=== PATIENT | male | born 1945 | race Asian ===

== ENCOUNTER 2016-05-26 11:49 | Inpatient (IN) | payer OTHER, MEDICARE ==
[2016-05-26] MEDS ORDERED: LETS SOLN TOPICAL 1 EA SYR TP ONE (12:28)
--- NOTE | 2016-05-26 13:09 | EDPHY ---
H & P Time Seen by Provider: 05/26/16 12:58 HPI/ROS: CHIEF COMPLAINT: left lower posterior headache, weakness HISTORY OF PRESENT ILLNESS: Patient is a 70-year-old male with a history of non -small cell lung cancer, currently undergoing chemotherapy, previous C diff colitis, who presents to the emergency department with multiple complaints. Patient states he has had left posterior lower headache for the past 2 weeks. It has been fairly constant but waxes and wanes. It has been worse today. He states when he has episodes of severe headache he also develops right arm weakness and is unable to raise it over his head. Underwent acupuncture for this symptom but is not improved. He had a fever last night to 100.0. His fever defervesced this morning. He has had nausea with no vomiting. 1 episode of diarrhea. This is not bloody or black. He describes generalized weakness over the past few days. He is unable to eat food because he has no appetite. REVIEW OF SYSTEMS: My complete review of systems is negative except as mentioned in the HPI. Past Medical/Surgical History: Includes non-small cell lung cancer, C diff colitis, coronary artery disease, hypertension Past surgical history: Includes left upper lobe resection, cholecystitis back to me secondary to a necrotic gallbladder, cardiac stent placement Family history: Noncontributory new Social history: The patient is and lives with his . He does not smoke or use alcohol. Smoking Status: Former smoker Physical Exam: Vitals noted. 37.1, 142/90, 122, 16, 92% on room air GENERAL: No acute distress, alert. HEENT: Eyes normal to inspection, normal pharynx, no signs of dehydration. NECK: No thyromegaly, no lymphadenopathy, supple. RESPIRATORY: decreased breath sounds left upper lobe. Right chest clear. CVS: Regular rate and rhythm, no rubs, murmurs, or gallops. ABDOMEN: Soft, nontender, nondistended, no organomegaly. BACK: Normal to inspection, no CVA tenderness. SKIN: Normal color, no rash, warm, dry. No pallor. EXTREMITIES: No pedal edema, no calf tenderness, no Homans sign or cords, no joint swelling. NEURO/PSYCH: Higher functions: Alert and Oriented x3. Normal speech and cognition. Normal mood and affect. Cranial nerves: Normal as tested. Cerebellar: Normal as tested. Good finger to nose, good [id number] Peripheral exam: Normal motor exam. Normal sensation. Constitutional: Initial Vital Signs Temperature (C) 37.1 C 05/26/16 12:00 Heart Rate 122 H 05/26/16 12:00 Respiratory Rate 16 05/26/16 12:00 Blood Pressure 142/90 H 05/26/16 12:00 O2 Sat (%) 92 05/26/16 12:00 O2 Delivery Mode Room Air O2 (L/minute) 2 Allergies/Adverse Reactions: allopurinol Allergy (Verified 03/07/16 22:51) amlodipine Allergy (Verified 03/07/16 22:51) atorvastatin calcium [From Lipitor] Allergy (Verified 03/07/16 22:51) Other-Enter Comments ezetimibe [From Zetia] Allergy (Verified 03/07/16 22:51) lisinopril Allergy (Verified 03/07/16 22:51) Other-Enter Comments losartan potassium [From Cozaar] Allergy (Verified 03/07/16 22:51) GOUT morphine Allergy (Verified 03/07/16 22:51) pitavastatin calcium [From Livalo] Allergy (Verified 03/07/16 22:51) pravastatin Allergy (Verified 03/07/16 22:51) rosuvastatin calcium [From Crestor] Allergy (Verified 03/07/16 22:51) spironolactone Allergy (Verified 03/07/16 22:51) Home Medications: Medication Instructions Recorded Ondansetron [Ondansetron Odt] 4 - 8 mg PO DAILY PRN 03/19/15 Metoprolol Succinate Xr [Toprol Xl 75 mg PO DAILY PRN 12/22/15 25 mg (*)] Gluc Oxid/l-Peroxid/Muramidase 5 - 10 ml MM DAILY PRN 01/30/16 [Biotene Mouthwash (*)] Aspirin [Aspirin 81mg (*)] 81 mg PO HS 03/08/16 Calcium Carbonate/Vitamin D3 1 each PO DAILY 03/08/16 [Calcium 600-Vit D3 400 Tablet] Chemotherapy Iv 1 ea IV Q14D 03/08/16 Magnesium Oxide 250 mg PO DAILY 03/08/16 predniSONE 10 mg PO BID 03/08/16 Methocarbamol [Robaxin 750 mg (*)] 750 mg PO Q6-8PRN PRN #60 tab 03/11/16 LORazepam [Ativan (*)] 1 mg PO TID PRN 04/05/16 Metronidazole 500 mg PO TID #42 tablet 04/07/16 Medical Decision Making - Diagnostics EKG Interpretation: Sinus tachycardia at 109. Normal axis. Normal intervals. Patient has significant transition at V2 with prominent R-wave. Flipped T-wave in V5. I compared this with the previous EKG from 02/20/2016. The R wave changes were present. ED Course/Re-evaluation: In the emergency department I took history from the patient and his . I discussed the plan and answered all their questions. IV was placed. Patient was given normal saline 1 L for hydration. Laboratory studies, EKG, head and neck CTs and chest x-ray were ordered. Patient's white count is elevated 13,000. Previous white count was 5000. He is mildly anemic. Patient's chemistry panel is unremarkable. His lactate is 1.5. I discussed the result with the patient. Chest x-ray: Please refer the dictated report. I discussed imaging studies with Dr. Hardwick from Radiology. The patient has a new right middle lobe lung pneumonia. There is old effusion present. I discussed the results and plan with patient. Levaquin 750 mg IV was written. I paged the hospitalist service for admission. Differential Diagnosis: My differential includes but is not limited to lung cancer, hemothorax, pneumothorax, empyema, pneumonia, bronchitis, subarachnoid hemorrhage, subdural hematoma, epidural hematoma, dissection, aneurysm, intracranial mass, electrolyte abnormality, sugar abnormality, ACS, acute AL Critical Care Time: Patient required 35 minutes of critical care time. This was exclusive of any unbundled procedure. This was due to the patient's altered vital signs, numerous complaints, extensive past medical history, need for consultation with Internal Medicine and oncology. I spent considerable time at the patient's bedside discussing the plan with the patient and his . - Data Points Laboratory Results: Laboratory Results 05/26/16 13:10 05/26/16 13:10 05/26/16 13:10 WBC 13.28 H 10^3/uL (3.80-9.50) RBC 4.09 L 10^6/uL (4.40-6.38) Hgb 13.6 L g/dL (13.7-17.5) Hct 39.8 L % (40.0-51.0) MCV 97.3 fL (81.5-99.8) MCH 33.3 pg (27.9-34.1) MCHC 34.2 g/dL (32.4-36.7) RDW 14.0 % (11.5-15.2) Plt Count 216 10^3/uL (150-400) MPV 9.0 fL (8.7-11.7) Neut % (Auto) 88.0 H % (39.3-74.2) Lymph % (Auto) 4.7 L % (15.0-45.0) [place] % (Auto) 6.5 % (4.5-13.0) Eos % (Auto) 0.0 L % (0.6-7.6) Baso % (Auto) 0.4 % (0.3-1.7) Nucleat RBC Rel Count 0.0 % (0.0-0.2) Absolute Neuts (auto) 11.70 H 10^3/uL (1.70-6.50) Absolute Lymphs (auto) 0.62 L 10^3/uL (1.00-3.00) Absolute Monos (auto) 0.86 H 10^3/uL (0.30-0.80) Absolute Eos (auto) 0.00 L 10^3/uL (0.03-0.40) Absolute Basos (auto) 0.05 10^3/uL (0.02-0.10) Absolute Nucleated RBC 0.00 10^3/uL (0-0.01) Immature Gran % 0.4 % (0.0-1.1) Immature Gran # 0.05 10^3/uL (0.00-0.10) PT 13.2 SEC (12.0-15.0) INR 1.01 (0.83-1.16) APTT 36.2 SEC (23.0-38.0) VBG Lactic Acid 1.5 mmol/L (0.7-2.1) Sodium 138 mEq/L (134-144) Potassium 4.1 mEq/L (3.5-5.2) Chloride 102 mEq/L (97-110) Carbon Dioxide 22 mEq/l (22-31) Anion Gap 14 mEq/L (8-16) BUN 15 mg/dL (7-23) Creatinine 0.9 mg/dL (0.7-1.3) Estimated GFR > 60 Glucose 138 H mg/dL (70-100) Calcium 8.9 mg/dL (8.5-10.4) Total Bilirubin 1.2 mg/dL (0.1-1.4) Medications Given: Discontinued Medications Sodium Chloride (Ns) 1,000 mls @ 0 mls/hr IV ONCE ONE PRN Reason: Wide Open Stop: 05/26/16 13:24 Last Admin: 05/26/16 13:27 Dose: 1,000 mls Tetracaine/Epinephrine/Lidocaine (Lets Soln Topical) 1 ea TP EDNOW ONE Stop: 05/26/16 12:29 Last Admin: 05/26/16 12:30 Dose: 1 ea Departure - Departure Disposition: [facility] Inpatient Acute Clinical Impression: Weakness, Neck pain, Pneumonia Condition: Good Referrals: Julián Mijares MD [Primary Care Provider] - As per Instructions
[2016-05-26 13:21] LABS: % IMMATURE GRANULYOCYTES 0.4 % (0.0-1.1); ABSOLUTE IMMATURE GRANULOCYTES 0.05 10^3/uL (0.00-0.10); ADD DIFF? NO; ADD MORPH? NO; ADD SCAN? NO; ATYPICAL LYMPHOCYTE FLAG 0 (0-99); FRAGMENT RBC FLAG 0 (0-99); HEMATOCRIT 39.8 % (40.0-51.0); HEMOGLOBIN 13.6 g/dL (13.7-17.5); LEFT SHIFT FLG 0 (0-99); LIPEMIA HEMOLYSIS FLAG 90 (0-99); MEAN CELL HEMOGLOBIN 33.3 pg (27.9-34.1); MEAN CELL HEMOGLOBIN CONCENTR. 34.2 g/dL (32.4-36.7); MEAN CELL VOLUME 97.3 fL (81.5-99.8); PLATELET CLUMPS FLAG 0 (0-99); PLATELET COUNT 216 10^3/uL (150-400); RED BLOOD CELL COUNT 4.09 10^6/uL (4.40-6.38)
[2016-05-26] MEDS ORDERED: NS 1,000 ML IV ONE (13:23)
[2016-05-26 13:30] LABS: INR 1.01 (0.83-1.16); PROTIME(PATIENT) 13.2 SEC (12.0-15.0)
[2016-05-26 13:31] LABS: APTT 36.2 SEC (23.0-38.0)
--- NOTE | 2016-05-26 13:37 | CPEKG ---
Heart Rate: 109 RR Interval: 550 P-R Interval: 184 QRSD Interval: 92 QT Interval: 324 QTC Interval: 437 P Drummond: 39 QRS Drummond: 25 T Wave Drummond: 181 EKG Severity - ABNORMAL ECG - EKG Impression: SINUS TACHYCARDIA EKG Impression: PROBABLE POSTERIOR INFARCT EKG Impression: NONSPECIFIC T ABNORMALITIES, LATERAL LEADS Electronically Signed By: Lea Ramirez 26-May-2016 21:53:05
[2016-05-26 13:42] LABS: ANION GAP 14 mEq/L (8-16); BILIRUBIN,TOTAL 1.2 mg/dL (0.1-1.4); CALCIUM 8.9 mg/dL (8.5-10.4); CARBON DIOXIDE 22 mEq/l (22-31); CHLORIDE 102 mEq/L (97-110); CREATININE 0.9 mg/dL (0.7-1.3); GLOMERULAR FILTRATION RATE > 60; GLUCOSE 138 mg/dL (70-100); POTASSIUM 4.1 mEq/L (3.5-5.2); SODIUM 138 mEq/L (134-144)
[2016-05-26] MEDS ORDERED: IOPAMIDOL (ISOVUE 370) 100 ML BTL IV ONE (13:45)
--- NOTE | 2016-05-26 13:53 | DX ---
PA and Lateral Chest - May 26, 2016 Clinical Indications: Suspected infection, meets sepsis criteria. Findings: There is an early infiltrate in the right mid lung laterally. Port catheter tip terminates over the right atrium. Left effusion is unchanged. The heart and pulmonary vessels are normal. There are no pleural effusions and no pneumothorax. The bones are unremarkable for this age. Impression: Early infiltrate right midlung. Critical results relayed by Dr. Nas Ramirez, on May 26, 2016, at 1350 hours.
--- NOTE | 2016-05-26 15:10 | PDGENHP ---
History and Physical History and Physical: CC: Fever, Cough, Headache HISTORY: This is a 70-year-old male with history of non-small cell lung cancer status post left upper lobe resection currently undergoing chemotherapy presented to the emergency department today with fevers that started yesterday. This fever was accompanied with a dry nonproductive cough. He denies any shortness of breath. Denies any nausea vomiting or diarrhea. His appetite has been very poor. He developed a left-sided sharp pounding headache and neck pain over the past few days as well. Denies any trauma. He denies any nuchal rigidity. Denies any focal numbness or weakness but reports feeling weak all over. Patient recently had a [facility] for which she has not review the results. PAST MEDICAL/Surgical HISTORY: -Non-small cell lung cancer stage IIIA status post left upper lobe resection currently receiving chemotherapy -Necrotic gallbladder with acute cholecystitis and cholecystectomy earlier this year -Coronary artery disease with a stent -Hypertension -1 episode of C difficile colitis which was more than a year ago - Hospitalization in March of 2016 for acute gastroenteritis and C diff enteritis - history of Morganella morganii bacteremia MEDICATIONS: These have been reconciled by the pharmacy team and I have reviewed the list and have ordered the appropriate medicines at this time Allergies: Were reviewed refer to [employer] for details SOCIAL HISTORY: and lives with his who is here with him at the bedside and very supportive. 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 FAMILY MEDICAL HISTORY: I reviewed family history and there are no illnesses pertinent to his current situation Review Of Systems: Comprehensive 10 point review systems was done and is negative except for as mentioned in the HPI and below cardiovascular: Patient reports some chest pain associated with coughing PHYSICAL EXAMINATION: 05/26/16 12:00 Heart Rate 122 H Respiratory 16 Rate O2 Sat (%) 92 Temperature (C) 37.1 C Blood Pressure 142/90 H Examination: General: alert, oriented, good mentation, relaxed Skin: warm, dry, good color, no rash HEENT: he has some facial swelling due to his steroids diffusely, tympanic membranes are intact without signs of infection Neck: no mass or jvd ; there is no meningismus neck is supple Lungs: decreased breath sounds left lung field there is no wheezes rales or rhonchi ; no dullness to percussion; no increased respiratory effort Heart: tachycardic S1-S2 no JVD no lower extremity edema Abdomen: soft, nondistended, nontender, +BS, no mass Upper Extremities: normal Lower Extremities: no edema, warm integument: No Bleeding or bruising Neurologic: normal speech/language, normal sign painter, no focal weakness Diagnostics: Laboratory Tests 05/26/16 13:10 WBC 13.28 H Hgb 13.6 L Hct 39.8 L Plt Count 216 PT 13.2 INR 1.01 APTT 36.2 VBG Lactic Acid 1.5 Sodium 138 Potassium 4.1 Chloride 102 Carbon Dioxide 22 Anion Gap 14 BUN 15 Creatinine 0.9 Estimated GFR > 60 Glucose 138 H Calcium 8.9 Visualized and personally interpreted the chest x-ray which shows: Impression: Early infiltrate right midlung CT angio of the head and neck as well CT of the head are currently pending Assessment/Plan: This is a 70-year-old male with history of lung cancer presenting with: # sepsis without signs of severe sepsis or septic shock due to below # suspect community-acquired pneumonia with early infiltrate seen on chest x- ray versus influenza # headache and neck pain which I suspect is due to his acute illness. He does not appear to have meningitis by exam. # history coronary artery disease # history of hypertension Plan: - test for influenza by PCR - continue levofloxacin as ordered in the emergency department and follow up blood cultures - follow-up pending head CT and CT angio of the neck - will review PET-[facility] done [facility] with the radiologist's - continue home blood pressure medications as tolerated Disposition: Patient will be admitted the hospital under inpatient status . Low-molecular weight heparin will be ordered for DVT prophylaxis
[2016-05-26] MEDS ORDERED: PROMETHAZINE HCL 25 MG/ML VIAL IVP PRN (15:20)
[2016-05-26] MEDS ORDERED: ONDANSETRON 4 MG/2 ML VIAL IVP PRN (15:20)
[2016-05-26] MEDS ORDERED: ACETAMINOPHEN 325 MG TAB PO PRN (15:20)
[2016-05-26] MEDS ORDERED: BIOTENE DRY MOUTH MOUTHWASH 237 ML BTL MM PRN (15:21)
--- NOTE | 2016-05-26 15:28 | CT ---
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 Technique: Axial CT images were acquired from the foramen magnum through the skull vertex, without i ntravenous contrast. Soft tissue, subdural, and bone windows were reviewed on the computer workstati on. Images were reformatted at 5.00 and 1.50 mm increments, and are reformatted in sagittal and prakash nal planes. DFOV is 25.0 cm. Dose reduction techniques were utilized. Comparison Studies: The patient also had CTA of the head and neck (which followed this exam), and thi s is also correlated with unenhanced and enhanced CT imaging of the head dated January 29, 2016. Findings: There are no new mass lesions identified, and there is no evidence of an acute or subacute intracranial hemorrhage, or an acute infarct. There is mild prominence of the ventricles and the basi lar cisterns with cortical sulcal widening, consistent with mild age-related cervical atrophy. There is some periventricular diminished attenuation, consistent with chronic microvascular ischemic gliosi s. Bilateral dense basal ganglia calcifications are stable from before. The bone windows reveal no s ign of a fracture, and there is no lytic or blastic lesion. There is some mural atherosclerotic calci fication of the vertebral arteries, and of the cavernous carotid arteries. There is some minimal agricultural specialist chan mucosal thickening of the maxillary sinuses, mild thickening of the ethmoid sinuses, and the fron lor and sphenoid sinuses are relatively patent, as are the mastoids. The craniocervical junction, pin eal gland, and the orbits are unremarkable. There is a partially empty sella turcica. If there is con tinuing clinical concern regarding the patient's symptoms, perhaps MR imaging could be considered, if otherwise not contraindicated. Impression: No acute intracranial abnormality identified on this unenhanced CT scan, or substantial c hange from the previous study of January 29, 2016. Results were discussed with Dr. Lea Ramirez. A test result has been communicated to a licensed care provider and documented in [employer], 3:26:48 PM , 05/26/2016, [employer] Message ID [id number].
--- NOTE | 2016-05-26 15:36 | CT ---
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 Technique: A timing bolus was used. The patient received 90 mL of IV Isovue-370 without complication, and a multidetector helical CT scan was obtained from the level of the aortic arch cephalad to the s kull vertex during peak systemic arterial phase, with images reformatted at 0.75-mm increments, and r eviewed at a variety of window and level settings. Multiplanar reconstructions were reviewed on the w orkstation as well. The DFOV is 23.5 cm. Dose reduction protocol was used. Comparison Studies: Unenhanced CT imaging of the brain performed today, and contrast-enhanced CT imag ing of the brain dated January 29, 2016. Findings: CT ANGIOGRAPHY OF THE NECK: There is extensive atherosclerotic calcification associated with the aor tic arch and the origins of the great vessels, which have a normal anatomic arrangement off of the ao rtic arch. There is some mural thickening associated with the aortic arch. There is dense atheroscler otic calcification associated with the origin of the right and the left vertebral arteries, with high -grade ostial stenoses; however, the vertebral arteries beyond the level of each ostium are patent, a nd the left vertebral artery is the more dominant of the 2 vessels. There is extensive calcific ather osclerotic plaque involving the carotid bulbs and bifurcations. There is a 68% mean diameter stenosis of the proximal right internal carotid artery and a 54% mean diameter adenosis of the left internal carotid artery. CT source images reveal some centrilobular emphysema in the lung apices. The visualized prevertebral soft tissues are unremarkable. There is no cervical lymphadenopathy. There is multilevel degenerative disease throughout the cervical spine, with disk space narrowing at C3-C4, C4-C5, C5-C6, and C6-C7, and accompanying uncovertebral osteophytosis and facet hypertrophy, resulting in significant neural f oraminal stenoses at each of these levels. If there further additional clinical concern, MR imaging c ould be considered. Impression: 1. Extensive calcific atherosclerotic disease with high-grade ostial stenoses of the right and left v ertebral arteries; however, the vessels are patent beyond this level, and the left vertebral artery i s the more dominant of the 2 vessels. 2. There is an estimated 68% mean diameter stenosis of the proximal right internal carotid artery, an d a 54% mean diameter stenosis of the proximal left internal carotid artery. 3. Multilevel advanced degenerative disease, most pronounced from C3-C4 through C6-C7, with accompany ing neural foraminal stenoses, which could be further evaluated with MR imaging, if clinically direct ed. CT ANGIOGRAPHY OF THE BRAIN: The distal cervical portions of the vertebral arteries are patent; vasquez cali, at the skull base, there is a high-grade stenosis of the left vertebral artery (on series 5, ry ge 400). The vessel is patent beyond this level. The inferior and superior cerebellar arteries are pa tent. The basilar tip and the posterior cerebral arteries are patent. There is some circulatory variant inflow from patent posterior communicating arteries off the supraclinoid ICAs, which provide inflow to the posterior cerebral arteries. The distal cervical and the petrous portions of the carot id arteries are patent. There is extensive atherosclerotic calcification associated with the cavernou s portions, and also of the proximal supraclinoid portions. The A1 and A2 segments, the anterior comm unicating artery, and the M1, M2, and M3 trifurcation vessels are patent. There is no unusual parench ymal or leptomeningeal enhancement. The dural venous sinuses appear patent. Impression: 1. The cavernous and proximal supraclinoid segment portions of the internal carotid arteries are nota ble for atherosclerotic calcifications without significant stenosis. 2. There is a high-grade stenosis of the left vertebral artery at the skull base, although the basila r artery is patent. 3. There is no unusual parenchymal or leptomeningeal enhancement to suggest supra- or infratentorial metastatic disease. Results were discussed with Dr. Lea Ramirez. A test result has been communicated to a licensed care provider and documented in [employer], 3:23:24 PM , 05/26/2016, [employer] Message ID [id number]. Measurement of carotid stenosis is based on velocity parameters that correlate the residual internal carotid diameter with [place] Symptomatic Carotid Endarterectomy Trial (NASCET) based stenosis levels.
[2016-05-26] MEDS: METHOCARBAMOL 750 MG TAB PO PRN (18:23)
[2016-05-27] MEDS: ASPIRIN 81 MG CHEWABLE TAB PO SCH ×2 (00:01→20:28)
[2016-05-27 05:42] LABS: % IMMATURE GRANULYOCYTES 0.3 % (0.0-1.1); ABSOLUTE IMMATURE GRANULOCYTES 0.03 10^3/uL (0.00-0.10); ADD DIFF? NO; ADD MORPH? NO; ADD SCAN? NO; ATYPICAL LYMPHOCYTE FLAG 0 (0-99); FRAGMENT RBC FLAG 0 (0-99); HEMATOCRIT 37.5 % (40.0-51.0); HEMOGLOBIN 12.8 g/dL (13.7-17.5); LEFT SHIFT FLG 0 (0-99); LIPEMIA HEMOLYSIS FLAG 90 (0-99); MEAN CELL HEMOGLOBIN 33.9 pg (27.9-34.1); MEAN CELL HEMOGLOBIN CONCENTR. 34.1 g/dL (32.4-36.7); MEAN CELL VOLUME 99.2 fL (81.5-99.8); MEAN PLATELET VOLUME 9.3 fL (8.7-11.7); PLATELET CLUMPS FLAG 0 (0-99); PLATELET COUNT 196 10^3/uL (150-400); RED BLOOD CELL COUNT 3.78 10^6/uL (4.40-6.38)
[2016-05-27 05:59] LABS: ANION GAP 12 mEq/L (8-16); CALCIUM 8.7 mg/dL (8.5-10.4); CARBON DIOXIDE 25 mEq/l (22-31); CHLORIDE 104 mEq/L (97-110); GLOMERULAR FILTRATION RATE > 60; GLUCOSE 104 mg/dL (70-100); POTASSIUM 4.1 mEq/L (3.5-5.2); SODIUM 141 mEq/L (134-144)
[2016-05-27] MEDS: METOPROLOL SUCCINATE XR 25 MG TAB PO SCH (09:09)
[2016-05-27] MEDS: ENOXAPARIN 40 MG/0.4 ML SYR SC SCH (09:19)
[2016-05-27] MEDS: predniSONE 5 MG TAB PO SCH (09:21)
[2016-05-27] MEDS ORDERED: IBUPROFEN 600 MG TAB PO PRN (10:16)
--- NOTE | 2016-05-27 10:16 | HOSPPROG ---
Hospitalist Progress Note Assessment/Plan: This is a 70-year-old male with history of lung cancer presenting with: # sepsis without signs of severe sepsis or septic shock due to below (resolved) # suspect community-acquired pneumonia with early infiltrate seen on chest x- ray (flu negative) # headache and neck pain which I suspect is due to his acute illness. (improved ) # history coronary artery disease (stable) #h/o lung ca -I reviewed PET CT done lasts week at [facility] with radiology which did not reveal any active malignancy # history of hypertension #h/o Cdiff Plan: - continue levofloxacin - continue home blood pressure medications as tolerated -start po vanco for prophylaxis while on levaquin Disposition: Patient will be admitted the hospital under inpatient status . Low-molecular weight heparin will be ordered for DVT prophylaxis Subjective: no fever. reports some right sided chest pain. tolerating diet. no diarrhea Objective: Vital Signs Temp Pulse Resp BP Pulse Ox 36.6 C 96 18 154/76 H 91 L 05/27/16 09:03 05/27/16 09:03 05/27/16 09:03 05/27/16 09:03 05/27/16 09:03 Laboratory Results 05/27/16 05:30 05/27/16 05:30 05/26/16 05/27/16 05/28/16 05:59 05:59 05:59 Intake Total 2049 Output Total 550 Balance 1500 PT 13.2 SEC (12.0-15.0) 05/26/16 13:10 INR 1.01 (0.83-1.16) 05/26/16 13:10 - Physical Exam Constitutional: no apparent distress, appears nourished, not in pain Ears, Nose, Mouth, Throat: moist mucous membranes, hearing normal, ears appear normal, no oral mucosal ulcers Cardiovascular: regular rate and rhythym, no murmur, rub, or gallop Respiratory: no respiratory distress, no rales or rhonchi, clear to auscultation , reduced air movement (left lower lobe) Gastrointestinal: normoactive bowel sounds, soft, non-tender abdomen, no palpable masses Skin: no rashes or abrasions, no fluctuance, no induration ICD10 Worksheet Patient Problems: Problems Problem Status Diagnosed RUQ abdominal pain Acute Dysphagia, oropharyngeal Acute On total parenteral nutrition (TPN) Acute C. difficile diarrhea Acute 04/05/16 Dehydration Acute Diarrhea Acute Hypocalcemia Acute Hypokalemia Acute Hypomagnesemia Acute Nausea & vomiting Acute Neck pain Acute Pneumonia Acute Weakness Acute Fever Acute Gout Acute Lung cancer Acute Non-small cell cancer of left lung Chronic 08/31/14 CAD (coronary artery disease) Chronic Dyslipidemia Chronic
[2016-05-27] MEDS: VANCOMYCIN 125 MG/2.5 ML UDL PO SCH ×2 (12:10→20:10)
[2016-05-27] MEDS: BENZONATATE 100 MG CAP PO PRN ×2 (16:12→22:40)
[2016-05-27] MEDS: guaiFENesin 600 MG TAB.ER PO SCH ×2 (16:15→20:09)
[2016-05-27] MEDS: CEPACOL LOZENGE PO PRN ×2 (20:45→22:40)
[2016-05-28] MEDS: METHOCARBAMOL 750 MG TAB PO PRN (01:46)
[2016-05-28] MEDS: BENZONATATE 100 MG CAP PO PRN ×3 (01:46→21:38)
[2016-05-28] MEDS ORDERED: guaiFENesin 200 MG/10 ML UDCUP PO PRN (04:12)
[2016-05-28 05:13] LABS: % IMMATURE GRANULYOCYTES 0.4 % (0.0-1.1); ABSOLUTE IMMATURE GRANULOCYTES 0.03 10^3/uL (0.00-0.10); ADD DIFF? NO; ADD MORPH? NO; ADD SCAN? NO; ATYPICAL LYMPHOCYTE FLAG 20 (0-99); FRAGMENT RBC FLAG 0 (0-99); HEMATOCRIT 38.7 % (40.0-51.0); HEMOGLOBIN 12.6 g/dL (13.7-17.5); LEFT SHIFT FLG 0 (0-99); LIPEMIA HEMOLYSIS FLAG 80 (0-99); MEAN CELL HEMOGLOBIN 33.1 pg (27.9-34.1); MEAN CELL HEMOGLOBIN CONCENTR. 32.6 g/dL (32.4-36.7); MEAN CELL VOLUME 101.6 fL (81.5-99.8); MEAN PLATELET VOLUME 9.4 fL (8.7-11.7); PLATELET CLUMPS FLAG 0 (0-99); PLATELET COUNT 218 10^3/uL (150-400); RED BLOOD CELL COUNT 3.81 10^6/uL (4.40-6.38); RED CELL DISTRIBUTION WIDTH 13.9 % (11.5-15.2)
[2016-05-28 05:24] LABS: ANION GAP 11 mEq/L (8-16); CARBON DIOXIDE 24 mEq/l (22-31); CHLORIDE 102 mEq/L (97-110); CREATININE 1.1 mg/dL (0.7-1.3); GLOMERULAR FILTRATION RATE > 60; GLUCOSE 95 mg/dL (70-100); POTASSIUM 4.2 mEq/L (3.5-5.2); SODIUM 137 mEq/L (134-144)
[2016-05-28] MEDS: ENOXAPARIN 40 MG/0.4 ML SYR SC SCH (09:20)
[2016-05-28] MEDS: METOPROLOL SUCCINATE XR 25 MG TAB PO SCH (09:20)
[2016-05-28] MEDS: guaiFENesin 600 MG TAB.ER PO SCH ×2 (09:21→20:15)
[2016-05-28] MEDS: VANCOMYCIN 125 MG/2.5 ML UDL PO SCH ×4 (09:21→20:15)
[2016-05-28] MEDS: predniSONE 5 MG TAB PO SCH (09:21)
--- NOTE | 2016-05-28 10:16 | HOSPPROG ---
Hospitalist Progress Note Assessment/Plan: This is a 70-year-old male with history of lung cancer presenting with: # sepsis without signs of severe sepsis or septic shock due to below (resolved) # suspect community-acquired pneumonia with early infiltrate seen on chest x- ray (flu negative) - Continue levofloxacin day 3 - trial Robitussin with codeine to be used at night for cough # headache and neck pain which I suspect is due to his acute illness. (improved ) # history coronary artery disease (stable) #h/o lung ca -I reviewed PET CT done lasts week at [facility] with radiology which did not reveal any active malignancy # history of hypertension - continue home blood pressure medications #h/o Cdiff now having diarrhea since starting levofloxacin - patient was started on prophylactic dosing of vancomycin on 05/27/2016. 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 hill from associated Neu[facility] who is recommending medical management at this time. He is currently On aspirin therapy and is recommended to be on statin therapy however the patient is intolerant of statin medications. Patient should have further follow-up of his carotid disease with his primary care provider or with Dr. Terrell. He should follow-up of his carotid artery stenosis with Dr. Preston as well. Disposition: continue inpatient care given patient's persistent cough and malaise. Low-molecular weight heparin will be ordered for DVT prophylaxis Subjective: Patient feels awful day. He reports severe cough which is keeping him from sleeping. His voice is gone course. He reports a pleuritic chest pain with coughing. He is using some cough drops which have helped. Tessalon Perles are not helping. He tells me that he has taken medicine codeine worked. He started having diarrhea this morning Objective: Vital Signs Temp Pulse Resp BP Pulse Ox 36.6 C 84 20 121/80 H 95 05/28/16 08:30 05/28/16 09:20 05/28/16 08:30 05/28/16 09:20 05/28/16 08:30 Laboratory Results 05/28/16 04:50 05/28/16 04:50 05/27/16 05/28/16 05/29/16 05:59 05:59 05:59 Intake Total 0 370 Output Total 550 100 Balance 1500 270 PT 13.2 SEC (12.0-15.0) 05/26/16 13:10 INR 1.01 (0.83-1.16) 05/26/16 13:10 - Physical Exam Constitutional: no apparent distress, appears nourished, not in pain Ears, Nose, Mouth, Throat: moist mucous membranes, hearing normal, ears appear normal, no oral mucosal ulcers Cardiovascular: regular rate and rhythym, no murmur, rub, or gallop Respiratory: no respiratory distress, no rales or rhonchi, clear to auscultation , rhonchi Gastrointestinal: normoactive bowel sounds, soft, non-tender abdomen, no palpable masses, No guarding, No rebound Genitourinary: no bladder fullness, no bladder tenderness, no renal bruits Neurologic: AAOx3, sensation intact bilaterally Psychiatric: interacting appropriately, not anxious, not encephalopathic, thought process linear ICD10 Worksheet Patient Problems: Problems Problem Status Diagnosed RUQ abdominal pain Acute Dysphagia, oropharyngeal Acute On total parenteral nutrition (TPN) Acute C. difficile diarrhea Acute 04/05/16 Dehydration Acute Diarrhea Acute Hypocalcemia Acute Hypokalemia Acute Hypomagnesemia Acute Nausea & vomiting Acute Neck pain Acute Pneumonia Acute Weakness Acute Fever Acute Gout Acute Lung cancer Acute Non-small cell cancer of left lung Chronic 08/31/14 CAD (coronary artery disease) Chronic Dyslipidemia Chronic
[2016-05-28] MEDS ORDERED: POTASSIUM Cl (KCl) 20 MEQ in 1/2 NS 1,000 ML IV SCH (13:30)
--- NOTE | 2016-05-28 15:47 | GCON ---
[f rep st] CONSULTATION DATE OF CONSULTATION: 05/28/2016 REASON FOR CONSULTATION: Metastatic lung cancer. PRIMARY ONCOLOGIST: Eran Piedra MD HISTORY OF PRESENT ILLNESS: The patient is a 70-year-old gentleman who was initially diagnosed as st age IIIA in July 2014. He underwent surgical resection and then adjuvant chemotherapy. He then dev eloped recurrence and more recently has been on nivolumab. His primary issue related to nivolumab wa s pneumonitis, for which he was treated with steroids. When he had the steroids tapered down, he was restarted on nivolumab, but at a lower dose. Other treatments included CyberKnife. His last dose w as on May 15, and he had a recent PET scan and was scheduled to come in tomorrow for a next do se. He was admitted to the hospital with cough and shortness of breath and associated fever. Chest x-ray showed a possible localized infiltrate, so he was started on antibiotics. He also had an associated left-sided headache and neck pain with some left-sided localized weakness in his upper extremity. I believe that has resolved. ALLERGIES: He has multiple allergies, including allopurinol, amlodipine, atorvastatin, Zetia, lisino pril, losartan, morphine, pitavastatin, pravastatin, rosuvastatin, and spironolactone. HOME MEDICATIONS: 1. Prednisone 5 mg daily. 2. Metoprolol 50 mg daily. 3. Robaxin as needed. 4. Biotin mouthwash. 5. Aspirin. PAST MEDICAL HISTORY: Non-small cell lung cancer as described above, coronary artery disease, status post stenting, hypertension, history of Clostridium difficile, history of drug-induced pneumonitis. PAST SURGICAL HISTORY: Cholecystectomy, left upper lobectomy, stent placement in coronary arteries. SOCIAL HISTORY: Previous heavy smoker, quit in 2012. Previous alcohol consumption in the past. He is . He is originally of [place] descent, but lived most of his life in [place]. FAMILY HISTORY: Sister of lung cancer. REVIEW OF SYSTEMS: A 10-point review of systems was performed. Pertinent positives in HPI, otherwis e negative. PHYSICAL EXAMINATION: VITAL SIGNS: Temperature 36.6, pulse 84, blood pressure 121/80. There was no fever when he was in the ER, but his heart rate was 122 at the time. GENERAL APPEARANCE: He is a w ell-appearing [place] man in no distress, although he does have an occasional dry cough. HEENT: Unre markable. LUNGS: Decreased bilaterally without rhonchi. CARDIAC: Regular. ABDOMEN: Soft. EXTRE MITIES: Nontender. NEUROLOGIC: Grossly intact. LABORATORY DATA: White count was elevated on arrival, now normal; hemoglobin 12.6; platelet count no rmal. Chemistries are unremarkable. Serology negative for flu. CTA of his neck showed extensive ca lcified atherosclerotic disease with high-grade ostial stenosis of the right and left vertebral arter ies and also narrowing of his carotid arteries and degenerative disk disease. Chest x-ray showed a r ight mid lung infiltrate. Cultures are negative so far. Recent PET scan showed no evidence of metas tatic or active cancer. IMPRESSION: 1. Acute pulmonary illness, probably infectious, as he has improved rapidly with antibiotics. 2. History of pneumonitis on low-dose steroids. 3. Metastatic non-small cell lung cancer on nivolumab. 4. Narrowed vertebral arteries with possible neurological complaints. He is being seen by Vascular Surgery. RECOMMENDATIONS: At this point, the cancer is under good control and I agree with treating him for a n infection. If he were to need vascular surgery, there would be no absolute contraindication from a n oncological standpoint. He is due to chemotherapy tomorrow, but I have recommended that he just de lay that until next week. I discussed the findings of his PET scan with the patient and his , an d we will be available for questions or concerns during his hospitalization. /[id number]/MODL
[2016-05-28] MEDS: guaiFENesin/CODEINE PHOS 10 ML UDCUP PO PRN ×2 (16:13→21:38)
[2016-05-28] MEDS: CEPACOL LOZENGE PO PRN ×2 (16:17→21:38)
[2016-05-28] MEDS: ASPIRIN 81 MG CHEWABLE TAB PO SCH (20:06)
[2016-05-29] MEDS: CEPACOL LOZENGE PO PRN ×2 (03:33→09:31)
[2016-05-29] MEDS: guaiFENesin/CODEINE PHOS 10 ML UDCUP PO PRN ×2 (03:33→09:30)
[2016-05-29] MEDS: BENZONATATE 100 MG CAP PO PRN ×2 (03:33→09:31)
[2016-05-29] MEDS: VANCOMYCIN 125 MG/2.5 ML UDL PO SCH ×4 (05:40→20:34)
[2016-05-29] MEDS: METOPROLOL SUCCINATE XR 25 MG TAB PO SCH (09:07)
[2016-05-29] MEDS: predniSONE 5 MG TAB PO SCH (09:07)
[2016-05-29] MEDS: guaiFENesin 600 MG TAB.ER PO SCH ×2 (09:07→20:34)
[2016-05-29] MEDS: ENOXAPARIN 40 MG/0.4 ML SYR SC SCH (09:07)
--- NOTE | 2016-05-29 13:40 | HOSPPROG ---
Hospitalist Progress Note Assessment/Plan: 70 yo M with hx of lung cancer presenting with CAP and sepsis # sepsis: 2/2 pna and improved, HD stable, abx as next # CAP: CXR personally reviewed showing right mid lung infiltrate, patient clinically improving slowly--still with significant cough but minimal production. Continue levofloxacin for now. Flu negative. # h/o pneumonitis: continued on low dose steroids, may be contributing to cough # carotid artery stenosis: with 70% stenosis of R ICA that will need surgical intervention when medically stable. Preston aware. Has high grade stenosis of vertebral artery on left as well. # metastatic NSCLD: currently on nivolomab, PET scan showing good response, appreciate onc evaluation # ARELLANO/neck pain: improved, imaging with arterial stenosis as above but no other acute findings to explain those sxs. Likely related to acute illness. # dispo: IP status, will need another 24-48 hours stay for eval/mgmt of above Patient new to my care. Old records reviewed and summarized as above. Care plan reviewed with patient and his at length. Subjective: no significant overnight events, patient notes that yesterday he felt awful, today feels a bit better but still coughing a lot and fatigued Objective: Vital Signs Temp Pulse Resp BP Pulse Ox 36.6 C 84 15 111/76 93 05/29/16 07:29 05/29/16 09:07 05/29/16 07:29 05/29/16 09:07 05/29/16 07:29 Laboratory Results 05/28/16 04:50 05/28/16 04:50 05/28/16 05/29/16 05/30/16 05:59 05:59 05:59 Intake Total 370 1782 Output Total 100 Balance 270 1782 PT 13.2 SEC (12.0-15.0) 05/26/16 13:10 INR 1.01 (0.83-1.16) 05/26/16 13:10 awake alert nad anicteric op clear rrr no mrg cta b dec at bases soft nt nd no cce warm dry well perfused oriented appropriate - Time Spent With Patient Time Spent with Patient: greater than 35 minutes Time Spent with Patient: Greater than 35 minutes spent on this patients care, greater than 50% of time spent counseling, educating, and coordinating care regarding the above mentioned plan. ICD10 Worksheet Patient Problems: Problems Problem Status Diagnosed RUQ abdominal pain Acute Dysphagia, oropharyngeal Acute On total parenteral nutrition (TPN) Acute C. difficile diarrhea Acute 04/05/16 Dehydration Acute Diarrhea Acute Hypocalcemia Acute Hypokalemia Acute Hypomagnesemia Acute Nausea & vomiting Acute Neck pain Acute Pneumonia Acute Weakness Acute Fever Acute Gout Acute Lung cancer Acute Non-small cell cancer of left lung Chronic 08/31/14 CAD (coronary artery disease) Chronic Dyslipidemia Chronic
[2016-05-29] MEDS ORDERED: BISACODYL 10 MG SUPP PR PRN (13:44)
[2016-05-29] MEDS ORDERED: POLYETHYLENE GLYCOL 3350 17 GM PKT PO PRN (13:44)
[2016-05-29] MEDS ORDERED: LACTULOSE 20 GM/30 ML UDCUP PO PRN (13:44)
[2016-05-29] MEDS ORDERED: MAGNESIUM HYDROXIDE 30 ML UDCUP PO PRN (13:44)
[2016-05-29] MEDS: ALBUTEROL 3 ML DEYVIAL IH PRN ×2 (16:14→20:53)
[2016-05-29] MEDS: ACETYLCYSTEINE 10% 30 ML VIAL IH SCH ×2 (16:15→20:53)
--- NOTE | 2016-05-29 16:28 | SOAPPROG ---
SOJARON Progress Note Assessment/Plan: Assessment: SEEN YESTERDAY AND TODAY PT HAS VAGUE NEURO SX TRANSIENTLY CTA SHOWS 70% RT CAROTID STENOSIS AND BILAT VERTEBRAL OSTIAL STENOSES PRESENTLY WITH IMPROVING RML PNEUMONIA PET - FOR RESIDUAL LUNG CA LITTLE TO DO FOR VERTEBRAL STENOSES BUT CAROTID SHOULD BE FIXED ELECTIVELY RISKS AND OPTIONS FULLY DISCUSSED Plan: RT CEA WHEN MEDICALLY CLEARED 05/29/16 16:24 Objective: Vital Signs Temp Pulse Resp BP Pulse Ox 36.6 C 84 15 111/76 93 05/29/16 07:29 05/29/16 09:07 05/29/16 07:29 05/29/16 09:07 05/29/16 07:29 Laboratory Results 05/28/16 04:50 05/28/16 04:50 05/28/16 05/29/16 05/30/16 05:59 05:59 05:59 Intake Total 370 1782 Output Total 100 Balance 270 1782 PT 13.2 SEC (12.0-15.0) 05/26/16 13:10 INR 1.01 (0.83-1.16) 05/26/16 13:10 ICD10 Worksheet Patient Problems: Problems Problem Status Diagnosed RUQ abdominal pain Acute Dysphagia, oropharyngeal Acute On total parenteral nutrition (TPN) Acute C. difficile diarrhea Acute 04/05/16 Dehydration Acute Diarrhea Acute Hypocalcemia Acute Hypokalemia Acute Hypomagnesemia Acute Nausea & vomiting Acute Neck pain Acute Pneumonia Acute Weakness Acute Fever Acute Gout Acute Lung cancer Acute Non-small cell cancer of left lung Chronic 08/31/14 CAD (coronary artery disease) Chronic Dyslipidemia Chronic
[2016-05-29] MEDS: SENNOSIDES/DOCUSATE SODIUM TAB PO SCH (20:34)
[2016-05-29] MEDS: ASPIRIN 81 MG CHEWABLE TAB PO SCH (20:34)
[2016-05-30] MEDS: VANCOMYCIN 125 MG/2.5 ML UDL PO SCH (05:35)
[2016-05-30] MEDS: ALBUTEROL 3 ML DEYVIAL IH PRN ×2 (06:08→10:40)
[2016-05-30] MEDS: ACETYLCYSTEINE 10% 30 ML VIAL IH SCH ×2 (06:08→10:40)
[2016-05-30 07:27] VITALS: BP 103/61; TEMP 97.8
[2016-05-30] MEDS: guaiFENesin 600 MG TAB.ER PO SCH (08:46)
[2016-05-30] MEDS: SENNOSIDES/DOCUSATE SODIUM TAB PO SCH (08:46)
[2016-05-30] MEDS: METOPROLOL SUCCINATE XR 25 MG TAB PO SCH (08:46)
[2016-05-30] MEDS: predniSONE 5 MG TAB PO SCH (08:46)
[2016-05-30] MEDS: ENOXAPARIN 40 MG/0.4 ML SYR SC SCH (08:48)
--- NOTE | 2016-05-30 10:19 | PDDCSUM ---
Discharge Summary Discharge Summary: Dates of service 05/26-05/30/16 Hospital course by problem: # sepsis: 2/2 pna and improved, HD stable, abx as next # CAP: with right mid lung infiltrate, clinically improved, will dc on levofloxacin # hx of c diff: on suppressive oral vanco while on abx, not having diarrhea # h/o pneumonitis: continued on low dose steroids, may be contributing to cough # carotid artery stenosis: with 70% stenosis of R ICA that will need surgical intervention when medically stable. Preston aware. Has high grade stenosis of vertebral artery on left as well that is not amenable to intervention. # metastatic NSCLD: currently on nivolomab, PET scan showing good response, appreciate onc evaluation # ARELLANO/neck pain: improved, imaging with arterial stenosis as above but no other acute findings to explain those sxs. Likely related to acute illness. # dispo: dc home today > 35 minutes spent in care of this patient, more than half in face to face counseling and follow up care plan with patient and his
[2016-05-30 10:44] VITALS: PULSE 81; RESP 18; O2SAT 92
== END 2016-05-30 11:30 | disposition home or self-care (01) | DRG 871 ==
LOC: F1N 15:32
PROVIDERS: ADMIT Family Medicine; ATTEND Internal Medicine
DX: A41.9 Sepsis, unspecified organism (principal); J18.9 Pneumonia, unspecified organism; I65.21 Occlusion and stenosis of right carotid artery; C34.90 Malignant neoplasm of unspecified part of unspecified bronchus or lung; I10 Essential (primary) hypertension; I25.10 Atherosclerotic heart disease of native coronary artery without angina pectoris; Z95.5 Presence of coronary angioplasty implant and graft
CPT/HCPCS: 96365; 97161-GP; G8978-GP-CI; G8979-GP-CI; G8980-GP-CI; J1650; J1956; Q9967

== ENCOUNTER 2016-06-17 08:34 | Inpatient (IN) | payer OTHER, MEDICARE ==
--- NOTE | 2016-06-10 13:48 | GHP ---
[f rep st] HISTORY AND PHYSICAL DATE OF ADMISSION: 06/17/2016 History and physical for upcoming date of surgery 06/17/2016. HISTORY OF PRESENT ILLNESS: The patient is a 71-year-old male who was recently hospitalized with com munity-acquired pneumonia. During the workup for the pneumonia, which included symptom of headache, the patient underwent a CTA of the neck and head, which demonstrated right worse than left internal c arotid stenosis. As an aside, it also demonstrated high-grade stenosis of the left vertebral artery. The patient is recovering from his pneumonia and comes to our office to follow up on the stenosis. The patient has an extensive medical history, which includes lung cancer, as well as coronary artery disease with stent placement. He is well known to our office. He has had previous surgery through our office, including cholecystectomy, thoracotomy, and left upper lobe lobectomy. He reports today he is feeling better. No shortness of breath. He is not needing any oxygen therapy. He denies feve rs. He reports that overall he is improved from his pneumonia. PAST MEDICAL HISTORY: Lung cancer (recent PET-CT scan does not reveal any active malignancy), sotelo ry artery disease, hypertension, history of Clostridium difficile infection greater than 1 year ago, history of severe esophagitis, history of gout. PAST SURGICAL HISTORY: Cholecystectomy, left upper lobe lobectomy. MEDICATIONS: Toprol, Senokot, Zofran, hydrocortisone cream. ALLERGIES: Please see list, which includes statin medications, allopurinol, Norvasc, lisinopril. 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 REVIEW OF SYSTEMS: He has a negative 10-point review of systems. PHYSICAL EXAM: GENERAL: The patient is a pleasant male in no apparent distress. HEAD AND NECK: No rmocephalic, atraumatic. No bruits. CHEST: CTA bilaterally. HEART: Regular rhythm and rate. ABD OMEN: Soft, nontender. EXTREMITIES: No lower extremity edema. RADIOLOGY: Please see HPI regarding recent CT angiogram of the neck. IMPRESSION: A 71-year-old male with history of coronary artery disease, now with right worse than le ft internal carotid stenosis. RECOMMENDATION: Right carotid endarterectomy was discussed with the patient in detail. The patient elects to proceed with scheduling surgery for 06/17/2016. Risks reviewed include, stroke, hematoma r equiring more surgery, seroma, permanent numbness of the face and neck, infection. The risks were r eviewed today. /[id number]/MODL
[2016-06-17 09:24] LABS: % IMMATURE GRANULYOCYTES 0.5 % (0.0-1.1); ABSOLUTE IMMATURE GRANULOCYTES 0.02 10^3/uL (0.00-0.10); ADD DIFF? NO; ADD MORPH? NO; ADD SCAN? NO; ATYPICAL LYMPHOCYTE FLAG 0 (0-99); FRAGMENT RBC FLAG 0 (0-99); HEMATOCRIT 37.9 % (40.0-51.0); HEMOGLOBIN 12.8 g/dL (13.7-17.5); LEFT SHIFT FLG 0 (0-99); LIPEMIA HEMOLYSIS FLAG 90 (0-99); MEAN CELL HEMOGLOBIN 33.9 pg (27.9-34.1); MEAN CELL HEMOGLOBIN CONCENTR. 33.8 g/dL (32.4-36.7); MEAN CELL VOLUME 100.3 fL (81.5-99.8); PLATELET CLUMPS FLAG 0 (0-99); PLATELET COUNT 202 10^3/uL (150-400); RED BLOOD CELL COUNT 3.78 10^6/uL (4.40-6.38); RED CELL DISTRIBUTION WIDTH 13.9 % (11.5-15.2)
[2016-06-17] MEDS ORDERED: LR 1,000 ML IV ONE (09:24)
[2016-06-17] MEDS ORDERED: CEFAZOLIN 2 GM/DEXTROSE/100 ML BAG IV ONE (09:30)
[2016-06-17 09:35] LABS: INR 0.93 (0.83-1.16); PROTIME(PATIENT) 12.4 SEC (12.0-15.0)
[2016-06-17] MEDS ORDERED: SKIN ADHESIVE (DERMABOND) 1 EACH TP ONE (09:52)
[2016-06-17] MEDS ORDERED: THROMBIN (RECOMBINANT) 5,000 UNIT VIAL TP ONE (09:52)
[2016-06-17] MEDS ORDERED: BUPIVACAINE 0.5% 30 ML SDV ONE (09:53)
[2016-06-17] MEDS ORDERED: PROTAMINE SULFATE 50 MG/5 ML VIAL IVP ONE ×2 (09:53→12:36)
[2016-06-17] MEDS ORDERED: THROMBIN (RECOMBINANT) 20,000 UNIT SPRAY TP ONE (09:54)
[2016-06-17 10:02] LABS: ANION GAP 9 mEq/L (8-16); CALCIUM 8.7 mg/dL (8.5-10.4); CARBON DIOXIDE 25 mEq/l (22-31); CHLORIDE 110 mEq/L (97-110); CREATININE 0.9 mg/dL (0.7-1.3); GLOMERULAR FILTRATION RATE > 60; GLUCOSE 95 mg/dL (70-100); SODIUM 144 mEq/L (134-144)
[2016-06-17] MEDS ORDERED: fentaNYL 100 MCG/2 ML INJ ONE ×2 (10:28→13:58)
[2016-06-17] MEDS ORDERED: PROPOFOL 200 MG/20 ML VIAL ONE ×2 (10:28)
[2016-06-17] MEDS ORDERED: PROPOFOL/EMULSION 500 MG/50 ML BOTTLE IV ONE ×2 (10:30→12:44)
[2016-06-17] MEDS ORDERED: ONDANSETRON 4 MG/2 ML VIAL ONE (10:35)
[2016-06-17] MEDS ORDERED: DEXAMETHASONE 4 MG/ML VIAL ONE (10:35)
[2016-06-17] MEDS ORDERED: LIDOCAINE 2% 100 MG/5 ML SYR IVP ONE (10:35)
[2016-06-17] MEDS ORDERED: ROCURONIUM 50 MG/5 ML VIAL ONE (10:35)
[2016-06-17] MEDS ORDERED: ONDANSETRON 4 MG/2 ML VIAL IVP PRN (10:38)
[2016-06-17] MEDS ORDERED: HYDROmorphONE/DILAUDID 1 MG/ML SYR IVP PRN (10:38)
[2016-06-17] MEDS ORDERED: ENALAPRILAT DIHYDRATE 1.25 MG/ML VIAL IVP PRN (10:41)
[2016-06-17] MEDS ORDERED: ACETAMINOPHEN 325 MG TAB PO PRN ×2 (10:42→15:38)
[2016-06-17] MEDS ORDERED: D5W 1/2 NS 1,000 ML IV SCH (10:45)
[2016-06-17] MEDS ORDERED: PHENYLEPHRINE 10 MG/ML SDV ONE (11:31)
[2016-06-17] MEDS ORDERED: ROCURONIUM 100 MG/10 ML VIAL ONE (11:42)
[2016-06-17] MEDS ORDERED: SUGAMMADEX SODIUM 200 MG/2 ML VIAL IVP ONE (12:45)
--- NOTE | 2016-06-17 15:37 | POSTOPPROG ---
Post Op Note Date of Operation: 06/17/16 Surgeon: Medardo Preston Sewer Pipe Layer: BIANCA Anesthesiologist: MARKELL Anesthesia: GET(General Endotracheal) Pre-op Diagnosis: TIA/ CRITICAL RT CAROTID STENOSIS Post-op Diagnosis: SAME Indication: TIA Procedure: RT CAROTID ENDARTERECTOMY WITH EEG/ CERVICAL NODE BX Findings: CACIFIED TIGHT PLAQUE INVOLVING OVER 3CM/ NO EEG CHANGES/ 2CM BENIGN APPEA Inf/Abcess present in the surg proc area at time of surgery?: No Depth: Organ Space EBL: 50-100 Complications: 0 Specimen(s): PLAQUE AND CERVICAL NODE
[2016-06-17] MEDS: ASPIRIN 81 MG CHEWABLE TAB PO SCH (16:37)
[2016-06-17] MEDS: OXYCODONE/APAP 5/325 TAB PO PRN ×2 (20:53→22:31)
--- NOTE | 2016-06-18 01:52 | GCON ---
[f rep st] CONSULTATION CRITICAL CARE CONSULTATION DATE OF CONSULTATION: 06/17/2016 HISTORY OF PRESENT ILLNESS: The patient is a 71-year-old male who has a history of metastatic lung c ancer who developed pneumonia recently and his workup revealed a 70% right carotid stenosis. He unde rwent carotid endarterectomy today. As far as I can tell, the surgery was uneventful. There were no complications. He was transferred to the ICU in good condition. In terms of symptoms, he denies any visual changes. His neck pain is minimal. His blood pressure garcia s been a little on the high side, but he feels quite well. No shortness of breath. No cough. When he came in, he was not on any oxygen at that time. REVIEW OF SYSTEMS: Otherwise negative. PAST MEDICAL HISTORY: Includes: 1. The carotid stenosis as described above. 2. Stage IIIA lung cancer diagnosed in July 2014. He was treated with lobectomy and adjuvant chemo therapy. Recent PET scan was without evidence of disease. He also developed a chemotherapy-induced pneumonitis which was treated with steroids in the past. 3. Pneumonia which was diagnosed 05/28/2016. He was treated with Levaquin and then recovered from t hat quite well. 4. Coronary artery disease, status post stents. 5. Hypertension. 6. Remote C difficile colitis. 7. Gout. 8. Esophagitis. PAST SURGICAL HISTORY: Includes the lobectomy, cholecystectomy, and cardiac stents as described yasminv aubree. SOCIAL HISTORY: He is a former smoker, quit in 2012. He has a history of what sounds to be heavy al coholism but none recently. No recreational drugs. He is of [place] descent. FAMILY HISTORY: Includes lung cancer. OUTPATIENT MEDICATIONS: Include Toprol, Senokot and Zofran. CURRENT MEDICATIONS: Include Tylenol, aspirin, Ancef, D5 half-NS, Toprol-XL with Vasotec IV p.r.n., Lovenox daily, Dilaudid p.r.n., Percocet p.r.n., prednisone 5 mg daily. PHYSICAL EXAMINATION: VITAL SIGNS: He was afebrile. Oxygen saturation was 100% on 2 L. Respiratio ns 15. Heart rate 64. Blood pressure was 146/66. GENERAL: He was awake and alert, in no apparent distress, and able to speak in full sentences withou t using accessory muscles for breathing. HEENT: Pupils equally round and reactive to light. Nonicteric. Noninjected. Mucous membranes were moist without erythema or exudate. NECK: Supple. Dressing was clean and dry. There was no hematoma. LUNGS: Breath sounds were clear to auscultation bilaterally without wheeze, rubs or rales. HEART: Regular rate and rhythm without murmurs, rubs, or gallops. ABDOMEN: Soft, nontender, nondistended, without hepatosplenomegaly. EXTREMITIES: No clubbing, cyanosis, or edema. NEUROLOGICAL: Nonfocal, including cranial nerves, deep tendon reflexes. SKIN: Warm and dry without evidence of rash. OBJECTIVE DATA: Included a white count of 4.2, hematocrit 37.9, platelets at 202. INR was 0.93. Ba sic metabolic panel was normal. His last chest x-ray was on May 26, showing minimal right mid l anshul infiltrate. He has not had a repeat x-ray since that time. ASSESSMENT AND PLAN: 1. Carotid artery disease, status post carotid endarterectomy. Appears to be doing quite well from this perspective. His heart rate is a little on the slow side at the moment, just probably related t o his beta norberto activity. His blood pressure has already p.r.n. medications in place, including h ydralazine which I would certainly use at this time. 2. Hypertension. This is as above. 3. Hypoxemia. I doubt this is related to his pneumothorax. It is probably atelectasis. He is only on 2 L. Should his oxygen requirement get any worse, I would repeat another chest x-ray. I do not feel that antibiotics are required at this time. 4. Lung cancer. This is clinically stable at this point. His chemotherapy has been held due to his recent pneumonia, and I will defer to Oncology as to when to resume that. /[id number]/MODL
[2016-06-18 05:16] LABS: HEMOGLOBIN 11.4 g/dL (13.7-17.5)
[2016-06-18 05:28] LABS: ANION GAP 10 mEq/L (8-16); CALCIUM 8.2 mg/dL (8.5-10.4); CARBON DIOXIDE 25 mEq/l (22-31); CHLORIDE 105 mEq/L (97-110); CREATININE 0.8 mg/dL (0.7-1.3); GLOMERULAR FILTRATION RATE > 60; GLUCOSE 149 mg/dL (70-100); POTASSIUM 4.7 mEq/L (3.5-5.2); SODIUM 140 mEq/L (134-144)
--- NOTE | 2016-06-18 08:10 | SOAPPROG ---
SOAP Progress Note Assessment/Plan: Assessment: WOUND OK/ NEURO INTACT/ AFEBRILE/ STABLE Plan: TRANS TO MED-SURG 06/18/16 08:10 Objective: Vital Signs Temp Pulse Resp BP Pulse Ox 36.5 C 70 10 L 107/55 L 97 06/18/16 00:00 06/18/16 06:00 06/18/16 06:00 06/18/16 06:00 06/18/16 06:00 Laboratory Results 06/18/16 04:55 06/18/16 04:55 06/17/16 06/18/16 06/19/16 05:59 05:59 05:59 Intake Total 2321 Output Total 200 Balance 2121 PT 12.4 SEC (12.0-15.0) 06/17/16 09:15 INR 0.93 (0.83-1.16) 06/17/16 09:15 ICD10 Worksheet Patient Problems: Problems Problem Status Diagnosed RUQ abdominal pain Acute Dysphagia, oropharyngeal Acute On total parenteral nutrition (TPN) Acute C. difficile diarrhea Acute 04/05/16 Dehydration Acute Diarrhea Acute Hypocalcemia Acute Hypokalemia Acute Hypomagnesemia Acute Nausea & vomiting Acute Fever Acute Gout Acute Lung cancer Acute Neck pain Acute Pneumonia Acute Weakness Acute Non-small cell cancer of left lung Chronic 08/31/14 CAD (coronary artery disease) Chronic Dyslipidemia Chronic
[2016-06-18] MEDS: OXYCODONE/APAP 5/325 TAB PO PRN ×2 (09:49→20:12)
[2016-06-18] MEDS: METOPROLOL SUCCINATE XR 50 MG TAB PO SCH (09:50)
[2016-06-18] MEDS: predniSONE 5 MG TAB PO SCH (09:52)
[2016-06-18] MEDS: ASPIRIN 81 MG CHEWABLE TAB PO SCH (09:52)
--- NOTE | 2016-06-18 13:11 | SOAPPROG ---
SOAP Progress Note Assessment/Plan: Assessment/Plan: 71 Y M c multiple comorbidities, s/p R CEA, POD#1. Doing well. Wound ok. BP stable. Pain controlled. Transfer to med surg. Possible d/c to home in am. 06/18/16 12:56 Subjective: Minimal pain. Has walked. Eating fine. No new weakness or confusion. Objective: Vital Signs Temp Pulse Resp BP Pulse Ox 36.6 C 68 12 103/53 L 98 06/18/16 08:00 06/18/16 10:00 06/18/16 10:00 06/18/16 10:00 06/18/16 10:00 Laboratory Results 06/18/16 04:55 06/18/16 04:55 06/17/16 06/18/16 06/19/16 05:59 05:59 05:59 Intake Total 2321 Output Total 200 100 Balance 2121 -100 PT 12.4 SEC (12.0-15.0) 06/17/16 09:15 INR 0.93 (0.83-1.16) 06/17/16 09:15 alert, nad inc cdi no bruits no wob ctab anteriorly rrr abd soft ext 5/5 loss prevention associate strength neuro grossly intact, even smile, tongue midline ICD10 Worksheet Patient Problems: Problems Problem Status Diagnosed RUQ abdominal pain Acute Dysphagia, oropharyngeal Acute On total parenteral nutrition (TPN) Acute C. difficile diarrhea Acute 04/05/16 Dehydration Acute Diarrhea Acute Hypocalcemia Acute Hypokalemia Acute Hypomagnesemia Acute Nausea & vomiting Acute Fever Acute Gout Acute Lung cancer Acute Neck pain Acute Pneumonia Acute Weakness Acute Non-small cell cancer of left lung Chronic 08/31/14 CAD (coronary artery disease) Chronic Dyslipidemia Chronic
[2016-06-18] MEDS ORDERED: PNEUMOC 13-VAL CONJ-DIP CRM/PF 0.5 ML SYR IM ONE (13:19)
[2016-06-18] MEDS ORDERED: PNEUMOCOCCAL 0.5ML VACCINE VIAL ONE (14:01)
[2016-06-18] MEDS ORDERED: CALCIUM CARBONATE 500 MG CHEWABLE TAB PO PRN (16:30)
[2016-06-19 07:25] VITALS: BP 108/56; PULSE 85; RESP 16; TEMP 97.7; O2SAT 90
[2016-06-19] MEDS: OXYCODONE/APAP 5/325 TAB PO PRN (07:54)
[2016-06-19] MEDS: METOPROLOL SUCCINATE XR 50 MG TAB PO SCH (07:54)
[2016-06-19] MEDS: ASPIRIN 81 MG CHEWABLE TAB PO SCH (07:54)
[2016-06-19] MEDS: predniSONE 5 MG TAB PO SCH (07:54)
--- NOTE | 2016-06-19 08:51 | SOAPPROG ---
SOAP Progress Note Assessment/Plan: Assessment/Plan: 71 Y M c multiple comorbidities, s/p R CEA, POD#2. Neuro intact. Wound clean with moderate swelling. BP stable. D/c to home today. 06/19/16 08:49 Subjective: Very eager to go home. Denies weakness. Objective: Vital Signs Temp Pulse Resp BP Pulse Ox 36.5 C 85 16 108/56 L 90 L 06/19/16 07:24 06/19/16 07:54 06/19/16 07:24 06/19/16 07:54 06/19/16 07:24 Laboratory Results 06/18/16 04:55 06/18/16 04:55 06/18/16 06/19/16 06/20/16 05:59 05:59 05:59 Intake Total 2321 1600 Output Total 200 100 Balance 2121 1500 PT 12.4 SEC (12.0-15.0) 06/17/16 09:15 INR 0.93 (0.83-1.16) 06/17/16 09:15 alert, nad inc cdi, moderate swelling, min ecchymosis, no erythema no wob rrr abd soft neuro grossly intact ICD10 Worksheet Patient Problems: Problems Problem Status Diagnosed RUQ abdominal pain Acute Dysphagia, oropharyngeal Acute On total parenteral nutrition (TPN) Acute C. difficile diarrhea Acute 04/05/16 Dehydration Acute Diarrhea Acute Hypocalcemia Acute Hypokalemia Acute Hypomagnesemia Acute Nausea & vomiting Acute Fever Acute Gout Acute Lung cancer Acute Neck pain Acute Pneumonia Acute Weakness Acute Non-small cell cancer of left lung Chronic 08/31/14 CAD (coronary artery disease) Chronic Dyslipidemia Chronic
[2016-06-19] MEDS ORDERED: ENOXAPARIN 40 MG/0.4 ML SYR SC SCH (09:00)
--- NOTE | 2016-06-19 11:51 | GDS ---
[f rep st] DISCHARGE SUMMARY DISCHARGE DIAGNOSIS: Right critical carotid stenosis. OTHER DIAGNOSES: Include history of lung cancer, coronary artery disease, hypertension, Clostridium difficile infection greater than 1 year ago, esophagitis and gout. PROCEDURES: Right carotid endarterectomy with EEG monitoring. INTRAOPERATIVE FINDINGS: Patient is found to have a calcified type plaque involving over 3 cm. He h ad no EEG changes during the procedure. Closure was done with a patch. HOSPITAL COURSE: The patient is a 71-year-old male, well-known to myself and Dr. Preston from [facility] of his lung cancer, who was found to have right critical carotid stenosis. He underwent a right ca rotid endarterectomy. The procedure was uncomplicated and he tolerated it well. The patient's postoperative course was relatively uneventful. He was monitored in the ICU the [facility] after surgery. He was then transferred to medical-surgical status. His pain was controlled, his diet was advanced, and his neuro exam remained intact. DISCHARGE INSTRUCTIONS: Patient was discharged to home in stable condition. He was not to lift, pus h or pull anything greater than 15 pounds. He had Percocet at home to be used as needed for pain con trol. He was to follow up in our office within a week or sooner if he had any problems or concerns. /[id number]/MODL
--- NOTE | 2016-07-01 14:52 | GOP ---
[f rep st] OPERATIVE REPORT DATE OF OPERATION: 06/17/2016 SURGEON: Medardo Preston MD VAN DRIVER: Dr. Silva ANESTHESIOLOGIST: Dr. Loomis PREOPERATIVE DIAGNOSIS: Critical right carotid stenosis, history of transient ischemic attack. POSTOPERATIVE DIAGNOSIS: Critical right carotid stenosis, history of transient ischemic attack. PROCEDURE PERFORMED: Right carotid endarterectomy and deep cervical lymph node biopsy. FINDINGS: Patient was found to have a calcified tight plaque extending over 3 cm and approximately 7 5% stenosis. There were no EEG changes. He had a 2 cm enlarged lymph node in the area, which appear ed to be benign, path pending. DESCRIPTION OF PROCEDURE: Patient taken to the operating room, where he received a satisfactory gene ral endotracheal anesthesia by Dr. Loomis. He was placed in supine position, and prepped and draped i n the usual sterile fashion. He was systemically heparinized prior to induction of general anesthesi a. Incision was made along the anterior border of the sternocleidomastoid muscle, and dissection extende d down through the platysma, subcutaneous tissue, and through the cervical fascia. Hemostasis was as sured. The neck dissection extended down to the carotid artery. The common carotid artery was disse cted free and controlled with vessel loop. The common facial vein was dissected free and multiply li gated and divided to provide exposure to the internal and external carotid arteries. The dissection extended quite cephalad on the internal carotid artery because extension of plaque for approximately 3 cm. The digastric tendon was divided to help with superior exposure, and both the internal and ext ernal carotids were encircled with vessel loops, as was the inferior thyroid artery. After adequate exposure was achieved, the patient was given additional heparin. After adequate circu lation time, the vessels were occluded. An arteriotomy was made in the common carotid artery and ext ended up through the tight plaque into the internal carotid artery, in which the plaque extended post eriorly up quite a ways. Good backflow was present. There were no EEG changes. A shunt was not emp loyed. Endarterectomy was then done, removing this calcified plaque from the origin and proximal portion of the internal carotid artery. This was easily removed. All debris and material was flushed out and r emoved. Vessels were backflushed. Arteriotomy was then closed with a Dacron patch using a running 5-0 Prolene Hemashield suture. All v essels were flushed prior to completion of the suture line. The flow was then first established thro ugh the external carotid system and then back up the internal carotid system. He tolerated the procedure well. There were no EEG changes or problems. The suture line was hemosta tic. Hemostasis was certainly achieved. Again, the 2 cm cervical node had been dissected free as we ll and was sent to Pathology. Heparin was reversed with protamine and the wound was sprayed with some topical thrombin. After good hemostasis was obtained, the wound was closed using 3-0 Vicryl for the cervical fascia, 3-0 Vicryl f or the platysma and subcutaneous tissue, and a 4-0 Monocryl subcuticular stitch for the skin. The slade perficial layers were infiltrated with 0.5% Marcaine. He tolerated the procedure quite well. Blood loss was less than 50 cc. There were no complications. He was taken to recovery room in good condition. /[id number]/MODL
== END 2016-06-19 08:45 | disposition home or self-care (01) | DRG 38 ==
LOC: F2N 08:34 → F3E 08:34 → F2N 14:50
PROVIDERS: ADMIT Surgery; ATTEND Surgery
PROC: 07B10ZX Excision of Right Neck Lymphatic, Open Approach, Diagnostic (ICD-10-PCS; principal; 2016-06-17 10:15)
PROC: 03CK0ZZ Extirpation of Matter from Right Internal Carotid Artery, Open Approach (ICD-10-PCS; principal; 2016-06-17 10:15)
PROC: 03CH0ZZ Extirpation of Matter from Right Common Carotid Artery, Open Approach (ICD-10-PCS; principal; 2016-06-17 10:15)
DX: I65.21 Occlusion and stenosis of right carotid artery (principal); C34.90 Malignant neoplasm of unspecified part of unspecified bronchus or lung; I65.02 Occlusion and stenosis of left vertebral artery; I10 Essential (primary) hypertension; I25.10 Atherosclerotic heart disease of native coronary artery without angina pectoris; E78.5 Hyperlipidemia, unspecified; M10.9 Gout, unspecified; G47.33 Obstructive sleep apnea (adult) (pediatric); Z95.5 Presence of coronary angioplasty implant and graft; Z23 Encounter for immunization
CPT/HCPCS: C1768; G0009; J0690; J1100; J1170; J1644; J1650; J2001; J2370; J2405; J2704; J2720; J3010

== ENCOUNTER → 2016-07-02 | Outpatient (CLI) | payer OTHER, MEDICARE ==
[~2016-07-02] MED LIST: GADOBUTROL 10 ML VIAL IVP ONE
--- NOTE | 2016-07-02 10:16 | MR ---
MRI of the Cervical Spine, Without and With IV Contrast Indication: Right deltoid weakness. History of lung cancer. Technique: Sagittal T2, T1, STIR, and postcontrast T1 with fat suppression. Stacked axial T2 and T1 w ithout and with contrast sequences were obtained from the foramen magnum through the thoracic inlet. 6.5 mL of Gadavist was uneventfully intravenously administered. Comparison: MRI of the cervical spine dated 03/22/2014. Findings: No lymphadenopathy or neck mass. The bone marrow signal is normal. No bone marrow replacing lesion or evidence of metastatic bone disease. Mild diskogenic Modic changes at the C3-C4, C5-C6 and C6-C7 levels are unchanged. 2 mm of retrolisthesis of C3 on C4 is unchanged. 3 mm anterolisthesis of C7 on T1 has minimally increased (previously 1 mm). The posterior fossa and cervicooccipital junction are normal. The spinal cord is normal caliber and s ignal. No abnormal enhancement of the cord or the leptomeninges. Paraspinal soft tissues are normal. C1-C2: Widely patent canal. C2-C3: Minimal disk desiccation unchanged. The central canal and neural foramina are widely patent. C3-C4: Moderate central canal narrowing and moderate severe bilateral neural foraminal stenosis, wors e left than right, due to broad-based osteophyte disk complex, grade 1 spondylolisthesis, and facet h ypertrophy are unchanged. C4-C5: Worsening moderate severe central canal narrowing due to increasing osteophyte disk complex, w orse off to the right. The central canal now measures 6 to 7 mm AP (previously 7 to 8 mm). The osteop hyte disk complex and thickened ligamentum flavum abut yet did not deform the spinal cord. No signifi cant cerebrospinal fluid is present along the ventral or dorsal aspect of the cord at this level. Sev ere right and moderate severe left neural foraminal narrowing are worse. C5-C6: Mfdy-at-lpesbynm central canal narrowing due to a diffuse broad-based osteophyte disk complex and facet hypertrophy has not significantly changed since 2013. Severe right and moderate left neural foraminal narrowing are minimally worse. C6-C7: The diffuse broad-based disk bulge resulting in [id number] central canal narrowing is un changed. Severe bilateral neural foraminal stenosis is unchanged to slightly worse right than left. C7-T1: Mild central canal narrowing due to grade 1 anterolisthesis of C7 on T1 and diffuse broad-base d disk bulge is unchanged. Mild bilateral neural foraminal narrowing is unchanged. Impression: 1. No evidence of metastatic disease to the cervical spine. 2. Multilevel degenerative disk and facet arthropathy extending from C3-C4 to C7-T1 is minimally wors e since 2013. 3. Worsening moderate severe central canal narrowing at C4-C5 due to a diffuse broad-based osteophyte disk complex. 4. Severe right and moderate severe left neural foraminal narrowing at C4-C5, severe right and modera te left neural foraminal stenosis at C5-C6, and severe bilateral neural foraminal stenosis at C6-C7 i s minimally worse since 2013.
== END ==
LOC: FIMAGING 06:44
PROVIDERS: ATTEND Internal Medicine Hematology & Oncology
DX: M50.81 Other cervical disc disorders, high cervical region (principal); M50.83 Other cervical disc disorders, cervicothoracic region; M48.02 Spinal stenosis, cervical region; Z85.118 Personal history of other malignant neoplasm of bronchus and lung
CPT/HCPCS: 72156; A9585

== ENCOUNTER 2016-08-22 18:18 | Emergency (ER) | payer OTHER, MEDICARE ==
[2016-08-22 18:25] VITALS: RESP 18
--- NOTE | 2016-08-22 18:26 | EDPHY ---
H & P Time Seen by Provider: 08/22/16 18:20 HPI/ROS: CHIEF COMPLAINT: Fever HISTORY OF PRESENT ILLNESS: This patient is a 71 year old male with history of non-small cell lung cancer who presents to the Emergency Department with acute fever beginning today post-chemotherapy treatment. He also describes " difficulty walking straight" this afternoon, which he attributes to dizziness with associated headache. He complains of diffuse body aches. Denies vomiting, diarrhea, or abdominal complaints. No cough or sore throat. His contacted Dr. Piedra, the patient's oncologist, regarding his symptoms and was prescribed Levaquin which he has refused to take. He was last admitted to the hospital for six days on 05/26/2016 for fever and sepsis. He did receive a flu shot earlier this year. REVIEW OF SYSTEMS: Constitutional: +fever, +diffuse body aches, no chills Eyes: No visual changes ENT: No sore throat Respiratory: No cough, no shortness of breath Cardiac: No chest pain Gastrointestinal: No nausea, no vomiting, no abdominal pain Genitourinary: No hematuria, no dysuria Musculoskeletal: No leg pain or swelling Skin: No rash Neurological: +dizziness, +headache, no numbness, no weakness Psychiatric: No depression Past Medical/Surgical History: Prior medical records reviewed by myself, including visit to the ED and subsequent admission on 05/26/2016. 1. Non-small cell lung carcinoma status post-left upper lobe resection in 2013 2. Coronary artery disease with stenting 3. C difficile colitis 4. Cholecystitis and cholecystectomy 5. Bacteremia associated with port site Social History: ; at bedside. Former smoker. Originally from [facility]. Smoking Status: Former smoker Physical Exam: General Appearance: Alert, non-toxic appearing, no distress Eyes: Pupils equal and round, no conjunctival pallor or injection ENT, Mouth: Mucous membranes moist Neck: Normal inspection Chest: Port site to right anterior chest is non tender without surrounding erythema Respiratory: Lungs are clear to auscultation Cardiovascular: Regular rate and rhythm Gastrointestinal: Abdomen is soft and non- tender Neurological: A&O, nonfocal, normal gait Skin: Warm and dry, no rash Extremities: Nontender, no pedal edema Psychiatric: Mood and affect normal Constitutional: Initial Vital Signs Temperature (C) 37 C 08/22/16 18:21 Heart Rate 104 H 03/30/17 18:21 Respiratory Rate 18 08/22/16 18:21 Blood Pressure 162/96 H 08/22/16 18:21 O2 Sat (%) 90 L 08/22/16 18:21 O2 Delivery Mode Room Air Allergies/Adverse Reactions: allopurinol Allergy (Verified 03/07/16 22:51) amlodipine Allergy (Verified 03/07/16 22:51) atorvastatin calcium [From Lipitor] Allergy (Verified 03/07/16 22:51) Other-Enter Comments ezetimibe [From Zetia] Allergy (Verified 03/07/16 22:51) lisinopril Allergy (Verified 03/07/16 22:51) Other-Enter Comments lorazepam Allergy (Verified 08/23/16 05:29) Other-Enter Comments losartan potassium [From Cozaar] Allergy (Verified 03/07/16 22:51) GOUT morphine Allergy (Verified 03/07/16 22:51) pitavastatin calcium [From Livalo] Allergy (Verified 03/07/16 22:51) pravastatin Allergy (Verified 03/07/16 22:51) rosuvastatin calcium [From Crestor] Allergy (Verified 03/07/16 22:51) spironolactone Allergy (Verified 03/07/16 22:51) Home Medications: Medication Instructions Recorded Acetaminophen [Tylenol 325mg (*)] 325 mg PO DAILY PRN 06/05/16 Aspirin [Aspirin 81mg (*)] 81 mg PO DAILY 06/05/16 Metoprolol Succinate Xr [Toprol Xl 50 mg PO DAILY 06/05/16 50 mg (*)] predniSONE 2.5 mg PO DAILY 06/05/16 Medical Decision Making - Diagnostics Imaging: Chest x-ray reviewed by me reveals no acute disease. ED Course/Re-evaluation: This is a non-toxic appearing 71 year old male undergoing chemotherapy who presents with an acute low-grade fever beginning post-chemo treatment today. He reports dizziness, headache, and diffuse body aches suggestive of infectious etiology. He is afebrile at 37C and tachycardic at 104 at triage. His exam is benign. Will proceed with fever work-up including chest x-ray, UA, and labs including lactate and blood cultures. 650mg PO Tylenol and 1L IV NS administered. Labs obtained: Lactate within normal limits at 1.2. WBC at 8.0; he is not neutropenic. Chemistries are unremarkable. Chest x-ray and urinalysis are normal. 2000: I discussed lab and imaging results with the patient and his . His exam remains benign and he remains afebrile here in the ED. He will be discharged home with instructions to begin Levaquin as prescribed by Dr. Piedra and follow-up with Dr. Piedra in his office tomorrow. I recommended use of Tylenol as needed for fever which he expresses agreement to. He understands return precautions and will be discharged home in good condition. Differential Diagnosis: Differential diagnosis includes pyelonephritis, cholecystitis, influenza, cellulitis, pneumonia, abscess, meningitis. - Data Points Laboratory Results: Laboratory Results 08/22/16 19:00 08/22/16 19:00 Microbiology Results: MICROBIOLOGY 08/22/16 19:00 Blood Blood Culture - Preliminary 08/22/16 19:00 Blood Blood Panel (PCR) - Final No Organism Detected 08/22/16 19:25 Blood Blood Culture - Preliminary Medications Given: Discontinued Medications Acetaminophen (Tylenol) 650 mg PO EDNOW ONE Stop: 08/22/16 18:43 Last Admin: 08/22/16 19:08 Dose: 650 mg Heparin Sodium (Porcine) (Heparin Lock Flush) 500 unit IVP EDNOW ONE Stop: 08/22/16 20:27 Last Admin: 08/22/16 20:27 Dose: 500 unit Sodium Chloride (Ns) 1,000 mls @ 0 mls/hr IV ONCE ONE PRN Reason: Wide Open Stop: 08/22/16 18:42 Last Admin: 08/22/16 19:08 Dose: 1,000 mls Departure - Departure Disposition: Home, Routine, Self-Care Clinical Impression: Non-small cell cancer of left lung Fever Qualifiers: Fever type: unspecified Qualified Code(s): R50.9 - Fever, unspecified Condition: Good Instructions: Fever in Adults (ED) Additional Instructions: 1. Start Levaquin as prescribed by your oncologist. 2. Take 800mg Tylenol every 4-6 hours as needed for fever 3. Drink plenty of fluids. 4. Follow-up with Dr. Piedra in his office tomorrow. 5. Return to the Emergency Department for fever not controlled with Tylenol, feeling as though you may faint, chills, worsening body aches, or other serious concerns. Referrals: Eran Piedra MD [Medical Doctor] - As per Instructions Report Scribed for: Maritza Diamond Report Scribed by: Aida Laws Date of Report: 08/22/16 Time of Report: 18:24 Physician Review and Approval Statement: 08/22/16 18:24 Portions of this note were transcribed by a medical doctor. I personally performed a history, physical exam, medical decision making, and confirmed accuracy of information the transcribed note.
[2016-08-22] MEDS ORDERED: NS 1,000 ML IV ONE (18:41)
[2016-08-22] MEDS ORDERED: LIDOCAINE/PRILOCAINE 1 EACH CRTUBE TP ONE (18:42)
[2016-08-22] MEDS ORDERED: ACETAMINOPHEN 325 MG TAB PO ONE (18:42)
[2016-08-22 19:26] LABS: % IMMATURE GRANULYOCYTES 0.4 % (0.0-1.1); ABSOLUTE IMMATURE GRANULOCYTES 0.03 10^3/uL (0.00-0.10); ADD DIFF? NO; ADD MORPH? NO; ADD SCAN? NO; ATYPICAL LYMPHOCYTE FLAG 10 (0-99); FRAGMENT RBC FLAG 0 (0-99); HEMATOCRIT 40.7 % (40.0-51.0); HEMOGLOBIN 14.1 g/dL (13.7-17.5); LEFT SHIFT FLG 0 (0-99); LIPEMIA HEMOLYSIS FLAG 90 (0-99); MEAN CELL HEMOGLOBIN 33.8 pg (27.9-34.1); MEAN CELL HEMOGLOBIN CONCENTR. 34.6 g/dL (32.4-36.7); MEAN CELL VOLUME 97.6 fL (81.5-99.8); MEAN PLATELET VOLUME 9.4 fL (8.7-11.7); PLATELET CLUMPS FLAG 0 (0-99); PLATELET COUNT 213 10^3/uL (150-400); RED BLOOD CELL COUNT 4.17 10^6/uL (4.40-6.38); RED CELL DISTRIBUTION WIDTH 14.9 % (11.5-15.2)
[2016-08-22 19:29] LABS: ANION GAP 11 mEq/L (8-16); CALCIUM 9.5 mg/dL (8.5-10.4); CARBON DIOXIDE 22 mEq/l (22-31); CHLORIDE 102 mEq/L (97-110); CREATININE 0.9 mg/dL (0.7-1.3); GLOMERULAR FILTRATION RATE > 60; GLUCOSE 113 mg/dL (70-100); SODIUM 135 mEq/L (134-144)
[2016-08-22 20:19] LABS: COLOR YELLOW; LEUKOCYTE ESTERASE,URINE NEGATIVE (NEGATIVE); NITRITE,URINE NEGATIVE (NEGATIVE)
[2016-08-22 20:32] VITALS: BP 118/72; PULSE 90; TEMP 99.1; O2SAT 92
== END 2016-08-22 20:31 | disposition home or self-care (01) ==
DX: C34.92 Malignant neoplasm of unspecified part of left bronchus or lung (principal); I25.10 Atherosclerotic heart disease of native coronary artery without angina pectoris; Z87.891 Personal history of nicotine dependence; Z79.82 Long term (current) use of aspirin
CPT/HCPCS: 96374

== ENCOUNTER 2016-08-23 05:19 | Inpatient (IN) | payer OTHER, MEDICARE ==
--- NOTE | 2016-08-23 05:21 | EDPHY ---
H & P HPI/ROS: HPI CHIEF COMPLAINT: Fever HISTORY OF PRESENT ILLNESS: This is a 71-year-old male significant past medical history for non-small cell lung cancer, undergoing chemotherapy, was seen here in the emergency room earlier yesterday for fever after chemotherapy. At that time he had blood work blood cultures and a lactic acid everything was reassuring did not have a fever here in the emergency room. Irvona well enough to go home. He presents back to the emergency room this morning with complaints of ongoing fever T-max at home of 100.9. Chills generalized weakness. Patient tells me that after leaving the emergency room he went home went to sleep he did have chills and rigors while at home. He slept most of the night 6-7 hours ongoing chills he did have a T-max at home of 100.9. His also reports fever to 100.6. She did give him Tylenol for this and Tylenol was given prior to arrival he has no fever upon arrival to the emergency room. Does endorse a dry cough nonproductive he denies abdominal pain, headache, neck pain, meningeal signs, denies urinary problems. Past Medical History: Non-small cell lung cancer undergoing chemotherapy, hypertension, coronary artery disease, C diff, esophagitis, gout, carotid stenosis Past Surgical History: Cholecystectomy Social History: Denies daily use of drugs alcohol tobacco products lives locally, at bedside Family History: Noncontributory ROS REVIEW OF SYSTEMS: A comprehensive 10 point review of systems is otherwise negative aside from elements mentioned in the history of present illness. Exam Constitutional appears well nontoxic, triage nursing summary reviewed, vital signs reviewed, awake/alert. Eyes normal conjunctivae and sclera, EOMI, PERRLA. HENT normal inspection, atraumatic, moist mucus membranes, no epistaxis, neck supple/ no meningismus, no raccoon eyes. Respiratory clear to auscultation bilaterally, normal breath sounds, no respiratory distress, no wheezing. Cardiovascular rate normal, regular rhythm, no murmur, no edema, distal pulses normal. Gastrointestinal soft, non-tender, no rebound, no guarding, normal bowel sounds, no distension, no pulsatile mass. Genitourinary no CVA tenderness. Musculoskeletal no midline vertebral tenderness, full range of motion, no calf swelling, no tenderness of extremities, no meningismus, good pulses, neurovascularly intact. Skin pink, warm, & dry, no rash, skin atraumatic. Neurologic awake, alert and oriented x 3, AAOx3, moves all 4 extremities equally, motor intact, sensory intact, CN II-XII intact, normal cerebellar, normal vision, normal speech. Psychiatric normal mood/affect. Heme/Lymph/Immune no lymphadenopathy. Differential Diagnosis: includes but is not limited to in a particular order sepsis, bacteremia, dehydration, electrolyte disturbance, infection, pneumonia, UTI, fever after chemotherapy Medical Decision Making: Plan for this patient had an IV established receive IV fluids, repeat blood work I did look at his blood work from his recent ER visit I did review his blood cultures. His blood culture still pending at this time. He did have a normal lactic acid and normal white count previous ER visit. Patient's left chest port looks clean, we will access this. Will need a CT scan of his chest due to ongoing cough, fever I did review his x-ray. Patient most likely will need to stay in the hospital over today due to ongoing chills, rigors, fever 100.9 at home. Blood cultures have been reviewed so for from yesterday dont reveal any bacteria. I will speak with Oncology. Re-evaluation: Spoke with Dr. Lacey, with Oncology he does agree for this patient should be admitted for observation given that he is having fever. He does recommend 750 mg IV Levaquin. I have ordered this. Blood cultures are still pending from previous ER visit. CT scan of his chest this time is pending CT scan of the Chest angiogram The results of the study are negative for acute pulmonary embolism, or focal pneumonia there is atelectasis present and pleural effusion.. The study was read by Dr. Chavez I viewed the images myself on the PACS system. [id number]: Re-evaluation at this time there is no evidence that he has ongoing sepsis. Blood culture pending from previous ER visit. He has not had a fever here. His CT scan does not show anything acute. After speaking with Oncology they would like this patient admitted for observation. He is receiving IV Levaquin at this time and IV fluids. I spoke with Dr. Hall who agrees to admit the patient for observation status for fever. It is possible his fever is coming from drug reaction from chemotherapy. Also possibly has occult bacteremia blood cultures are pending. It is noted he does not have elevated white count there is a left shift present, his vital signs are stable no hypoxia no fever here but Tylenol was given prior to arrival. No hypotension. Most likely cause of fever is either occult bacteremia or drug reaction. At this time this patient appears well nontoxic hemodynamically stable safe for admission to oncology. Observation status. Source: Patient - Medical/Surgical History Hx Asthma: No Hx Chronic Respiratory Disease: Yes Hx Diabetes: No Hx Cardiac Disease: Yes Hx Renal Disease: No Hx Cirrhosis: No Hx Alcoholism: No Hx HIV/AIDS: No Hx Splenectomy or Spleen Trauma: No Other PMH: pmh- htn, hyperlipemia, gout, non-small cell lung ca stage IIIA, cad. psh- L lung resection 08/31/14, cardiac stents x2, back surgery, cholecystectomy - Social History Smoking Status: Former smoker Constitutional: Initial Vital Signs Temperature (C) 36.7 C 08/23/16 05:21 Heart Rate 89 08/23/16 05:21 Respiratory Rate 16 08/23/16 05:21 Blood Pressure 125/78 H 08/23/16 05:21 O2 Sat (%) 93 08/23/16 05:21 O2 Delivery Mode Room Air Allergies/Adverse Reactions: allopurinol Allergy (Verified 03/07/16 22:51) amlodipine Allergy (Verified 03/07/16 22:51) atorvastatin calcium [From Lipitor] Allergy (Verified 03/07/16 22:51) Other-Enter Comments ezetimibe [From Zetia] Allergy (Verified 03/07/16 22:51) lisinopril Allergy (Verified 03/07/16 22:51) Other-Enter Comments lorazepam Allergy (Verified 08/23/16 05:29) Other-Enter Comments losartan potassium [From Cozaar] Allergy (Verified 03/07/16 22:51) GOUT morphine Allergy (Verified 03/07/16 22:51) pitavastatin calcium [From Livalo] Allergy (Verified 03/07/16 22:51) pravastatin Allergy (Verified 03/07/16 22:51) rosuvastatin calcium [From Crestor] Allergy (Verified 03/07/16 22:51) spironolactone Allergy (Verified 03/07/16 22:51) Home Medications: Medication Instructions Recorded Acetaminophen [Tylenol 325mg (*)] 325 mg PO DAILY PRN 06/05/16 Aspirin [Aspirin 81mg (*)] 81 mg PO DAILY 06/05/16 Metoprolol Succinate Xr [Toprol Xl 50 mg PO DAILY 06/05/16 50 mg (*)] predniSONE 5 mg PO DAILY 06/05/16 oxyCODONE/APAP 5325 [Percocet 1 - 2 tab PO Q4HRS PRN #0 tab 06/19/16 5/325 (*)] Medical Decision Making - Data Points Laboratory Results: Laboratory Results 08/23/16 06:05 08/23/16 06:05 08/23/16 08/23/16 06:05 06:05 WBC 5.06 10^3/uL 10^3/uL (3.80-9.50) RBC 3.67 10^6/uL L 10^6/uL (4.40-6.38) Hgb 12.2 g/dL L g/dL (13.7-17.5) Hct 36.1 % L % (40.0-51.0) MCV 98.4 fL fL (81.5-99.8) MCH 33.2 pg pg (27.9-34.1) MCHC 33.8 g/dL g/dL (32.4-36.7) RDW 14.7 % % (11.5-15.2) Plt Count 158 10^3/uL D 10^3/uL (150-400) MPV 9.5 fL fL (8.7-11.7) Neut % (Auto) 86.9 % H % (39.3-74.2) Lymph % (Auto) 4.0 % L % (15.0-45.0) [place] % (Auto) 7.5 % % (4.5-13.0) Eos % (Auto) 0.2 % L % (0.6-7.6) Baso % (Auto) 0.4 % % (0.3-1.7) Nucleat RBC Rel Count 0.0 % % (0.0-0.2) Absolute Neuts (auto) 4.40 10^3/uL 10^3/uL (1.70-6.50) Absolute Lymphs (auto) 0.20 10^3/uL L 10^3/uL (1.00-3.00) Absolute Monos (auto) 0.38 10^3/uL 10^3/uL (0.30-0.80) Absolute Eos (auto) 0.01 10^3/uL L 10^3/uL (0.03-0.40) Absolute Basos (auto) 0.02 10^3/uL 10^3/uL (0.02-0.10) Absolute Nucleated RBC 0.00 10^3/uL 10^3/uL (0-0.01) Immature Gran % 1.0 % % (0.0-1.1) Immature Gran # 0.05 10^3/uL 10^3/uL (0.00-0.10) ESR 16 MM/HR MM/HR (0-20) Sodium 140 mEq/L mEq/L (134-144) Potassium 3.9 mEq/L mEq/L (3.5-5.2) Chloride 105 mEq/L mEq/L (97-110) Carbon Dioxide 24 mEq/l mEq/l (22-31) Anion Gap 11 mEq/L mEq/L (8-16) BUN 18 mg/dL mg/dL (7-23) Creatinine 1.1 mg/dL mg/dL (0.7-1.3) Estimated GFR > 60 Glucose 110 mg/dL H mg/dL (70-100) Calcium 8.8 mg/dL mg/dL (8.5-10.4) Total Bilirubin 1.1 mg/dL mg/dL (0.1-1.4) AST 23 IU/L IU/L (17-59) ALT 34 IU/L IU/L (21-72) Alkaline Phosphatase 43 IU/L IU/L (38-126) Troponin I < 0.012 ng/mL ng/mL (0-0.034) C-Reactive Protein 41.5 mg/L H mg/L (<10.0) Total Protein 6.5 g/dL g/dL (6.3-8.2) Albumin 4.0 g/dL g/dL (3.5-5.0) Medications Given: Discontinued Medications Sodium Chloride (Ns) 1,000 mls @ 0 mls/hr IV ONCE ONE PRN Reason: Wide Open Stop: 08/23/16 05:32 Last Admin: 08/23/16 06:05 Dose: 1,000 mls Departure - Departure Disposition: [facility] Acute Clinical Impression: Fever Qualifiers: Fever type: unspecified Qualified Code(s): R50.9 - Fever, unspecified Condition: Fair
[2016-08-23] MEDS ORDERED: NS 1,000 ML IV ONE (05:31)
[2016-08-23 06:15] LABS: ABSOLUTE IMMATURE GRANULOCYTES 0.05 10^3/uL (0.00-0.10); ADD DIFF? NO; ADD MORPH? NO; ADD SCAN? NO; ATYPICAL LYMPHOCYTE FLAG 0 (0-99); FRAGMENT RBC FLAG 0 (0-99); HEMATOCRIT 36.1 % (40.0-51.0); HEMOGLOBIN 12.2 g/dL (13.7-17.5); LEFT SHIFT FLG 10 (0-99); LIPEMIA HEMOLYSIS FLAG 90 (0-99); MEAN CELL HEMOGLOBIN 33.2 pg (27.9-34.1); MEAN CELL HEMOGLOBIN CONCENTR. 33.8 g/dL (32.4-36.7); MEAN CELL VOLUME 98.4 fL (81.5-99.8); MEAN PLATELET VOLUME 9.5 fL (8.7-11.7); PLATELET CLUMPS FLAG 10 (0-99); PLATELET COUNT 158 10^3/uL (150-400); RED BLOOD CELL COUNT 3.67 10^6/uL (4.40-6.38); RED CELL DISTRIBUTION WIDTH 14.7 % (11.5-15.2)
[2016-08-23] MEDS ORDERED: IOPAMIDOL (ISOVUE 370) 100 ML BTL IV ONE (06:28)
[2016-08-23 06:38] LABS: SEDIMENTATION RATE 16 MM/HR (0-20)
[2016-08-23 06:45] LABS: ALANINE AMINOTRANSFERASE 34 IU/L (21-72); ALKALINE PHOSPHATASE 43 IU/L (38-126); ANION GAP 11 mEq/L (8-16); ASPARTATE AMINOTRANSFERASE 23 IU/L (17-59); BILIRUBIN,TOTAL 1.1 mg/dL (0.1-1.4); C-REACTIVE PROTEIN 41.5 mg/L (<10.0); CALCIUM 8.8 mg/dL (8.5-10.4); CARBON DIOXIDE 24 mEq/l (22-31); CHLORIDE 105 mEq/L (97-110); CREATININE 1.1 mg/dL (0.7-1.3); GLOMERULAR FILTRATION RATE > 60; GLUCOSE 110 mg/dL (70-100); POTASSIUM 3.9 mEq/L (3.5-5.2); SODIUM 140 mEq/L (134-144); TOTAL PROTEIN 6.5 g/dL (6.3-8.2)
[2016-08-23 06:54] LABS: TROPONIN I < 0.012 ng/mL (0-0.034)
[2016-08-23] MEDS ORDERED: ONDANSETRON DISINTEGRATING 4 MG TAB PO PRN (08:13)
[2016-08-23] MEDS ORDERED: ONDANSETRON 4 MG/2 ML VIAL IVP PRN (08:13)
--- NOTE | 2016-08-23 08:20 | PDGENHP ---
History and Physical - Chief Complaint Acute rigors - History of Present Illness Primary oncologist: Dr. Piedra HPI: 71-year-old male presenting with acute rigors characterized as shaking all over, unable to get warm, with documented fever of 100.9 degrees. Patient reports that he has associated, nonproductive cough with onset on 08/22 and duration persistent thereafter. He had been experiencing subjective fevers and presented to [facility] emergency department on 08/22, at which time he had a negative evaluation and blood cultures were drawn. His symptoms were alleviated with oral Tylenol and he was discharged home. At approximately 5:00 a.m. on the morning of this presentation, patient's rigors escalated and he has re-presented to the emergency department. Should be noted that his last chemotherapy was on 08/22/2016. He otherwise denies any diarrhea, denies dysuria , denies sore throat, denies any chest pain, denies shortness of breath. History Information - Allergies/Home Medication List Allergies/Adverse Reactions: allopurinol Allergy (Verified 03/07/16 22:51) amlodipine Allergy (Verified 03/07/16 22:51) atorvastatin calcium [From Lipitor] Allergy (Verified 03/07/16 22:51) Other-Enter Comments ezetimibe [From Zetia] Allergy (Verified 03/07/16 22:51) lisinopril Allergy (Verified 03/07/16 22:51) Other-Enter Comments lorazepam Allergy (Verified 08/23/16 05:29) Other-Enter Comments losartan potassium [From Cozaar] Allergy (Verified 03/07/16 22:51) GOUT morphine Allergy (Verified 03/07/16 22:51) pitavastatin calcium [From Livalo] Allergy (Verified 03/07/16 22:51) pravastatin Allergy (Verified 03/07/16 22:51) rosuvastatin calcium [From Crestor] Allergy (Verified 03/07/16 22:51) spironolactone Allergy (Verified 03/07/16 22:51) Home Medications: Acetaminophen [Tylenol 325mg (*)] 325 mg PO DAILY PRN 06/05/16 [Last Taken 1 Week Ago] Aspirin [Aspirin 81mg (*)] 81 mg PO DAILY 06/05/16 [Last Taken 1 Week Ago] Metoprolol Succinate Xr [Toprol Xl 50 mg (*)] 50 mg PO DAILY 06/05/16 [Last Taken 06/16/16] predniSONE 5 mg PO DAILY 06/05/16 [Last Taken 06/16/16] I have personally reviewed and updated: family history, medical history, social history, surgical history - Past Medical History Additional medical history: Non-small cell lung cancer stage IIIA, ongoing chemotherapy. Necrotic gallbladder. Coronary artery disease with stent. Gout. Hypertension. Carotid stenosis. C diff 1 year ago. Morganella bacteremia from port - Surgical History Additional surgical history: Left upper lobe resection. L-spine surgery. Cholecystectomy. Carotid endarterectomy on right - Family History Additional family history: No recent sick family contacts - Social History Smoking Status: Former smoker Alcohol Use: Other (History of heavy drinking, none presently) Drug Use: None Additional social history: Normally independent in his ADLs Review of Systems ROS: 10pt was reviewed & negative except for what was stated in HPI & below Constitutional: Reports: fever Respiratory: Reports: cough Physical Exam Temp Pulse Resp BP Pulse Ox 37.0 C 86 18 120/76 93 08/23/16 08:06 08/23/16 08:06 08/23/16 08:06 08/23/16 08:06 08/23/16 08:06 Constitutional: no apparent distress, appears nourished, not in pain, uncomfortable (Feels generally unwell) Eyes: PERRL, anicteric sclera, EOMI Ears, Nose, Mouth, Throat: moist mucous membranes, hearing normal, ears appear normal, no oral mucosal ulcers Cardiovascular: regular rate and rhythym, no murmur, rub, or gallop, No edema Respiratory: no respiratory distress, no rales or rhonchi, clear to auscultation Gastrointestinal: normoactive bowel sounds, soft, non-tender abdomen, no palpable masses Genitourinary: no bladder fullness, no bladder tenderness, other (No CVA tenderness to palpation) Skin: other (Port site without any erythema, tenderness, induration, no surgical site infection as right neck) Neurologic: AAOx3, sensation intact bilaterally, No weakness Psychiatric: interacting appropriately, not anxious, not encephalopathic, thought process linear Lymph, Heme, Immunologic: other (Palpable, nontender bilateral cervical lymph nodes) Lab Data & Imaging Review 08/23/16 06:05 08/23/16 06:05 WBC 5.06 10^3/uL (3.80-9.50) 08/23/16 06:05 RBC 3.67 10^6/uL (4.40-6.38) L 08/23/16 06:05 Hgb 12.2 g/dL (13.7-17.5) L 08/23/16 06:05 Hct 36.1 % (40.0-51.0) L 08/23/16 06:05 MCV 98.4 fL (81.5-99.8) 08/23/16 06:05 MCH 33.2 pg (27.9-34.1) 08/23/16 06:05 MCHC 33.8 g/dL (32.4-36.7) 08/23/16 06:05 RDW 14.7 % (11.5-15.2) 08/23/16 06:05 Plt Count 158 10^3/uL (150-400) D 08/23/16 06:05 MPV 9.5 fL (8.7-11.7) 08/23/16 06:05 Neut % (Auto) 86.9 % (39.3-74.2) H 08/23/16 06:05 Lymph % (Auto) 4.0 % (15.0-45.0) L 08/23/16 06:05 Sumner % (Auto) 7.5 % (4.5-13.0) 08/23/16 06:05 Eos % (Auto) 0.2 % (0.6-7.6) L 08/23/16 06:05 Baso % (Auto) 0.4 % (0.3-1.7) 08/23/16 06:05 Nucleat RBC Rel Count 0.0 % (0.0-0.2) 08/23/16 06:05 Absolute Neuts (auto) 4.40 10^3/uL (1.70-6.50) 08/23/16 06:05 Absolute Lymphs (auto) 0.20 10^3/uL (1.00-3.00) L 08/23/16 06:05 Absolute Monos (auto) 0.38 10^3/uL (0.30-0.80) 08/23/16 06:05 Absolute Eos (auto) 0.01 10^3/uL (0.03-0.40) L 08/23/16 06:05 Absolute Basos (auto) 0.02 10^3/uL (0.02-0.10) 08/23/16 06:05 Absolute Nucleated RBC 0.00 10^3/uL (0-0.01) 08/23/16 06:05 Immature Gran % 1.0 % (0.0-1.1) 08/23/16 06:05 Immature Gran # 0.05 10^3/uL (0.00-0.10) 08/23/16 06:05 ESR 16 MM/HR (0-20) 08/23/16 06:05 Sodium 140 mEq/L (134-144) 08/23/16 06:05 Potassium 3.9 mEq/L (3.5-5.2) 08/23/16 06:05 Chloride 105 mEq/L (97-110) 08/23/16 06:05 Carbon Dioxide 24 mEq/l (22-31) 08/23/16 06:05 Anion Gap 11 mEq/L (8-16) 08/23/16 06:05 BUN 18 mg/dL (7-23) 08/23/16 06:05 Creatinine 1.1 mg/dL (0.7-1.3) 08/23/16 06:05 Estimated GFR > 60 08/23/16 06:05 Glucose 110 mg/dL (70-100) H 08/23/16 06:05 Calcium 8.8 mg/dL (8.5-10.4) 08/23/16 06:05 Total Bilirubin 1.1 mg/dL (0.1-1.4) 08/23/16 06:05 AST 23 IU/L (17-59) 08/23/16 06:05 ALT 34 IU/L (21-72) 08/23/16 06:05 Alkaline Phosphatase 43 IU/L (38-126) 08/23/16 06:05 Troponin I < 0.012 ng/mL (0-0.034) 08/23/16 06:05 C-Reactive Protein 41.5 mg/L (<10.0) H 08/23/16 06:05 Total Protein 6.5 g/dL (6.3-8.2) 08/23/16 06:05 Albumin 4.0 g/dL (3.5-5.0) 08/23/16 06:05 Visualized and Interpreted imaging results: Yes Interpretation: No focal airspace disease, no pulmonary embolism on CT angiogram of chest Assessment & Plan Assessment: 71-year-old male presents with acute fever in the setting of stage IIIA non- small cell lung cancer and recent chemotherapy Plan: 1. Fever. Acute, new problem this provider, further workup indicated. Most likely secondary to bacteremia, recently received a call from micro reporting Gram-negative rods on 08/22 blood cultures. That being said, the patient's new cough and potential for flu is relevant, will get a flu PCR. -Tylenol as needed -administer IV fluids -monitor fever curve -monitor CBC -not currently neutropenic 2. Gram-negative cassandra bacteremia. 07/1929 blood cultures, unclear source, patient is not currently neutropenic -reviewed outside records including 05/30/[address] Anuradha Gallardo, characterizing his most recent hospitalization for sepsis secondary to community-acquired pneumonia, discharged on levofloxacin, on steroids for chronic pneumonitis -may have an element of chronic immunosuppression from low-dose prednisone, reportedly only 2.5 mg daily -discussed with Dr. Tio Butts, he has reported to me that the patient has received IV levofloxacin in the emergency department, this will be continued -will contact Infectious Disease request consultation -hold on additional imaging at this time -urinalysis unremarkable, abdominal exam benign, skin exam demonstrating no obvious skin breaks 3. Myn-[id number] lung cancer. Stage IIIA, currently undergoing chemotherapy, status post left upper lobe resection, Dr. Butts has reported that oncology has been consulted and will also see the patient 4. Coronary artery disease. Chronic, continue home medications once reconciled Diet. Regular diet Prophylaxis. High risk patient, Lovenox 40 Code. Full Disposition. Anticipated discharge is 08/24/2016, pending further workup and treatment plan of the above-mentioned issue. If patient requires greater than 48 hours inpatient hospitalization for reasonable medical necessity, he will be upgraded to inpatient admission status at that time.
[2016-08-23] MEDS: ENOXAPARIN 40 MG/0.4 ML SYR SC SCH (10:38)
[2016-08-23] MEDS: VANCOMYCIN 125 MG/2.5 ML UDL PO SCH ×2 (10:38→20:47)
[2016-08-23] MEDS: NS 1,000 ML IV SCH ×2 (10:41→18:17)
[2016-08-23 11:00] LABS: COLOR YELLOW; LEUKOCYTE ESTERASE,URINE NEGATIVE (NEGATIVE); NITRITE,URINE NEGATIVE (NEGATIVE)
--- NOTE | 2016-08-23 11:07 | GCON ---
[f rep st] CONSULTATION INFECTIOUS DISEASE CONSULTATION DATE OF CONSULTATION: 08/23/2016 REFERRING PHYSICIAN: Umair Hall MD REASON FOR CONSULTATION: Gram-negative cassandra bacteremia. HISTORY OF PRESENT ILLNESS: The patient is a 71-year-old male with a past medical history of non-small cell lung cancer who has been on nivolumab therapy after initial treatment with left lower lobe resection who I am asked to see in consultation for gram-negative cassandra bacteremia. The patient was in his usual state of health yesterday and received his nivolumab infusion through his port in the a.m. Later that day, he developed fever and rigors with a temperature to 100.9. He was seen in the emergency department based on those findings and treated conservatively. He had persistent fev er and rigors and returned to the emergency department at which point in time he was admitted to the hospital. Two sets of blood cultures were obtained yesterday afternoon and 1 of 2 sets is growing gram-negative cassandra; this was obtained from the patient's port. He has a prior history of Morganella bacteremia in February 2016 which was felt to be port related. He preferred port retention at that p oint in time and was treated with a course of IV ertapenem. The patient also describes that he had a steroid injection into the cervical region approximately 2 weeks ago for radiculopathy. He is lamar nning a combined left carotid endarterectomy and cervical spine surgery in the upcoming weeks. He d id have a small amount of diarrhea yesterday. No nausea or vomiting. He does have some dry cough. No urinary symptoms. No myalgias or arthralgias. No skin rash. He is currently receiving empiric therapy with levofloxacin. Of note, he did receive a course of levofloxacin for community-acquired pneumonia in May. Additionally, he experienced recurrent C difficile in June. Given the gurmeet plunkett findings, I am now asked to assist in his ongoing management. PAST MEDICAL HISTORY: Non-small cell lung cancer, Morganella bacteremia, gout, hyperlipidemia, prakash nary artery disease, C difficile colitis, community-acquired pneumonia, carotid artery disease. PAST SURGICAL HISTORY: Left lung lobar resection, lumbar spine surgery, cholecystectomy, carotid en darterectomy in May on the right. CURRENT MEDICATIONS: Levofloxacin 750 mg IV daily, Lovenox 40 mg subcu daily, chemotherapy infusion yesterday as outlined above. ALLERGIES: Cholesterol-lowering agents, amlodipine, allopurinol, spironolactone, Cozaar. SOCIAL HISTORY: Patient is a former smoker. Former alcohol use. Neither currently. FAMILY HISTORY: Lung cancer in his sister, coronary artery disease. REVIEW OF SYSTEMS: Outside that noted in the HPI, remainder of a 10-system review is unremarkable. PHYSICAL EXAMINATION: VITAL SIGNS: Temperature 36.6, heart rate 87, respiratory rate 18, blood pre ssure 125/79, oxygen saturation 94% on room air. GENERAL: Patient is well nourished, well develope d in no acute distress. He appears nontoxic. HEENT: There are cushingoid faces present. There is no scleral icterus, conjunctival injection or conjunctival petechiae. Oropharynx shows no thrush. Dentition in poor repair. No nasal discharge. No tenderness over the frontal, maxillary or mastoi d area. NECK: Supple without lymphadenopathy or palpable thyromegaly. A well-healed scars present on the right anterior neck. CHEST: Clear to auscultation bilaterally without adventitious sounds. The respiratory effort is normal. Port is present in the left upper chest without erythema, disch arge or tenderness. The port is currently accessed. CARDIOVASCULAR: Regular rate and rhythm witho ut murmurs, gallops or rubs. ABDOMEN: Soft, nontender, nondistended. There is no palpable organom egaly. Bowel sounds are present. MUSCULOSKELETAL: There is no cyanosis, clubbing or edema. SKIN: No rashes present. There are no stigmata of endocarditis. Skin is warm and dry to touch. NEUROL OGIC: Patient is alert and interacts appropriately with the examiner. Cranial nerves 2-12 are carolann sly intact. Sensation is grossly intact. Muscle tone and bulk are normal. LYMPHATICS: No cervica l or supraclavicular nodes palpable. LABORATORY DATA: White blood cell count 5.1, hematocrit 36.1, platelets 158, neutrophils 87%, serum creatinine 1.1, AST 23, ALT 34, alkaline phosphatase 43, bilirubin 1.1. Urinalysis is negative. B lood cultures x2 sets with 1 of 2 sets showing gram-negative rods; the positive set was drawn from t he port. CT scan of the chest shows no evidence of pneumonia. IMPRESSION: 1. Gram-negative cassandra bacteremia likely port associated: Patient developed fever and rigors after u se of his port and has gram-negative rods growing from the culture obtained from his port. This is suggestive of port-related bacteremia. Previously, he has experienced bacteremia from his port with Morganella in February. We will change levofloxacin to cefepime pending identification and suscepti bility given frequent healthcare contact and receipt of levofloxacin in May. If Morganella is i solated, would necessitate port removal. Given the recurrent nature of his bacteremia, would consid er port removal even if organism is identified as pathogen other than Morganella. I have asked Dr. Preston to see the patient for this consideration. If the organism is not Morganella, other option wo uld be to treat with antibiotic therapy if blood cultures clear rapidly and observe. However, this would pose potential risk of recurrent bacteremia. 2. History of Clostridrium difficile colitis: Last positive specimen in our system is in March. The patient's family describes that he also had Clostridrium difficile in June. Based on this finding and need for broad-spectrum antibiotics, we will utilize vancomycin 125 mg p.o. b.i.d. as s uppressive therapy. RECOMMENDATIONS: 1. Cefepime 2 g IV q.8 hours pending identification and susceptibility of gram-negative cassandra. 2. Vancomycin 125 mg p.o. b.i.d. 3. Discontinue levofloxacin. 4. Surgical consultation with Dr. Preston. 5. Follow up identification and susceptibility of gram-negative cassandra as available. Thank you for this consultation. We will continue to follow patient with you. /[id number]/MODL
[2016-08-23] MEDS: OSELTAMIVIR PHOSPHATE 75 MG CAP PO SCH ×2 (12:59→18:17)
--- NOTE | 2016-08-23 13:59 | SOAPPROG ---
SOAP Progress Note Assessment/Plan: Assessment: 1.) GNR bacteremia after use of mediport yesterday. Appreciate ID input and management. On Cefipime/Vanco pending ID and Sens. May need port removed 2.) Influenza A (+) on [facility] ED work up. 3.) NonSmall Cell Lung Carcinoma: VINAY, diagnosis: 08/17/14, [id number] pathologic staging, S/P VATS resection. Subcarinal LN +, Squamous Cell histology, Grade 2, EGFR mutation Neg., Alk re-arrangement Neg., PD-L1: unknown. S/P VATS resection as primary therapy. S/P Radiation Therapy in the adjuvant setting Has received Nivolumab therapy since 10/10/15-08/22/16, without complications 4.) Hx. of Morganella sepsis- 03/10 5.) Hx. of Cervical spine degenerative ( non-malignant) surgical Tx - recently. Plan: 1.) Vanco + Cefipime 2.) Tamiflu 3.) Monitor VS + sx. of bacteremia and labs 4.) Consider if mediport needs to be removed since it may be the source of the bacteremia and colonized/hard to sterilize. 5.) Our service to follow. 08/23/16 13:59 Subjective: Feeling better since AM ED admission. No longer rigorous. Objective: Talkative middle aged male in NAD VS as noted here HEENT- anicteric, no assymetry, PERRLA, EOMI, no oral thrush Neck- without LN enlargement Chest- clear ant. Mediport- accessed/NT CVS- RSR, no extra HS, normal S1, S2 ABD- soft, NT, BS+, no mass, ascites, or HSM EXT- skin intact, well perfused, warm, and without edema Labs- as noted GNR bacteremia from first set drawn in [facility] ED on 08/22/16. Vital Signs Temp Pulse Resp BP Pulse Ox 37.0 C 95 16 137/75 H 94 08/23/16 12:29 08/23/16 12:29 08/23/16 12:29 08/23/16 12:29 08/23/16 12:29 08/22/16 08/23/16 08/24/16 05:59 05:59 05:59 Intake Total 250 Output Total 300 Balance -50 ICD10 Worksheet Patient Problems: Problems Problem Status Onset Fever Acute C. difficile diarrhea Acute 04/05/16 Dehydration Acute Diarrhea Acute Dysphagia, oropharyngeal Acute Gout Acute Hypocalcemia Acute Hypokalemia Acute Hypomagnesemia Acute Lung cancer Acute Nausea & vomiting Acute Neck pain Acute On total parenteral nutrition (TPN) Acute Pneumonia Acute RUQ abdominal pain Acute Weakness Acute CAD (coronary artery disease) Chronic Dyslipidemia Chronic Non-small cell cancer of left lung Chronic 08/31/14
[2016-08-23] MEDS: CEFEPIME HCL 2 GM in D5W 100 ML IV SCH ×2 (14:38→21:45)
[2016-08-23] MEDS: ACETAMINOPHEN 325 MG TAB PO PRN ×2 (14:43→20:47)
--- NOTE | 2016-08-23 16:27 | HOSPPROG ---
Hospitalist Progress Note Assessment/Plan: #Fever: due to Influenza A and gram negative bacteremia -appreciate ID consult -Tamiflu, change to Cefepime with h/o Morganella from port (prior bacteremia in Feb) -await culture data #Gram-negative bacteremia -concern with h/o Morganella from port. If positive for this, then rec port removal. Dr. Preston is aware of patient #h/o C diff: suppressive PO Vanc Subjective: feeling tired. Nonproductive cough Objective: Vital Signs Temp Pulse Resp BP Pulse Ox 37.8 C 95 16 137/75 H 94 08/23/16 14:45 08/23/16 12:29 08/23/16 12:29 08/23/16 12:29 08/23/16 12:29 08/22/16 08/23/16 08/24/16 05:59 05:59 05:59 Intake Total 250 Output Total 300 Balance -50 - Physical Exam Constitutional: no apparent distress Eyes: PERRL Ears, Nose, Mouth, Throat: moist mucous membranes, hearing normal Cardiovascular: regular rate and rhythym, no murmur, rub, or gallop Respiratory: no respiratory distress, no rales or rhonchi Gastrointestinal: normoactive bowel sounds, soft, non-tender abdomen Genitourinary: no bladder fullness Skin: warm, other (port RUE chest without signs of infection) Musculoskeletal: full muscle strength Neurologic: AAOx3 ICD10 Worksheet Patient Problems: Problems Problem Status Onset Fever Acute C. difficile diarrhea Acute 04/05/16 Dehydration Acute Diarrhea Acute Dysphagia, oropharyngeal Acute Gout Acute Hypocalcemia Acute Hypokalemia Acute Hypomagnesemia Acute Lung cancer Acute Nausea & vomiting Acute Neck pain Acute On total parenteral nutrition (TPN) Acute Pneumonia Acute RUQ abdominal pain Acute Weakness Acute CAD (coronary artery disease) Chronic Dyslipidemia Chronic Non-small cell cancer of left lung Chronic 08/31/14
[2016-08-23] MEDS: MELATONIN 3 MG TAB PO SCH (22:44)
--- NOTE | 2016-08-24 00:33 | SOAPPROG ---
SOAP Progress Note Assessment/Plan: Assessment: 71 MALE ADMITTED FOR FEVER/ PORT SITE OK/ APPEARS TO HAVE THE FLU BLOOD CULTURES - SO FAR Plan:DC PORT IF BLOOD CULTURES TURN POSITIVE 08/24/16 00:32 Objective: Vital Signs Temp Pulse Resp BP Pulse Ox 37.6 C 106 H 16 117/71 90 L 08/24/16 00:00 08/24/16 00:00 08/24/16 00:00 08/24/16 00:00 08/24/16 00:00 08/22/16 08/23/16 08/24/16 05:59 05:59 05:59 Intake Total 1250 Output Total 300 Balance 950 ICD10 Worksheet Patient Problems: Problems Problem Status Onset C. difficile diarrhea Acute 04/05/16 Dehydration Acute Diarrhea Acute Dysphagia, oropharyngeal Acute Gout Acute Hypocalcemia Acute Hypokalemia Acute Hypomagnesemia Acute Lung cancer Acute Nausea & vomiting Acute Neck pain Acute On total parenteral nutrition (TPN) Acute Pneumonia Acute RUQ abdominal pain Acute Weakness Acute CAD (coronary artery disease) Chronic Dyslipidemia Chronic
[2016-08-24] MEDS: NS 1,000 ML IV SCH ×2 (01:30→08:41)
[2016-08-24] MEDS: CEFEPIME HCL 2 GM in D5W 100 ML IV SCH ×2 (05:06→15:57)
[2016-08-24] MEDS: ACETAMINOPHEN 325 MG TAB PO PRN (05:07)
[2016-08-24] MEDS ORDERED: CEPACOL LOZENGE PO PRN (05:22)
[2016-08-24 05:25] LABS: % IMMATURE GRANULYOCYTES 0.3 % (0.0-1.1); ABSOLUTE IMMATURE GRANULOCYTES 0.02 10^3/uL (0.00-0.10); ADD DIFF? NO; ADD MORPH? NO; ADD SCAN? NO; ATYPICAL LYMPHOCYTE FLAG 0 (0-99); FRAGMENT RBC FLAG 0 (0-99); HEMATOCRIT 36.9 % (40.0-51.0); HEMOGLOBIN 12.6 g/dL (13.7-17.5); LEFT SHIFT FLG 0 (0-99); LIPEMIA HEMOLYSIS FLAG 90 (0-99); MEAN CELL HEMOGLOBIN 33.7 pg (27.9-34.1); MEAN CELL HEMOGLOBIN CONCENTR. 34.1 g/dL (32.4-36.7); MEAN CELL VOLUME 98.7 fL (81.5-99.8); MEAN PLATELET VOLUME 9.6 fL (8.7-11.7); PLATELET CLUMPS FLAG 0 (0-99); PLATELET COUNT 147 10^3/uL (150-400); RED BLOOD CELL COUNT 3.74 10^6/uL (4.40-6.38)
[2016-08-24 05:45] LABS: ALANINE AMINOTRANSFERASE 53 IU/L (21-72); ALBUMIN 3.5 g/dL (3.5-5.0); ALKALINE PHOSPHATASE 42 IU/L (38-126); ANION GAP 10 mEq/L (8-16); ASPARTATE AMINOTRANSFERASE 35 IU/L (17-59); BILIRUBIN,TOTAL 0.6 mg/dL (0.1-1.4); CALCIUM 8.1 mg/dL (8.5-10.4); CARBON DIOXIDE 19 mEq/l (22-31); CHLORIDE 107 mEq/L (97-110); GLOMERULAR FILTRATION RATE > 60; GLUCOSE 114 mg/dL (70-100); POTASSIUM 4.1 mEq/L (3.5-5.2); SODIUM 136 mEq/L (134-144); TOTAL PROTEIN 6.3 g/dL (6.3-8.2)
[2016-08-24] MEDS: guaiFENesin/CODEINE PHOS 10 ML UDCUP PO PRN (05:56)
--- NOTE | 2016-08-24 08:03 | SOAPPROG ---
SOAP Progress Note Assessment/Plan: Assessment: 71 MALE ADMITTED FOR FEVER/ PORT SITE OK/ APPEARS TO HAVE THE FLU BLOOD CULTURES - SO FAR Plan:DC PORT IF BLOOD CULTURES TURN POSITIVE 08/24/16 00:32 08/24/16 08:02 is now afebrile / port appears to be okay with no evidence of infection / blood cultures are currently negative / he is positive for influenza / will follow but no need to remove port at this point Objective: Vital Signs Temp Pulse Resp BP Pulse Ox 37.7 C 112 H 15 163/92 H 96 08/24/16 04:00 08/24/16 05:43 08/24/16 04:00 08/24/16 04:00 08/24/16 05:43 Laboratory Results 08/24/16 04:59 08/24/16 04:59 08/23/16 08/24/16 08/25/16 05:59 05:59 05:59 Intake Total 2349 Output Total 300 Balance 2049 ICD10 Worksheet Patient Problems: Problems Problem Status Onset C. difficile diarrhea Acute 04/05/16 Dehydration Acute Diarrhea Acute Dysphagia, oropharyngeal Acute Gout Acute Hypocalcemia Acute Hypokalemia Acute Hypomagnesemia Acute Lung cancer Acute Nausea & vomiting Acute Neck pain Acute On total parenteral nutrition (TPN) Acute Pneumonia Acute RUQ abdominal pain Acute Weakness Acute CAD (coronary artery disease) Chronic Dyslipidemia Chronic
[2016-08-24] MEDS: ASPIRIN 81 MG CHEWABLE TAB PO SCH (08:34)
[2016-08-24] MEDS: OSELTAMIVIR PHOSPHATE 75 MG CAP PO SCH ×2 (08:34→18:16)
[2016-08-24] MEDS: VANCOMYCIN 125 MG/2.5 ML UDL PO SCH ×2 (08:41→20:46)
[2016-08-24] MEDS: predniSONE 5 MG TAB PO SCH (08:42)
[2016-08-24] MEDS: METOPROLOL SUCCINATE XR 50 MG TAB PO SCH (08:42)
[2016-08-24] MEDS: ENOXAPARIN 40 MG/0.4 ML SYR SC SCH (08:43)
--- NOTE | 2016-08-24 12:14 | HOSPPROG ---
Hospitalist Progress Note Assessment/Plan: #Fever: due to Influenza A and gram negative bacteremia -appreciate ID consult -Tamiflu, change to Cefepime with h/o Morganella from port (prior bacteremia in Feb) -await culture data #Gram-negative bacteremia -concern with h/o Morganella from port. If positive for this, then rec port removal. Dr. Preston is aware of patient #h/o C diff: suppressive PO Vanc #Non-small cell carcinoma: s/p lobectomy. Currently on chemo #CAD: ASA, BB #Diet: regular #DVT ppx: Lovenox #Disp: warrant inpt admission needing IV abx, awaiting culture data Subjective: nonproductive cough Objective: Vital Signs Temp Pulse Resp BP Pulse Ox 37.3 C 95 18 123/76 H 93 08/24/16 12:00 08/24/16 12:00 08/24/16 12:00 08/24/16 12:00 08/24/16 12:00 Laboratory Results 08/24/16 04:59 08/24/16 04:59 08/23/16 08/24/16 08/25/16 05:59 05:59 05:59 Intake Total 2349 Output Total 300 100 Balance 2049 -100 - Physical Exam Constitutional: other (tired) Eyes: PERRL Ears, Nose, Mouth, Throat: moist mucous membranes, hearing normal Cardiovascular: regular rate and rhythym, no murmur, rub, or gallop Respiratory: reduced air movement Gastrointestinal: normoactive bowel sounds, soft, non-tender abdomen Genitourinary: no bladder fullness Skin: other (chest port with no e/o infection) Musculoskeletal: full muscle strength Neurologic: AAOx3 Psychiatric: interacting appropriately ICD10 Worksheet Patient Problems: Problems Problem Status Onset C. difficile diarrhea Acute 04/05/16 Dehydration Acute Diarrhea Acute Dysphagia, oropharyngeal Acute Gout Acute Hypocalcemia Acute Hypokalemia Acute Hypomagnesemia Acute Lung cancer Acute Nausea & vomiting Acute Neck pain Acute On total parenteral nutrition (TPN) Acute Pneumonia Acute RUQ abdominal pain Acute Weakness Acute CAD (coronary artery disease) Chronic Dyslipidemia Chronic
--- NOTE | 2016-08-24 13:28 | SOAPPROG ---
SOAP Progress Note Assessment/Plan: Assessment: 1. Influenza A - on treatment 2. GNR sepsis - Moragnella again. Probably from port. It should come out 3. Lung CA - under control on nivolumab 4. 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 Needs L carotid endarterectomy/C-spine surgery in the near future. Plan: 1. Rx influenza 2. Rx sepsis 3. Port removal Will follow with you. Subjective: Coughing. No N/V Objective: Vital Signs Temp Pulse Resp BP Pulse Ox 37.3 C 95 18 123/76 H 93 08/24/16 12:00 08/24/16 12:00 08/24/16 12:00 08/24/16 12:00 08/24/16 12:00 Physical Exam - Physical Exam General Appearance: alert, moderate distress Respiratory: rhonchi (bilateral) Cardiac/Chest: regular rate, rhythm Abdomen: normal bowel sounds Skin: other (port site not red or tender) Neuro/Psych: oriented x 3 ICD10 Worksheet Patient Problems: Problems Problem Status Onset C. difficile diarrhea Acute 04/05/16 Dehydration Acute Diarrhea Acute Dysphagia, oropharyngeal Acute Gout Acute Hypocalcemia Acute Hypokalemia Acute Hypomagnesemia Acute Lung cancer Acute Nausea & vomiting Acute Neck pain Acute On total parenteral nutrition (TPN) Acute Pneumonia Acute RUQ abdominal pain Acute Weakness Acute CAD (coronary artery disease) Chronic Dyslipidemia Chronic
[2016-08-24] MEDS ORDERED: LIDOCAINE 1% *Not for Epidural 20 ML MDV NB ONE (13:30)
--- NOTE | 2016-08-24 15:11 | GOP ---
[f rep st] OPERATIVE REPORT DATE OF OPERATION: 08/24/2016 SURGEON: Flor Ojeda MD ANESTHESIA: None. PREOPERATIVE DIAGNOSIS: Bacteremia. POSTOPERATIVE DIAGNOSIS: Bacteremia. PROCEDURE PERFORMED: Port removal. FINDINGS: no gross purulence SPECIMENS: None. ESTIMATED BLOOD LOSS: 25 cc. INDICATIONS: The patient is a 71-year-old man who was admitted with flu. He was also found to have gram-negative rods in his blood cultures. Port removal was indicated. DESCRIPTION OF PROCEDURE: The patient is at bedside. I verbally consented him. I prepped his chest with chlorhexidine. I infiltrated it with 8 cc of 1% lidocaine. I made an incision over the port. I dissected down to the level of the port. It took considerable dissection to remove the port from the fibrin. The port was ultimately removed. There was no bleeding from the tract. Hemostasis was achieved with direct pressure. I closed the wound with 3-0 nylon in 3 interrupted sutures. A sterile dressing was applied. He tolerated the procedure well. /[id number]/MODL MTDD
--- NOTE | 2016-08-24 16:49 | PCMIDPN ---
Assessment/Plan: Assessment/Plan: * Recurrent Morganella bacteremia status post port removal earlier today: Blood cultures with Morganella isolated which was also present when bacteremic in February. Port now has been removed as concerned this is source for bacteremia. Continue cefepime pending susceptibility profile. If susceptible to fluoroquinolones, will plan to complete treatment with oral levofloxacin given excellent oral bioavailability. Repeat blood cultures to document clearing of bacteremia. * Influenza A: Continue Tamiflu. * History of C difficile colitis: Continue suppressive twice daily oral vancomycin given broad-spectrum antibiotic use. 08/24/16 16:46 08/24/16 16:47 Subjective: Patient feels better. Port removed earlier today based on recurrent Morganella bacteremia. Continues with cough. Objective: Vital Signs Temp Pulse Resp BP Pulse Ox 37.3 C 95 18 123/76 H 93 08/24/16 12:00 08/24/16 12:00 08/24/16 12:00 08/24/16 12:00 08/24/16 12:00 ESR 16 MM/HR (0-20) 08/23/16 06:05 C-Reactive Protein 41.5 mg/L (<10.0) H 08/23/16 06:05 Cefepime # 2 Blood cultures 06/27 sets 08/22/2016 Morganella with susceptibility pending Influenza A positive by PCR - Physical Exam General Appearance: alert, no apparent distress EENT: pharynx normal, No thrush, No conjunctival petechiae Respiratory: lungs clear, other (Episodic cough), No respiratory distress Cardiac/Chest: regular rate, rhythm, other (Prior port site dressed postoperatively) Abdomen: non-tender, No distended ICD10 Worksheet Patient Problems: Problems Problem Status Onset C. difficile diarrhea Acute 04/05/16 Dehydration Acute Diarrhea Acute Dysphagia, oropharyngeal Acute Gout Acute Hypocalcemia Acute Hypokalemia Acute Hypomagnesemia Acute Lung cancer Acute Nausea & vomiting Acute Neck pain Acute On total parenteral nutrition (TPN) Acute Pneumonia Acute RUQ abdominal pain Acute Weakness Acute CAD (coronary artery disease) Chronic Dyslipidemia Chronic
[2016-08-24] MEDS: CEFEPIME HCL 1 GM in D5W 50 ML IV SCH ×2 (18:17→20:46)
[2016-08-24] MEDS: MELATONIN 3 MG TAB PO SCH (20:46)
[2016-08-25 05:56] LABS: HEMATOCRIT 35.4 % (40.0-51.0); HEMOGLOBIN 11.7 g/dL (13.7-17.5); MEAN CELL HEMOGLOBIN 32.9 pg (27.9-34.1); MEAN CELL HEMOGLOBIN CONCENTR. 33.1 g/dL (32.4-36.7); MEAN CELL VOLUME 99.4 fL (81.5-99.8); RED BLOOD CELL COUNT 3.56 10^6/uL (4.40-6.38); RED CELL DISTRIBUTION WIDTH 14.8 % (11.5-15.2)
[2016-08-25] MEDS: ACETAMINOPHEN 325 MG TAB PO PRN (06:23)
[2016-08-25 06:29] LABS: ANION GAP 8 mEq/L (8-16); CALCIUM 8.2 mg/dL (8.5-10.4); CARBON DIOXIDE 23 mEq/l (22-31); CHLORIDE 108 mEq/L (97-110); CREATININE 0.9 mg/dL (0.7-1.3); GLOMERULAR FILTRATION RATE > 60; GLUCOSE 99 mg/dL (70-100); POTASSIUM 4.1 mEq/L (3.5-5.2); SODIUM 139 mEq/L (134-144)
--- NOTE | 2016-08-25 08:05 | SOAPPROG ---
SOAP Progress Note Assessment/Plan: Assessment: POD # 1 s/p removal of port Dressing cdi May remove dressing this afternoon or tomorrow and shower Sutures out in 10 days Plan: 08/25/16 08:05 Objective: Vital Signs Temp Pulse Resp BP Pulse Ox 37.6 C 91 18 130/73 H 97 08/25/16 04:00 08/25/16 04:00 08/25/16 04:00 08/25/16 04:00 08/25/16 04:00 Laboratory Results 08/25/16 05:50 08/25/16 05:50 08/24/16 08/25/16 08/26/16 05:59 05:59 05:59 Intake Total 3494 Balance 3494 ICD10 Worksheet Patient Problems: Problems Problem Status Onset C. difficile diarrhea Acute 04/05/16 Dehydration Acute Diarrhea Acute Dysphagia, oropharyngeal Acute Gout Acute Hypocalcemia Acute Hypokalemia Acute Hypomagnesemia Acute Lung cancer Acute Nausea & vomiting Acute Neck pain Acute On total parenteral nutrition (TPN) Acute Pneumonia Acute RUQ abdominal pain Acute Weakness Acute CAD (coronary artery disease) Chronic Dyslipidemia Chronic
--- NOTE | 2016-08-25 09:11 | HOSPPROG ---
Hospitalist Progress Note Assessment/Plan: #Diarrhea: h/o C diff. Check stool today. Currently on suppressive tx #Fever: resolved. due to Influenza A and gram negative bacteremia -appreciate ID consult -Tamiflu, change to Cefepime with h/o Morganella from port (prior bacteremia in Feb) -await culture data #Morganella bacteremia -cultures 08/22 positive for Morganella. Port likely source, thus removed . Sensitive to FQs, so can go on orals at DC #Non-small cell carcinoma: s/p lobectomy. Currently on chemo #CAD: ASA, BB #Diet: regular #DVT ppx: Lovenox #Disp: warrant inpt admission needing IV abx, awaiting culture data Subjective: diarrhea, feeling very weak Objective: Vital Signs Temp Pulse Resp BP Pulse Ox 36.7 C 82 18 105/63 98 08/25/16 08:15 08/25/16 08:15 08/25/16 08:15 08/25/16 08:15 08/25/16 08:15 Laboratory Results 08/25/16 05:50 08/25/16 05:50 08/24/16 08/25/16 08/26/16 05:59 05:59 05:59 Intake Total 3494 Balance 3494 - Physical Exam Constitutional: other (tired) Eyes: PERRL Ears, Nose, Mouth, Throat: moist mucous membranes Cardiovascular: regular rate and rhythym, no murmur, rub, or gallop Respiratory: no respiratory distress Gastrointestinal: normoactive bowel sounds, soft, non-tender abdomen Genitourinary: no bladder fullness Skin: warm Musculoskeletal: full muscle strength Neurologic: AAOx3 ICD10 Worksheet Patient Problems: Problems Problem Status Onset C. difficile diarrhea Acute 04/05/16 Dehydration Acute Diarrhea Acute Dysphagia, oropharyngeal Acute Gout Acute Hypocalcemia Acute Hypokalemia Acute Hypomagnesemia Acute Lung cancer Acute Nausea & vomiting Acute Neck pain Acute On total parenteral nutrition (TPN) Acute Pneumonia Acute RUQ abdominal pain Acute Weakness Acute CAD (coronary artery disease) Chronic Dyslipidemia Chronic
[2016-08-25] MEDS: ASPIRIN 81 MG CHEWABLE TAB PO SCH (09:28)
[2016-08-25] MEDS: METOPROLOL SUCCINATE XR 50 MG TAB PO SCH (09:29)
[2016-08-25] MEDS: VANCOMYCIN 125 MG/2.5 ML UDL PO SCH ×2 (09:29→19:39)
[2016-08-25] MEDS: ENOXAPARIN 40 MG/0.4 ML SYR SC SCH (09:29)
[2016-08-25] MEDS: OSELTAMIVIR PHOSPHATE 75 MG CAP PO SCH ×2 (09:29→18:22)
[2016-08-25] MEDS: CEFEPIME HCL 1 GM in D5W 50 ML IV SCH (09:29)
[2016-08-25] MEDS: predniSONE 5 MG TAB PO SCH (09:29)
--- NOTE | 2016-08-25 11:31 | PCMIDPN ---
Assessment/Plan: Assessment/Plan: * Recurrent Morganella bacteremia status post port removal earlier today: Port removed yesterday as concerned this is source for bacteremia. Isolate is fluoroquinolone susceptible. Will change cefepime to levofloxacin with anticipated completion of therapy by oral route given excellent bioavailability. Risk of tendinopathy discussed with patient and . Repeat blood cultures pending to assess for clearing of bacteremia. * Influenza A: Continue Tamiflu. Check chest x-ray as persistent cough to ensure no evolution to pneumonia. * History of C difficile colitis: Recurrent diarrhea which his notes is similar to previous C difficile. Will repeat C difficile toxin and if positive increase to four times daily dosing. If negative, continue suppressive twice daily dosing. 08/25/16 11:28 Subjective: Complains of 4 episodes of diarrhea similar to that with prior C difficile this a.m.. Complains of persistent cough. No appetite. Objective: Vital Signs Temp Pulse Resp BP Pulse Ox 36.7 C 82 18 105/63 98 08/25/16 08:15 08/25/16 08:15 08/25/16 08:15 08/25/16 08:15 08/25/16 08:15 Laboratory Results 08/25/16 05:50 08/25/16 05:50 08/24/16 08/25/16 08/26/16 05:59 05:59 05:59 Intake Total 3494 Balance 3494 ESR 16 MM/HR (0-20) 08/23/16 06:05 C-Reactive Protein 41.5 mg/L (<10.0) H 08/23/16 06:05 - Physical Exam General Appearance: alert, other (Fatigued appearance) EENT: No thrush Respiratory: lungs clear, No respiratory distress Cardiac/Chest: regular rate, rhythm Extremities: No inflammation Abdomen: non-tender, No distended ICD10 Worksheet Patient Problems: Problems Problem Status Onset C. difficile diarrhea Acute 04/05/16 Dehydration Acute Diarrhea Acute Dysphagia, oropharyngeal Acute Gout Acute Hypocalcemia Acute Hypokalemia Acute Hypomagnesemia Acute Lung cancer Acute Nausea & vomiting Acute Neck pain Acute On total parenteral nutrition (TPN) Acute Pneumonia Acute RUQ abdominal pain Acute Weakness Acute CAD (coronary artery disease) Chronic Dyslipidemia Chronic
--- NOTE | 2016-08-25 14:21 | SOAPPROG ---
SOAP Progress Note Assessment/Plan: Assessment: 1. Influenza A - on treatment 2. GNR sepsis - Moragnella again. Probably from port. Port removed 08/24/2016. 3. Lung CA - under control on nivolumab 4. 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 Needs L carotid endarterectomy/C-spine surgery in the near future. 6. Diarrhea - C.diff negative Plan: 1. Rx influenza 2. Rx sepsis Home when medically stable. Follow up with me in 1 week post D/C. Subjective: [place] worse last night but better today. Wants to go home tomorrow. Objective: Vital Signs Temp Pulse Resp BP Pulse Ox 36.8 C 79 18 137/51 H 99 08/25/16 12:00 08/25/16 12:00 08/25/16 12:00 08/25/16 12:00 08/25/16 12:00 Laboratory Results 08/25/16 05:50 08/25/16 05:50 08/23/16 08/24/16 08/25/16 23:59 23:59 23:59 Intake Total 1799 1695 Balance 1799 1695 Physical Exam - Physical Exam General Appearance: mild distress Respiratory: lungs clear Cardiac/Chest: regular rate, rhythm Skin: normal color, warm/dry Neuro/Psych: normal mood/affect, oriented x 3 ICD10 Worksheet Patient Problems: Problems Problem Status Onset C. difficile diarrhea Acute 04/05/16 Dehydration Acute Diarrhea Acute Dysphagia, oropharyngeal Acute Gout Acute Hypocalcemia Acute Hypokalemia Acute Hypomagnesemia Acute Lung cancer Acute Nausea & vomiting Acute Neck pain Acute On total parenteral nutrition (TPN) Acute Pneumonia Acute RUQ abdominal pain Acute Weakness Acute CAD (coronary artery disease) Chronic Dyslipidemia Chronic
[2016-08-25] MEDS: guaiFENesin/CODEINE PHOS 10 ML UDCUP PO PRN (18:22)
[2016-08-25] MEDS: MELATONIN 3 MG TAB PO SCH (19:39)
[2016-08-25] MEDS: NS 1,000 ML IV SCH (19:54)
[2016-08-25 23:30] VITALS: RESP 16
--- NOTE | 2016-08-26 08:58 | PCMIDPN ---
Assessment/Plan: Assessment/Plan: * Recurrent Morganella bacteremia status post port removal earlier today: Port removed yesterday as concerned this is source for bacteremia. Repeat blood cultures no growth to date. Plan 10 days of therapy post negative blood cultures which would make stop date 09/04/2016 provided blood cultures remain negative from 08/25/2016. Will arrange for follow-up in my office next week. * Influenza A: Continue Tamiflu x 5 days. Overall clinically improved and chest x-ray without evidence of pneumonia. * History of C difficile colitis: C difficile toxin negative. Continue vancomycin orally 125 mg twice daily to continue for 7 days post completion of levofloxacin (and 09/11/2016). 08/26/16 08:56 Subjective: Patient feels better today. Less cough. Objective: Vital Signs Temp Pulse Resp BP Pulse Ox 36.8 C 78 16 144/76 H 96 08/26/16 04:00 08/26/16 04:00 08/26/16 04:00 08/25/16 19:27 08/26/16 04:00 Laboratory Results 08/25/16 05:50 08/25/16 05:50 08/25/16 08/26/16 08/27/16 05:59 05:59 05:59 Intake Total 3494 3251 400 Balance 3494 3251 400 ESR 16 MM/HR (0-20) 08/23/16 06:05 C-Reactive Protein 41.5 mg/L (<10.0) H 08/23/16 06:05 Levofloxacin # 2 Antibiotics # 4 Blood cultures 08/22/16 Morganella susceptible to fluoroquinolones Blood cultures 08/25/2016 pending Stool C difficile toxin negative Chest x-ray without evidence of pneumonia - Physical Exam General Appearance: alert, no apparent distress EENT: No scleral icterus, No thrush Respiratory: wheezing (Few bilateral wheezes with expiration) Cardiac/Chest: regular rate, rhythm Extremities: No inflammation Abdomen: non-tender, No distended ICD10 Worksheet Patient Problems: Problems Problem Status Onset C. difficile diarrhea Acute 04/05/16 Dehydration Acute Diarrhea Acute Dysphagia, oropharyngeal Acute Gout Acute Hypocalcemia Acute Hypokalemia Acute Hypomagnesemia Acute Lung cancer Acute Nausea & vomiting Acute Neck pain Acute On total parenteral nutrition (TPN) Acute Pneumonia Acute RUQ abdominal pain Acute Weakness Acute CAD (coronary artery disease) Chronic Dyslipidemia Chronic
[2016-08-26 09:21] VITALS: BP 127/61; PULSE 81; TEMP 98.1; O2SAT 99
[2016-08-26] MEDS: OSELTAMIVIR PHOSPHATE 75 MG CAP PO SCH (09:21)
[2016-08-26] MEDS: ASPIRIN 81 MG CHEWABLE TAB PO SCH (09:21)
[2016-08-26] MEDS: METOPROLOL SUCCINATE XR 50 MG TAB PO SCH (09:22)
[2016-08-26] MEDS: VANCOMYCIN 125 MG/2.5 ML UDL PO SCH (09:22)
[2016-08-26] MEDS: predniSONE 5 MG TAB PO SCH (09:22)
[2016-08-26] MEDS: ENOXAPARIN 40 MG/0.4 ML SYR SC SCH (09:23)
--- NOTE | 2016-08-26 09:56 | SOAPPROG ---
SOAP Progress Note Assessment/Plan: Assessment/Plan: 71 Y M s/p port removal. POD#2. Seen and examined with Dr. Preston. Dressing cdi. May remove dressing. Ok to shower. sutures out 9 days from now. S: Eager to go home. Has guests tonight. O: alert, nad, nontoxic appearing port site clean no wob 08/26/16 09:55 Objective: Vital Signs Temp Pulse Resp BP Pulse Ox 36.7 C 81 16 127/61 H 99 08/26/16 08:00 08/26/16 08:00 08/26/16 08:00 08/26/16 08:00 08/26/16 08:00 Laboratory Results 08/25/16 05:50 08/25/16 05:50 08/25/16 08/26/16 08/27/16 05:59 05:59 05:59 Intake Total 3494 3251 400 Balance 3494 3251 400 ICD10 Worksheet Patient Problems: Problems Problem Status Onset C. difficile diarrhea Acute 04/05/16 Dehydration Acute Diarrhea Acute Dysphagia, oropharyngeal Acute Gout Acute Hypocalcemia Acute Hypokalemia Acute Hypomagnesemia Acute Lung cancer Acute Nausea & vomiting Acute Neck pain Acute On total parenteral nutrition (TPN) Acute Pneumonia Acute RUQ abdominal pain Acute Weakness Acute CAD (coronary artery disease) Chronic Dyslipidemia Chronic
--- NOTE | 2016-08-26 12:54 | PDDCSUM ---
Discharge Summary Discharge Summary: DISCHARGE SUMMARY FOLLOW-UP ITEMS: Follow up final blood culture results DATE OF ADMISSION: 08/23/2016 DATE OF DISCHARGE: 08/26/16 DISCHARGE DIAGNOSES: 1. Morganella bacteremia 2. Influenza infection 3. Non-small cell lung cancer CONSULTATIONS: General surgery, Infectious Disease PROCEDURES / IMAGING: CT angiogram of the chest demonstrating no evidence of pulmonary embolism, no focal pneumonia, port removal CHIEF COMPLAINT: Acute fevers SUBJECTIVE: Patient is feeling well at time of discharge, his diarrhea has resolved, he is not had any subjective fevers PHYSICAL EXAM ON DISCHARGE: Systolic blood pressure is 140, heart rate in the 80s, afebrile overnight, satting well on room air, abdominal exam demonstrates good bowel sounds, nontender abdomen, no erythema or induration around the port site, good inspiratory and expiratory air movement bilaterally LABS ON DISCHARGE: Blood cultures from 08/25 no growth to date, influenza a PCR positive, C diff PCR negative HOSPITAL COURSE BY PROBLEM: 1. Morganella bacteremia. His port is likely source, it was removed on 08/24, culture sensitivity to fluoroquinolones, seen by infectious disease with antibiotic start date 08/25. He will receive 14 subsequent days and follow up with Dr. Chavez on 09/03. 2. Influenza A infection. Patient's cough and chest symptoms most likely secondary to influenza A, positive on PCR, responded well to supportive care with Mucinex and guaifenesin/codeine, initiated on Tamiflu, continue for total 5 days. 3. Non-small cell lung cancer. Status post lobectomy, patient is currently receiving chemotherapy through [facility]. He will need his IV access addressed as an outpatient. DISCHARGE MEDICATIONS: Please see official discharge medication reconciliation sheet in chart , Tamiflu 75 mg twice daily for 2 subsequent days, levofloxacin 750 mg daily for 12 subsequent days, vancomycin prophylaxis twice daily while he is on levofloxacin, guaifenesin codeine, Mucinex scheduled. DISCHARGE INSTRUCTIONS: Patient should follow up with Dr. Chavez as scheduled, Dr. Preston and Gold thereafter. TIME SPENT: Greater than 30 minutes were spent on direct patient care, as well as discharge planning and preparation.
== END 2016-08-26 15:13 | disposition home or self-care (01) | DRG 315 ==
LOC: F1N 08:20 → OBSVTOIN 08-24 12:14
PROVIDERS: ADMIT Internal Medicine; ATTEND Internal Medicine
PROC: 0JPT0WZ Removal of Totally Implantable Vascular Access Device from Trunk Subcutaneous Tissue and Fascia, Open Approach (ICD-10-PCS; principal; 2016-08-24)
DX: T80.211A Bloodstream infection due to central venous catheter, initial encounter (principal); R78.81 Bacteremia; B96.4 Proteus (mirabilis) (morganii) as the cause of diseases classified elsewhere; J10.1 Influenza due to other identified influenza virus with other respiratory manifestations; C34.90 Malignant neoplasm of unspecified part of unspecified bronchus or lung; I65.22 Occlusion and stenosis of left carotid artery; I25.10 Atherosclerotic heart disease of native coronary artery without angina pectoris; I10 Essential (primary) hypertension; E78.5 Hyperlipidemia, unspecified; M10.9 Gout, unspecified; Z95.5 Presence of coronary angioplasty implant and graft
CPT/HCPCS: 96365; G0378; J0692; J1650; J1956; Q9967

== ENCOUNTER 2016-09-02 18:41 | Emergency (ER) | payer OTHER, MEDICARE ==
--- NOTE | 2016-09-02 20:16 | EDPHY ---
H & P Stated Complaint: Lung Cancer- infected port removed, fever, rigors, weak. Time Seen by Provider: 09/02/16 19:44 HPI/ROS: CHIEF COMPLAINT: [ ] HISTORY OF PRESENT ILLNESS: [Need 4: Location, Duration, Severity, Quality, Context, Timing Modifying Factors, Associated S&S] REVIEW OF SYSTEMS: A comprehensive 10 point review of systems is otherwise negative aside from elements mentioned in the history of present illness. - Personal History Current Tetanus/Diphtheria Vaccine: Unsure - Medical/Surgical History Hx Asthma: No Hx Chronic Respiratory Disease: Yes Hx Diabetes: No Hx Cardiac Disease: Yes Hx Renal Disease: No Hx Cirrhosis: No Hx Alcoholism: No Hx HIV/AIDS: No Hx Splenectomy or Spleen Trauma: No Other PMH: pmh- htn, hyperlipemia, gout, non-small cell lung ca stage IIIA, cad. psh- L lung resection 08/31/14, cardiac stents x2, back surgery, cholecystectomy, port removed 2016 - Social History Smoking Status: Former smoker - Physical Exam Exam: General Appearance: [Alert, no distress] Eyes: [Pupils equal and round no pallor or injection] ENT, Mouth: [Mucous membranes moist] Respiratory: [There are no retractions, lungs are clear to auscultation] Cardiovascular: [Regular rate and rhythm] Gastrointestinal: [Abdomen is soft and nontender, no masses, bowel sounds normal] Neurological: [A&O, normal motor function, normal sensory exam, normal cranial nerves] Skin: [Warm and dry, no rashes] Musculoskeletal: [Neck is supple nontender] Extremities: [symmetrical, full range of motion] Psychiatric: [Patient is oriented X 3, there is no agitation] Constitutional: Initial Vital Signs Temperature (C) 36.8 C 09/02/16 18:57 Heart Rate 93 09/02/16 18:57 Respiratory Rate 18 09/02/16 18:57 Blood Pressure 112/80 09/02/16 18:57 O2 Sat (%) 92 09/02/16 18:57 O2 Delivery Mode Room Air Allergies/Adverse Reactions: allopurinol Allergy (Verified 09/02/16 19:01) amlodipine Allergy (Verified 09/02/16 19:01) atorvastatin calcium [From Lipitor] Allergy (Verified 09/02/16 19:01) Other-Enter Comments ezetimibe [From Zetia] Allergy (Verified 09/02/16 19:01) lisinopril Allergy (Verified 09/02/16 19:01) Other-Enter Comments lorazepam Allergy (Verified 09/02/16 19:01) Other-Enter Comments losartan potassium [From Cozaar] Allergy (Verified 09/02/16 19:01) GOUT morphine Allergy (Verified 09/02/16 19:01) pitavastatin calcium [From Livalo] Allergy (Verified 09/02/16 19:01) pravastatin Allergy (Verified 09/02/16 19:01) rosuvastatin calcium [From Crestor] Allergy (Verified 09/02/16 19:01) spironolactone Allergy (Verified 09/02/16 19:01) Home Medications: Medication Instructions Recorded Acetaminophen [Tylenol 325mg (*)] 325 mg PO DAILY PRN 06/05/16 Aspirin [Aspirin 81mg (*)] 81 mg PO DAILY 06/05/16 Metoprolol Succinate Xr [Toprol Xl 50 mg PO DAILY 06/05/16 50 mg (*)] predniSONE 2.5 mg PO DAILY 06/05/16 Benzocaine/Menthol / [Cepacol 1 ea PO PRN PRN #0 lozenge 08/26/16 Lozenge] Guaifenesin/Codeine Phosphate 10 ml PO Q4 PRN #200 ml 08/26/16 [Guaifenesin-Codeine Liquid] Oseltamivir Phosphate [Tamiflu 75 75 mg PO BIDMEAL #4 cap 08/26/16 mg (*)] Vancomycin [Vancocin Oral Liquid] 125 mg PO BID #25 udl 08/26/16 guaiFENesin [Mucinex] 1,200 mg PO BID #10 tab.er.12h 08/26/16 levOFLOXACIN [levAQUIN (*)] 750 mg PO DAILY AT 10AM #12 tab 08/26/16 Departure - Departure Referrals: Julián Mijares MD [Primary Care Provider] - As per Instructions
[2016-09-02] MEDS ORDERED: NS 1,000 ML IV ONE (20:34)
[2016-09-02 20:38] LABS: % IMMATURE GRANULYOCYTES 0.5 % (0.0-1.1); ABSOLUTE IMMATURE GRANULOCYTES 0.03 10^3/uL (0.00-0.10); ADD DIFF? NO; ADD MORPH? NO; ADD SCAN? NO; ATYPICAL LYMPHOCYTE FLAG 0 (0-99); FRAGMENT RBC FLAG 0 (0-99); HEMATOCRIT 37.9 % (40.0-51.0); HEMOGLOBIN 12.6 g/dL (13.7-17.5); LEFT SHIFT FLG 0 (0-99); LIPEMIA HEMOLYSIS FLAG 80 (0-99); MEAN CELL HEMOGLOBIN 32.6 pg (27.9-34.1); MEAN CELL HEMOGLOBIN CONCENTR. 33.2 g/dL (32.4-36.7); MEAN CELL VOLUME 97.9 fL (81.5-99.8); MEAN PLATELET VOLUME 9.2 fL (8.7-11.7); PLATELET CLUMPS FLAG 0 (0-99); PLATELET COUNT 324 10^3/uL (150-400); RED BLOOD CELL COUNT 3.87 10^6/uL (4.40-6.38); RED CELL DISTRIBUTION WIDTH 14.6 % (11.5-15.2)
[2016-09-02 20:51] LABS: ANION GAP 12 mEq/L (8-16); CALCIUM 9.1 mg/dL (8.5-10.4); CARBON DIOXIDE 22 mEq/l (22-31); CHLORIDE 105 mEq/L (97-110); CREATININE 1.1 mg/dL (0.7-1.3); GLOMERULAR FILTRATION RATE > 60; GLUCOSE 116 mg/dL (70-100); POTASSIUM 4.4 mEq/L (3.5-5.2); SODIUM 139 mEq/L (134-144)
--- NOTE | 2016-09-02 21:05 | EDPHY ---
H & P Stated Complaint: Lung Cancer- infected port removed, fever, rigors, weak. Time Seen by Provider: 09/02/16 19:44 HPI/ROS: CHIEF COMPLAINT: Evaluation of low-grade fever, rigors HISTORY OF PRESENT ILLNESS: The patient presents to the ED for evaluation of a low-grade fever and rigors. The patient resides recently hospitalized in for influenza as well as the Morganella bacteremia. It was sensitive to Levaquin in the patient has been taking the medications since his discharge. The patient did take a complete course of Tamiflu. The patient presents to the ED tonight secondary to a 1 day history of low-grade fever and a transient episode of rigors. The patient is scheduled to see Infectious Disease tomorrow. The source of the patient's infection was felt to be secondary to a port for chemotherapy. He is scheduled to see Dr. Nathan Preston for a carotid endarterectomy in the near future. The patient denies additional complaints of acute abdominal pain, vomiting or diarrhea. He did have 1 episode dark stool which he has had intermittently for the past week. REVIEW OF SYSTEMS: A comprehensive 10 point review of systems is otherwise negative aside from elements mentioned in the history of present illness. Source: Patient, Family - Personal History Current Tetanus/Diphtheria Vaccine: Unsure - Medical/Surgical History Hx Asthma: No Hx Chronic Respiratory Disease: Yes Hx Diabetes: No Hx Cardiac Disease: Yes Hx Renal Disease: No Hx Cirrhosis: No Hx Alcoholism: No Hx HIV/AIDS: No Hx Splenectomy or Spleen Trauma: No Other PMH: pmh- htn, hyperlipemia, gout, non-small cell lung ca stage IIIA, cad. psh- L lung resection 08/31/14, cardiac stents x2, back surgery, cholecystectomy, port removed 2016 - Social History Smoking Status: Former smoker - Physical Exam Exam: General Appearance: Alert, no distress Eyes: Pupils equal and round no pallor or injection ENT, Mouth: Mucous membranes moist Respiratory: There are no retractions, lungs are clear to auscultation Cardiovascular: Regular rate and rhythm Gastrointestinal: Abdomen is soft and nontender, no masses, bowel sounds normal Neurological: A&O, normal motor function, normal sensory exam, normal cranial nerves Skin: Warm and dry, no rashes port removal incision clean dry and intact without erythema Musculoskeletal: Neck is supple nontender Extremities: symmetrical, full range of motion Psychiatric: Patient is oriented X 3, there is no agitation Constitutional: Initial Vital Signs Temperature (C) 36.8 C 09/02/16 18:57 Heart Rate 93 09/02/16 18:57 Respiratory Rate 18 09/02/16 18:57 Blood Pressure 112/80 09/02/16 18:57 O2 Sat (%) 92 09/02/16 18:57 O2 Delivery Mode Room Air Allergies/Adverse Reactions: allopurinol Allergy (Verified 09/02/16 19:01) amlodipine Allergy (Verified 09/02/16 19:01) atorvastatin calcium [From Lipitor] Allergy (Verified 09/02/16 19:01) Other-Enter Comments ezetimibe [From Zetia] Allergy (Verified 09/02/16 19:01) lisinopril Allergy (Verified 09/02/16 19:01) Other-Enter Comments lorazepam Allergy (Verified 09/02/16 19:01) Other-Enter Comments losartan potassium [From Cozaar] Allergy (Verified 09/02/16 19:01) GOUT morphine Allergy (Verified 09/02/16 19:01) pitavastatin calcium [From Livalo] Allergy (Verified 09/02/16 19:01) pravastatin Allergy (Verified 09/02/16 19:01) rosuvastatin calcium [From Crestor] Allergy (Verified 09/02/16 19:01) spironolactone Allergy (Verified 09/02/16 19:01) Home Medications: Medication Instructions Recorded Acetaminophen [Tylenol 325mg (*)] 325 mg PO DAILY PRN 06/05/16 Aspirin [Aspirin 81mg (*)] 81 mg PO DAILY 06/05/16 Metoprolol Succinate Xr [Toprol Xl 50 mg PO DAILY 06/05/16 50 mg (*)] predniSONE 2.5 mg PO DAILY 06/05/16 Benzocaine/Menthol 15/4 [Cepacol 1 ea PO PRN PRN #0 lozenge 08/26/16 Lozenge] Guaifenesin/Codeine Phosphate 10 ml PO Q4 PRN #200 ml 08/26/16 [Guaifenesin-Codeine Liquid] Oseltamivir Phosphate [Tamiflu 75 75 mg PO BIDMEAL #4 cap 08/26/16 mg (*)] Vancomycin [Vancocin Oral Liquid] 125 mg PO BID #25 udl 08/26/16 guaiFENesin [Mucinex] 1,200 mg PO BID #10 tab.er.12h 08/26/16 levOFLOXACIN [levAQUIN (*)] 750 mg PO DAILY AT 10AM #12 tab 08/26/16 Medical Decision Making ED Course/Re-evaluation: The patient presents to the ED with a 1 day history of low-grade fever and transient rigors. The patient is afebrile in the ED. The patient is currently on Levaquin. I did obtain blood cultures. The patient is not hypotensive or tachycardic. The patient has no leukocytosis. The patient's hematocrit is improving. At this point time I do feel the patient can follow up with infectious disease as scheduled to do so tomorrow. At this point time on physical exam there is nothing to suggest an acute bacterial infection. I did review the results of his blood culture from his last hospitalization and he currently is on an appropriate antibiotic. The patient and family are comfortable being discharged at this point time. They are given customary aftercare instructions and return precautions. The patient was noted to have a slightly elevated BUN consistent with moderate dehydration. The patient did receive a 1 L normal saline bolus of my direction for this condition. He felt better after receiving IV fluids in the ED. Differential Diagnosis: Differential diagnosis considered includes bacteremia, medication side effect cellulitis, abscess - Data Points Laboratory Results: Laboratory Results 09/02/16 20:30 09/02/16 20:30 09/02/16 09/02/16 20:30 20:30 WBC 6.41 10^3/uL 10^3/uL (3.80-9.50) RBC 3.87 10^6/uL L 10^6/uL (4.40-6.38) Hgb 12.6 g/dL L g/dL (13.7-17.5) Hct 37.9 % L % (40.0-51.0) MCV 97.9 fL fL (81.5-99.8) MCH 32.6 pg pg (27.9-34.1) MCHC 33.2 g/dL g/dL (32.4-36.7) RDW 14.6 % % (11.5-15.2) Plt Count 324 10^3/uL 10^3/uL (150-400) MPV 9.2 fL fL (8.7-11.7) Neut % (Auto) 70.2 % % (39.3-74.2) Lymph % (Auto) 15.4 % % (15.0-45.0) Island % (Auto) 11.5 % % (4.5-13.0) Eos % (Auto) 1.9 % % (0.6-7.6) Baso % (Auto) 0.5 % % (0.3-1.7) Nucleat RBC Rel Count 0.0 % % (0.0-0.2) Absolute Neuts (auto) 4.50 10^3/uL 10^3/uL (1.70-6.50) Absolute Lymphs (auto) 0.99 10^3/uL L 10^3/uL (1.00-3.00) Absolute Monos (auto) 0.74 10^3/uL 10^3/uL (0.30-0.80) Absolute Eos (auto) 0.12 10^3/uL 10^3/uL (0.03-0.40) Absolute Basos (auto) 0.03 10^3/uL 10^3/uL (0.02-0.10) Absolute Nucleated RBC 0.00 10^3/uL 10^3/uL (0-0.01) Immature Gran % 0.5 % % (0.0-1.1) Immature Gran # 0.03 10^3/uL 10^3/uL (0.00-0.10) Sodium 139 mEq/L mEq/L (134-144) Potassium 4.4 mEq/L mEq/L (3.5-5.2) Chloride 105 mEq/L mEq/L (97-110) Carbon Dioxide 22 mEq/l mEq/l (22-31) Anion Gap 12 mEq/L mEq/L (8-16) BUN 28 mg/dL H mg/dL (7-23) Creatinine 1.1 mg/dL mg/dL (0.7-1.3) Estimated GFR > 60 Glucose 116 mg/dL H mg/dL (70-100) Calcium 9.1 mg/dL mg/dL (8.5-10.4) Medications Given: Discontinued Medications Sodium Chloride (Ns) 1,000 mls @ 0 mls/hr IV ONCE ONE PRN Reason: Wide Open Stop: 09/02/16 20:35 Last Admin: 09/02/16 20:34 Dose: 1,000 mls Departure - Departure Disposition: Home, Routine, Self-Care Clinical Impression: Fever, Lung cancer, Volume depletion Condition: Good Instructions: Fever in Adults (ED) Additional Instructions: 1. Please follow up tomorrow as scheduled with infectious disease. 2. Your blood work is reassuring in the ED this evening. 3. New blood cultures have been drawn and can be followed by infectious disease. 4. Please return to the ED for markedly worsening symptoms, pain or other concerns. Referrals: Eran Chavez MD [Medical Doctor] - As per Instructions
[2016-09-02 21:14] VITALS: BP 149/72; PULSE 71; RESP 16; TEMP 97.9; O2SAT 96
== END 2016-09-02 21:30 | disposition home or self-care (01) ==
DX: C78.00 Secondary malignant neoplasm of unspecified lung (principal); E86.9 Volume depletion, unspecified; I10 Essential (primary) hypertension; I25.10 Atherosclerotic heart disease of native coronary artery without angina pectoris; Z79.82 Long term (current) use of aspirin; Z87.891 Personal history of nicotine dependence; Z95.5 Presence of coronary angioplasty implant and graft

== ENCOUNTER → 2016-09-05 | Outpatient (CLI) | payer OTHER, MEDICARE | LOC: BHFA 11:15 | PROVIDERS: ATTEND Internal Medicine Cardiovascular Disease | DX: Z01.810 Encounter for preprocedural cardiovascular examination (principal); I25.10 Atherosclerotic heart disease of native coronary artery without angina pectoris; I10 Essential (primary) hypertension; E78.5 Hyperlipidemia, unspecified; C34.90 Malignant neoplasm of unspecified part of unspecified bronchus or lung; C34.12 Malignant neoplasm of upper lobe, left bronchus or lung ==

== ENCOUNTER 2016-09-11 11:09 | Inpatient (IN) | payer OTHER, MEDICARE ==
[~2016-09-11 11:09] MED LIST changes: +BACITRACIN 50,000 UNITS/10 ML SYR IRR ONE; +BUPIVACAINE/EPI 0.25% 30 ML SDV ONE; +CHLORHEXIDINE GLUC HIBICLENS 118 ML BTL TP ONE; -GADOBUTROL 10 ML VIAL IVP ONE; +THROMBIN (BOVINE) 5,000 UNIT VIAL TP ONE
[2016-09-11] MEDS ORDERED: LIDOCAINE 1% 2 ML INJ ONE (11:20)
[2016-09-11] MEDS ORDERED: LR 1,000 ML IV ONE (11:27)
[2016-09-11] MEDS ORDERED: LIDOCAINE 1% 5 ML SDV ID PRN (11:27)
[2016-09-11] MEDS ORDERED: VANCOMYCIN 1.5 GM in D5W 250 ML IV ONE (11:30)
[2016-09-11] MEDS ORDERED: ACETAMINOPHEN 325 MG TAB PO PRN (11:52)
[2016-09-11] MEDS ORDERED: LACTULOSE 20 GM/30 ML UDCUP PO PRN (11:53)
[2016-09-11] MEDS ORDERED: diphenhydrAMINE 25 MG CAP PO PRN (11:53)
[2016-09-11] MEDS ORDERED: MAGNESIUM HYDROXIDE 30 ML UDCUP PO PRN (11:53)
[2016-09-11] MEDS ORDERED: BISACODYL 10 MG SUPP PR PRN (11:53)
[2016-09-11] MEDS ORDERED: NALOXONE HCL 0.4 MG/ML INJ IVP PRN (11:53)
[2016-09-11] MEDS ORDERED: POLYETHYLENE GLYCOL 3350 17 GM PKT PO PRN (11:53)
[2016-09-11] MEDS ORDERED: ONDANSETRON 4 MG/2 ML VIAL IVP PRN (11:53)
[2016-09-11] MEDS ORDERED: HYDROmorphONE/DILAUDID 6 MG/30 ML PCA IV PRN (11:53)
[2016-09-11] MEDS ORDERED: MIDAZOLAM 2 MG/2 ML VIAL ONE (11:57)
[2016-09-11] MEDS ORDERED: PROPOFOL/EMULSION 500 MG/50 ML BOTTLE IV ONE ×3 (11:58→11:59)
[2016-09-11] MEDS ORDERED: REMIFENTANIL HCL 1 MG VIAL ONE ×3 (11:59)
[2016-09-11] MEDS ORDERED: NS W/ 20 KCl/L 1,000 ML IV SCH (12:00)
[2016-09-11] MEDS ORDERED: ONDANSETRON 4 MG/2 ML VIAL ONE (15:12)
[2016-09-11] MEDS ORDERED: SUCCINYLCHOLINE CHLORIDE*ANESTHESIA ONLY*200 MG/10 ML SYR IVP ONE (15:12)
[2016-09-11] MEDS ORDERED: DEXAMETHASONE 4 MG/ML VIAL ONE ×2 (15:12)
[2016-09-11] MEDS ORDERED: fentaNYL 100 MCG/2 ML INJ ONE (15:27)
--- NOTE | 2016-09-11 16:06 | SOAPPROG ---
SOAP Progress Note Assessment/Plan: Post Op Visit: S: Awake and alert. NAD. Pt with expected neck pain O: AFVSS/PERRLA/EOMI no droop CN 2-12 grossly intact +lt touch 5/5 BUE/BLE = CDI A/P: 71 yo male that is s/p ACDF C4-C7 -collar as directed -call with any questions or concerns -pt seen by Dr Malcolm as well 09/11/16 16:03 ICD10 Worksheet Patient Problems: Problems Problem Status Onset Arthrodesis status Acute Cervical stenosis of spine Acute C. difficile diarrhea Acute 04/05/16 Dehydration Acute Diarrhea Acute Dysphagia, oropharyngeal Acute Gout Acute Hypocalcemia Acute Hypokalemia Acute Hypomagnesemia Acute Nausea & vomiting Acute Neck pain Acute On total parenteral nutrition (TPN) Acute Pneumonia Acute RUQ abdominal pain Acute Weakness Acute CAD (coronary artery disease) Chronic Dyslipidemia Chronic - ICD10 Problem Qualifiers (1) Cervical stenosis of spine (2) Arthrodesis status
[2016-09-11] MEDS ORDERED: LABETALOL HCL 50 MG/10 ML SYR ONE (16:40)
[2016-09-11] MEDS: SENNOSIDES/DOCUSATE SODIUM TAB PO SCH (20:55)
[2016-09-11] MEDS: FAMOTIDINE 20 MG TAB PO SCH (20:55)
[2016-09-11] MEDS ORDERED: FAMOTIDINE 20 MG/NACL 50 ML IV SCH (21:00)
[2016-09-11] MEDS: ONDANSETRON DISINTEGRATING 4 MG TAB PO PRN (22:06)
[2016-09-11] MEDS: oxyCODONE IR 5 MG TAB PO PRN (22:06)
--- NOTE | 2016-09-11 22:45 | GOP ---
[f rep st] OPERATIVE REPORT DATE OF OPERATION: 09/11/2016 SURGEON: Kael Malcolm MD QUILL LAYER: Mynor Hurtado PA-C. PREOPERATIVE DIAGNOSIS: Cervical spondylosis with severe right cervical radiculopathy unresponsive to conservative measures. POSTOPERATIVE DIAGNOSIS: Cervical spondylosis with severe right cervical radiculopathy unresponsive to conservative measures. PROCEDURE PERFORMED: Anterior cervical diskectomy and fusion with decompression same level C4-5, C5 -6, C6-7 (78794, 60626 x 2), anterior cervical instrumentation 4 levels (97893), placement of biomec hanical intervertebral device without anchors C4-5, C5-6, C6-7 (09593 x 3), same-incision bone graft harvest, microscope, fluoroscopy. FINDINGS: ESTIMATED BLOOD LOSS: 75 cc. DESCRIPTION OF PROCEDURE: Patient was taken to the operating room, placed in the supine position. General anesthesia was begun. His head was put on a horseshoe head turning machine operator and occiput extended. Th e neck was kept neutral. A midline shoulder roll being placed. Arms were tucked at the side. His neck was sterilely prepped and draped in the usual fashion. A localizing x-ray was taken. We made a transverse incision in the inferior neck crease on the left side of the neck. The subcutaneous ti ssue was dissected using Bovie cautery through platysma, and we then used sharp and blunt dissection medial to the sternocleidomastoid and lateral to the strap muscles, down to the prevertebral space. The dissection was straightforward. His esophagus and trachea were somewhat immobile, but we were able to get a nice exposure at C4-5, C5-6, C6-7. A localizing x-ray was taken. We dissected the lo ngus colli muscles off the spine and then drilled and harvested the ventral osteophytes at C4-C5, C5 -6, C6-7. We placed distraction pins at C4-5 and in his bone was quite soft, but we got some distra ction. Under the microscope, we removed the C4-5 disk, as well as the cartilaginous endplates. We drilled and harvested subchondral bone for autologous grafting purposes and we decompressed this lev el. We performed an extended right foraminotomy. We were able to visualize the right C5 nerve root . We did do a left foraminotomy, but we spent more time on the right-hand side where there was radha re stenosis. We identified the nerve root, decompressed it thoroughly, and then chose a 7 mm implan t for this level. It was packed with autologous bone dust and inserted under fluoroscopic guidance. We moved our pin down to the C6 vertebral body, distracted at C5-6. This disk was more immobile a nd did not really want to open up. We removed the disk and the cartilaginous endplates. We drilled and harvested subchondral bone. We performed bilateral decompressions here, opening the PLL and de compressing the neural foramina and the exiting C6 nerve root at this level. There was severe steno sis and stenosis of the foramen. We chose a 6 mm device here, packed it with autologous bone dust, and it was inserted at C5-6. We then moved our distraction pin down in the C6-7 level, where once a gain the disk was not distractible. We removed the disk and the cartilaginous endplates, roughened the subchondral bone to create arthrodesis, open the PLL and decompressed the neural foramen. The n eural foramen at this level was somewhat above the disk space, and so we drilled out some of the lat eral C6 vertebral body, following the C7 nerve root rostrally up over the pedicle of C7, and a nice decompression was obtained. We chose a 6 mm device here, packed it with autologous bone dust. It w as inserted at C6-7. We then had to spend some additional time in getting this device to fit all th e way into the decompressed area, and we were able to obtain a great fit. We then removed all of ou r distraction pins, chose a 51 mm Zevo plate, placed a screw at C4 and a screw machine operator single spindle at C7. The plat e fit very nicely on the ventral surface of the vertebral bodies. It was slightly crooked in the AP plane, yet there was a wonderful fit flush with the bone, and we were very happy with this. A late ral x-ray was taken. The screws were in excellent position. We then put the remaining screws in th e plate and locked them according to company specification and verified this with the staff in the r oom. We then achieved meticulous hemostasis, placed some leftover bone autograft to the left side o f the plate, into the disk spaces, and in the prevertebral space to the left of the plate. We then did close the platysma with interrupted Vicryl sutures and the skin with interrupted Vicryl sutures. Steri-Strips were applied. The patient was reversed from anesthesia, extubated, and transferred t o the recovery room in stable condition. There were no complications. COMPLICATIONS: None. INSTRUMENTATION: Medtronic Zevo plate with a 7 mm graft at C4-5 and 6 mm grafts at C5-6, C6-7. INDICATIONS FOR THE PROCEDURE: The patient is a 71-year-old with a prior history of a lumbar decomp ressive surgery with good result, who unfortunately developed cancer and has undergone treatment for this, and he later developed occlusive cerebrovascular disease and underwent a right carotid endart erectomy by Dr. Medardo Preston without complication. There was some discussion of performing a left carotid endarterectomy at some point in the future, but the left side was not as bad as the right si de. The patient developed terrible right cervicalgia and radiating pain in the right shoulder and d own the right arm. His MRI did demonstrate spondylosis. It was really particularly bad at C3-4, bu t there was not a dramatic foraminal stenosis at C3-4. There was severe right foraminal stenosis at C4-5, C5-6, with severe central stenosis at C4-C5, C5-6. There was moderately severe right foramin al stenosis at C6-7 and I suggested a 3-level ACDF. The risk of pseudoarthrosis, esophageal injury, carotid injury, recurrent laryngeal nerve injury, adjacent segment disease, the possible need for f uture surgery, as well as the possibility that surgery would fail to alleviate his pain, was discuss ed. He knew that these were the risks. He also had carotid disease on left and he knew there was a small chance of this complicating his perioperative course with a stroke. This risk was quite low. He accepted these risks and he wanted to proceed. /[id number]/MODL
[2016-09-11] MEDS: METHOCARBAMOL 750 MG TAB PO PRN (23:13)
[2016-09-11] MEDS ORDERED: VANCOMYCIN HCL/NORMAL SALINE 250 ML IV ONE (23:45)
[2016-09-12] MEDS: oxyCODONE IR 5 MG TAB PO PRN ×2 (04:33→20:41)
[2016-09-12] MEDS: ONDANSETRON DISINTEGRATING 4 MG TAB PO PRN (04:34)
[2016-09-12 05:05] LABS: % IMMATURE GRANULYOCYTES 0.6 % (0.0-1.1); ABSOLUTE IMMATURE GRANULOCYTES 0.07 10^3/uL (0.00-0.10); ADD DIFF? NO; ADD MORPH? NO; ADD SCAN? NO; ATYPICAL LYMPHOCYTE FLAG 0 (0-99); FRAGMENT RBC FLAG 0 (0-99); HEMATOCRIT 33.4 % (40.0-51.0); HEMOGLOBIN 11.1 g/dL (13.7-17.5); LEFT SHIFT FLG 10 (0-99); LIPEMIA HEMOLYSIS FLAG 80 (0-99); MEAN CELL HEMOGLOBIN 32.1 pg (27.9-34.1); MEAN CELL HEMOGLOBIN CONCENTR. 33.2 g/dL (32.4-36.7); MEAN CELL VOLUME 96.5 fL (81.5-99.8); MEAN PLATELET VOLUME 8.9 fL (8.7-11.7); PLATELET CLUMPS FLAG 10 (0-99); PLATELET COUNT 265 10^3/uL (150-400); RED BLOOD CELL COUNT 3.46 10^6/uL (4.40-6.38); RED CELL DISTRIBUTION WIDTH 13.9 % (11.5-15.2)
[2016-09-12 05:19] LABS: ANION GAP 11 mEq/L (8-16); CALCIUM 8.8 mg/dL (8.5-10.4); CARBON DIOXIDE 22 mEq/l (22-31); CHLORIDE 105 mEq/L (97-110); CREATININE 0.9 mg/dL (0.7-1.3); GLOMERULAR FILTRATION RATE > 60; GLUCOSE 163 mg/dL (70-100); POTASSIUM 4.7 mEq/L (3.5-5.2); SODIUM 138 mEq/L (134-144)
[2016-09-12] MEDS: predniSONE 5 MG TAB PO SCH (09:10)
[2016-09-12] MEDS: METHOCARBAMOL 750 MG TAB PO PRN (09:10)
[2016-09-12] MEDS: FAMOTIDINE 20 MG TAB PO SCH ×2 (09:10→20:42)
[2016-09-12] MEDS: SENNOSIDES/DOCUSATE SODIUM TAB PO SCH ×2 (09:11→20:42)
[2016-09-12] MEDS: METOPROLOL SUCCINATE XR 50 MG TAB PO SCH (09:11)
--- NOTE | 2016-09-12 11:00 | SOAPPROG ---
SOAP Progress Note Assessment/Plan: Assessment: 71 yo M POD #1 sp C4-7 ACDF Plan: neuro: stable and doing well overall :) hard collar at all times x-rays today PT/OT/ST scd/saturnino/lovenox on pOD #3 for dvt prophylaxis please call with neuro changes discussed with Dr Malcolm 09/12/16 10:57 Subjective: + neck pain, some dysphagia, no arm pain or weakness Objective: Vital Signs Temp Pulse Resp BP Pulse Ox 36.6 C 80 16 94/63 L 97 09/12/16 07:33 09/12/16 07:33 09/12/16 07:33 09/12/16 07:33 09/12/16 07:33 Laboratory Results 09/12/16 04:55 09/12/16 04:55 09/11/16 09/12/16 09/13/16 05:59 05:59 05:59 Intake Total 2150 Output Total 800 Balance 1350 AAOx4, +FC PERRL, no facial droop 5/5 + light touch C/D/I ICD10 Worksheet Patient Problems: Problems Problem Status Onset Arthrodesis status Acute Cervical stenosis of spine Acute C. difficile diarrhea Acute 04/05/16 Dehydration Acute Diarrhea Acute Dysphagia, oropharyngeal Acute Gout Acute Hypocalcemia Acute Hypokalemia Acute Hypomagnesemia Acute Nausea & vomiting Acute Neck pain Acute On total parenteral nutrition (TPN) Acute Pneumonia Acute RUQ abdominal pain Acute Weakness Acute CAD (coronary artery disease) Chronic Dyslipidemia Chronic
[2016-09-12] MEDS ORDERED: CEPACOL LOZENGE PO ONE (14:01)
[2016-09-12] MEDS: CEPACOL LOZENGE PO PRN (15:34)
[2016-09-12] MEDS ORDERED: GUAIFENESIN/DM 10 ML UDCUP PO PRN (15:58)
--- NOTE | 2016-09-12 22:45 | PDGENHP ---
History and Physical History and Physical: CONSULTATION HISTORY AND PHYSICAL CC: COUGH IN THE POSTOPERATIVE SETTING HISTORY: This patient entered the hospital yesterday for cervical spine surgery which he had successfully. Today he had felt more ill and complains of persistant productive cough, though not sob and no chest pain. He has not seen blood in sputum. His thought he might have felt feverish today but recorded temps are normal. He states his throat does not feel good but it does not hurt to talk or swallow. He has no cardiac sxs, is eating, walking in [place], and has no digestive or abdominal symptoms. Of note, he had what sounds like viral upper respiratory symptoms last week. Also of note, he had a mediport removed a couple weaks ago due to infection, and just finished antibiotics for that process several days ago. 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 I have reviewed the list in the record. PHYSICAL EXAMINATION: Vital Signs:temps have all been normal, as have resp rate and pulse Examination: Sitting on side of bed, with cervical collar in place. He is coughing fairly constantly during my visit, and produces large volume of a thick but whitish to clear sputum. He gets up and walks a lap around the nursing unit during my visit, quite easily. General: alert, oriented, good mentation, relaxed, does not look to be in much discomfort Skin: warm, dry, good color, no rash HEENT: normal Neck: in rigid cervical collar, well fitted Resps: relaxed Lungs: some decreased BSs and egophany mid L lung, otherwise clear breath sounds Heart: regular, no murmur Abdomen: soft, nondistended, nontender, +BS, no mass Upper Extremities: normal Lower Extremities: no edema, warm No Bleeding or bruising Neurologic: normal speech/language, normal investor, no focal weakness IV site: looks normal LABORATORY DATA: wbc up slightly at 11k w 10k pmns rest of cbc nl chem unremarkable RADIOLOGY STUDIES: no chest imaging as of yet ASSESSMENT: -excessive productive cough in postoperative setting -recent upper respiratory infection symptoms -history of resected left lung cancer -postoperative day 1 status post anterior dissection for cervical spine surgery I suspect most strongly that this cough and sputum production are irritation and related to his surgery and his airway device for his anesthesia. However he did have some viral sending respiratory infection symptoms last week and has some mild abnormality on his left lung exam. I do suspect that the left lung finding is related to his previous cancer and surgery, but I would find it prudent to check with chest x-ray to make sure there is no new infiltrate. PLANS: -I have ordered a CXR -I will change his pharmaceutical cough medicines to a more effective plan -I have ordered the right knee Next are offering almost walked all bedside, wonder if she was going to dry she has been drinking in room exam flutter valve to help with the removal of respiratory secretions -have encouraged him to continue activity as much as able when she is doing great with so far On my review of the CXR images tonight, there is chronic elevation of the L hemidiaphragm which is unchanged from prior films, but there is a moderately dense infiltrate in LLL which was not present on either of the two previous CXRs from prior visits. NEW DIAGNOSIS: -Pneumonia in the post operative setting, with some suspicion for aspiration as a cause. PLANS: -I will add some ertapenam and follow I have reviewed the patient's case in detail with Jose Alberto Fierro of the Neurosurgery Department
[2016-09-12] MEDS: BENZONATATE 100 MG CAP PO PRN (23:42)
[2016-09-12] MEDS: ERTAPENEM 1 GM in NS 100 ML IV SCH (23:42)
[2016-09-12] MEDS: guaiFENesin 600 MG TAB.ER PO SCH (23:42)
[2016-09-13] MEDS ORDERED: ALBUTEROL 3 ML DEYVIAL IH PRN (02:33)
[2016-09-13] MEDS ORDERED: guaiFENesin/CODEINE PHOS 10 ML UDCUP PO PRN (02:33)
--- NOTE | 2016-09-13 08:00 | SOAPPROG ---
SOAP Progress Note Assessment/Plan: Assessment: 71 male sp C4-7 ACDF on 09/11\ post op pneumonia on Ertapenam pain well controlled currently Aspiration precautions. He is NPo Plan: Continue abx per Medicine recommendations NPO encourage activity continue collar 09/13/16 08:02 Subjective: asleep, wakes easily. pain well controlled, had a rough night coughing per his . He is tired now from being up a lot last night Objective: Vital Signs Temp Pulse Resp BP Pulse Ox 37.1 C 113 H 17 140/87 H 96 09/13/16 04:00 09/13/16 06:33 09/13/16 04:00 09/13/16 06:33 09/13/16 04:00 Laboratory Results 09/12/16 04:55 09/12/16 04:55 09/12/16 09/13/16 09/14/16 05:59 05:59 05:59 Intake Total 2150 200 Output Total 800 200 Balance 1350 0 NEURO: MENDOZA, sens +LT follows commands bilat marketing information analyst weakn but symmetric generalized upper extremity weakness 5-/5 follows commands ICD10 Worksheet Patient Problems: Problems Problem Status Onset Arthrodesis status Acute Cervical stenosis of spine Acute C. difficile diarrhea Acute 04/05/16 Dehydration Acute Diarrhea Acute Dysphagia, oropharyngeal Acute Gout Acute Hypocalcemia Acute Hypokalemia Acute Hypomagnesemia Acute Nausea & vomiting Acute Neck pain Acute On total parenteral nutrition (TPN) Acute Pneumonia Acute RUQ abdominal pain Acute Weakness Acute CAD (coronary artery disease) Chronic Dyslipidemia Chronic
[2016-09-13] MEDS: NS 1,000 ML IV SCH (09:29)
[2016-09-13] MEDS: FAMOTIDINE 20 MG TAB PO SCH (10:43)
[2016-09-13] MEDS: guaiFENesin 600 MG TAB.ER PO SCH ×2 (10:43→19:43)
[2016-09-13] MEDS: predniSONE 5 MG TAB PO SCH ×2 (10:44→11:41)
[2016-09-13] MEDS: SENNOSIDES/DOCUSATE SODIUM TAB PO SCH ×2 (10:44→19:44)
[2016-09-13] MEDS: ERTAPENEM 1 GM in NS 100 ML IV SCH (10:44)
[2016-09-13] MEDS: METOPROLOL SUCCINATE XR 50 MG TAB PO SCH (10:44)
--- NOTE | 2016-09-13 11:00 | HOSPPROG ---
Hospitalist Progress Note Assessment/Plan: Mr Acosta was admitted for cervical spine surgery. Post op he started to feel more ill and had a productive cough without any chest pain or shortness of breath. He was seen by the hospitalist, Dr Burnett, and started on abx therapy. Of note , he was here in August of 2016 and had recurrent Morganella bacteremia 2/2 his port placement (which was removed). Today is my first encounter w the patient/ chart reviewed. *concern for Aspiration pneumonia -hx of resected left lung cancer -chest xray shows -chronic elevation of left hemidiaphragm / dense LLL infiltrate -Ertapenem (started on 09/12) -NPO -leucocytosis/ will follow *s/p C4-7 ACDF -having some difficulty w swallowing -will need this monitored closely *CAD -unable to swallow the Metoprolol today -started on IV Lopressor -tachycardia today *hx of cdiff -need close monitoring of this since being started on abx -at this time can't get oral vanco due to swallowing issues -he takes oral vanco when he takes abx/ will initiate Flagyl iv bid -his last c diff was in March of 2016 *dvt prophylaxis -per neurosurgery team *Plan: will check labs in a.m., discussed with patient and his concerns of his swallowing, may need feeding tube if he isn't able to eat soon, start Flagyl as prophylaxis treatment for c diff, RT to see for good pulmonary toileting. Dr Burnett to see tomorrow. Patient and his really valued him. Subjective: Mr Acosta is feeling okay today, having difficulty with swallowing and has increase secretions. Objective: Vital Signs Temp Pulse Resp BP Pulse Ox 36.9 C 112 H 18 136/87 H 96 09/13/16 09:17 09/13/16 09:17 09/13/16 09:17 09/13/16 09:17 09/13/16 09:17 Laboratory Results 09/12/16 04:55 09/12/16 04:55 09/12/16 09/13/16 09/14/16 05:59 05:59 05:59 Intake Total 2150 200 Output Total 800 200 Balance 1350 0 - Physical Exam Constitutional: not in pain, uncomfortable Eyes: PERRL Ears, Nose, Mouth, Throat: hearing normal, other (collar in place) Cardiovascular: regular rate and rhythym, tachycardia Respiratory: no respiratory distress, other (decreased mid left lobe down) Gastrointestinal: normoactive bowel sounds Skin: warm, normal color Musculoskeletal: full muscle strength Neurologic: AAOx3 Psychiatric: interacting appropriately, not anxious, not encephalopathic ICD10 Worksheet Patient Problems: Problems Problem Status Onset Arthrodesis status Acute Cervical stenosis of spine Acute C. difficile diarrhea Acute 04/05/16 Dehydration Acute Diarrhea Acute Dysphagia, oropharyngeal Acute Gout Acute Hypocalcemia Acute Hypokalemia Acute Hypomagnesemia Acute Nausea & vomiting Acute Neck pain Acute On total parenteral nutrition (TPN) Acute Pneumonia Acute RUQ abdominal pain Acute Weakness Acute CAD (coronary artery disease) Chronic Dyslipidemia Chronic
[2016-09-13] MEDS: METOPROLOL TARTRATE 5 MG/5 ML INJ IVP SCH ×3 (11:28→23:30)
[2016-09-13] MEDS: IPRATROPIUM/ALBUTEROL 3 ML DEYVIAL IH SCH ×3 (13:39→22:55)
[2016-09-13] MEDS ORDERED: ACETAMINOPHEN 650 MG SUPP PR PRN (18:03)
[2016-09-13] MEDS: FAMOTIDINE 20 MG/NACL 50 ML IV SCH (20:45)
[2016-09-13] MEDS ORDERED: ERTAPENEM 1 GM in NS 100 ML IV SCH (21:00)
[2016-09-13] MEDS: HYDROmorphONE/DILAUDID 1 MG/ML SYR IVP PRN (23:27)
[2016-09-14] MEDS: HYDROmorphONE/DILAUDID 1 MG/ML SYR IVP PRN ×5 (01:48→14:25)
[2016-09-14] MEDS: METOPROLOL TARTRATE 5 MG/5 ML INJ IVP SCH ×4 (05:04→19:28)
[2016-09-14] MEDS: IPRATROPIUM/ALBUTEROL 3 ML DEYVIAL IH SCH ×4 (05:46→20:44)
[2016-09-14] MEDS: FAMOTIDINE 20 MG/NACL 50 ML IV SCH ×2 (08:48→22:24)
[2016-09-14] MEDS: ENOXAPARIN 40 MG/0.4 ML SYR SC SCH (08:48)
[2016-09-14] MEDS: predniSONE 5 MG TAB PO SCH (08:49)
[2016-09-14] MEDS: SENNOSIDES/DOCUSATE SODIUM TAB PO SCH ×2 (08:49→22:34)
[2016-09-14] MEDS: guaiFENesin 600 MG TAB.ER PO SCH ×2 (08:49→22:33)
--- NOTE | 2016-09-14 08:55 | NEUSURGPN ---
Assessment/Plan: 71 male sp C4-7 ACDF on 09/11 Plan: Continue abx per Medicine recommendations post op pneumonia on Ertapenam Right knee gout flare. Discussed with Medicine. Need to avoid NSAIDs given recent ACDF. 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 Malcolm and Dr. Akbar Please notify NS with any change in neuro/motor exam Subjective: right knee pain, denies any arm pain, numbness, tingling or weakness Objective: NAD A&Ox3 Neck soft, supple, incisional dressing c/d/i, MAEx4, right leg mobility limited due to knee pain Catheter Insertion Date: 09/11/16 - Physician Discussed Patient with : [facility] Physical Exam - Vitals, I&O, Labs I and O 09/13/16 09/14/16 09/15/16 05:59 05:59 05:59 Intake Total 200 2450 Output Total 200 100 Balance 0 2350 Intake: Oral (ml) 200 0 IV Infused (ml) 2450 Ertapenem 1 gm In Ns 100 100 ml @ 200 mls/hr IV HS [facility]I Rx#:[id number] Famotidine 20 mg/NaCl 50 50 ml @ 200 mls/hr IV Q12 THI Rx#:[id number] Ns 1,000 ml @ 100 mls/hr 2100 IV CONT THI Rx#: [id number] metroNIDAZOLE 500 MG/NACL 200 100 ml @ 100 mls/hr IV BID THI Rx#:[id number] Output: Urine (ml) 200 100 Toilet 200 Urinal 100 Other: Intake Quantity No Sufficient Number of Voids Toilet 3 Urinal 2 Vital Signs Temp Pulse Resp BP Pulse Ox 36.7 C 112 H 16 126/64 H 95 09/14/16 08:00 09/14/16 08:00 09/14/16 08:00 09/14/16 08:00 09/14/16 08:00 ICD10 Worksheet Patient Problems: Problems Problem Status Onset Arthrodesis status Acute Cervical stenosis of spine Acute C. difficile diarrhea Acute 04/05/16 Dehydration Acute Diarrhea Acute Dysphagia, oropharyngeal Acute Gout Acute Hypocalcemia Acute Hypokalemia Acute Hypomagnesemia Acute Nausea & vomiting Acute Neck pain Acute On total parenteral nutrition (TPN) Acute Pneumonia Acute RUQ abdominal pain Acute Weakness Acute CAD (coronary artery disease) Chronic Dyslipidemia Chronic
[2016-09-14 09:10] LABS: % IMMATURE GRANULYOCYTES 0.6 % (0.0-1.1); ABSOLUTE IMMATURE GRANULOCYTES 0.06 10^3/uL (0.00-0.10); ADD DIFF? NO; ADD MORPH? NO; ADD SCAN? NO; ATYPICAL LYMPHOCYTE FLAG 0 (0-99); FRAGMENT RBC FLAG 0 (0-99); HEMATOCRIT 33.6 % (40.0-51.0); HEMOGLOBIN 11.1 g/dL (13.7-17.5); LEFT SHIFT FLG 20 (0-99); LIPEMIA HEMOLYSIS FLAG 80 (0-99); MEAN CELL HEMOGLOBIN 32.7 pg (27.9-34.1); MEAN CELL VOLUME 99.1 fL (81.5-99.8); MEAN PLATELET VOLUME 9.3 fL (8.7-11.7); PLATELET CLUMPS FLAG 0 (0-99); PLATELET COUNT 253 10^3/uL (150-400); RED BLOOD CELL COUNT 3.39 10^6/uL (4.40-6.38); RED CELL DISTRIBUTION WIDTH 13.9 % (11.5-15.2)
[2016-09-14 09:24] LABS: ALANINE AMINOTRANSFERASE 39 IU/L (21-72); ALBUMIN 3.6 g/dL (3.5-5.0); ALKALINE PHOSPHATASE 59 IU/L (38-126); ANION GAP 11 mEq/L (8-16); ASPARTATE AMINOTRANSFERASE 26 IU/L (17-59); BILIRUBIN,TOTAL 0.9 mg/dL (0.1-1.4); CALCIUM 8.2 mg/dL (8.5-10.4); CARBON DIOXIDE 26 mEq/l (22-31); CHLORIDE 102 mEq/L (97-110); CREATININE 0.8 mg/dL (0.7-1.3); GLOMERULAR FILTRATION RATE > 60; GLUCOSE 98 mg/dL (70-100); POTASSIUM 4.1 mEq/L (3.5-5.2); SODIUM 139 mEq/L (134-144); TOTAL PROTEIN 6.2 g/dL (6.3-8.2)
--- NOTE | 2016-09-14 11:08 | HOSPPROG ---
Hospitalist Progress Note Assessment/Plan: DIAGNOSES: -SUSPECTED ASPIRATION PNEUMONIA LEFT LUNG IN POSTOP SETTING -ACUTE GOUT ATTACK AT RIGHT KNEE AND RIGHT GREAT TOE -TACHYCARDIA UNCERTAIN ETIOLOGY PROBABLY MULTIFACTORIAL -STATUS POST CERVICAL SPINE SURGERY He is in quite a bit of pain from his gout. I suspect this may have something to do with his tachycardia. At this time will not be able to give him steroid or nonsteroidal anti-inflammatory medicines due to his spine fusion. Will try and get some colchicine and him but at the moment he is NPO awaiting for swallow evaluation. PLANS: -Continue current antibiotic -Follow cultures closely -Repeat chest x-ray today -Will start colchicine once were able to have him swallow -Follow vital signs very closely -PT and OT SUBJECTIVE: The patient has quite a bit of pain acutely in his right knee and his right 1st toe. He has a history of gout in but these joints previously Does not feel short of breath or chest pain at this time Is hungry and thirsty, has not eaten due to concern about possible aspiration with swallow study pending states his neck pain is not bad his notes some mild disorientation today he will require ongoing inpatient care before the above here. OBJECTIVE Vitals reviewed:Some regular tachycardia persists started yesterday, vitals otherwise normal with minimal low-grade fever Exam: alert oriented to person place and time, but very minimally disoriented in terms of specific details in conversation skin warm dry color ok resps not labored lungs clear BSs with improvement in the signs of consolidation noted 2 days ago heart regular abd soft nondistended nontender, bowel sounds present limbs warm, no edema iv site ok Objective: Vital Signs Temp Pulse Resp BP Pulse Ox 36.7 C 112 H 16 126/64 H 95 09/14/16 08:00 09/14/16 08:00 09/14/16 08:00 09/14/16 08:00 09/14/16 08:00 Laboratory Results 09/14/16 08:42 09/14/16 08:42 09/13/16 09/14/16 09/15/16 06:59 06:59 06:59 Intake Total 200 2450 Output Total 200 100 Balance 0 2350 ICD10 Worksheet Patient Problems: Problems Problem Status Onset Arthrodesis status Acute Cervical stenosis of spine Acute C. difficile diarrhea Acute 04/05/16 Dehydration Acute Diarrhea Acute Dysphagia, oropharyngeal Acute Gout Acute Hypocalcemia Acute Hypokalemia Acute Hypomagnesemia Acute Nausea & vomiting Acute Neck pain Acute On total parenteral nutrition (TPN) Acute Pneumonia Acute RUQ abdominal pain Acute Weakness Acute CAD (coronary artery disease) Chronic Dyslipidemia Chronic
--- NOTE | 2016-09-14 12:29 | CPEKG ---
Heart Rate: 124 RR Interval: 484 P-R Interval: 144 QRSD Interval: 86 QT Interval: 300 QTC Interval: 431 P [place]: 32 QRS [place]: -1 T Wave [place]: 80 EKG Severity - ABNORMAL ECG - EKG Impression: SINUS TACHYCARDIA EKG Impression: MULTIPLE ATRIAL PREMATURE COMPLEXES EKG Impression: BORDERLINE T ABNORMALITIES, LATERAL LEADS Electronically Signed By: Son Valverde 16-Sep-2016 08:40:37
[2016-09-14] MEDS ORDERED: IOPAMIDOL (ISOVUE 370) 100 ML BTL IV ONE (13:01)
[2016-09-14] MEDS ORDERED: NS 1,000 ML IV ONE (13:55)
--- NOTE | 2016-09-14 14:08 | HOSPPROG ---
Hospitalist Progress Note Assessment/Plan: Called to STAT team, which was for worsening tachycardia. As I come to see pt his sinus tach has increased to 130s and he has had a few prolonger (minutes) periods of tachycardia to 160-180s. On monitor and a 12 lead ekg this is regular with no visible p waves. He has maintained good blood pressures and no increase in resps. As I was there for STAT team he had fever to 100.8 which is his first fever. He is not sob, denies chest or abd pain, has his ongoing mild neck pain and again the knee and toe pain mentioned before. No other new sxs Does not have a urine cath or central line in. Exam shows him wide awake and talkative, a bit more confused. He is with skin warm and dry, color ok at stat team but now on subsequent visit skin slightly mottled in color in places but remains warm and dry. resps easy, O2 not incrased, lungs w some post rales on Left I ordered 12 leak ekg, 2 were done one with sinus tach 130s the second with regular narrow complex HR 186 (nothing ischemic) I ordered a CT chest which is done but not read by rad. yet - my review of images shows no PE, increase in L lung infiltrate from xray or 09/12, very small effusion above diaphragm he is now transferrred to PCU where monitor is in NSR but for around 10 mins he was in very rapid narrow complex IRREGULAR rythym on the monitor (broke back to sinus before we could get ekg) DIAGNOSES: -ACUTE SEPSIS SUSPECTED -ONGOING TX FOR ASPIRATION PNEUMONIA, NO NOTABLE INCREASE IN RESP SXS OR FUNCTION ISSUES -RUNS OF ?SVT, ?A FIB -ACUTE ARTHROPATHY OF R KNEE AND FIRST TOE, SUSPECT GOUT -S/P C SPINE SURGERY CURRENT PLANS: iv fluid boluses sepsis protocol w labs including lactate urine cx and ua tap r knee to be sure is gout and not infected and for relief follow rythym closely will check a troponin with increase metoprolol CRITICAL CARE TIME > 50 MINUTES BEDSIDE IN 4 VISITS BEYOND ORIGINAL ROUNDS VISIT Objective: Vital Signs Temp Pulse Resp BP Pulse Ox 37.4 C 160 H 12 111/82 H 95 09/14/16 13:32 09/14/16 13:32 09/14/16 13:32 09/14/16 13:32 04/22/17 13:32 Laboratory Results 09/14/16 08:42 09/14/16 08:42 09/13/16 09/14/16 09/15/16 06:59 06:59 06:59 Intake Total 200 2450 Output Total 200 100 Balance 0 2350 ICD10 Worksheet Patient Problems: Problems Problem Status Onset Arthrodesis status Acute Cervical stenosis of spine Acute C. difficile diarrhea Acute 04/05/16 Dehydration Acute Diarrhea Acute Dysphagia, oropharyngeal Acute Gout Acute Hypocalcemia Acute Hypokalemia Acute Hypomagnesemia Acute Nausea & vomiting Acute Neck pain Acute On total parenteral nutrition (TPN) Acute Pneumonia Acute RUQ abdominal pain Acute Weakness Acute CAD (coronary artery disease) Chronic Dyslipidemia Chronic
[2016-09-14] MEDS ORDERED: METOPROLOL TARTRATE 5 MG/5 ML INJ IVP ONE (14:09)
[2016-09-14 14:39] LABS: ALANINE AMINOTRANSFERASE 45 IU/L (21-72); ALBUMIN 3.8 g/dL (3.5-5.0); ALKALINE PHOSPHATASE 70 IU/L (38-126); ANION GAP 13 mEq/L (8-16); ASPARTATE AMINOTRANSFERASE 37 IU/L (17-59); BILIRUBIN,TOTAL 1.1 mg/dL (0.1-1.4); BILIRUBIN-CONJUGATED 0.6 mg/dL (0.0-0.5); BILIRUBIN-UNCONJUGATED 0.5 mg/dL (0.0-1.1); CARBON DIOXIDE 24 mEq/l (22-31); CHLORIDE 100 mEq/L (97-110); CREATININE 0.8 mg/dL (0.7-1.3); GLOMERULAR FILTRATION RATE > 60; GLUCOSE 97 mg/dL (70-100); POTASSIUM 4.2 mEq/L (3.5-5.2); SODIUM 137 mEq/L (134-144); TOTAL PROTEIN 6.8 g/dL (6.3-8.2)
[2016-09-14 14:50] LABS: TROPONIN I < 0.012 ng/mL (0-0.034)
[2016-09-14 14:54] LABS: COLOR PALE YELLOW; LEUKOCYTE ESTERASE,URINE NEGATIVE (NEGATIVE); NITRITE,URINE NEGATIVE (NEGATIVE)
--- NOTE | 2016-09-14 16:38 | CPEKG ---
Heart Rate: 153 RR Interval: 392 P-R Interval: 144 QRSD Interval: 78 QT Interval: 320 QTC Interval: 511 P Wing: 0 QRS Wing: 2 T Wave Wing: 60 EKG Severity - ABNORMAL ECG - EKG Impression: SUPRAVENTRICULAR TACHYCARDIA EKG Impression: ABERRANT COMPLEX, POSSIBLY SUPRAVENTRICULAR Electronically Signed By: Son Valverde 16-Sep-2016 08:39:46
[2016-09-14] MEDS ORDERED: LIDOCAINE 2% 100 MG/5 ML SYR ONE (17:03)
[2016-09-14] MEDS ORDERED: LIDOCAINE 2% JELLY 20 ML (UROJECT) ONE (17:04)
[2016-09-14] MEDS: PIPERACILLIN/TAZO 3.375 GM/DEX 50 ML IV SCH (19:29)
--- NOTE | 2016-09-14 19:38 | PCMIDPN ---
Assessment/Plan: Assessment/Plan: 1. Fevers-likely multifactorial -infectious vs noninfectious. d/d bacteremia, worsening pneumonia, viral, uti ( less likely given unremarkable ua) vs gout -check blood cx prior to broadening of antibiotics -UA unremarkable. Last blood cx was on 09/02/16 ngtd. Previous micro data from recent hospitalization reviewed by me. -broaden atbx to zosyn while work up in progress 2.Worsening bilateral pneumonia - likely aspiration related. given recent hospitalization could consider HCAP in differential as well. Others in differential would be viral. - Less likely atypical especially given recent completion of levaquin. recently had chemo. Thankfully not neutrapenic. Less likely to be fungal or PCP but could consider in differential. -last CXr was on 08/25/16 with no evidence of pneumonia at that time. Images from prior admission and this admission have been personally reviewed by me. -will do additional work up. -care coordinated with hospitalist team. -plan of care discussed in detail with and patient. 3. Hx. c. diff -currently on IV flagyl q12 for suppression. Will continue given not taking in orals 4. Acute Gout-new -management per hospitalist team 5. Confusion -likely related to pain meds. could be related to above. work up in progress 6. Recent Cervical spine diskectomy with fusion Subjective: Asked to see patient given new fevers, tachycardia, confusion, worsening pneumonia. Pt well known to our service. In brief, Patient has history of NSCLC s/p partial lung resection. Has been on various chemo regimens, then radiation with progression. Finally, he has been on Nivolumab i2ghoas, since past 6 months. His last dose was 09/05/16. He recently completed therapy with Levaquin for Morganella bacteremia associated with port infection. His port was removed on 08/24/16. His f/u blood cx were negative on 08/25/16. His last dose of Levaquin was on 09/03/16. He also recently was diagnosed with Influenza A on 08/23/16 and completed Tamiflu. On review of medical records he apparently had episode of fevers, rigors and was seen in ER. He had bloood cx done at that time which are negative. History is mostly obtained by , hospitalist and medical record review as patient is confused and overwhelmed.Per , shortly after receiving his chemo on 09/05/16, he started to have headaches and neck pain especially on the right side. He did not want his to tell anyone about it so that he could proceed with cervical spine surgery. Its not clear how many days he had the headache. Today he tells me he has no headache. He is on 2L o2. He underwent Cervical spine surgery on Friday09/11/16. he was given VAnco IV perioperatively. First day post op, developed cough. He did attempt to take orals and apparenlty there was concern that he may have aspirated. CXR showed new Left pneumonia. He was started on ertapenem for that and then also started on IV flagyl for suppression of c.diff while on atbx. He was doing well until today, when he developed fevers, acute tachycardia, acute knee pain, confusion. He has recieved some meds which are contributing to confusion. He is intermittently confused as i am trying to speak with him. Knee was tapped and found to have crystals. He developed urinary retention today as well, so a rocha has been inserted. CXR and Ct chest done today show worsening pneumonia with new involvement of right lung. patient intermittently agitated. ID consulted to help in eval/management. Objective: Vital Signs Temp Pulse Resp BP Pulse Ox 37.4 C 117 H 10 L 162/97 H 96 09/14/16 14:57 09/14/16 14:57 09/14/16 14:57 09/14/16 14:57 09/14/16 14:57 Laboratory Results 09/14/16 08:42 09/14/16 14:15 09/13/16 09/14/16 09/15/16 05:59 05:59 05:59 Intake Total 200 2450 1800 Output Total 200 100 600 Balance 0 2350 1200 - Physical Exam General Appearance: alert, other (confused, agitated intermittently. ) EENT: other (limted exam as patient can't open mouth wide. several teeth with caries. unable to visualize posterior pharynx. no obvious thrush) Respiratory: coarse breath sounds (anteriorly) Neck: other (cervical brace. steristrips noted on anterior neck) Cardiac/Chest: tachycardia, No systolic murmur Extremities: swelling (right knee: hot to touch. tender. no erythema. knee effusion noted. right great toe/foot with erythema noted. warm to touch.) Male Genitalia: rocha Skin: No rash - Time Spent With Patient Time Spent with Patient: greater than 35 minutes (one hour spent in care of patient, reviewing medical records, discussion with hospitalist team, , Rn, reviewing plan of care with patient. Time 6:20-740pm.) Time Spent with Patient: Greater than 35 minutes spent on this patients care, greater than 50% of time spent counseling, educating, and coordinating care regarding the above mentioned plan. ICD10 Worksheet Patient Problems: Problems Problem Status Onset Arthrodesis status Acute Cervical stenosis of spine Acute C. difficile diarrhea Acute 04/05/16 Dehydration Acute Diarrhea Acute Dysphagia, oropharyngeal Acute Gout Acute Hypocalcemia Acute Hypokalemia Acute Hypomagnesemia Acute Nausea & vomiting Acute Neck pain Acute On total parenteral nutrition (TPN) Acute Pneumonia Acute RUQ abdominal pain Acute Weakness Acute CAD (coronary artery disease) Chronic Dyslipidemia Chronic
[2016-09-15] MEDS: METOPROLOL TARTRATE 5 MG/5 ML INJ IVP SCH ×5 (00:05→22:05)
[2016-09-15] MEDS: PIPERACILLIN/TAZO 3.375 GM/DEX 50 ML IV SCH ×2 (01:49→09:50)
[2016-09-15 04:45] LABS: % IMMATURE GRANULYOCYTES 0.7 % (0.0-1.1); ABSOLUTE IMMATURE GRANULOCYTES 0.08 10^3/uL (0.00-0.10); ADD DIFF? NO; ADD MORPH? NO; ADD SCAN? NO; ATYPICAL LYMPHOCYTE FLAG 0 (0-99); FRAGMENT RBC FLAG 0 (0-99); HEMATOCRIT 31.6 % (40.0-51.0); HEMOGLOBIN 10.4 g/dL (13.7-17.5); LEFT SHIFT FLG 20 (0-99); LIPEMIA HEMOLYSIS FLAG 80 (0-99); MEAN CELL HEMOGLOBIN 32.2 pg (27.9-34.1); MEAN CELL HEMOGLOBIN CONCENTR. 32.9 g/dL (32.4-36.7); MEAN CELL VOLUME 97.8 fL (81.5-99.8); MEAN PLATELET VOLUME 9.5 fL (8.7-11.7); PLATELET CLUMPS FLAG 10 (0-99); PLATELET COUNT 245 10^3/uL (150-400); RED BLOOD CELL COUNT 3.23 10^6/uL (4.40-6.38); RED CELL DISTRIBUTION WIDTH 13.6 % (11.5-15.2)
[2016-09-15] MEDS: IPRATROPIUM/ALBUTEROL 3 ML DEYVIAL IH SCH (05:37)
[2016-09-15] MEDS: guaiFENesin 600 MG TAB.ER PO SCH ×2 (08:43→20:07)
[2016-09-15] MEDS: predniSONE 5 MG TAB PO SCH (08:45)
[2016-09-15] MEDS: SENNOSIDES/DOCUSATE SODIUM TAB PO SCH ×2 (08:45→20:07)
[2016-09-15] MEDS: FAMOTIDINE 20 MG/NACL 50 ML IV SCH ×2 (09:06→20:00)
--- NOTE | 2016-09-15 09:13 | NEUSURGPN ---
Assessment/Plan: 71 male sp C4-7 ACDF on 09/11, who is having worsening PNA with sepsis work up pending, gout exacerbation Plan: NPO, swallow study pending. Will discuss with Speech if unable to advance diet may need to have doubhoff placed for nutrition today Continue abx per Medicine/infectious recommendations post op pneumonia, new blood cultures and work up pending Right knee gout flare (knee tapped by medicine yesterday: crystals), medicine following. Need to avoid NSAIDs given recent ACDF. 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 Malcolm and Dr. Akbar Please notify NS with any change in neuro/motor exam Subjective: RLE pain. denies nay new neck pain, arm pain Objective: NAD Alert, sleeping this morning as compared to yesterday. Right knee and foot pain Catheter Insertion Date: 09/11/16 - Physician Discussed Patient with : [facility] Physical Exam - Vitals, I&O, Labs I and O 09/14/16 09/15/16 09/16/16 05:59 05:59 05:59 Intake Total 2450 3834 Output Total 100 1000 Balance 2350 2834 Intake: Oral (ml) 0 IV Infused (ml) 2450 3834 Ertapenem 1 gm In Ns 100 100 ml @ 200 mls/hr IV HS THI Rx#:[id number] Famotidine 20 mg/NaCl 50 50 50 ml @ 200 mls/hr IV Q12 [facility]I Rx#:[id number] Ns 1,000 ml @ 100 mls/hr 2100 3634 IV CONT [facility]I Rx#: [id number] Piperacillin/Tazo 3.375 50 gm/Dex 50 ml @ 100 mls/hr IV Q8H THI Rx#: [id number] metroNIDAZOLE 500 MG/NACL 200 100 100 ml @ 100 mls/hr IV BID THI Rx#:[id number] Output: Urine (ml) 100 1000 Catheter 1000 Urinal 100 Other: Intake Quantity No No Sufficient Number of Voids Catheter 1 Urinal 2 Bladder Scan Volume (ml) Urinal 58 Vital Signs Temp Pulse Resp BP Pulse Ox 37.1 C 100 14 145/88 H 99 09/15/16 08:00 09/15/16 08:00 09/15/16 08:00 09/15/16 08:00 09/15/16 08:00 Laboratory Results 09/15/16 04:08 09/14/16 14:15 ICD10 Worksheet Patient Problems: Problems Problem Status Onset Arthrodesis status Acute Cervical stenosis of spine Acute C. difficile diarrhea Acute 04/05/16 Dehydration Acute Diarrhea Acute Dysphagia, oropharyngeal Acute Gout Acute Hypocalcemia Acute Hypokalemia Acute Hypomagnesemia Acute Nausea & vomiting Acute Neck pain Acute On total parenteral nutrition (TPN) Acute Pneumonia Acute RUQ abdominal pain Acute Weakness Acute CAD (coronary artery disease) Chronic Dyslipidemia Chronic
[2016-09-15] MEDS: ENOXAPARIN 40 MG/0.4 ML SYR SC SCH (09:22)
--- NOTE | 2016-09-15 10:20 | HOSPPROG ---
Hospitalist Progress Note Assessment/Plan: DIAGNOSES: -ACUTE SEPSIS -MULTIPLE EPISODES OF SVT -HOSPITAL-ACQUIRED PNEUMONIA WITH HIGH SUSPICION FOR ASPIRATION ETIOLOGY, CULTURES NEGATIVE SO FAR; DID NOT RESPOND TO ERTAPENEM -ACUTE DELIRIUM, MULTIFACTORIAL METABOLIC -ACUTE GOUTY ARTHROPATHY OF R KNEE AND FIRST TOE, AND NOW LEFT ANKLE WELL -ACUTE URINARY RETENTION REQUIRING CORTES DRAINAGE, MULTIFACTORIAL ETIOLOGY -S/P C SPINE SURGERY PLANS: -Continue current antibiotic with coverage for hospital-acquired pneumonia -Follow cultures closely -repeat chest x-ray tomorrow -continue beta-blockers -with trying get him some colchicine for his gout today but still needing to avoid steroid nonsteroidals due to his neck fusion -he has a swallow study scheduled for later today but agree that a small bore feeding tube will be useful for nutrition as well as colchicine -avoid sedating medicines as possible, foster sleep cycle, ambulation and mobility is possible, other measures for delirium -PT and OT SUBJECTIVE: Continued pain in his right knee and toe, now also pain in the left ankle No nausea or vomiting No chest pain or shortness of breath Neck pain is not bothering him greatly His notices him moving his right shoulder with better strength than before surgery OBJECTIVE Vitals reviewed: Still with sinus tachycardia which is now much milder than yesterday, no SVT episodes last evening No fever since last evening, respiratory rate good and remains on 2 L of nasal cannula oxygen Exam: Still with some confusion this morning but is oriented to person place and time ; much more relaxed than yesterday skin warm dry color ok resps not labored lungs clear BSs with improvement in the signs of consolidation noted 2 days ago heart regular abd soft nondistended nontender, bowel sounds present limbs he still has remarkable effusion in the right knee without redness, mild warmth and tender, also with redness and swelling at the right 1st toe MTP as well as very mild changes at the right ankle without effusion warm, no edema iv site ok Laboratory data: Synovial fluid from yesterday's arthrocentesis of right knee shows large numbers of gout crystals White count slightly higher and slightly more anemic today Infectious serology tests pending Objective: Vital Signs Temp Pulse Resp BP Pulse Ox 37.1 C 100 14 145/88 H 99 09/15/16 08:00 09/15/16 08:00 09/15/16 08:00 09/15/16 08:00 09/15/16 08:00 Laboratory Results 09/15/16 04:08 09/14/16 14:15 09/14/16 09/15/16 09/16/16 06:59 06:59 06:59 Intake Total 2450 3834 Output Total 100 1000 Balance 2350 2830 ICD10 Worksheet Patient Problems: Problems Problem Status Onset Arthrodesis status Acute Cervical stenosis of spine Acute C. difficile diarrhea Acute 04/05/16 Dehydration Acute Diarrhea Acute Dysphagia, oropharyngeal Acute Gout Acute Hypocalcemia Acute Hypokalemia Acute Hypomagnesemia Acute Nausea & vomiting Acute Neck pain Acute On total parenteral nutrition (TPN) Acute Pneumonia Acute RUQ abdominal pain Acute Weakness Acute CAD (coronary artery disease) Chronic Dyslipidemia Chronic
[2016-09-15] MEDS: NS 1,000 ML IV SCH (12:24)
[2016-09-15] MEDS: LEVALBUTEROL 0.63 MG/3 ML DEYVIAL IH SCH ×2 (12:40→18:21)
[2016-09-15] MEDS: HYDROmorphONE/DILAUDID 1 MG/ML SYR IVP PRN ×2 (13:14→17:14)
[2016-09-15] MEDS ORDERED: PIPERACILLIN/TAZO 4.5 GM/DEX 100 ML IV SCH (16:00)
--- NOTE | 2016-09-15 16:11 | PCMIDPN ---
Assessment/Plan: Assessment/Plan: 1. Fevers-likely multifactorial -infectious vs noninfectious. d/d as per previous note -blood cx in progress. -LIkely cause of ongoing fever is gout, however, work up in progress =-long discussion with patient and , updated on results and plan of care. 2.Worsening bilateral pneumonia - Aspiration most likely ongoing cause of above. No increase in o2 requirements despite worsening images. -Continue zosyn for now while work up in progress. -send sputum if patient able to cough up without difficulty. -plan of care discussed in detail with and patient. 3. Hx. c. diff -currently on IV flagyl q12 for suppression. Will continue given not taking in orals 4. Acute Gout-new -management per hospitalist team 5. Confusion -likely related to pain meds. improved 6. Recent history of Morganella bacteremia/port infection: -s/p treatment with levaquin. Completed therapy recently. 7. Recent Cervical spine diskectomy with fusion Meds zosyn Subjective: intermittent low grade temps. much more oriented today. not agitated. breathing easy. intermittent cough with some secretions. on 2L. denies abd pain or diarrhea. new pain in left ankle and now left knee. ongoing moderate to severe pain in right great toe region and right knee. Objective: Vital Signs Temp Pulse Resp BP Pulse Ox 36.3 C 100 16 147/82 H 95 09/15/16 12:00 09/15/16 12:46 09/15/16 12:46 09/15/16 12:30 09/15/16 12:46 Laboratory Results 09/15/16 04:08 09/14/16 14:15 09/14/16 09/15/16 09/16/16 05:59 05:59 05:59 Intake Total 2450 3834 Output Total 100 1000 Balance 2350 2834 - Physical Exam General Appearance: alert, no apparent distress Respiratory: coarse breath sounds (mild anteriorly) Neck: other (in cervical brace) Cardiac/Chest: regular rate, rhythm Extremities: other (right knee swelling with effusion. hot. right great toe/ foot with erytehma c/w gout. left medial ankle with mild erythema. left knee hot to touch but no erythema. ) Abdomen: normal bowel sounds, non-tender, soft, No distended Skin: other (see above.) - Time Spent With Patient Time Spent with Patient: greater than 35 minutes Time Spent with Patient: Greater than 35 minutes spent on this patients care, greater than 50% of time spent counseling, educating, and coordinating care regarding the above mentioned plan. ICD10 Worksheet Patient Problems: Problems Problem Status Onset Arthrodesis status Acute Cervical stenosis of spine Acute C. difficile diarrhea Acute 04/05/16 Dehydration Acute Diarrhea Acute Dysphagia, oropharyngeal Acute Gout Acute Hypocalcemia Acute Hypokalemia Acute Hypomagnesemia Acute Nausea & vomiting Acute Neck pain Acute On total parenteral nutrition (TPN) Acute Pneumonia Acute RUQ abdominal pain Acute Weakness Acute CAD (coronary artery disease) Chronic Dyslipidemia Chronic
--- NOTE | 2016-09-15 16:37 | CPEKG ---
Heart Rate: 161 RR Interval: 373 QRSD Interval: 80 QT Interval: 312 QTC Interval: 511 P [place]: 0 QRS [place]: 1 T Wave [place]: 56 EKG Severity - ABNORMAL ECG - EKG Impression: ATRIAL FIBRILLATION EKG Impression: ST DEPRESSION, PROBABLY RATE RELATED Electronically Signed By: Son Valverde 16-Sep-2016 08:40:23
[2016-09-15] MEDS ORDERED: ADENOSINE 6 MG/2 ML VIAL ONE (16:41)
[2016-09-15] MEDS ORDERED: LIDOCAINE 2% JELLY 5 ML TUBE ONE (16:43)
[2016-09-15] MEDS ORDERED: DILTIAZEM 25 MG/5 ML VIAL IVP ONE (16:48)
[2016-09-15] MEDS ORDERED: DILTIAZEM 25 MG/5 ML VIAL IVP SCH ×2 (17:00→17:30)
[2016-09-15] MEDS ORDERED: ADENOSINE 6 MG/2 ML VIAL IVP ONE (17:01)
--- NOTE | 2016-09-15 17:16 | HOSPPROG ---
Hospitalist Progress Note Assessment/Plan: CRITICAL CARE NOTE, CRITICAL CARE TIME AT BEDSIDE GREATER THAN 40 MINUTES I was called to see the patient at this time for rapid arrhythmia. The patient is not having any chest pain, shortness of breath, palpitations, or any other new discomfort. Is not having chills or sweats. The nurse informed me that she found him to be in a rapid atrial fibrillation between 130 and 150 beats per minute and that this subsequently confirmed can converted to what appeared as an SVT. I reviewed the pvc monitor and confirmed these findings. On bedside pvc monitor he has on my assessment regular rapid narrow complex tachycardia with heart rate varying between approximately 155 in 180 beats per minute on a continuum. The continuum of changing heart rate and the lack of flutter waves make this interpreted as SVT. This is confirmed with continuous 12 lead pvc monitor which we were doing at the bedside. No signs of heart failure on examination. I had the nurses administer 6 mg of IV adenosine rapid injection and this terminated the SVT and was well tolerated other than usual few seconds of chest discomfort. However coming out of the SVT he is now in atrial fibrillation with a heart rate of 150. We then gave diltiazem boluses of 5 mg followed by 2.5 mg. This has brought his heart rate down to approximately 115-125 in atrial fibrillation. His blood pressures have remained in normal range throughout all this. He is not having any side effects with the diltiazem. At this point he is going to go to interventional Radiology for placement of a small bore feeding tube.Will continue to watch on pvc monitor there. Upon return from the interventional radiology suite all assess his cardiac rhythm again and we can either give him further beta norberto or calcium norberto through his tube or could consider putting on a diltiazem drip. I will also order an echocardiogram and will need to increase him to twice daily full-dose Lovenox as long as the neurosurgeons are safe with that. Will need to continue monitoring for any possible signs of heart failure which have not shown up so far. I reviewed all of this in detail with the patient's at the bedside as well. I did talk with the patient about as well but he remains somewhat confused. DIAGNOSES: -ACUTE SVT, BROKEN WITH ADENOSINE 6 MG -A FIB WITH RAPID VENTRICULAR RATE -- -ACUTE SEPSIS -MULTIPLE EPISODES OF SVT -HOSPITAL-ACQUIRED PNEUMONIA WITH HIGH SUSPICION FOR ASPIRATION ETIOLOGY, CULTURES NEGATIVE SO FAR; DID NOT RESPOND TO ERTAPENEM -ACUTE DELIRIUM, MULTIFACTORIAL METABOLIC -ACUTE GOUTY ARTHROPATHY OF R KNEE AND FIRST TOE, AND NOW LEFT ANKLE WELL -ACUTE URINARY RETENTION REQUIRING CORTES DRAINAGE, MULTIFACTORIAL ETIOLOGY -S/P C SPINE SURGERY Objective: Vital Signs Temp Pulse Resp BP Pulse Ox 37.2 C 161 H 18 129/90 H 98 09/15/16 16:00 09/15/16 16:00 09/15/16 16:00 09/15/16 16:00 09/15/16 16:00 Laboratory Results 09/15/16 04:08 09/14/16 14:15 09/14/16 09/15/16 09/16/16 06:59 06:59 06:59 Intake Total 2450 3834 Output Total 100 1000 Balance 2350 7422 ICD10 Worksheet Patient Problems: Problems Problem Status Onset Arthrodesis status Acute Cervical stenosis of spine Acute C. difficile diarrhea Acute 04/05/16 Dehydration Acute Diarrhea Acute Dysphagia, oropharyngeal Acute Gout Acute Hypocalcemia Acute Hypokalemia Acute Hypomagnesemia Acute Nausea & vomiting Acute Neck pain Acute On total parenteral nutrition (TPN) Acute Pneumonia Acute RUQ abdominal pain Acute Weakness Acute CAD (coronary artery disease) Chronic Dyslipidemia Chronic
[2016-09-15] MEDS ORDERED: DILTIAZEM 125 MG in D5W 125 ML IV SCH (18:30)
[2016-09-15] MEDS ORDERED: methylPREDNISolone SOD SUCC 125 MG/2 ML VIAL IVP ONE (19:00)
[2016-09-15] MEDS: PIPERACILLIN/TAZO 4.5 GM/DEX 100 ML IV SCH ×2 (19:11→22:02)
--- NOTE | 2016-09-15 21:32 | CPEKG ---
Heart Rate: 109 RR Interval: 550 P-R Interval: 148 QRSD Interval: 90 QT Interval: 340 QTC Interval: 458 P [place]: 35 QRS [place]: -2 T Wave [place]: 41 EKG Severity - OTHERWISE NORMAL ECG - EKG Impression: SINUS TACHYCARDIA EKG Impression: NON-SPECIFIC ST DEPRESION LATERAL LEADS Electronically Signed By: Son Valverde 16-Sep-2016 08:39:04
[2016-09-16] MEDS: LEVALBUTEROL 0.63 MG/3 ML DEYVIAL IH SCH ×5 (00:29→21:22)
[2016-09-16] MEDS: METOPROLOL TARTRATE 5 MG/5 ML INJ IVP SCH ×5 (01:35→23:30)
[2016-09-16 04:14] LABS: % IMMATURE GRANULYOCYTES 0.4 % (0.0-1.1); ABSOLUTE IMMATURE GRANULOCYTES 0.05 10^3/uL (0.00-0.10); ADD DIFF? NO; ADD MORPH? NO; ADD SCAN? NO; ATYPICAL LYMPHOCYTE FLAG 0 (0-99); FRAGMENT RBC FLAG 0 (0-99); HEMATOCRIT 33.2 % (40.0-51.0); HEMOGLOBIN 10.9 g/dL (13.7-17.5); LEFT SHIFT FLG 20 (0-99); LIPEMIA HEMOLYSIS FLAG 80 (0-99); MEAN CELL HEMOGLOBIN CONCENTR. 32.8 g/dL (32.4-36.7); MEAN CELL VOLUME 97.4 fL (81.5-99.8); MEAN PLATELET VOLUME 9.5 fL (8.7-11.7); PLATELET CLUMPS FLAG 10 (0-99); PLATELET COUNT 273 10^3/uL (150-400); RED BLOOD CELL COUNT 3.41 10^6/uL (4.40-6.38); RED CELL DISTRIBUTION WIDTH 13.6 % (11.5-15.2)
[2016-09-16 04:34] LABS: ANION GAP 13 mEq/L (8-16); CALCIUM 7.7 mg/dL (8.5-10.4); CARBON DIOXIDE 20 mEq/l (22-31); CHLORIDE 108 mEq/L (97-110); CREATININE 0.7 mg/dL (0.7-1.3); GLOMERULAR FILTRATION RATE > 60; GLUCOSE 166 mg/dL (70-100); SODIUM 141 mEq/L (134-144)
[2016-09-16] MEDS: PIPERACILLIN/TAZO 4.5 GM/DEX 100 ML IV SCH ×3 (05:30→18:38)
[2016-09-16] MEDS: HYDROmorphONE/DILAUDID 1 MG/ML SYR IVP PRN (06:38)
[2016-09-16] MEDS: SENNOSIDES/DOCUSATE SODIUM TAB PO SCH ×2 (08:37→20:06)
[2016-09-16] MEDS: guaiFENesin 600 MG TAB.ER PO SCH ×2 (08:37→21:23)
[2016-09-16] MEDS: predniSONE 5 MG TAB PO SCH (08:37)
--- NOTE | 2016-09-16 08:50 | ECHO ---
[id number] + + [address] : : [place] [address] : : [phone] + + Adult Echocardiographic Report + --+ :Name: MARGARET CONTRERAS SOOStudkrissy Date: 09/16/2016 07:57 AM : : Hospital Admission Number: [id number] Location: 2 07: :: 1945 Gender: Male Height: 64 in : :Age: 71 yrs Race: Weight: 153 lb : :Reason For Study: Eval LV Fx : : BSA: 1.7 meters2 : :History: Post Neck surgery, New onset A-Fib, V-Michelle, Now : :resolved. : + --+ MMode/2D Measurements \T\ Calculations IVSd: 0.95 cm LVIDd: 3.6 cm FS: 37.9 % Ao root diam: 3.6 cm LVPWd: 1.0 cm LVIDs: 2.3 cm EDV(Teich): 55.7 ml ACS: 1.9 cm ESV(Teich): 17.2 ml EF(Teich): 69.0 % LVOT diam: 2.1 cm LVOT area: 3.5 cm2 Normal Measurement Values: + + :LVIDd (3.5-5.7cm) IVSd (0.6-1.1cm) LVPWd (0.6-1.1cm) Aortic Root (2.0-3.7cm)Left Atrium (1.5-4.0cm): :LV Vol(d) (76-115ml) LV Vol(s) (29-48ml) [place] Fraction (50-65%)PV Bhupinder (0.6- 1.2m/s) TV Bhupinder (0.4-1.0m/s) : :MV E Bhupinder (0.8-1.0m/s)MV A Bhupinder (0.3-1.0m/s)LVOT Bhupinder (0.7-1.2m/s) Asc Ao Bhupinder ( 0.9-1.8m/s) : + + Doppler Measurements \T\ Calculations MV E max bhupinder: MV V2 max: Ao V2 max: AI max bhupinder: 88.8 cm/sec 108.6 cm/sec 177.8 cm/sec 382.8 cm/sec MV A max bhupinder: MV max PG: Ao max PG: AI max P.6 mmHg 96.7 cm/sec 4.7 mmHg 12.6 mmHg AI dec slope: MV E/A: 0.92 MV V2 mean: 79.2 cm/sec ASHLEY(V,D): 2.2 cm2 213.3 cm/sec2 MV mean PG: AI P1/2t: 525.7 msec 2.7 mmHg MV V2 VTI: 24.5 cm MVA(VTI): 3.1 cm2 LV V1 max: SV(LVOT): 74.8 ml PA V2 max: TR max bhupinder: 113.0 cm/sec 88.2 cm/sec 339.3 cm/sec LV V1 max PG: PA max PG: TR max P.1 mmHg 5.1 mmHg 3.1 mmHg RAP systole: LV V1 mean P.0 mmHg 2.2 mmHg RVSP(TR): 51.1 mmHg LV V1 mean: 69.0 cm/sec LV V1 VTI: 21.6 cm Left Ventricle The left ventricle is normal in size. There is mild concentric left ventricular hypertrophy. The left ventricular ejection fraction is normal. There is Doppler evidence for diastolic dysfunction. Ejection Fraction = 70%. No regional wall motion abnormalities noted. Right Ventricle The right ventricle is normal in size and function. Atria The left atrial size is normal. Right atrial size is normal. Mitral Valve There is mild mitral annular calcification. There is no evidence of mitral valve prolapse. There is no mitral valve stenosis. There is mild mitral regurgitation. Tricuspid Valve There is mild tricuspid regurgitation. Right ventricular systolic pressure is 50mmHg. There is Doppler evidence for mild to moderate pulmonary hypertension. Aortic Valve The aortic valve is trileaflet. There is mild aortic valve calcification. There is no aortic stenosis. Mild to moderate aortic regurgitation. Pulmonic Valve The pulmonic valve is normal in structure and function. There is no pulmonic valvular regurgitation. Great Vessels The aortic root is normal size. Pericardium/Pleural There is no pericardial effusion. Conclusion A complete two-dimensional transthoracic echocardiogram was performed (2D, M-mode, Doppler and color flow Doppler). The left ventricle is normal in size. There is mild concentric left ventricular hypertrophy. The left ventricular ejection fraction is normal. There is Doppler evidence for diastolic dysfunction. Ejection Fraction = 70%. No regional wall motion abnormalities noted. The right ventricle is normal in size and function. The left atrial size is normal. There is mild mitral annular calcification. There is mild mitral regurgitation. There is mild tricuspid regurgitation. Right ventricular systolic pressure is 50mmHg. There is Doppler evidence for moderate pulmonary hypertension. The aortic valve is trileaflet. There is mild aortic valve calcification. Mild to moderate aortic regurgitation. There is no pericardial effusion. The patient is now in sinus rhythm. Final Reading Physician: Paddy Howell MD electronically signed on 09/16/2016 08:49 AM Ordering Physician: Felton Burnett Performed By: See Zimmerman, SHAYCS
[2016-09-16] MEDS: FAMOTIDINE 20 MG/NACL 50 ML IV SCH (10:08)
[2016-09-16] MEDS: ENOXAPARIN 40 MG/0.4 ML SYR SC SCH (10:11)
--- NOTE | 2016-09-16 10:31 | HOSPPROG ---
Hospitalist Progress Note Assessment/Plan: DIAGNOSES: -ACUTE SEPSIS -ATRIAL FIBRILLATION, ALONG WITH MULTIPLE EPISODES OF SVT -his echo is normal -I suspect his a fib was caused by fever, pneumonia, gout, surgery etc, and I think he will actually do well without further recurrence. Due to his recent large C spine surgery I will stay with low dose anticoag to avoid risk or epidural bleed for now. If he has more A fib, would consider use of full dose. -HOSPITAL-ACQUIRED PNEUMONIA WITH HIGH SUSPICION FOR ASPIRATION ETIOLOGY, CULTURES NEGATIVE SO FAR; DID NOT RESPOND TO ERTAPENEM -ACUTE DELIRIUM, MULTIFACTORIAL METABOLIC -ACUTE GOUTY ARTHROPATHY OF R KNEE AND FIRST TOE, AND NOW LEFT ANKLE WELL -DYSPHAGIA -SEVERE DECONDITIONING -ACUTE URINARY RETENTION REQUIRING CORTES DRAINAGE, MULTIFACTORIAL ETIOLOGY -S/P C SPINE SURGERY -PULMONARY HTN as noted on echo Today he is much better as far as delirium and has been in Sinus rythym thru the day so far. His gout pain is less, likely due at least in part to the dose of solumedrol given yesterday logan. He still though has bad knee and toe pain and large knee effusion. He is very stable from a resp standpoint. He is extremely weak posturally, unable to stand independently. PLANS: -Continue current antibiotic with coverage for hospital-acquired pneumonia -Follow cultures closely -continue beta-blockers -video swallow study today -if can swallow safely will start colchine -I will do repeat arthrocentesis R knee today -will stay with low dose anticoag for now due to risk of epidural bleed, but if develops further a fib would consider change to full dose. Home radiographer cardiac catheterization is indicated to determine potential need for usp anticoag -avoid sedating medicines as possible, foster sleep cycle, ambulation and mobility is possible, other measures for delirium -PT and OT SUBJECTIVE: Continued pain in his right knee and toe, now also pain in the left ankle No nausea or vomiting No chest pain or shortness of breath Neck pain is not bothering him greatly His notices him moving his right shoulder with better strength than before surgery OBJECTIVE Vitals reviewed: Still with sinus tachycardia which is now much milder than yesterday, no SVT episodes last evening No fever since last evening, respiratory rate good and remains on 2 L of nasal cannula oxygen Exam: Still with some confusion this morning but is oriented to person place and time ; much more relaxed than yesterday skin warm dry color ok resps not labored lungs clear BSs with improvement in the signs of consolidation noted 2 days ago heart regular abd soft nondistended nontender, bowel sounds present limbs he still has remarkable effusion in the right knee without redness, mild warmth and tender, also with redness and swelling at the right 1st toe MTP as well as very mild changes at the right ankle without effusion warm, no edema iv site ok Echocardiogram today: good EF 70 w no wall motion abnormalities, mild LVH, some PHTN at 50, Mild-Mod AI, mild MR Objective: Vital Signs Temp Pulse Resp BP Pulse Ox 36.3 C 92 14 149/85 H 98 09/16/16 08:00 09/16/16 08:00 09/16/16 08:00 09/16/16 08:00 09/16/16 08:00 Laboratory Results 09/16/16 03:32 09/16/16 03:32 09/15/16 09/16/16 09/17/16 06:59 06:59 06:59 Intake Total 3834 2525 Output Total 1000 1450 Balance 2834 1075 ICD10 Worksheet Patient Problems: Problems Problem Status Onset Arthrodesis status Acute Cervical stenosis of spine Acute C. difficile diarrhea Acute 04/05/16 Dehydration Acute Diarrhea Acute Dysphagia, oropharyngeal Acute Gout Acute Hypocalcemia Acute Hypokalemia Acute Hypomagnesemia Acute Nausea & vomiting Acute Neck pain Acute On total parenteral nutrition (TPN) Acute Pneumonia Acute RUQ abdominal pain Acute Weakness Acute CAD (coronary artery disease) Chronic Dyslipidemia Chronic
--- NOTE | 2016-09-16 11:53 | SOAPPROG ---
SOAP Progress Note Assessment/Plan: Assessment: 71 yo M POD #5 sp C4-7 ACDF Plan: neuro: stable hard collar at all times post op x-rays look good pneumonia: on zosyn, appreciate IM input afib, per IM PT/OT/ST scd/saturn[place]/lovenoxfor dvt prophylaxis please call with neuro changes discussed with Dr Malcolm 09/12/16 10:57 09/16/16 11:50 Subjective: neck pain improving, no arm pain, no paresthesias. Objective: Vital Signs Temp Pulse Resp BP Pulse Ox 36.3 C 114 H 26 H 164/102 H 96 09/16/16 08:00 09/16/16 11:41 09/16/16 11:20 09/16/16 11:41 09/16/16 11:20 Laboratory Results 09/16/16 03:32 09/16/16 03:32 09/15/16 09/16/16 09/17/16 05:59 05:59 05:59 Intake Total 3834 2525 250 Output Total 1000 1450 Balance 2834 1075 250 AAOx4, + FC PERRL, EOMI, no facial droop GARETT x 4 + light touch C/D/I ICD10 Worksheet Patient Problems: Problems Problem Status Onset Arthrodesis status Acute Cervical stenosis of spine Acute C. difficile diarrhea Acute 04/05/16 Dehydration Acute Diarrhea Acute Dysphagia, oropharyngeal Acute Gout Acute Hypocalcemia Acute Hypokalemia Acute Hypomagnesemia Acute Nausea & vomiting Acute Neck pain Acute On total parenteral nutrition (TPN) Acute Pneumonia Acute RUQ abdominal pain Acute Weakness Acute CAD (coronary artery disease) Chronic Dyslipidemia Chronic
--- NOTE | 2016-09-16 13:18 | PCMIDPN ---
Assessment/Plan: Assessment/Plan: * Aspiration pneumonia: Clinically improved. Speech therapy evaluation underway to determine safety of oral intake. Continue Zosyn. Will change to Q 8 hour dosing given no isolation of Pseudomonas. * Polyarticular gout: Some persistent joint inflammation. Continued gout management by hospitalist service. * Recent history of Serratia bacteremia: Completed treatment with levofloxacin and blood cultures remain negative. Port removed at that time. * History of C difficile colitis: Continue twice daily IV Flagyl as suppressive therapy while NPO. 09/16/16 13:14 09/16/16 13:15 Subjective: Patient feels significantly better. notes that she feels like he is reach the turning point. No cough or shortness of breath. Objective: Vital Signs Temp Pulse Resp BP Pulse Ox 36.4 C 99 19 169/101 H 97 09/16/16 12:00 09/16/16 12:00 09/16/16 12:00 09/16/16 12:00 09/16/16 12:00 Laboratory Results 09/16/16 03:32 09/16/16 03:32 09/15/16 09/16/16 09/17/16 05:59 05:59 05:59 Intake Total 3834 2525 250 Output Total 1000 1450 50 Balance 2834 1075 200 Zosyn # 2 IV Flagyl as prophylaxis for C difficile # 4 Blood cultures x2 no growth - Physical Exam General Appearance: alert, no apparent distress EENT: pharynx normal, No scleral icterus Respiratory: lungs clear, No respiratory distress Cardiac/Chest: regular rate, rhythm Extremities: inflammation (Right knee and right great toe with overlying erythema, warmth and tenderness which is worse with range of motion) Abdomen: non-tender, No distended Skin: No rash ICD10 Worksheet Patient Problems: Problems Problem Status Onset Arthrodesis status Acute Cervical stenosis of spine Acute C. difficile diarrhea Acute 04/05/16 Dehydration Acute Diarrhea Acute Dysphagia, oropharyngeal Acute Gout Acute Hypocalcemia Acute Hypokalemia Acute Hypomagnesemia Acute Nausea & vomiting Acute Neck pain Acute On total parenteral nutrition (TPN) Acute Pneumonia Acute RUQ abdominal pain Acute Weakness Acute CAD (coronary artery disease) Chronic Dyslipidemia Chronic
--- NOTE | 2016-09-16 14:05 | HOSPPROG ---
Hospitalist Progress Note Assessment/Plan: Echocardiogram today: good EF 70 w no wall motion abnormalities, mild LVH, some PHTN at 50, Mild-Mod AI, mild MR Objective: Vital Signs Temp Pulse Resp BP Pulse Ox 36.4 C 99 19 169/101 H 97 09/16/16 12:00 09/16/16 12:00 09/16/16 12:00 09/16/16 12:00 09/16/16 12:00 Laboratory Results 09/16/16 03:32 09/16/16 03:32 09/15/16 09/16/16 09/17/16 06:59 06:59 06:59 Intake Total 3834 2525 250 Output Total 1000 1450 50 Balance 2834 1075 200 ICD10 Worksheet Patient Problems: Problems Problem Status Onset Arthrodesis status Acute Cervical stenosis of spine Acute C. difficile diarrhea Acute 04/05/16 Dehydration Acute Diarrhea Acute Dysphagia, oropharyngeal Acute Gout Acute Hypocalcemia Acute Hypokalemia Acute Hypomagnesemia Acute Nausea & vomiting Acute Neck pain Acute On total parenteral nutrition (TPN) Acute Pneumonia Acute RUQ abdominal pain Acute Weakness Acute CAD (coronary artery disease) Chronic Dyslipidemia Chronic
--- NOTE | 2016-09-16 14:19 | SUROPNOTE ---
[facility] Operative Report - Surgery ARTHROCENTESIS R KNEE INDICATION: persistant inflammatory arthitis with large effusion, painful, unable to bear weight Standard sterile prep, no anesthesia required R knee suprapatellar space easily accessed w 21 g needle. 30 ml of cloudy yellow fluid with normal string test. No bleeding or other complication.
[2016-09-16] MEDS: COLCHICINE 0.6 MG CAP/TAB PO SCH (15:45)
[2016-09-16] MEDS: NS 1,000 ML IV SCH (15:49)
[2016-09-16] MEDS: FAMOTIDINE 20 MG TAB PO SCH (20:06)
[2016-09-17] MEDS: PIPERACILLIN/TAZO 4.5 GM/DEX 100 ML IV SCH ×3 (02:48→19:17)
[2016-09-17] MEDS: NS 1,000 ML IV SCH ×2 (02:52→14:23)
[2016-09-17] MEDS: LEVALBUTEROL 0.63 MG/3 ML DEYVIAL IH SCH ×4 (04:46→21:39)
[2016-09-17] MEDS: METOPROLOL TARTRATE 5 MG/5 ML INJ IVP SCH ×4 (05:21→23:21)
--- NOTE | 2016-09-17 07:50 | NEUSURGPN ---
Date of Surgery: 09/11/16 Post Op Day: 6 Assessment/Plan: Assessment: 71 yo M POD #6 s/p C4-7 ACDF Plan: -neuro: stable -hard collar at all times -post op x-rays look good -pneumonia: on zosyn, appreciate IM input -afib, per IM-appreciated input -PT/OT/ST -scd/sat[place]/lovenoxfor dvt prophylaxis -please call with neuro changes -discussed with Dr Malcolm -pt understands and agrees Subjective: Awake and alert. NAD. Eating/drinking and voiding. No f/c/n/v/d. Objective: AAO x 4, + FC PERRLA, EOMI, no facial droop GARETT x 4 + light touch C/D/I Neuro Check Frequency: per routine Urinary Catheter in Place: No Catheter Insertion Date: 09/11/16 - Physician Discussed Patient with : [facility] Physical Exam - Vitals, I&O, Labs I and O 09/16/16 09/17/16 09/18/16 05:59 05:59 05:59 Intake Total 2525 2250 Output Total 1450 200 Balance 1075 2050 Intake: Oral (ml) 50 IV Infused (ml) 2525 2200 Famotidine 20 mg/NaCl 50 105 50 ml @ 200 mls/hr IV Q12 [facility] Rx#:[id number] Ns 1,000 ml @ 100 mls/hr 1900 1650 IV CONT [facility] Rx#: [id number] Piperacillin/Tazo 3.375 310 gm/Dex 50 ml @ 100 mls/hr IV Q8H [facility] Rx#: [id number] Piperacillin/Tazo 4.5 gm/ 200 Dex 100 ml @ 200 mls/hr IV Q6H [facility] Rx#:[id number] Piperacillin/Tazo 4.5 gm/ 100 Dex 100 ml @ 200 mls/hr IV Q6HRS [facility] Rx#: [id number] metroNIDAZOLE 500 MG/NACL 210 200 100 ml @ 100 mls/hr IV BID [facility] Rx#:[id number] Output: Urine (ml) 1450 200 Catheter 1450 Urinal 200 Other: Intake Quantity Yes Sufficient Number of Voids Incontinence 1 Number of Stools Bedside Commode 1 Bladder Scan Volume (ml) Urinal 90 Microbiology 09/14/16 14:44 Urine Culture - Final Urine,Clean Catch Vital Signs Temp Pulse Resp BP Pulse Ox 36.4 C 86 15 149/92 H 94 09/17/16 03:56 09/17/16 03:56 09/17/16 03:56 09/17/16 03:56 09/17/16 03:56 Laboratory Results 09/16/16 03:32 09/16/16 03:32 ICD10 Worksheet Patient Problems: Problems Problem Status Onset Arthrodesis status Acute Cervical stenosis of spine Acute C. difficile diarrhea Acute 04/05/16 Dehydration Acute Diarrhea Acute Dysphagia, oropharyngeal Acute Gout Acute Hypocalcemia Acute Hypokalemia Acute Hypomagnesemia Acute Nausea & vomiting Acute Neck pain Acute On total parenteral nutrition (TPN) Acute Pneumonia Acute RUQ abdominal pain Acute Weakness Acute CAD (coronary artery disease) Chronic Dyslipidemia Chronic - ICD10 Problem Qualifiers (1) Cervical stenosis of spine (2) Arthrodesis status
--- NOTE | 2016-09-17 07:57 | CPEKG ---
Heart Rate: 186 RR Interval: 323 QRSD Interval: 82 QT Interval: 280 QTC Interval: 493 P [place]: 0 QRS [place]: 5 T Wave [place]: 180 EKG Severity - ABNORMAL ECG - EKG Impression: SUPRAVENTRICULAR TACHYCARDIA EKG Impression: REPOLARIZATION ABNORMALITY, PROB RATE RELATED Electronically Signed By: Paddy Howell 17-Sep-2016 11:20:55
[2016-09-17] MEDS ORDERED: guaiFENesin 200 MG TAB PO PRN (08:48)
[2016-09-17] MEDS: SENNOSIDES/DOCUSATE SODIUM TAB PO SCH ×2 (09:18→20:33)
[2016-09-17] MEDS: COLCHICINE 0.6 MG CAP/TAB PO SCH (09:18)
[2016-09-17] MEDS: FAMOTIDINE 20 MG TAB PO SCH ×2 (09:18→20:32)
[2016-09-17] MEDS: predniSONE 5 MG TAB PO SCH (09:20)
[2016-09-17] MEDS: ENOXAPARIN 40 MG/0.4 ML SYR SC SCH (09:27)
--- NOTE | 2016-09-17 13:18 | PCMIDPN ---
Assessment/Plan: Assessment/Plan: 1. Fevers-likely multifactorial -infectious vs noninfectious. -blood cx ngtd -LIkely cause of fever is gout, however, work up in progress 2.Worsening bilateral pneumonia - Aspiration most likely ongoing cause of above. No increase in o2 requirements despite worsening images. -Continue zosyn for now while work up in progress. -Clinically improving. plan for short course therapy. 3. Hx. c. diff -currently on IV flagyl q12 for suppression. Will continue given not taking in orals 4. Acute Gout-new -management per hospitalist team 5. Confusion -likely related to pain meds. improved 6. Recent history of Morganella bacteremia/port infection: -s/p treatment with levaquin. Completed therapy recently. 7. Recent Cervical spine diskectomy with fusion 8. NSCLC on chemo: - last chemo was almost two weeks ago. Meds zosyn Subjective: temps better. cough is improving. not bringing up phelgm. denies abd pain or diarrhea. less pain involving his knees and feet/ankles. sitting up in chair Objective: Vital Signs Temp Pulse Resp BP Pulse Ox 36.6 C 101 H 17 104/63 99 09/17/16 12:46 09/17/16 12:46 09/17/16 12:46 09/17/16 12:46 09/17/16 12:46 Microbiology 09/14/16 14:44 Urine Culture - Final Urine,Clean Catch Laboratory Results 09/16/16 03:32 09/16/16 03:32 09/16/16 09/17/16 09/18/16 05:59 05:59 05:59 Intake Total 2525 2250 Output Total 1450 200 175 Balance 1075 2050 -175 - Physical Exam General Appearance: alert, no apparent distress EENT: other (cervical collar) Respiratory: coarse breath sounds Cardiac/Chest: regular rate, rhythm Extremities: swelling (knee swelling) Abdomen: normal bowel sounds, non-tender, soft, No distended Skin: erythema (left ankle. knee swelling . mild residual erythema involving right foot/great toe.) ICD10 Worksheet Patient Problems: Problems Problem Status Onset Arthrodesis status Acute Cervical stenosis of spine Acute C. difficile diarrhea Acute 04/05/16 Dehydration Acute Diarrhea Acute Dysphagia, oropharyngeal Acute Gout Acute Hypocalcemia Acute Hypokalemia Acute Hypomagnesemia Acute Nausea & vomiting Acute Neck pain Acute On total parenteral nutrition (TPN) Acute Pneumonia Acute RUQ abdominal pain Acute Weakness Acute CAD (coronary artery disease) Chronic Dyslipidemia Chronic
--- NOTE | 2016-09-17 20:28 | HOSPPROG ---
Hospitalist Progress Note Assessment/Plan: DIAGNOSES: -ACUTE SEPSIS -ATRIAL FIBRILLATION, ALONG WITH MULTIPLE EPISODES OF SVT -his echo is normal -I suspect his a fib was caused by fever, pneumonia, gout, surgery etc, and I think he will actually do well without further recurrence. Due to his recent large C spine surgery I will stay with low dose anticoag to avoid risk or epidural bleed for now. If he has more A fib, would consider use of full dose. -HOSPITAL-ACQUIRED PNEUMONIA WITH HIGH SUSPICION FOR ASPIRATION ETIOLOGY, CULTURES NEGATIVE SO FAR; DID NOT RESPOND TO ERTAPENEM -ACUTE DELIRIUM, MULTIFACTORIAL METABOLIC -ACUTE GOUTY ARTHROPATHY OF R KNEE AND FIRST TOE, AND NOW LEFT ANKLE WELL -DYSPHAGIA -SEVERE DECONDITIONING -ACUTE URINARY RETENTION REQUIRING CORTES DRAINAGE, MULTIFACTORIAL ETIOLOGY -S/P C SPINE SURGERY -PULMONARY HTN as noted on echo Today delirium continues to improve and nearly back to baseline. He is now able to swallow soft foods and medicine. He still has bad gout pain and marked bilateral leg weakness and is unable to stand. He has had no A Fib since night of 09/15 PLANS: -continue colchicine for gout -Continue current antibiotic with coverage for hospital-acquired pneumonia -Follow cultures closely -continue beta-blockers -will stay with low dose anticoag for now due to risk of epidural bleed, but if develops further a fib would consider change to full dose. Home educational audiologist is indicated to determine potential need for vermin exterminator anticoag -avoid sedating medicines as possible, foster sleep cycle, ambulation and mobility is possible, other measures for delirium -PT and OT SUBJECTIVE: Continued pain in his right knee and toe, now also pain in the left ankle No nausea or vomiting No chest pain or shortness of breath Neck pain is not bothering him greatly His notices him moving his right shoulder with better strength than before surgery OBJECTIVE Vitals reviewed: Still with sinus tachycardia which is now much milder than yesterday, no SVT episodes last evening No fever since last evening, respiratory rate good and remains on 2 L of nasal cannula oxygen Exam: Still with some confusion this morning but is oriented to person place and time ; much more relaxed than yesterday skin warm dry color ok resps not labored lungs clear BSs with improvement in the signs of consolidation noted 2 days ago heart regular abd soft nondistended nontender, bowel sounds present limbs he still has remarkable effusion in the right knee without redness, mild warmth and tender, also with redness and swelling at the right 1st toe MTP as well as very mild changes at the right ankle without effusion warm, no edema iv site ok Echocardiogram today: good EF 70 w no wall motion abnormalities, mild LVH, some PHTN at 50, Mild-Mod AI, mild MR Objective: Vital Signs Temp Pulse Resp BP Pulse Ox 36.3 C 92 14 149/85 H 98 09/16/16 08:00 09/16/16 08:00 09/16/16 08:00 09/16/16 08:00 08:00 Laboratory Results 09/16/16 03:32 [Image 1] 09/16/16 03:32 [Image 1] 09/15/16 09/16/16 09/17/16 06:59 06:59 06:59 Intake Total 3834 2525 Output Total 1000 1450 Balance 2834 1075 ICD10 Worksheet Patient Problems: Problems Problem Status Onset Arthrodesis status Acute Cervical stenosis of spine Acute C. difficile diarrhea Acute 04/05/16 Dehydration Acute Diarrhea Acute Dysphagia, oropharyngeal Acute Gout Acute Hypocalcemia Acute Hypokalemia Acute Hypomagnesemia Acute Nausea & vomiting Acute Neck pain Acute On total parenteral nutrition (TPN) Acute Pneumonia Acute RUQ abdominal pain Acute Weakness Acute CAD (coronary artery disease) Chronic Dyslipidemia Chronic Objective: Vital Signs Temp Pulse Resp BP Pulse Ox 36.5 C 84 16 133/79 H 99 09/17/16 19:57 09/17/16 19:57 09/17/16 19:57 09/17/16 19:57 09/17/16 19:57 Microbiology 09/14/16 14:44 Urine Culture - Final Urine,Clean Catch Laboratory Results 09/16/16 03:32 09/16/16 03:32 09/16/16 09/17/16 09/18/16 06:59 06:59 06:59 Intake Total 2525 2250 240 Output Total 1450 200 775 Balance 1075 0 -535 ICD10 Worksheet Patient Problems: Problems Problem Status Onset Arthrodesis status Acute Cervical stenosis of spine Acute C. difficile diarrhea Acute 04/05/16 Dehydration Acute Diarrhea Acute Dysphagia, oropharyngeal Acute Gout Acute Hypocalcemia Acute Hypokalemia Acute Hypomagnesemia Acute Nausea & vomiting Acute Neck pain Acute On total parenteral nutrition (TPN) Acute Pneumonia Acute RUQ abdominal pain Acute Weakness Acute CAD (coronary artery disease) Chronic Dyslipidemia Chronic
[2016-09-17 21:26] LABS: CMV DNA DETECTION AND QUANTIFI Undetected IU/mL (Undetected)
[2016-09-18] MEDS: PIPERACILLIN/TAZO 4.5 GM/DEX 100 ML IV SCH ×3 (01:59→17:42)
[2016-09-18] MEDS: LEVALBUTEROL 0.63 MG/3 ML DEYVIAL IH SCH ×3 (06:11→16:58)
[2016-09-18] MEDS: METOPROLOL TARTRATE 5 MG/5 ML INJ IVP SCH ×2 (06:25→11:43)
[2016-09-18] MEDS: SENNOSIDES/DOCUSATE SODIUM TAB PO SCH ×2 (07:48→20:16)
--- NOTE | 2016-09-18 08:02 | NEUSURGPN ---
Date of Surgery: 09/11/16 Post Op Day: 7 Assessment/Plan: Assessment: 71 yo M POD #7 s/p C4-7 ACDF Plan: -neuro: stable -hard collar at all times -swallowing better today than yesterday and pt states improving each day. His biggest complaint is the gout issues-states better daily as well -post op x-rays look good -pneumonia: on zosyn, appreciate IM/ID input -afib, per IM-appreciated input -PT/OT/ST -scd/saturnino/lovenoxfor dvt prophylaxis -please call with neuro changes -discussed with Dr Malcolm -pt understands and agrees -plan for rehab consult and rehab placement after cleared from ID/IM Subjective: Awake and alert. NAD. No new events overnight. Pt better with swallowing as well as with gout issues. Objective: AAO x 4, + FC PERRLA, EOMI, no facial droop GARETT x 4 + light touch neck soft and supple C/D/I Neuro Check Frequency: per routine Urinary Catheter in Place: No Catheter Insertion Date: 09/11/16 - Physician Discussed Patient with : [facility] Physical Exam - Vitals, I&O, Labs I and O 09/17/16 09/18/16 09/19/16 05:59 05:59 05:59 Intake Total 2250 680 Output Total 200 1275 Balance 2049 - Intake: Oral (ml) 50 680 IV Infused (ml) 2200 Famotidine 20 mg/NaCl 50 50 ml @ 200 mls/hr IV Q12 [facility] Rx#:[id number] Ns 1,000 ml @ 100 mls/hr 1650 IV CONT [facility]I Rx#: [id number] Piperacillin/Tazo 4.5 gm/ 200 Dex 100 ml @ 200 mls/hr IV Q6H [facility] Rx#:[id number] Piperacillin/Tazo 4.5 gm/ 100 Dex 100 ml @ 200 mls/hr IV Q6HRS [facility] Rx#: [id number] metroNIDAZOLE 500 MG/NACL 200 100 ml @ 100 mls/hr IV BID THI Rx#:[id number] Output: Urine (ml) 200 1275 Bedside Commode 1100 Urinal 200 175 Other: Intake Quantity Yes Sufficient Number of Voids Bedside Commode 1 Incontinence 1 Number of Stools Bedside Commode 1 1 Bladder Scan Volume (ml) Urinal 90 Vital Signs Temp Pulse Resp BP Pulse Ox 36.7 C 73 16 149/84 H 98 09/18/16 07:47 09/18/16 07:47 09/18/16 07:47 09/18/16 07:47 09/18/16 07:47 Laboratory Results 09/16/16 03:32 09/16/16 03:32 ICD10 Worksheet Patient Problems: Problems Problem Status Onset Arthrodesis status Acute Cervical stenosis of spine Acute C. difficile diarrhea Acute 04/05/16 Dehydration Acute Diarrhea Acute Dysphagia, oropharyngeal Acute Gout Acute Hypocalcemia Acute Hypokalemia Acute Hypomagnesemia Acute Nausea & vomiting Acute Neck pain Acute On total parenteral nutrition (TPN) Acute Pneumonia Acute RUQ abdominal pain Acute Weakness Acute CAD (coronary artery disease) Chronic Dyslipidemia Chronic - ICD10 Problem Qualifiers (1) Cervical stenosis of spine (2) Arthrodesis status
[2016-09-18] MEDS: COLCHICINE 0.6 MG CAP/TAB PO SCH (09:41)
[2016-09-18] MEDS: predniSONE 5 MG TAB PO SCH (09:42)
[2016-09-18] MEDS: FAMOTIDINE 20 MG TAB PO SCH ×2 (09:42→20:16)
[2016-09-18] MEDS: ENOXAPARIN 40 MG/0.4 ML SYR SC SCH (09:55)
[2016-09-18] MEDS: NS 1,000 ML IV SCH ×2 (10:36→22:59)
--- NOTE | 2016-09-18 12:00 | PCMIDPN ---
Assessment/Plan: Assessment/Plan: * Aspiration pneumonia: Clinically improved. Video swallow showed supraglottic penetration with thin liquids. Today is day 7 of antibiotic therapy when combined ertapenem and Zosyn dosing. Will discontinue antibiotic therapy at close of day given this represents complete course of therapy. * Polyarticular gout: Some persistent joint inflammation. Continued gout management by hospitalist service. * History of C difficile colitis: Transition to oral vancomycin if can obtain capsules given that he is on nectar thick diet. Continue IV metronidazole in interim. 09/18/16 11:55 09/18/16 12:00 Subjective: No cough or shortness of breath. Complains of ongoing bilateral lower extremity joint pain. Objective: Vital Signs Temp Pulse Resp BP Pulse Ox 36.3 C 98 20 172/97 H 96 09/18/16 11:43 09/18/16 11:43 09/18/16 11:43 09/18/16 11:43 09/18/16 11:43 Laboratory Results 09/16/16 03:32 09/16/16 03:32 09/17/16 09/18/16 09/19/16 05:59 05:59 05:59 Intake Total 2250 680 100 Output Total 200 1275 200 Balance 2050 -595 -100 Zosyn # 4 (antibiotics # 7) IV Flagyl as suppressive therapy for prior C difficile colitis Blood cultures no growth - Physical Exam General Appearance: alert, no apparent distress Respiratory: lungs clear, No respiratory distress Neck: other (C collar in place) Extremities: inflammation (Bilateral knees) Abdomen: non-tender, No distended ICD10 Worksheet Patient Problems: Problems Problem Status Onset Arthrodesis status Acute Cervical stenosis of spine Acute C. difficile diarrhea Acute 04/05/16 Dehydration Acute Diarrhea Acute Dysphagia, oropharyngeal Acute Gout Acute Hypocalcemia Acute Hypokalemia Acute Hypomagnesemia Acute Nausea & vomiting Acute Neck pain Acute On total parenteral nutrition (TPN) Acute Pneumonia Acute RUQ abdominal pain Acute Weakness Acute CAD (coronary artery disease) Chronic Dyslipidemia Chronic
[2016-09-18] MEDS: traMADol 50 MG TAB PO PRN (16:32)
[2016-09-18] MEDS: METOPROLOL TARTRATE 25 MG TAB PO SCH (17:38)
--- NOTE | 2016-09-18 17:41 | HOSPPROG ---
Hospitalist Progress Note Assessment/Plan: DIAGNOSES: -ACUTE SEPSIS (resolved) from pneumonia -ATRIAL FIBRILLATION, ALONG WITH MULTIPLE EPISODES OF SVT (first ever episode of both for him) -his echo is normal -had recurrent A Fib for 20 mins this am; as he is now a week out of surgery will change to full dose anticoag with eliquis -HOSPITAL-ACQUIRED PNEUMONIA WITH HIGH SUSPICION FOR ASPIRATION ETIOLOGY, CULTURES NEGATIVE SO FAR; DID NOT RESPOND TO ERTAPENEM -responding well now to current abx, cultures negative -ACUTE DELIRIUM, MULTIFACTORIAL METABOLIC -resolved now; he has very vivid memories of hallucinations and delusions -ACUTE GOUTY ARTHROPATHY OF R KNEE AND AND NOW BOTH FEET -unable to treat w NSAID or steroid due to Cervical Spine Fusion -will increase today to bid colchicine as he is getting worse on once daily -DYSPHAGIA due to C spine surgery; is improving, now takign some po -SEVERE DECONDITIONING very weak legs, unable to stand -ACUTE URINARY RETENTION REQUIRING CORTES DRAINAGE, MULTIFACTORIAL ETIOLOGY resolved, now voiding -S/P C SPINE SURGERY WITH FUSION -PULMONARY HTN as noted on echo PLANS: -continue colchicine for gout, increase to bid (NO NSAIDS OR STEROIDS) -Continue current antibiotic with coverage for hospital-acquired pneumonia -continue beta-blockers - will change back to po now but increase dose as he has been fairly hypertensive -start full dose anticoag now for a fib as he is a week out from surgery; rate control is good on BB -avoid sedating medicines as possible, foster sleep cycle, ambulation and mobility is possible, other measures for delirium -PT and OT as able but gout is severe in knees and feet SUBJECTIVE: Continued pain in both knees and now both feet No nausea or vomiting No chest pain or shortness of breath Neck pain is not bothering him greatly OBJECTIVE Vitals reviewed: Hypertensive today No fever since last evening, respiratory rate good and remains on 2 L of nasal cannula oxygen Manager Radio: did have 20 minutes of A Fib again this am Exam: mentation now normal but he has very vivid memories of hallucinations and delusions skin warm dry resps not labored lungs clear BSs with improvement in the signs of consolidation noted 2 days ago heart regular abd soft nondistended nontender, bowel sounds present limbs: both knees and both feet with edema effusions and very tender, not a lot of redness, a bit warm iv site ok Objective: Vital Signs Temp Pulse Resp BP Pulse Ox 37.2 C 100 20 171/109 H 90 L 09/18/16 15:48 09/18/16 15:48 09/18/16 15:48 09/18/16 15:56 09/18/16 15:48 Laboratory Results 09/16/16 03:32 09/16/16 03:32 09/17/16 09/18/16 09/19/16 06:59 06:59 06:59 Intake Total 2250 680 100 Output Total 200 1275 200 Balance 0 -595 -100 ICD10 Worksheet Patient Problems: Problems Problem Status Onset Arthrodesis status Acute Cervical stenosis of spine Acute C. difficile diarrhea Acute 04/05/16 Dehydration Acute Diarrhea Acute Dysphagia, oropharyngeal Acute Gout Acute Hypocalcemia Acute Hypokalemia Acute Hypomagnesemia Acute Nausea & vomiting Acute Neck pain Acute On total parenteral nutrition (TPN) Acute Pneumonia Acute RUQ abdominal pain Acute Weakness Acute CAD (coronary artery disease) Chronic Dyslipidemia Chronic
[2016-09-18] MEDS: HYDROCODONE/APAP 10/325 TAB PO PRN ×2 (20:15→22:59)
[2016-09-18] MEDS: APIXABAN 5 MG TAB PO SCH (20:16)
[2016-09-18] MEDS: VANCOMYCIN 125 MG/2.5 ML UDL PO SCH (20:17)
[2016-09-19 04:50] LABS: % IMMATURE GRANULYOCYTES 0.8 % (0.0-1.1); ABSOLUTE IMMATURE GRANULOCYTES 0.07 10^3/uL (0.00-0.10); ADD DIFF? NO; ADD MORPH? NO; ADD SCAN? NO; ATYPICAL LYMPHOCYTE FLAG 0 (0-99); FRAGMENT RBC FLAG 0 (0-99); HEMATOCRIT 31.9 % (40.0-51.0); HEMOGLOBIN 10.8 g/dL (13.7-17.5); LEFT SHIFT FLG 10 (0-99); LIPEMIA HEMOLYSIS FLAG 90 (0-99); MEAN CELL HEMOGLOBIN CONCENTR. 33.9 g/dL (32.4-36.7); MEAN CELL VOLUME 94.7 fL (81.5-99.8); PLATELET CLUMPS FLAG 0 (0-99); PLATELET COUNT 343 10^3/uL (150-400); RED BLOOD CELL COUNT 3.37 10^6/uL (4.40-6.38); RED CELL DISTRIBUTION WIDTH 13.7 % (11.5-15.2)
[2016-09-19 05:34] LABS: CALCIUM 7.5 mg/dL (8.5-10.4); CARBON DIOXIDE 25 mEq/l (22-31); CHLORIDE 108 mEq/L (97-110); CREATININE 0.7 mg/dL (0.7-1.3); GLOMERULAR FILTRATION RATE > 60; GLUCOSE 102 mg/dL (70-100); SODIUM 140 mEq/L (134-144)
[2016-09-19] MEDS: LEVALBUTEROL 0.63 MG/3 ML DEYVIAL IH SCH ×2 (05:57)
[2016-09-19 06:16] LABS: ANION GAP 7 mEq/L (8-16); POTASSIUM 3.3 mEq/L (3.5-5.2)
[2016-09-19] MEDS: HYDROCODONE/APAP 10/325 TAB PO PRN (06:27)
[2016-09-19] MEDS: traMADol 50 MG TAB PO PRN (10:23)
[2016-09-19] MEDS: SENNOSIDES/DOCUSATE SODIUM TAB PO SCH (10:24)
[2016-09-19] MEDS: COLCHICINE 0.6 MG CAP/TAB PO SCH ×2 (10:24→22:02)
[2016-09-19] MEDS: FAMOTIDINE 20 MG TAB PO SCH ×2 (10:24→22:02)
[2016-09-19] MEDS: APIXABAN 5 MG TAB PO SCH ×2 (10:25→22:01)
[2016-09-19] MEDS: METOPROLOL TARTRATE 25 MG TAB PO SCH ×2 (10:25→22:02)
[2016-09-19] MEDS: predniSONE 5 MG TAB PO SCH (10:25)
[2016-09-19] MEDS: VANCOMYCIN 125 MG/2.5 ML UDL PO SCH ×2 (10:26→22:02)
[2016-09-19] MEDS ORDERED: LEVALBUTEROL 0.63 MG/3 ML DEYVIAL IH PRN (11:14)
[2016-09-19] MEDS ORDERED: COLCHICINE 0.6 MG CAP/TAB PO ONE ×2 (11:44→13:00)
[2016-09-19] MEDS ORDERED: COLCHICINE 0.6 MG CAP/TAB PO PRN (11:45)
[2016-09-19] MEDS ORDERED: FUROSEMIDE 40 MG/4 ML VIAL IVP ONE (11:51)
[2016-09-19] MEDS ORDERED: PROTOCOL POTASSIUM 1 DOSE MISC PRN (11:51)
--- NOTE | 2016-09-19 13:12 | NEUSURGPN ---
Date of Surgery: 09/04/16 Post Op Day: 15 Assessment/Plan: Assessment: 71 yo M POD #8 s/p C4-7 ACDF Plan: -neuro: stable -hard collar at all times -swallowing better day to day-improving each day. His biggest complaint is the gout issues-states better daily as well. I spoke with Dr Hamm and she will push up the colchicine and if this is not helpful we can try a short burst of NSAIDs/seroids. I d/w with Dr Malcolm as well as the pt regarding the risks to bone fusion -post op x-rays look good -pneumonia: on zosyn, appreciate IM/ID input -afib, per IM-appreciated input -PT/OT/ST -scd/saturnino/lovenoxfor dvt prophylaxis -please call with neuro changes -discussed with Dr Malcolm -pt understands and agrees -plan for rehab consult and rehab placement after cleared from ID/IM Subjective: Awake and alert. NAD. Sitting in chair. No garcia/chest/abd or gu complaints. No f/c/n/v/d. Objective: AAO x 4, + FC PERRLA, EOMI, no facial droop GARETT x 4 + light touch neck soft and supple C/D/I Neuro Check Frequency: per routine Urinary Catheter in Place: No Catheter Insertion Date: 09/11/16 - Physician Discussed Patient with : [facility] Physical Exam - Vitals, I&O, Labs I and O 09/18/16 09/19/16 09/20/16 05:59 05:59 05:59 Intake Total 680 2370 Output Total 1275 400 Balance -595 1970 Intake: Oral (ml) 680 320 IV Infused (ml) 2050 Ns 1,000 ml @ 100 mls/hr 1850 IV CONT [facility] Rx#: [id number] metroNIDAZOLE 500 MG/NACL 200 100 ml @ 100 mls/hr IV BID [facility] Rx#:[id number] Output: Urine (ml) 1275 400 Bedside Commode 1100 200 Urinal 175 200 Other: Number of Voids Bedside Commode 1 Toilet 1 Number of Stools Bedside Commode 1 Incontinence 1 Vital Signs Temp Pulse Resp BP Pulse Ox 36.5 C 75 13 171/85 H 90 L 09/19/16 11:55 09/19/16 11:55 09/19/16 11:55 09/19/16 11:55 09/19/16 11:55 Laboratory Results 09/19/16 03:48 09/19/16 03:48 ICD10 Worksheet Patient Problems: Problems Problem Status Onset Arthrodesis status Acute Cervical stenosis of spine Acute C. difficile diarrhea Acute 04/05/16 Dehydration Acute Diarrhea Acute Dysphagia, oropharyngeal Acute Gout Acute Hypocalcemia Acute Hypokalemia Acute Hypomagnesemia Acute Nausea & vomiting Acute Neck pain Acute On total parenteral nutrition (TPN) Acute Pneumonia Acute RUQ abdominal pain Acute Weakness Acute CAD (coronary artery disease) Chronic Dyslipidemia Chronic - ICD10 Problem Qualifiers (1) Cervical stenosis of spine (2) Arthrodesis status
--- NOTE | 2016-09-19 13:23 | SOAPPROG ---
SOAP Progress Note Assessment/Plan: Assessment: Oncology follow up note - - Lung CA - in remission on nivolumab. Treatment is complicated by pneumonitis from nivolumab. He has been on a slow steroid taper (currently 2.5mg prednisone) . If infiltrates worsen without clear pneumonia, consider an exacerbation of his pneumonitis and an increase in prednisone - S/P C spine surgery - gout - Afib/SVT Plan: Will follow with you. He is due for his next dose of nivoumab on 09/26/16, but I'm going to put this on hold for now. Subjective: sitting up in chair. Gout is his biggest complaint at the moment Objective: Vital Signs Temp Pulse Resp BP Pulse Ox 36.5 C 75 13 171/85 H 90 L 09/19/16 11:55 09/19/16 11:55 09/19/16 11:55 09/19/16 11:55 09/19/16 11:55 Laboratory Results 09/19/16 03:48 09/19/16 03:48 09/17/16 09/18/16 09/19/16 23:59 23:59 23:59 Intake Total 1490 1610 1200 Output Total 775 900 Balance 786 488 2204 Physical Exam - Physical Exam General Appearance: moderate distress Neuro/Psych: alert, oriented x 3 ICD10 Worksheet Patient Problems: Problems Problem Status Onset Arthrodesis status Acute Cervical stenosis of spine Acute C. difficile diarrhea Acute 04/05/16 Dehydration Acute Diarrhea Acute Dysphagia, oropharyngeal Acute Gout Acute Hypocalcemia Acute Hypokalemia Acute Hypomagnesemia Acute Nausea & vomiting Acute Neck pain Acute On total parenteral nutrition (TPN) Acute Pneumonia Acute RUQ abdominal pain Acute Weakness Acute CAD (coronary artery disease) Chronic Dyslipidemia Chronic
[2016-09-19] MEDS ORDERED: POTASSIUM CL 10 MEQ TAB PO ONE ×2 (13:58→21:49)
[2016-09-19] MEDS: DILTIAZEM CD 120 MG CAP PO SCH (14:25)
--- NOTE | 2016-09-19 15:46 | HOSPPROG ---
Hospitalist Progress Note Assessment/Plan: * Acute gout flare - severe -increase colchicine -d/w Wilberto Hurtado - jhony to use NSAIDS or prednisone if needed -start allopurinol as outpatient when gout flare improved * Aspiration PNA with sepsis -antibiotics complete -swallow improved - now thin liquids * Afib/SVT -metoprolol, eliquis * HTN - uncontrolled -add diltiazem - could use a little rate control * Edema -stop IVF - IV lasix * Cervical fusion - hard collar * Lung cancer - in remission on nivolumab -low dose prednisone for pneumonitis due to chemo * Metabolic encephalopathy - resolved * Cdiff - PO vanco -stop soon as was just preventative while on abx Subjective: Gout is worse. Wants high dose colchicine because thats what he does at home Objective: Vital Signs Temp Pulse Resp BP Pulse Ox 36.5 C 75 13 171/85 H 90 L 09/19/16 11:55 09/19/16 11:55 09/19/16 11:55 09/19/16 11:55 09/19/16 11:55 Laboratory Results 09/19/16 03:48 09/19/16 03:48 09/18/16 09/19/16 09/20/16 05:59 05:59 05:59 Intake Total 680 2370 Output Total 1275 400 300 Balance -595 1970 -300 tele reviewed - NSR d/w Dr. Preston and Wilberto Hurtado neurosurgery - Physical Exam Constitutional: no apparent distress, appears nourished, not in pain Cardiovascular: regular rate and rhythym, no murmur, rub, or gallop, edema (3+) Respiratory: no respiratory distress, no rales or rhonchi, clear to auscultation Gastrointestinal: normoactive bowel sounds, soft, non-tender abdomen, no palpable masses Skin: no rashes or abrasions, no fluctuance, no induration Musculoskeletal: full muscle strength, joint effusion, joint tenderness, pain with ROM, No normal joint ROM, No no joint effusions Neurologic: AAOx3, sensation intact bilaterally Psychiatric: interacting appropriately, not anxious, not encephalopathic, thought process linear ICD10 Worksheet Patient Problems: Problems Problem Status Onset Arthrodesis status Acute Cervical stenosis of spine Acute C. difficile diarrhea Acute 04/05/16 Dehydration Acute Diarrhea Acute Dysphagia, oropharyngeal Acute Gout Acute Hypocalcemia Acute Hypokalemia Acute Hypomagnesemia Acute Nausea & vomiting Acute Neck pain Acute On total parenteral nutrition (TPN) Acute Pneumonia Acute RUQ abdominal pain Acute Weakness Acute CAD (coronary artery disease) Chronic Dyslipidemia Chronic
[2016-09-19 18:32] LABS: POTASSIUM 3.2 mEq/L (3.5-5.2)
[2016-09-20 05:35] LABS: % IMMATURE GRANULYOCYTES 0.7 % (0.0-1.1); ABSOLUTE IMMATURE GRANULOCYTES 0.06 10^3/uL (0.00-0.10); ADD DIFF? NO; ADD MORPH? NO; ADD SCAN? NO; ATYPICAL LYMPHOCYTE FLAG 0 (0-99); FRAGMENT RBC FLAG 0 (0-99); HEMATOCRIT 30.1 % (40.0-51.0); HEMOGLOBIN 10.4 g/dL (13.7-17.5); LEFT SHIFT FLG 10 (0-99); LIPEMIA HEMOLYSIS FLAG 90 (0-99); MEAN CELL HEMOGLOBIN 32.8 pg (27.9-34.1); MEAN CELL HEMOGLOBIN CONCENTR. 34.6 g/dL (32.4-36.7); MEAN PLATELET VOLUME 9.9 fL (8.7-11.7); PLATELET CLUMPS FLAG 10 (0-99); PLATELET COUNT 327 10^3/uL (150-400); RED BLOOD CELL COUNT 3.17 10^6/uL (4.40-6.38); RED CELL DISTRIBUTION WIDTH 13.8 % (11.5-15.2)
[2016-09-20 06:14] LABS: ANION GAP 10 mEq/L (8-16); CALCIUM 7.7 mg/dL (8.5-10.4); CARBON DIOXIDE 26 mEq/l (22-31); CHLORIDE 105 mEq/L (97-110); CREATININE 0.7 mg/dL (0.7-1.3); GLOMERULAR FILTRATION RATE > 60; GLUCOSE 127 mg/dL (70-100); POTASSIUM 3.5 mEq/L (3.5-5.2); SODIUM 141 mEq/L (134-144)
[2016-09-20] MEDS ORDERED: POTASSIUM CL 10 MEQ TAB PO ONE (07:18)
--- NOTE | 2016-09-20 08:11 | NEUSURGPN ---
Assessment/Plan: Assessment: 71 yo M POD #9 s/p C4-7 ACDF Patient's gout still primary pain issue and unable to walk. Discussed with Dr. Malcolm. Okay for medicine to give short burst of NSAIDS/steroids if other gout medications not effective. Discussed bony fusions risk with patient as well this am. Plan: -neuro: stable -hard collar at all times -post op x-rays look good -pneumonia: on zosyn, appreciate IM/ID input -afib, per IM-appreciated input -PT/OT/ST -scd/saturnino/lovenoxfor dvt prophylaxis -please call with neuro changes -pt understands and agrees -plan for rehab consult and rehab placement after cleared from ID/IM Subjective: leg pain. Denies any neck pain. Swallowing improving Objective: AAO x 4, PERRLA, EOMI, no facial droop GARETT x 4, hurts to bend/move right leg + light touch neck soft and supple C/D/I Catheter Insertion Date: 09/11/16 - Physician Discussed Patient with : [facility] Physical Exam - Vitals, I&O, Labs I and O 09/19/16 09/20/16 09/21/16 05:59 05:59 05:59 Intake Total 2370 Output Total 400 1727 Balance 1970 -1726 Intake: Oral (ml) 320 IV Infused (ml) 2050 Ns 1,000 ml @ 100 mls/hr 1850 IV CONT [facility]I Rx#: [id number] metroNIDAZOLE 500 MG/NACL 200 100 ml @ 100 mls/hr IV BID [facility]I Rx#:[id number] Output: Urine (ml) 400 1727 Bedside Commode 200 600 Urinal 200 1127 Other: Intake Quantity Yes Sufficient Number of Voids Bedside Commode 4 Toilet 1 Urinal 2 Number of Stools Bedside Commode 4 Incontinence 1 Microbiology 09/14/16 19:26 Blood Culture - Final Blood 09/14/16 19:26 Blood Culture - Final Blood Vital Signs Temp Pulse Resp BP Pulse Ox 36.8 C 84 16 168/91 H 93 09/20/16 07:21 09/20/16 07:21 09/20/16 07:21 09/20/16 07:21 09/20/16 07:21 Laboratory Results 09/20/16 03:57 09/20/16 03:57 ICD10 Worksheet Patient Problems: Problems Problem Status Onset Arthrodesis status Acute Cervical stenosis of spine Acute C. difficile diarrhea Acute 04/05/16 Dehydration Acute Diarrhea Acute Dysphagia, oropharyngeal Acute Gout Acute Hypocalcemia Acute Hypokalemia Acute Hypomagnesemia Acute Nausea & vomiting Acute Neck pain Acute On total parenteral nutrition (TPN) Acute Pneumonia Acute RUQ abdominal pain Acute Weakness Acute CAD (coronary artery disease) Chronic Dyslipidemia Chronic
[2016-09-20] MEDS: DILTIAZEM CD 120 MG CAP PO SCH (09:26)
[2016-09-20] MEDS: predniSONE 5 MG TAB PO SCH (09:27)
[2016-09-20] MEDS: APIXABAN 5 MG TAB PO SCH ×2 (09:28→22:10)
[2016-09-20] MEDS: COLCHICINE 0.6 MG CAP/TAB PO SCH ×2 (09:28→22:10)
[2016-09-20] MEDS: METOPROLOL TARTRATE 25 MG TAB PO SCH ×2 (09:29→22:10)
[2016-09-20] MEDS: FAMOTIDINE 20 MG TAB PO SCH ×2 (09:29→22:10)
[2016-09-20] MEDS: VANCOMYCIN 125 MG/2.5 ML UDL PO SCH ×2 (09:31→22:07)
[2016-09-20] MEDS ORDERED: HYDROCODONE/APAP 10/325 TAB PO PRN (09:37)
[2016-09-20] MEDS ORDERED: oxyCODONE IR 5 MG TAB PO PRN ×2 (09:38→10:31)
[2016-09-20] MEDS ORDERED: predniSONE 5 MG TAB PO SCH (10:26)
--- NOTE | 2016-09-20 13:04 | HOSPPROG ---
Hospitalist Progress Note Assessment/Plan: * Acute gout flare - severe -increased colchicine -per neurosurgery - okay to use NSAIDS or prednisone if needed -start steroids - short burst -start allopurinol as outpatient when gout flare improved * Aspiration PNA with sepsis -antibiotics complete -swallow improved - now thin liquids * Afib/SVT -metoprolol, diltiazem, eliquis * HTN - better * Cervical fusion - hard collar * Lung cancer - in remission on nivolumab -low dose prednisone for pneumonitis due to chemo -reduce back to 2.5 mg when steroid burst for gout complete * Metabolic encephalopathy - resolved * Cdiff - PO vanco -stop soon as was just preventative while on abx Subjective: Gout still severe, no better on high dose colchicine Objective: Vital Signs Temp Pulse Resp BP Pulse Ox 36.8 C 84 16 168/91 H 93 09/20/16 07:21 09/20/16 07:21 09/20/16 07:21 09/20/16 07:21 09/20/16 07:21 Microbiology 09/14/16 19:26 Blood Culture - Final Blood 09/14/16 19:26 Blood Culture - Final Blood Laboratory Results 09/20/16 03:57 09/20/16 03:57 09/19/16 09/20/16 09/21/16 05:59 05:59 05:59 Intake Total 2370 Output Total 400 1727 150 Balance 1969 -[id number] - Physical Exam Constitutional: no apparent distress, appears nourished, not in pain Cardiovascular: regular rate and rhythym, no murmur, rub, or gallop, edema (1+) Respiratory: no respiratory distress, no rales or rhonchi, clear to auscultation Gastrointestinal: normoactive bowel sounds, soft, non-tender abdomen, no palpable masses Skin: no rashes or abrasions, no fluctuance, no induration Neurologic: AAOx3, sensation intact bilaterally Psychiatric: interacting appropriately, not anxious, not encephalopathic, thought process linear ICD10 Worksheet Patient Problems: Problems Problem Status Onset Arthrodesis status Acute Cervical stenosis of spine Acute C. difficile diarrhea Acute 04/05/16 Dehydration Acute Diarrhea Acute Dysphagia, oropharyngeal Acute Gout Acute Hypocalcemia Acute Hypokalemia Acute Hypomagnesemia Acute Nausea & vomiting Acute Neck pain Acute On total parenteral nutrition (TPN) Acute Pneumonia Acute RUQ abdominal pain Acute Weakness Acute CAD (coronary artery disease) Chronic Dyslipidemia Chronic
[2016-09-20] MEDS: methylPREDNISolone SOD SUCC 40 MG/ML VIAL IVP SCH ×2 (13:08→15:12)
--- NOTE | 2016-09-20 15:48 | SOAPPROG ---
SOAP Progress Note Assessment/Plan: Assessment: Oncology follow up note - - Lung CA - in remission on nivolumab. Treatment is complicated by pneumonitis from nivolumab. He has been on a slow steroid taper (currently 2.5mg prednisone) . If infiltrates worsen without clear pneumonia, consider an exacerbation of his pneumonitis and an increase in prednisone - S/P C spine surgery - gout - His pain is much improved with the burst of steroids - Afib/SVT - He is considering moving back to the [facility] after he recovers from this surgery. Plan: Will follow with you. He is due for his next dose of nivolumab on 09/26/16, but I'm going to put this on hold for now. Subjective: Pain much improved s/p steroids Objective: Vital Signs Temp Pulse Resp BP Pulse Ox 36.8 C 82 18 147/93 H 93 09/20/16 15:38 09/20/16 15:38 09/20/16 15:38 09/20/16 15:38 09/20/16 15:38 Microbiology 09/14/16 19:26 Blood Culture - Final Blood 09/14/16 19:26 Blood Culture - Final Blood Laboratory Results 09/20/16 03:57 09/20/16 03:57 09/18/16 09/19/16 09/20/16 23:59 23:59 23:59 Intake Total 1610 1200 Output Total 900 1125 752 Balance 710 75 -752 Physical Exam - Physical Exam General Appearance: alert, no apparent distress Respiratory: lungs clear, No rales Abdomen: normal bowel sounds Skin: warm/dry Neuro/Psych: normal mood/affect ICD10 Worksheet Patient Problems: Problems Problem Status Onset Arthrodesis status Acute Cervical stenosis of spine Acute C. difficile diarrhea Acute 04/05/16 Dehydration Acute Diarrhea Acute Dysphagia, oropharyngeal Acute Gout Acute Hypocalcemia Acute Hypokalemia Acute Hypomagnesemia Acute Nausea & vomiting Acute Neck pain Acute On total parenteral nutrition (TPN) Acute Pneumonia Acute RUQ abdominal pain Acute Weakness Acute CAD (coronary artery disease) Chronic Dyslipidemia Chronic
[2016-09-20] MEDS ORDERED: methylPREDNISolone SOD SUCC 40 MG/ML VIAL IVP SCH (22:00)
--- NOTE | 2016-09-21 08:57 | NEUSURGPN ---
Date of Surgery: 09/11/16 Post Op Day: 10 Assessment/Plan: Assessment: 71 yo M POD #10 s/p C4-7 ACDF Plan: -neuro: stable -hard collar at all times -post op x-rays look good -pneumonia: was given zosyn, appreciate IM/ID input -afib, per IM-appreciated input -given short burst of steroids-better now and can walk -PT/OT/ST -scd/saturnino/lovenoxfor dvt prophylaxis -please call with neuro changes -pt understands and agrees -plan for rehab friday pending placement after cleared from ID/IM Subjective: No new complaints or concerns. Better now with ability to walk. No garcia/neck/ chest/abd or gu complaints. No f/c/n/v/d. Objective: AAO x 4, + FC PERRLA, EOMI, no facial droop GARETT x 4 + light touch neck soft and supple C/D/I Neuro Check Frequency: per routine Urinary Catheter in Place: No Catheter Insertion Date: 09/11/16 - Physician Discussed Patient with DrStephanie: [facility] Physical Exam - Vitals, I&O, Labs I and O 09/20/16 09/21/16 09/22/16 05:59 05:59 05:59 Output Total 1727 150 Balance -1727 -150 Output: Urine (ml) 1727 150 Bedside Commode 600 150 Urinal 1127 Other: Intake Quantity Yes Sufficient Number of Voids Bedside Commode 4 1 Urinal 2 Number of Stools Bedside Commode 4 Microbiology 09/14/16 19:26 Blood Culture - Final Blood 09/14/16 19:26 Blood Culture - Final Blood Vital Signs Temp Pulse Resp BP Pulse Ox 36.5 C 79 18 158/76 H 94 09/21/16 08:16 09/21/16 08:16 09/21/16 08:16 09/21/16 08:16 09/21/16 08:16 Laboratory Results 09/20/16 03:57 09/20/16 03:57 ICD10 Worksheet Patient Problems: Problems Problem Status Onset Arthrodesis status Acute Cervical stenosis of spine Acute C. difficile diarrhea Acute 04/05/16 Dehydration Acute Diarrhea Acute Dysphagia, oropharyngeal Acute Gout Acute Hypocalcemia Acute Hypokalemia Acute Hypomagnesemia Acute Nausea & vomiting Acute Neck pain Acute On total parenteral nutrition (TPN) Acute Pneumonia Acute RUQ abdominal pain Acute Weakness Acute CAD (coronary artery disease) Chronic Dyslipidemia Chronic - ICD10 Problem Qualifiers (1) Cervical stenosis of spine (2) Arthrodesis status
[2016-09-21] MEDS: FAMOTIDINE 20 MG TAB PO SCH ×2 (09:48→21:09)
[2016-09-21] MEDS: COLCHICINE 0.6 MG CAP/TAB PO SCH ×2 (09:48→21:10)
[2016-09-21] MEDS: DILTIAZEM CD 120 MG CAP PO SCH (09:48)
[2016-09-21] MEDS: METOPROLOL TARTRATE 25 MG TAB PO SCH ×2 (09:48→21:10)
[2016-09-21] MEDS: APIXABAN 5 MG TAB PO SCH ×2 (09:48→21:10)
[2016-09-21] MEDS: predniSONE 20 MG TAB PO SCH (09:49)
[2016-09-21] MEDS: VANCOMYCIN 125 MG/2.5 ML UDL PO SCH (09:51)
[2016-09-21] MEDS ORDERED: diphenhydrAMINE 25 MG CAP PO PRN (10:01)
--- NOTE | 2016-09-21 14:28 | HOSPPROG ---
Hospitalist Progress Note Assessment/Plan: * Acute gout flare - severe -increased colchicine -per neurosurgery - okay to use NSAIDS or prednisone if needed -started steroids - short burst - much improved today -start allopurinol as outpatient when gout flare improved * Aspiration PNA with sepsis -antibiotics complete -swallow improved - now thin liquids * Afib/SVT -metoprolol, diltiazem, eliquis * HTN - better * Cervical fusion - hard collar * Lung cancer - in remission on nivolumab -low dose prednisone for pneumonitis due to chemo -reduce back to 2.5 mg when steroid burst for gout complete * Metabolic encephalopathy - resolved * Steroid flushing -Benadryl prn Subjective: Much better today. Walking in [place]. Objective: Vital Signs Temp Pulse Resp BP Pulse Ox 36.6 C 84 19 122/76 H 95 09/21/16 12:50 09/21/16 12:50 09/21/16 12:50 09/21/16 12:50 09/21/16 12:50 Laboratory Results 09/20/16 03:57 09/20/16 03:57 09/20/16 09/21/16 09/22/16 05:59 05:59 05:59 Output Total 1727 150 Balance -1727 -150 - Physical Exam Constitutional: no apparent distress, appears nourished, not in pain Cardiovascular: regular rate and rhythym, no murmur, rub, or gallop, edema ( edema improved) Respiratory: no respiratory distress, no rales or rhonchi, clear to auscultation Gastrointestinal: normoactive bowel sounds, soft, non-tender abdomen, no palpable masses Skin: no rashes or abrasions, no fluctuance, no induration Neurologic: AAOx3, sensation intact bilaterally Psychiatric: interacting appropriately, not anxious, not encephalopathic, thought process linear ICD10 Worksheet Patient Problems: Problems Problem Status Onset Arthrodesis status Acute Cervical stenosis of spine Acute C. difficile diarrhea Acute 04/05/16 Dehydration Acute Diarrhea Acute Dysphagia, oropharyngeal Acute Gout Acute Hypocalcemia Acute Hypokalemia Acute Hypomagnesemia Acute Nausea & vomiting Acute Neck pain Acute On total parenteral nutrition (TPN) Acute Pneumonia Acute RUQ abdominal pain Acute Weakness Acute CAD (coronary artery disease) Chronic Dyslipidemia Chronic
--- NOTE | 2016-09-21 14:39 | SOAPPROG ---
SOAP Progress Note Assessment/Plan: Assessment: Oncology follow up note - - Lung CA - in remission on nivolumab. Treatment is complicated by pneumonitis from nivolumab. He has been on a slow steroid taper (currently 2.5mg prednisone) . If infiltrates worsen without clear pneumonia, consider an exacerbation of his pneumonitis and an increase in prednisone - S/P C spine surgery - gout - His pain is much improved with the burst of steroids - Afib/SVT - He is considering moving back to the [facility] after he recovers from this surgery. Plan: Will follow with you. He is due for his next dose of nivolumab on 09/26/16, but on hold for now. 09/21/16 14:39 Objective: Vital Signs Temp Pulse Resp BP Pulse Ox 97.9 F 84 19 122/76 H 95 09/21/16 12:50 09/21/16 12:50 09/21/16 12:50 09/21/16 12:50 09/21/16 12:50 Laboratory Results 09/20/16 03:57 09/20/16 03:57 09/20/16 09/21/16 09/22/16 05:59 05:59 05:59 Output Total 1727 150 Balance -1727 -150 ICD10 Worksheet Patient Problems: Problems Problem Status Onset Arthrodesis status Acute Cervical stenosis of spine Acute C. difficile diarrhea Acute 04/05/16 Dehydration Acute Diarrhea Acute Dysphagia, oropharyngeal Acute Gout Acute Hypocalcemia Acute Hypokalemia Acute Hypomagnesemia Acute Nausea & vomiting Acute Neck pain Acute On total parenteral nutrition (TPN) Acute Pneumonia Acute RUQ abdominal pain Acute Weakness Acute CAD (coronary artery disease) Chronic Dyslipidemia Chronic
[2016-09-21] MEDS: CEPACOL LOZENGE PO PRN (23:34)
[2016-09-22] MEDS: BENZONATATE 100 MG CAP PO PRN (01:46)
[2016-09-22 06:36] LABS: % IMMATURE GRANULYOCYTES 0.7 % (0.0-1.1); ABSOLUTE IMMATURE GRANULOCYTES 0.12 10^3/uL (0.00-0.10); ADD DIFF? NO; ADD MORPH? NO; ADD SCAN? NO; ATYPICAL LYMPHOCYTE FLAG 10 (0-99); FRAGMENT RBC FLAG 0 (0-99); HEMATOCRIT 28.9 % (40.0-51.0); HEMOGLOBIN 9.8 g/dL (13.7-17.5); LEFT SHIFT FLG 10 (0-99); LIPEMIA HEMOLYSIS FLAG 90 (0-99); MEAN CELL HEMOGLOBIN 32.3 pg (27.9-34.1); MEAN CELL HEMOGLOBIN CONCENTR. 33.9 g/dL (32.4-36.7); MEAN CELL VOLUME 95.4 fL (81.5-99.8); MEAN PLATELET VOLUME 9.8 fL (8.7-11.7); PLATELET CLUMPS FLAG 0 (0-99); PLATELET COUNT 386 10^3/uL (150-400); RED BLOOD CELL COUNT 3.03 10^6/uL (4.40-6.38); RED CELL DISTRIBUTION WIDTH 14.6 % (11.5-15.2)
[2016-09-22 06:48] LABS: ANION GAP 8 mEq/L (8-16); CALCIUM 8.1 mg/dL (8.5-10.4); CARBON DIOXIDE 25 mEq/l (22-31); CHLORIDE 108 mEq/L (97-110); CREATININE 0.7 mg/dL (0.7-1.3); GLOMERULAR FILTRATION RATE > 60; GLUCOSE 124 mg/dL (70-100); POTASSIUM 4.2 mEq/L (3.5-5.2); SODIUM 141 mEq/L (134-144)
[2016-09-22] MEDS: METOPROLOL TARTRATE 25 MG TAB PO SCH ×2 (11:29→20:58)
[2016-09-22] MEDS: COLCHICINE 0.6 MG CAP/TAB PO SCH ×2 (11:30→20:58)
[2016-09-22] MEDS: APIXABAN 5 MG TAB PO SCH ×2 (11:30→20:58)
[2016-09-22] MEDS: predniSONE 20 MG TAB PO SCH (11:30)
[2016-09-22] MEDS: FAMOTIDINE 20 MG TAB PO SCH ×2 (11:30→20:58)
[2016-09-22] MEDS: DILTIAZEM CD 120 MG CAP PO SCH (11:30)
--- NOTE | 2016-09-22 14:20 | HOSPPROG ---
Hospitalist Progress Note Assessment/Plan: * Acute gout flare - severe -increased colchicine -per neurosurgery - okay to use NSAIDS or prednisone if needed -started steroids - short burst - much improved -start allopurinol as outpatient when gout flare improved * Aspiration PNA with sepsis -antibiotics complete -swallow improved - now thin liquids * Afib/SVT -metoprolol, diltiazem, eliquis * HTN - better * Cervical fusion - hard collar * Lung cancer - in remission on nivolumab -low dose prednisone for pneumonitis due to chemo -reduce back to 2.5 mg when steroid burst for gout complete * Metabolic encephalopathy - resolved * Steroid flushing -Benadryl prn Subjective: Gout still okay, no completely resolved Objective: Vital Signs Temp Pulse Resp BP Pulse Ox 36.4 C 70 15 134/74 H 92 09/22/16 10:34 09/22/16 10:34 09/22/16 10:34 09/22/16 13:16 09/22/16 10:34 Laboratory Results 09/22/16 06:15 09/22/16 06:15 09/21/16 09/22/16 09/23/16 05:59 05:59 05:59 Intake Total 320 Output Total 150 275 Balance -150 45 - Physical Exam Constitutional: no apparent distress, appears nourished, not in pain Cardiovascular: regular rate and rhythym, no murmur, rub, or gallop Respiratory: no respiratory distress, no rales or rhonchi, clear to auscultation Gastrointestinal: normoactive bowel sounds, soft, non-tender abdomen, no palpable masses Skin: no rashes or abrasions, no fluctuance, no induration Neurologic: AAOx3, sensation intact bilaterally Psychiatric: interacting appropriately, not anxious, not encephalopathic, thought process linear ICD10 Worksheet Patient Problems: Problems Problem Status Onset Arthrodesis status Acute Cervical stenosis of spine Acute C. difficile diarrhea Acute 04/05/16 Dehydration Acute Diarrhea Acute Dysphagia, oropharyngeal Acute Gout Acute Hypocalcemia Acute Hypokalemia Acute Hypomagnesemia Acute Nausea & vomiting Acute Neck pain Acute On total parenteral nutrition (TPN) Acute Pneumonia Acute RUQ abdominal pain Acute Weakness Acute CAD (coronary artery disease) Chronic Dyslipidemia Chronic
--- NOTE | 2016-09-22 14:22 | NEUSURGPN ---
Assessment/Plan: Assessment: 71 yo M POD #11 s/p C4-7 ACDF Plan: -neuro: stable- states his arms feel good and gout is much better now -hard collar at all times -post op x-rays look good -pneumonia: was given zosyn, appreciate IM/ID input -afib, per IM-appreciated input -given short burst of steroids-better now and can walk -PT/OT/ST -scd/saturnino/lovenoxfor dvt prophylaxis -please call with neuro changes -pt understands and agrees -plan for rehab friday pending placement after cleared from ID/IM Subjective: Patient doing well this am. States his gout is much improved he is really in no pain. Swallowing improving,walking improving. Objective: AAO x 4, + FC PERRLA, EOMI, no facial droop GARETT x 4 + light touch neck soft and supple C/D/I Catheter Insertion Date: 09/11/16 - Physician Discussed Patient with : [facility] Physical Exam - Vitals, I&O, Labs I and O 09/21/16 09/22/16 09/23/16 05:59 05:59 05:59 Intake Total 320 Output Total 150 275 Balance -150 45 Weight 67.4 kg Intake: Oral (ml) 320 Output: Urine (ml) 150 275 Bedside Commode 150 Urinal 275 Other: Intake Quantity npo Sufficient Output Comment Toilet by pt account.. Number of Voids Bedside Commode 1 Toilet 1 Number of Stools Toilet 1 Vital Signs Temp Pulse Resp BP Pulse Ox 36.4 C 70 15 134/74 H 92 09/22/16 10:34 09/22/16 10:34 09/22/16 10:34 09/22/16 13:16 09/22/16 10:34 Laboratory Results 09/22/16 06:15 09/22/16 06:15 ICD10 Worksheet Patient Problems: Problems Problem Status Onset Arthrodesis status Acute Cervical stenosis of spine Acute C. difficile diarrhea Acute 04/05/16 Dehydration Acute Diarrhea Acute Dysphagia, oropharyngeal Acute Gout Acute Hypocalcemia Acute Hypokalemia Acute Hypomagnesemia Acute Nausea & vomiting Acute Neck pain Acute On total parenteral nutrition (TPN) Acute Pneumonia Acute RUQ abdominal pain Acute Weakness Acute CAD (coronary artery disease) Chronic Dyslipidemia Chronic
--- NOTE | 2016-09-23 08:03 | NEUSURGPN ---
Date of Surgery: 09/11/16 Post Op Day: 12 Assessment/Plan: Assessment: 71 yo M POD #12 s/p C4-7 ACDF Plan: -neuro: stable- states his arms feel good and gout is much better now -hard collar at all times -post op x-rays look good -pneumonia: was given zosyn, appreciate IM/ID input -afib, per IM-appreciated input -given short burst of steroids-better now and can walk-took shower this am -PT/OT/ST -scd/saturnino/lovenoxfor dvt prophylaxis -please call with neuro changes -pt understands and agrees -plan for rehab today if cleared by IM/ID Subjective: Pt with improving neck pain and walking. In shower this am. No cp/sob/abd or gu complaints. No f/c/n/v/d. Objective: AAO x 4, + FC PERRLA, EOMI, no facial droop GARETT x 4 + light touch neck soft and supple C/D/I Neuro Check Frequency: per routine Urinary Catheter in Place: No Catheter Insertion Date: 09/11/16 - Physician Discussed Patient with : [facility] Physical Exam - Vitals, I&O, Labs I and O 09/22/16 09/23/16 09/24/16 05:59 05:59 05:59 Intake Total 320 300 Output Total 275 Balance 45 300 Weight 67.4 kg Intake: Oral (ml) 320 300 IV Intake (ml) 0 Output: Urine (ml) 275 Urinal 275 Other: Intake Quantity npo Yes Sufficient Output Comment Incontinence wt 72.4 Toilet by pt account.. per Number of Voids Toilet 1 2 Number of Stools Toilet 1 1 Vital Signs Temp Pulse Resp BP Pulse Ox 36.6 C 68 18 168/92 H 92 09/23/16 04:00 09/23/16 04:00 09/23/16 04:00 09/23/16 04:00 09/23/16 04:00 Laboratory Results 09/22/16 06:15 09/22/16 06:15 ICD10 Worksheet Patient Problems: Problems Problem Status Onset Arthrodesis status Acute Cervical stenosis of spine Acute C. difficile diarrhea Acute 04/05/16 Dehydration Acute Diarrhea Acute Dysphagia, oropharyngeal Acute Gout Acute Hypocalcemia Acute Hypokalemia Acute Hypomagnesemia Acute Nausea & vomiting Acute Neck pain Acute On total parenteral nutrition (TPN) Acute Pneumonia Acute RUQ abdominal pain Acute Weakness Acute CAD (coronary artery disease) Chronic Dyslipidemia Chronic - ICD10 Problem Qualifiers (1) Cervical stenosis of spine (2) Arthrodesis status
[2016-09-23 08:45] VITALS: BP 160/89; PULSE 72; RESP 23; TEMP 97.6; O2SAT 94
[2016-09-23] MEDS: DILTIAZEM CD 120 MG CAP PO SCH (08:45)
[2016-09-23] MEDS: METOPROLOL TARTRATE 25 MG TAB PO SCH (08:46)
[2016-09-23] MEDS: APIXABAN 5 MG TAB PO SCH (08:46)
[2016-09-23] MEDS: FAMOTIDINE 20 MG TAB PO SCH (08:46)
[2016-09-23] MEDS: COLCHICINE 0.6 MG CAP/TAB PO SCH (08:46)
[2016-09-23] MEDS: predniSONE 20 MG TAB PO SCH (08:46)
--- NOTE | 2016-09-23 10:10 | PDIAF ---
- Diagnosis Diagnosis: Cspine surgery, severe gout flare, afib Code Status: Full Code - Medication Management Discharge Medications: Medications to Continue on Transfer Acetaminophen [Tylenol 325mg (*)] 325 mg PO DAILY PRN 06/05/16 [Last Taken 08/22] Aspirin [Aspirin 81mg (*)] 81 mg PO DAILY 06/05/16 [Last Taken 08/22/16] predniSONE 2.5 mg PO DAILY 06/05/16 [Last Taken 08/22/16] Apixaban [Eliquis] 5 mg PO BID #60 tab 09/23/16 [Last Taken Unknown] Colchicine [Colchicine (*)] 0.6 mg PO BID #60 ea 09/23/16 [Last Taken Unknown] Diltiazem Cd [Cardizem ER 120 MG (*)] 120 mg PO DAILY #30 cap 09/23/16 [Last Taken Unknown] Metoprolol Succinate Xr [Toprol Xl 50 mg (*)] 150 mg PO DAILY #90 tab.sr [Last Taken Unknown] Discharge Medications: Refer to the Discharge Home Medication list for PRN reason. - Orders Services needed: Physical Therapy, Occupational Therapy, Speech Language Pathologist Diet Recommendation: no restrictions on diet Diet Texture: Regular Texture Diet, Thin Liquids, Meds Whole in Puree Equipment: Hard collar at all times Additional: Prednisone 40mg once on 09/24/16 then back to chronic dose 2.5mg PO daily. Start allopurinol in 1 week 300mg PO daily. Once successfully on allopurinol for 1 week without flare, then change colchicine to 0.6mg PO BID PRN. - Follow Up Care Current Providers and Referrals: Julián Mijares MD [Primary Care Provider] - Shemar Malcolm MD [Medical Doctor] -
--- NOTE | 2016-09-24 02:24 | GDS ---
[f rep st] DISCHARGE SUMMARY DISCHARGE DIAGNOSES: 1. Status post cervical fusion. 2. Acute gout flare. 3. Aspiration pneumonia with sepsis. 4. Atrial fibrillation and supraventricular tachycardia. 5. Hypertension. 6. Lung cancer. 7. Metabolic encephalopathy. 8. Steroid flushing. HISTORY: The patient is a 71-year-old male, who presented electively to Dr. Malcolm for cervical fus ion. He had multiple postoperative complications requiring extended stay for medical indications. He developed an aspiration pneumonia with sepsis. He completed a full course of IV antibiotics here in the hospital. He eventually passed a swallow evaluation and is now on thin liquids. He went into rapid AFib and SVT. This has been controlled on metoprolol and diltiazem. Eliquis was started for stroke prevention, and he has tolerated this in his postoperative state. He developed a very severe acute gout flare that was difficult to treat. Despite colchicine, he con tinued to have severe gout. We did try to avoid NSAIDs or steroids given his recent cervical spine fusion; however, eventually it became apparent that without either of these drugs his gout would nev er improve to the point of him being able to ambulate. He was started on a prednisone burst of 40 m g p.o. daily, and he rapidly improved. He has such severe gout he definitely needs to be on allopur inol as an outpatient. Once his prednisone burst is complete, he go back to his chronic dose of 2.5 mg per day of prednisone, which he takes for a pneumonitis he has due to his chemotherapy. DISCHARGE MEDICATIONS: Please see computer record for full detailed list. New medications: Colchicine 0.5 mg p.o. b.i.d.; diltiazem ER 120 mg p.o. daily; metoprolol-XL 150 m g p.o. daily; Eliquis 5 mg p.o. b.i.d. ADDITIONAL DISCHARGE INSTRUCTIONS: 1. Transfer to [facility] for ongoing rehabilitation. 2. Hard collar at all times. 3. One more day of prednisone at 40 mg and then back to his chronic dose of 2.5 mg p.o. daily. 4. Start allopurinol in 1 week at 300 mg p.o. daily. 5. Once successful on allopurinol for 1 week without flare, then change the colchicine to p.r.n. Greater 30 minutes' time spent arranging this discharge. Patient seen and examined by me on the day of discharge. /[id number]/MODL
== END 2016-09-23 12:03 | DRG 471 ==
LOC: F3N 11:09 → F2W 09-14 13:19
PROVIDERS: ADMIT Neurological Surgery; ATTEND Internal Medicine
PROC: 00NW0ZZ Release Cervical Spinal Cord, Open Approach (ICD-10-PCS; principal; 2016-09-11 12:30)
PROC: 0RG20A0 Fusion of 2 or more Cervical Vertebral Joints with Interbody Fusion Device, Anterior Approach, Anterior Column, Open Approach (ICD-10-PCS; principal; 2016-09-11 12:30)
PROC: 0RB30ZZ Excision of Cervical Vertebral Disc, Open Approach (ICD-10-PCS; principal; 2016-09-11 12:30)
PROC: 0S9C3ZX Drainage of Right Knee Joint, Percutaneous Approach, Diagnostic (ICD-10-PCS; 2016-09-16)
DX: M47.892 Other spondylosis, cervical region (principal); M48.02 Spinal stenosis, cervical region; M50.30 Other cervical disc degeneration, unspecified cervical region; M54.12 Radiculopathy, cervical region; A41.9 Sepsis, unspecified organism; J69.0 Pneumonitis due to inhalation of food and vomit; G93.41 Metabolic encephalopathy; M10.061 Idiopathic gout, right knee; M10.071 Idiopathic gout, right ankle and foot; I48.91 Unspecified atrial fibrillation; I47.1 Supraventricular tachycardia; R13.10 Dysphagia, unspecified; R33.9 Retention of urine, unspecified; C34.90 Malignant neoplasm of unspecified part of unspecified bronchus or lung; I25.10 Atherosclerotic heart disease of native coronary artery without angina pectoris; Z95.5 Presence of coronary angioplasty implant and graft
CPT/HCPCS: 87449-90; 87497-90; 92526-GN; 92611-GN; 97116-GP; 97161-GP; 97165-GO; 97530-GO; 97530-GP; 97535-GO; C1713; G8978-GP-CJ; G8979-GP-CI; G8987-GO-CJ; G8988-GO-CI; G8996-GN-CJ; G8997-GN-CH; G8997-GN-CJ; G8998-GN-CJ; J0153; J0330; J0690; J1100; J1170; J1335; J1650; J2001; J2250; J2405; J2543; J2704; J3010; J3370; Q9967

== ENCOUNTER → 2016-10-03 | Outpatient (CLI) | payer OTHER, MEDICARE | LOC: BHFA 15:00 | PROVIDERS: ATTEND Internal Medicine Cardiovascular Disease | DX: I25.10 Atherosclerotic heart disease of native coronary artery without angina pectoris (principal); M10.9 Gout, unspecified; C34.90 Malignant neoplasm of unspecified part of unspecified bronchus or lung; I10 Essential (primary) hypertension; E78.5 Hyperlipidemia, unspecified; I48.91 Unspecified atrial fibrillation ==

== ENCOUNTER → 2016-10-07 | Outpatient (CLI) | payer OTHER, MEDICARE | LOC: BHFA 11:00 | PROVIDERS: ATTEND Internal Medicine Cardiovascular Disease | DX: I48.91 Unspecified atrial fibrillation (principal) ==

== ENCOUNTER 2016-11-23 12:13 | Emergency (ER) | payer OTHER, MEDICARE ==
--- NOTE | 2016-11-23 13:07 | EDPHY ---
H & P Stated Complaint: posterior garcia/denies blurred vision Time Seen by Provider: 11/23/16 12:51 HPI/ROS: CHIEF COMPLAINT: Headache HISTORY OF PRESENT ILLNESS: The patient is a 71 y/o male, with a history of lung cancer, currently undergoing chemotherapy, arriving with his complaining of a headache onset around 11:30 this morning, about 2 hours ago. He has had multiple operations for his cancer including left lobectomy [address] Preston. He was admitted on 09/11/16 for a cough following cervical spine surgery and during an extended admission he developed atrial fibrillation and SVT. He was discharged on 09/23/16 in good condition. He last received chemotherapy on , 3 days ago. This morning he gradually developed a left -sided occipital headache he describes as "heavy" and shortness of breath about 2 hours prior to arrival. He has home O2, but is not using it. He feels somewhat improved upon assessment. He has not taken anything for his headache. He denies confusion, vision changes, unilateral weakness, paresthesias, speech difficulty, or other new complaints. He was recently started on Acyclovir for possible shingles. REVIEW OF SYSTEMS: A ten point review of systems was performed and is negative with the exception of the items mentioned in the HPI. Source: Patient, Family, Old records - Personal History Current Tetanus/Diphtheria Vaccine: Yes - Medical/Surgical History PMH: PMH includes: 1. Lung cancer of left lung, resected and on chemotherapy 2. Necrotic cholecystitis and cholecystectomy 3. Cervical spine degeneration and disease, status post ACDF surgery. 4. Gout 5. Atrial fibrillation and SVT 6. Hypertension 7. Right carotid surgery, Left carotid 55% occlusion 8. CAD s/p stenting Prior medical records reviewed including admission 09/11/16. Hx Asthma: No Hx Chronic Respiratory Disease: Yes Hx Diabetes: No Hx Cardiac Disease: Yes Hx Renal Disease: No Hx Cirrhosis: No Hx Alcoholism: No Hx HIV/AIDS: No Hx Splenectomy or Spleen Trauma: No Other PMH: pmh- htn, hyperlipemia, gout, non-small cell lung ca stage IIIA, cad. 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 [place]. at bedside. Commercial Portfolio Manager: Dr. Terrell Neurosurgeon: Dr. Malcolm Oncologist: Dr. Piedra Surgeon: Dr. Preston - Physical Exam Exam: General Appearance: Alert. Vital signs reviewed. 133/99. Eyes: Pupils equal and round, no conjunctival injection, no discharge. Anicteric. ENT, Mouth: Mucous membranes are moist, no oropharyngeal erythema or edema. Neck: No lymphadenopathy, supple. Respiratory: Sounds diminished on left, absent in left base, clear on right, no wheezes, rales, or rhonchi. Cardiovascular: Regular rate and rhythm; no murmur, rub, or gallop. Gastrointestinal: Abdomen is soft and nontender, no masses or organomegaly, bowel sounds normal. Skin: Warm and dry, no rashes on exposed skin, normal color. Back: Nontender to palpation over the thoracolumbar spine. No CVAT. Extremities: No lower extremity edema, no calf tenderness or swelling. Neurological: Alert and oriented. Moving all four extremities easily and equally. Cranial nerves II through XII are examined and are intact (visual acuity not tested). Strength is 5 over 5 bilaterally with testing of all major motor groups. Sensation is intact to light touch over all 4 extremities. Deep tendon reflexes are 2+ in the biceps and knees bilaterally. [id number] is performed accurately. Psychiatric: Normal affect. Constitutional: Initial Vital Signs Temperature (C) 36.5 C 11/23/16 12:18 Heart Rate 84 11/23/16 12:18 Respiratory Rate 20 11/23/16 12:18 Blood Pressure 133/99 H 11/23/16 12:18 O2 Sat (%) 96 11/23/16 12:18 O2 Delivery Mode Room Air Allergies/Adverse Reactions: allopurinol Allergy (Verified 09/02/16 19:01) amlodipine Allergy (Verified 09/02/16 19:01) atorvastatin calcium [From Lipitor] Allergy (Verified 09/02/16 19:01) Other-Enter Comments ezetimibe [From Zetia] Allergy (Verified 09/02/16 19:01) lisinopril Allergy (Verified 09/02/16 19:01) Other-Enter Comments lorazepam Allergy (Verified 09/02/16 19:01) Other-Enter Comments losartan potassium [From Cozaar] Allergy (Verified 09/02/16 19:01) GOUT morphine Allergy (Verified 09/18/16 14:39) Other-Enter Comments pitavastatin calcium [From Livalo] Allergy (Verified 09/02/16 19:01) pravastatin Allergy (Verified 09/02/16 19:01) rosuvastatin calcium [From Crestor] Allergy (Verified 09/02/16 19:01) spironolactone Allergy (Verified 09/02/16 19:01) steroid injection Allergy (Uncoded 09/06/16 15:43) Red Man Syndrome Home Medications: Medication Instructions Recorded Acetaminophen [Tylenol 325mg (*)] 325 mg PO DAILY PRN 06/05/16 Aspirin [Aspirin 81mg (*)] 81 mg PO DAILY 06/05/16 predniSONE 2.5 mg PO DAILY 06/05/16 Diltiazem Cd [Cardizem ER 120 MG 120 mg PO DAILY #30 cap 09/23/16 (*)] Metoprolol Succinate Xr [Toprol Xl 150 mg PO DAILY #90 tab.sr 09/23/16 50 mg (*)] Valcyclovir 11/23/16 Medical Decision Making - Diagnostics Imaging Results: CT brain reviewed by me and reported to me by radiologist. No intracranial hemorrhage or obvious metastatic disease (noncontrast study). Imaging: Discussed imaging studies w/ resource specialist teacher Radiologist, I viewed and interpreted images myself ED Course/Re-evaluation: This is a 71 y/o male with history of lung cancer and recent chemotherapy dose who presents with a left occipital headache and sensation of dyspnea for the last 2 hours. He is neurovascularly intact and his breath sounds are at baseline for him following a left lung resection. Pulse ox 94-96% on RA. He is neurovascularly intact. He is well-appearing. He takes one baby ASA daily, no other anticoagulation. Head CT ordered. Noncontrast head CT is unremarkable. I discussed these findings with the patient and his , provided reassurance. He is comfortable being discharged home at this time. His symptoms have mostly resolved without treatment. He can use Tylenol if needed for headache for a short time. He understands he should follow up with his PCP/oncologist for unimproved symptoms over the next few days. Return precautions given, danger signs that should prompt immediate re- evaluation reviewed. No evidence of intracranial hemorrhage. I doubt metastases, although additional imaging might be needed to eliminate this possibility completely. Headache not suggestive of cluster headache or migraine. Nothing to indicate infection/meningitis. Departure - Departure Disposition: Home, Routine, Self-Care Clinical Impression: Headache Qualifiers: Headache type: tension-type Headache chronicity pattern: acute headache Intractability: not intractable Qualified Code(s): G44.209 - Tension-type headache, unspecified, not intractable Condition: Good Instructions: Acute Headache (ED) Additional Instructions: Follow up with your primary care provider for unimproved symptoms over the next few days. Okay to take 650mg Tylenol every 4-6 hours for 2-3 days if needed for pain. Return to the ED for any worsening of condition. Referrals: Julián Mijares MD [Primary Care Provider] - As per Instructions Report Scribed for: Samantha Araya Report Scribed by: Lilia Chand Date of Report: 11/23/16 Time of Report: 13:11 Physician Review and Approval Statement: 11/23/16 13:07 Portions of this note were transcribed by the medical technologist chemistry. I, Dr. Samantha Araya, personally performed the history, physical exam, and medical decision- making; and confirmed the accuracy of the information in the transcribed note.
[2016-11-23 14:59] VITALS: BP 110/70; PULSE 77; RESP 18; TEMP 98.4; O2SAT 94
== END 2016-11-23 14:59 | disposition home or self-care (01) ==
DX: G44.209 Tension-type headache, unspecified, not intractable (principal); I10 Essential (primary) hypertension; I25.10 Atherosclerotic heart disease of native coronary artery without angina pectoris; Z79.82 Long term (current) use of aspirin; Z85.118 Personal history of other malignant neoplasm of bronchus and lung; Z87.891 Personal history of nicotine dependence; Z95.5 Presence of coronary angioplasty implant and graft

== ENCOUNTER → 2016-11-28 | Outpatient (CLI) | payer OTHER, MEDICARE | LOC: FIMAGING 08:49 | PROVIDERS: ATTEND Physician Assistant | DX: Z09 Encounter for follow-up examination after completed treatment for conditions other than malignant neoplasm (principal); Z98.1 Arthrodesis status; J98.11 Atelectasis ==

== ENCOUNTER 2016-12-14 23:01 | Observation (INO) | payer OTHER, MEDICARE ==
--- NOTE | 2016-12-14 23:13 | EDPHY ---
H & P Stated Complaint: CP HPI/ROS: HPI CHIEF COMPLAINT: Chest pain, shortness of breath HISTORY OF PRESENT ILLNESS: Patient is a 71-year-old male, well known to myself , history of coronary artery disease, lung cancer, presents emergency room with left-sided chest pain he describes as a tightness sensation. Nonradiating. No other associated symptoms however he does report today that he had more shortness of breath than normal. He decided to wears home oxygen 2 L. He normally will wear this on and off but today he tells me that he was more short of breath than normal and decided to where it. He states around 9:00 p.m. he developed left-sided chest discomfort he describes as a tightness sensation. Nonradiating no jaw pain, no neck pain, no numbness or tingling, no nausea, no diaphoresis. No focal weakness. States it lasted approximately an hour and a half. His became concerned and decided come to the emergency room given his history of coronary artery disease with 2 stents, carotid disease, hypertension and lung cancer. He also tells me he has been recently suffering from pneumonitis however currently has no pleuritic pain or significant shortness of breath. He denies productive cough, fever, vomiting. Denies abdominal pain back pain. Main complaint is chest pain resolved prior to arrival. Past Medical History: Non-small cell lung cancer, hypertension, coronary artery disease, esophagitis, gout, C diff,, carotid stenosis Past Surgical History: Cholecystectomy Social History: Denies daily use of drugs alcohol tobacco products. Lives locally. at bedside. 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 Family History: Noncontributory ROS REVIEW OF SYSTEMS: A comprehensive 10 point review of systems is otherwise negative aside from elements mentioned in the history of present illness. Exam Constitutional appears well nontoxic triage nursing summary reviewed, vital signs reviewed, awake/alert. Eyes normal conjunctivae and sclera, EOMI, PERRLA. HENT normal inspection, atraumatic, moist mucus membranes, no epistaxis, neck supple/ no meningismus, no raccoon eyes. Respiratory clear to auscultation bilaterally, normal breath sounds, no respiratory distress, no wheezing. Cardiovascular rate normal, regular rhythm, no murmur, no edema, distal pulses normal. Gastrointestinal soft, non-tender, no rebound, no guarding, normal bowel sounds, no distension, no pulsatile mass. Genitourinary no CVA tenderness. Musculoskeletal no midline vertebral tenderness, full range of motion, no calf swelling, no tenderness of extremities, no meningismus, good pulses, neurovascularly intact. Skin pink, warm, & dry, no rash, skin atraumatic. Neurologic awake, alert and oriented x 3, AAOx3, moves all 4 extremities equally, motor intact, sensory intact, CN II-XII intact, normal cerebellar, normal vision, normal speech. Psychiatric normal mood/affect. Heme/Lymph/Immune no lymphadenopathy. 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 Re-evaluation: EKG interpretation by me on record in [employer] system. Impression time of EKG 2316, this is sinus rhythm rate of 80 when I compare this EKG to his old EKG dated 05/26/2016 is very similar morphology. I do not appreciate acute new ischemic changes on this EKG. It is noted he does have Q-waves in lead 3, AVF, V1 which are same as previous Q-waves noted on previous EKG. There is certainly is no ST elevation on this EKG. 1226AM: Spoke with Dr. Paul he agrees to admit this patient. Patient be admitted for chest pain rule out. Unlikely to be ACS however he does have significant risk factors including underlying coronary artery disease, vascular disease, and came in with chest tightness left-sided. Resolved on its own. It was happened at rest. This time this patient is hemodynamically stable here in the emergency room chest pain-free comfortable being admitted. His troponin, chest x-ray, EKG is unremarkable. Source: Patient - Personal History Current Tetanus/Diphtheria Vaccine: Yes Current Tetanus Diphtheria and Acellular Pertussis (TDAP): Yes - Medical/Surgical History Hx Asthma: No Hx Chronic Respiratory Disease: Yes Hx Diabetes: No Hx Cardiac Disease: Yes Hx Renal Disease: No Hx Cirrhosis: No Hx Alcoholism: No Hx HIV/AIDS: No Hx Splenectomy or Spleen Trauma: No Other PMH: pmh- htn, hyperlipemia, gout, non-small cell lung ca stage IIIA, cad , afib. psh- L lung resection 08/31/14, cardiac stents x2, back surgery, cholecystectomy, port removed 2016 - Social History Smoking Status: Former smoker Constitutional: Initial Vital Signs Temperature (C) 36.9 C 12/14/16 23:06 Heart Rate 81 12/14/16 23:06 Respiratory Rate 16 12/14/16 23:06 Blood Pressure 145/97 H 12/14/16 23:06 O2 Sat (%) 94 12/14/16 23:06 O2 Delivery Mode Nasal Cannula O2 (L/minute) 2 Allergies/Adverse Reactions: allopurinol Allergy (Verified 09/02/16 19:01) amlodipine Allergy (Verified 09/02/16 19:01) atorvastatin calcium [From Lipitor] Allergy (Verified 09/02/16 19:01) Other-Enter Comments ezetimibe [From Zetia] Allergy (Verified 09/02/16 19:01) lisinopril Allergy (Verified 09/02/16 19:01) Other-Enter Comments lorazepam Allergy (Verified 09/02/16 19:01) Other-Enter Comments losartan potassium [From Cozaar] Allergy (Verified 09/02/16 19:01) GOUT morphine Allergy (Verified 09/18/16 14:39) Other-Enter Comments pitavastatin calcium [From Livalo] Allergy (Verified 09/02/16 19:01) pravastatin Allergy (Verified 09/02/16 19:01) rosuvastatin calcium [From Crestor] Allergy (Verified 09/02/16 19:01) spironolactone Allergy (Verified 09/02/16 19:01) steroid injection Allergy (Uncoded 09/06/16 15:43) Red Man Syndrome Home Medications: Medication Instructions Recorded Acetaminophen [Tylenol 325mg (*)] 325 mg PO DAILY PRN 06/05/16 Aspirin [Aspirin 81mg (*)] 81 mg PO DAILY 06/05/16 predniSONE 2.5 mg PO DAILY 06/05/16 Diltiazem Cd [Cardizem ER 120 MG 120 mg PO DAILY #30 cap 09/23/16 (*)] Metoprolol Succinate Xr [Toprol Xl 150 mg PO DAILY #90 tab.sr 09/23/16 50 mg (*)] Valcyclovir 11/23/16 Medical Decision Making - Diagnostics Imaging Results: Imaging Impressions Chest X-Ray 12/14/16 23:25 Impression: 1. Suspect airways disease. 2. Left lower lung scarring with a history of previous surgery. 3. See above report for additional findings. - Data Points Laboratory Results: Laboratory Results 12/14/16 23:23 12/14/16 23:23 12/14/16 12/14/16 12/14/16 23:23 23:23 23:23 WBC 8.40 10^3/uL 10^3/uL (3.80-9.50) RBC 4.04 10^6/uL L 10^6/uL (4.40-6.38) Hgb 13.1 g/dL L g/dL (13.7-17.5) Hct 39.6 % L % (40.0-51.0) MCV 98.0 fL fL (81.5-99.8) MCH 32.4 pg pg (27.9-34.1) MCHC 33.1 g/dL g/dL (32.4-36.7) RDW 16.9 % H % (11.5-15.2) Plt Count 225 10^3/uL 10^3/uL (150-400) MPV 9.4 fL fL (8.7-11.7) Neut % (Auto) 75.3 % H % (39.3-74.2) Lymph % (Auto) 14.0 % L % (15.0-45.0) [place] % (Auto) 8.3 % % (4.5-13.0) Eos % (Auto) 1.3 % % (0.6-7.6) Baso % (Auto) 0.5 % % (0.3-1.7) Nucleat RBC Rel Count 0.0 % % (0.0-0.2) Absolute Neuts (auto) 6.32 10^3/uL 10^3/uL (1.70-6.50) Absolute Lymphs (auto) 1.18 10^3/uL 10^3/uL (1.00-3.00) Absolute Monos (auto) 0.70 10^3/uL 10^3/uL (0.30-0.80) Absolute Eos (auto) 0.11 10^3/uL 10^3/uL (0.03-0.40) Absolute Basos (auto) 0.04 10^3/uL 10^3/uL (0.02-0.10) Absolute Nucleated RBC 0.00 10^3/uL 10^3/uL (0-0.01) Immature Gran % 0.6 % % (0.0-1.1) Immature Gran # 0.05 10^3/uL 10^3/uL (0.00-0.10) PT 11.8 SEC L SEC (12.0-15.0) INR 0.88 (0.83-1.16) APTT 23.6 SEC SEC (23.0-38.0) Sodium 145 mEq/L H mEq/L (134-144) Potassium 3.8 mEq/L mEq/L (3.5-5.2) Chloride 110 mEq/L mEq/L (97-110) Carbon Dioxide 20 mEq/l L mEq/l (22-31) Anion Gap 15 mEq/L mEq/L (8-16) BUN 30 mg/dL H mg/dL (7-23) Creatinine 1.2 mg/dL mg/dL (0.7-1.3) Estimated GFR 60 Glucose 127 mg/dL H mg/dL (70-100) Calcium 9.2 mg/dL mg/dL (8.5-10.4) Magnesium 1.6 mg/dL mg/dL (1.6-2.3) Total Bilirubin 0.4 mg/dL mg/dL (0.1-1.4) Conjugated Bilirubin 0.2 mg/dL mg/dL (0.0-0.5) Unconjugated Bilirubin 0.2 mg/dL mg/dL (0.0-1.1) AST 30 IU/L IU/L (17-59) ALT 34 IU/L IU/L (21-72) Alkaline Phosphatase 71 IU/L IU/L (38-126) Creatine Kinase 52 IU/L IU/L (0-224) CK-MB (CK-2) Fraction 1.05 ng/mL ng/mL (0-3.19) Troponin I < 0.012 ng/mL ng/mL (0-0.034) NT-Pro-B Natriuret Pep 590 pg/mL H pg/mL (0-125) Total Protein 7.3 g/dL g/dL (6.3-8.2) Albumin 4.2 g/dL g/dL (3.5-5.0) Medications Given: Discontinued Medications Aspirin (Aspirin) 324 mg PO EDNOW ONE Stop: 12/14/16 23:26 Last Admin: 12/14/16 23:33 Dose: 324 mg Sodium Chloride (Ns) 1,000 mls @ 0 mls/hr IV ONCE ONE; Wide Open PRN Reason: Protocol Stop: 12/14/16 23:26 Last Admin: 12/14/16 23:53 Dose: 1,000 mls Departure - Departure Disposition: [facility] Inpatient Acute Clinical Impression: Chest pain Qualifiers: Chest pain type: unspecified Qualified Code(s): R07.9 - Chest pain, unspecified Condition: Fair Referrals: Julián Mijares MD [Primary Care Provider] - As per Instructions
--- NOTE | 2016-12-14 23:17 | CPEKG ---
Heart Rate: 80 RR Interval: 750 P-R Interval: 164 QRSD Interval: 94 QT Interval: 376 QTC Interval: 434 P [place]: 51 QRS [place]: 10 T Wave [place]: 68 EKG Severity - BORDERLINE ECG - EKG Impression: SINUS RHYTHM EKG Impression: PROBABLE LEFT ATRIAL ABNORMALITY Electronically Signed By: Umair Velazquez 17-Dec-2016 14:29:48
[2016-12-14] MEDS ORDERED: NS 1,000 ML IV ONE (23:25)
[2016-12-14] MEDS ORDERED: ASPIRIN 81 MG CHEWABLE TAB PO ONE (23:25)
[2016-12-14 23:31] LABS: % IMMATURE GRANULYOCYTES 0.6 % (0.0-1.1); ABSOLUTE IMMATURE GRANULOCYTES 0.05 10^3/uL (0.00-0.10); ADD DIFF? NO; ADD MORPH? NO; ADD SCAN? NO; ATYPICAL LYMPHOCYTE FLAG 0 (0-99); FRAGMENT RBC FLAG 0 (0-99); HEMATOCRIT 39.6 % (40.0-51.0); HEMOGLOBIN 13.1 g/dL (13.7-17.5); LEFT SHIFT FLG 0 (0-99); LIPEMIA HEMOLYSIS FLAG 80 (0-99); MEAN CELL HEMOGLOBIN 32.4 pg (27.9-34.1); MEAN CELL HEMOGLOBIN CONCENTR. 33.1 g/dL (32.4-36.7); MEAN PLATELET VOLUME 9.4 fL (8.7-11.7); PLATELET CLUMPS FLAG 10 (0-99); PLATELET COUNT 225 10^3/uL (150-400); RED BLOOD CELL COUNT 4.04 10^6/uL (4.40-6.38); RED CELL DISTRIBUTION WIDTH 16.9 % (11.5-15.2)
[2016-12-14 23:49] LABS: INR 0.88 (0.83-1.16); PROTIME(PATIENT) 11.8 SEC (12.0-15.0)
[2016-12-14 23:50] LABS: APTT 23.6 SEC (23.0-38.0)
[2016-12-15 00:05] LABS: ALANINE AMINOTRANSFERASE 34 IU/L (21-72); ALBUMIN 4.2 g/dL (3.5-5.0); ALKALINE PHOSPHATASE 71 IU/L (38-126); ANION GAP 15 mEq/L (8-16); ASPARTATE AMINOTRANSFERASE 30 IU/L (17-59); BILIRUBIN,TOTAL 0.4 mg/dL (0.1-1.4); BILIRUBIN-CONJUGATED 0.2 mg/dL (0.0-0.5); BILIRUBIN-UNCONJUGATED 0.2 mg/dL (0.0-1.1); CALCIUM 9.2 mg/dL (8.5-10.4); CARBON DIOXIDE 20 mEq/l (22-31); CHLORIDE 110 mEq/L (97-110); CREATININE 1.2 mg/dL (0.7-1.3); GLOMERULAR FILTRATION RATE 60; GLUCOSE 127 mg/dL (70-100); MAGNESIUM 1.6 mg/dL (1.6-2.3); POTASSIUM 3.8 mEq/L (3.5-5.2); SODIUM 145 mEq/L (134-144); TOTAL PROTEIN 7.3 g/dL (6.3-8.2)
[2016-12-15 00:09] LABS: CREATINE KINASE-MB FRACTION 1.05 ng/mL (0-3.19); TROPONIN I < 0.012 ng/mL (0-0.034)
--- NOTE | 2016-12-15 05:15 | PDGENHP ---
History and Physical - Chief Complaint Chest pain - History of Present Illness This 71-year-old male with history of known coronary artery disease status post 2 drug-eluting stents placed in 2010 presented to the emergency department this evening with chest pain. During the patient's last hospital stay in August of 2016 after undergoing a cervical fusion he did have episode of a fib and SVT. He denies any further episodes of palpitations. Tonight while sitting on the sofa he developed sharp 9/10 chest pain that was localized to his left chest. Once the pain began he went and laid down without much improvement. His subsequently brought him to the emergency department since she was worried about him given his recent atrial fibrillation. The pain lasted for about an hour then self-resolved. He reports having a similar episode of chest pain about 3 years ago. He has not had a stress test for the past couple years since he has been terrified of getting back on a treadmill. His last stay the treadmill stress test he felt in "like he was going to ". Currently is chest pain-free. History Information - Allergies/Home Medication List Allergies/Adverse Reactions: allopurinol Allergy (Verified 09/02/16 19:01) amlodipine Allergy (Verified 09/02/16 19:01) atorvastatin calcium [From Lipitor] Allergy (Verified 09/02/16 19:01) Other-Enter Comments ezetimibe [From Zetia] Allergy (Verified 09/02/16 19:01) lisinopril Allergy (Verified 09/02/16 19:01) Other-Enter Comments lorazepam Allergy (Verified 09/02/16 19:01) Other-Enter Comments losartan potassium [From Cozaar] Allergy (Verified 09/02/16 19:01) GOUT morphine Allergy (Verified 09/18/16 14:39) Other-Enter Comments pitavastatin calcium [From Livalo] Allergy (Verified 09/02/16 19:01) pravastatin Allergy (Verified 09/02/16 19:01) rosuvastatin calcium [From Crestor] Allergy (Verified 09/02/16 19:01) spironolactone Allergy (Verified 09/02/16 19:01) steroid injection Allergy (Uncoded 09/06/16 15:43) Red Man Syndrome Home Medications: Acetaminophen [Tylenol 325mg (*)] 325 mg PO DAILY PRN 06/05/16 [Last Taken 08/22] Aspirin [Aspirin 81mg (*)] 81 mg PO DAILY 06/05/16 [Last Taken 08/22/16] predniSONE 2.5 mg PO DAILY 06/05/16 [Last Taken 08/22/16] Valcyclovir 11/23/16 [Last Taken Unknown] I have personally reviewed and updated: family history, medical history, social history, surgical history - Past Medical History Additional medical history: Non-small cell lung cancer stage IIIA, ongoing chemotherapy. Necrotic gallbladder. Coronary artery disease with stent. Gout. Hypertension. Carotid stenosis. C diff 1 year ago. Morganella bacteremia from port. Atrial fibrillation and SVT during hospitalization 09/09 - Surgical History Additional surgical history: Left upper lobe resection. L-spine surgery. Cholecystectomy. Carotid endarterectomy on right. cervical fusion 09/09. 2 drug-eluting stents placed to the right coronary artery in 2010 - Family History Additional family history: No recent sick family contacts - Social History Smoking Status: Former smoker Alcohol Use: None Drug Use: None Additional social history: Normally independent in his ADLs Review of Systems ROS: 10pt was reviewed & negative except for what was stated in HPI & below Physical Exam Temp Pulse Resp BP Pulse Ox 36.3 C 72 17 119/62 97 12/15/16 01:30 12/15/16 01:30 12/15/16 01:30 12/15/16 01:30 12/15/16 01:30 O2 (L/minute) 2 Constitutional: no apparent distress, appears nourished, not in pain Eyes: PERRL, anicteric sclera, EOMI Ears, Nose, Mouth, Throat: moist mucous membranes, hearing normal, ears appear normal, no oral mucosal ulcers Cardiovascular: regular rate and rhythym, no murmur, rub, or gallop, No edema Respiratory: no respiratory distress, no rales or rhonchi, clear to auscultation Gastrointestinal: normoactive bowel sounds, soft, non-tender abdomen, no palpable masses Genitourinary: no bladder fullness, no bladder tenderness Skin: warm, normal color, no rashes or abrasions, no fluctuance, no induration, No mottled Musculoskeletal: full muscle strength, no muscle tenderness, normal joint ROM, no joint effusions Neurologic: AAOx3, CN II-XII Intact, No facial droop Psychiatric: interacting appropriately, not anxious, not encephalopathic, thought process linear Lab Data & Imaging Review 12/14/16 23:23 12/14/16 23:23 WBC 8.40 10^3/uL (3.80-9.50) 12/14/16 23: RBC 4.04 10^6/uL (4.40-6.38) L 12/14/16 23:23 Hgb 13.1 g/dL (13.7-17.5) L 12/14/16 23: Hct 39.6 % (40.0-51.0) L 12/14/16 23: MCV 98.0 fL (81.5-99.8) 12/14/16 23: MCH 32.4 pg (27.9-34.1) 12/14/16 23: MCHC 33.1 g/dL (32.4-36.7) 12/14/16 23: RDW 16.9 % (11.5-15.2) H 12/14/16 23: Plt Count 225 10^3/uL (150-400) 12/14/16 23: MPV 9.4 fL (8.7-11.7) 12/14/16 23: Neut % (Auto) 75.3 % (39.3-74.2) H 12/14/16 23: Lymph % (Auto) 14.0 % (15.0-45.0) L 12/14/16 23: [place] % (Auto) 8.3 % (4.5-13.0) 12/14/16 23: Eos % (Auto) 1.3 % (0.6-7.6) 12/14/16 23: Baso % (Auto) 0.5 % (0.3-1.7) 12/14/16 23: Nucleat RBC Rel Count 0.0 % (0.0-0.2) 12/14/16 23: Absolute Neuts (auto) 6.32 10^3/uL (1.70-6.50) 12/14/16 23: Absolute Lymphs (auto) 1.18 10^3/uL (1.00-3.00) 12/14/16 23: Absolute Monos (auto) 0.70 10^3/uL (0.30-0.80) 12/14/16 23:23 Absolute Eos (auto) 0.11 10^3/uL (0.03-0.40) 12/14/16 23:23 Absolute Basos (auto) 0.04 10^3/uL (0.02-0.10) 12/14/16 23:23 Absolute Nucleated RBC 0.00 10^3/uL (0-0.01) 12/14/16 23:23 Immature Gran % 0.6 % (0.0-1.1) 12/14/16 23: Immature Gran # 0.05 10^3/uL (0.00-0.10) 12/14/16 23:23 PT 11.8 SEC (12.0-15.0) L 12/14/16 23:23 INR 0.88 (0.83-1.16) 12/14/16 23:23 APTT 23.6 SEC (23.0-38.0) 12/14/16 23:23 Sodium 145 mEq/L (134-144) H 12/14/16 23:23 Potassium 3.8 mEq/L (3.5-5.2) 12/14/16 23:23 Chloride 110 mEq/L (97-110) 12/14/16 23:23 Carbon Dioxide 20 mEq/l (22-31) L 12/14/16 23:23 Anion Gap 15 mEq/L (8-16) 12/14/16 23:23 BUN 30 mg/dL (7-23) H 12/14/16 23:23 Creatinine 1.2 mg/dL (0.7-1.3) 12/14/16 23:23 Estimated GFR 60 12/14/16 23:23 Glucose 127 mg/dL (70-100) H 12/14/16 23:23 Calcium 9.2 mg/dL (8.5-10.4) 12/14/16 23:23 Magnesium 1.6 mg/dL (1.6-2.3) 12/14/16 23:23 Total Bilirubin 0.4 mg/dL (0.1-1.4) 12/14/16 23:23 Conjugated Bilirubin 0.2 mg/dL (0.0-0.5) 12/14/16 23:23 Unconjugated Bilirubin 0.2 mg/dL (0.0-1.1) 12/14/16 23:23 AST 30 IU/L (17-59) 12/14/16 23:23 ALT 34 IU/L (21-72) 12/14/16 23:23 Alkaline Phosphatase 71 IU/L (38-126) 12/14/16 23:23 Creatine Kinase 52 IU/L (0-224) 12/14/16 23:23 CK-MB (CK-2) Fraction 1.05 ng/mL (0-3.19) 12/14/16 23:23 Troponin I < 0.012 ng/mL (0-0.034) 12/14/16 23:23 NT-Pro-B Natriuret Pep 590 pg/mL (0-125) H 12/14/16 23:23 Total Protein 7.3 g/dL (6.3-8.2) 12/14/16 23:23 Albumin 4.2 g/dL (3.5-5.0) 12/14/16 23:23 Visualized and Interpreted Chest x-ray results: Yes Chest X-Ray results: no infiltrate, normal heart size, other ( airway disease with evidence of previous scarring) Visualized and Interpreted EKG results: Yes EKG Interpretation: Positive for: normal sinsus rhythm ( 80 beats per minute). Negative for: Q waves, ST elevation, ST depression Assessment & Plan Assessment: This is a 71-year-old male with known coronary artery disease and recent bout of atrial fibrillation back in August of 2016 presenting with: # Chest pain which sounds atypical our the patient is at risk for ACS given his history. - cycle troponins - Lexiscan given the fact that the patient is not able to tolerate exercise # pre renal azotemia - recommend oral hydration disposition: The patient will be placed on observation pending further diagnostic evaluation
[2016-12-15 05:16] VITALS: O2SAT 98
[2016-12-15] MEDS ORDERED: PROMETHAZINE HCL 25 MG/ML INJ IVP PRN (05:21)
[2016-12-15] MEDS ORDERED: ACETAMINOPHEN 325 MG TAB PO PRN (05:21)
[2016-12-15] MEDS ORDERED: NITROGLYCERIN 0.4 MG BTL SL PRN (05:21)
[2016-12-15] MEDS ORDERED: ONDANSETRON 4 MG/2 ML VIAL IVP PRN (05:21)
[2016-12-15] MEDS ORDERED: ASPIRIN EC 81 MG TAB PO SCH (09:00)
[2016-12-15 11:32] VITALS: BP 151/96; PULSE 65; RESP 15; TEMP 97.9
--- NOTE | 2016-12-15 20:57 | GDS ---
[f rep st] DISCHARGE SUMMARY DISCHARGE DIAGNOSES: 1. Chest pain. 2. Lung cancer. 3. Coronary artery disease, status post previous stent. 4. Gout. 5. Atrial fibrillation and supraventricular tachycardia. HISTORY: The patient is a 71-year-old male with known coronary artery disease and previous stents w ho presented with chest pain on the left side, lasted 1 hour without recurrence. He was admitted un philomena observation, and serial troponins and EKGs were negative. He did report recent outpatient stres s test with Dr. Kym Terrell. I reviewed outpatient records with Dr. Isaías Butcher, and did confirm th at he had a stress test last January that was unremarkable. Dr. Butcher did not feel there is an y utility in repeating the stress test at this time. He thought it was safe for the patient to disc harge home and follow up with Dr. Terrell as an outpatient. If he has recurrence of symptoms, possible cardiac catheterization could be considered. DISCHARGE MEDICATIONS: Please see computer record for full detailed list. There are no new medicat ions given at the time of hospital discharge. DISCHARGE INSTRUCTIONS: Follow up with Dr. Kym Terrell in 1 week. Patient was seen and examined by me on the day of discharge. /[id number]/MODL
[2016-12-15] MEDS ORDERED: predniSONE 5 MG TAB PO SCH (21:00)
[2016-12-16] MEDS ORDERED: ASPIRIN 81 MG CHEWABLE TAB PO SCH (09:00)
[2016-12-16] MEDS ORDERED: METOPROLOL SUCCINATE XR 50 MG TAB PO SCH (09:00)
[2016-12-16] MEDS ORDERED: DILTIAZEM CD 120 MG CAP PO SCH (09:00)
== END 2016-12-15 15:05 | disposition home or self-care (01) ==
LOC: F2W 12-15 01:03
PROVIDERS: ADMIT Family Medicine; ATTEND Family Medicine
DX: R07.9 Chest pain, unspecified (principal); I25.10 Atherosclerotic heart disease of native coronary artery without angina pectoris; R79.89 Other specified abnormal findings of blood chemistry; I48.91 Unspecified atrial fibrillation; I47.1 Supraventricular tachycardia; M10.9 Gout, unspecified; Z85.118 Personal history of other malignant neoplasm of bronchus and lung; Z98.1 Arthrodesis status; Z95.5 Presence of coronary angioplasty implant and graft; Z87.891 Personal history of nicotine dependence
CPT/HCPCS: 71020; 93005; G0378

== ENCOUNTER → 2017-01-14 | Outpatient (CLI) | payer OTHER, MEDICARE | LOC: BHFA 08:30 | PROVIDERS: ATTEND Internal Medicine Interventional Cardiology | DX: I25.10 Atherosclerotic heart disease of native coronary artery without angina pectoris (principal); R07.9 Chest pain, unspecified | CPT/HCPCS: 78452; 93017; A9500; J2785 ==

== ENCOUNTER → 2017-02-25 | Outpatient (CLI) | payer OTHER, MEDICARE ==
[~2017-02-25] MED LIST changes: -BACITRACIN 50,000 UNITS/10 ML SYR IRR ONE; -BUPIVACAINE/EPI 0.25% 30 ML SDV ONE; -CHLORHEXIDINE GLUC HIBICLENS 118 ML BTL TP ONE; +GADOBUTROL 10 ML VIAL IVP ONE; -THROMBIN (BOVINE) 5,000 UNIT VIAL TP ONE
== END ==
LOC: FIMAGING 18:42
PROVIDERS: ATTEND Nurse Practitioner
DX: M54.5 Low back pain (principal); M51.26 Other intervertebral disc displacement, lumbar region; C34.12 Malignant neoplasm of upper lobe, left bronchus or lung; M50.30 Other cervical disc degeneration, unspecified cervical region; M43.12 Spondylolisthesis, cervical region; Z98.1 Arthrodesis status
CPT/HCPCS: 72040; 72158; A9585

== ENCOUNTER 2017-03-01 05:54 | Inpatient (IN) | payer OTHER, MEDICARE ==
--- NOTE | 2017-03-01 07:14 | EDPHY ---
HPI/HX/ROS/PE/MDM Narrative: CHIEF COMPLAINT: Left leg pain HISTORY OF PRESENT ILLNESS: This patient is a 71 y/o male with history of multiple spinal surgeries arriving with his family complaining of severe left leg pain onset yesterday. He noted cramping in his leg two months ago and had his electrolyte levels checked, results were normal. He does have history of radiculopathy, and developed increased sciatic pain one week ago. Friday, 02/25 he had an MRI which revealed new severe central canal narrowing at L3-L4 and had an appointment with Dr. Malcolm, neurosurgeon, 02/26. He is scheduled for surgery Friday, 03/03. Yesterday, he began experiencing "unbelievable" pain in his left leg, particularly the lateral anterior aspect of his thigh. This does radiate around into his lower back. He rates this at 10/10 severity. He has been unable to move much due to pain. He denies any weakness, numbness, or tingling. He denies incontinence. Some changes in positioning offers relief. He takes Oxycodone for pain, but this has not relieved his discomfort. No fever, chills, chest pain, shortness of breath, palpitations, vomiting, diarrhea, urinary complaints, headache, lightheadedness. REVIEW OF SYSTEMS: Aside from elements discussed in the HPI, a comprehensive 10-point review of systems was reviewed and is negative. PAST MEDICAL HISTORY: Stage IIIA lung cancer (chemotherapy, left upper lobe resection), CAD (stent x 2), Gout, Hypertension, Carotid stenosis, History of C difficile, History of atrial fibrillation and SVT, Cholecystectomy, Lumbar spine surgery, Cervical fusion. SOCIAL HISTORY: Former smoker, no alcohol use, no drug use, , family member at bedside. VITAL SIGNS: Reviewed by me GENERAL: Well-developed, well-nourished, crying out in pain, in no respiratory distress. HEENT: Atraumatic. Eyes: No icterus, no injection. Mouth: moist mucous membranes. No erythema or lesions. Neck: supple with no adenopathy. LUNGS: Clear to auscultation bilaterally, no wheezes, rhonchi or rales. CARDIAC: Regular rate and rhythm, no rubs, murmurs or gallops. ABDOMEN: Soft, nontender, nondistended, bowel sounds normal. BACK: No CVA tenderness. EXTREMITIES: Tenderness to lateral anterior thigh. Good femoral pulses present bilaterally. No trauma. No edema. Range of motion is limited due to pain. NEURO: Alert and oriented, motor strength difficult to test secondary to the patient's discomfort. Extensor hallucis longus normal. 2+ patellar and Achilles reflexes SKIN: Warm and dry, no rash. PSYCHIATRIC: Normal mentation, no agitation. Portions of this note were transcribed by a medical biller/coder. I personally performed a history, physical exam, medical decision making, and confirmed accuracy of information the transcribed note. ED Course: 71 y/o male with history of lung cancer, multiple spinal surgeries, and lumbar radiculopathy presents with left leg pain worsening for one week. On my initial exam, he is crying out in pain with slight movement. Exam reveals pain and tenderness to the lateral anterior thigh. Plan to administer 1mg IV Dilaudid, 15mg IV Toradol, 10mg IV Decadron, 600mg PO Gabapentin, and apply lidocaine patch for pain relief. MRI of the lumbar spine read by Dr. Larry, radiologist, on 02/25/17 notes new severe central canal narrowing at L3-L4 due to increasing in size diffuse broad- based disk bulge. No new compression fracture. No evidence of metastatic disease to the lumbar spine or leptomeninges. 8:11 Patient is feeling improved but still experiences pain with movement. His family member at bedside states that this is the same pain that prompted them to get the MRI scan earlier this week. Plan to consult with Dr. Malcolm's neurosurgery service regarding this patient. 8:[address] Walden, neurosurgeon. He is comfortable with outpatient followup. The patient will keep his appointment for surgery on Friday with Dr. Malcolm. Plan to discharge home with prescriptions for Gabapentin 300mg TID, Oxycodone, and possible steroid medication depending on the type of surgery to control the patient's pain. 8:57 Reassessed patient. His pain has returned. 9:[address] Walden regarding the patient's continued discomfort. 10:30 Dr. Walden at beside. He will admit the patient. MDM: Differential diagnoses for the patient's symptom complex was considered including but not limited to radicular pain, occult trauma, DVT, infection, vascular compromise, acute spinal cord compression. - Data Points Laboratory Results: Laboratory Results 03/01/17 12:05 03/01/17 12:05 03/01/17 03/01/17 12:05 12:05 WBC 7.19 10^3/uL 10^3/uL (3.80-9.50) RBC 3.86 10^6/uL L 10^6/uL (4.40-6.38) Hgb 13.1 g/dL L g/dL (13.7-17.5) Hct 38.3 % L % (40.0-51.0) MCV 99.2 fL fL (81.5-99.8) MCH 33.9 pg pg (27.9-34.1) MCHC 34.2 g/dL g/dL (32.4-36.7) RDW 15.9 % H % (11.5-15.2) Plt Count 222 10^3/uL 10^3/uL (150-400) MPV 8.8 fL fL (8.7-11.7) Neut % (Auto) 96.6 % H % (39.3-74.2) Lymph % (Auto) 2.4 % L % (15.0-45.0) [place] % (Auto) 0.3 % L % (4.5-13.0) Eos % (Auto) 0.0 % L % (0.6-7.6) Baso % (Auto) 0.1 % L % (0.3-1.7) Nucleat RBC Rel Count 0.0 % % (0.0-0.2) Absolute Neuts (auto) 6.95 10^3/uL H 10^3/uL (1.70-6.50) Absolute Lymphs (auto) 0.17 10^3/uL L 10^3/uL (1.00-3.00) Absolute Monos (auto) 0.02 10^3/uL L 10^3/uL (0.30-0.80) Absolute Eos (auto) 0.00 10^3/uL L 10^3/uL (0.03-0.40) Absolute Basos (auto) 0.01 10^3/uL L 10^3/uL (0.02-0.10) Absolute Nucleated RBC 0.00 10^3/uL 10^3/uL (0-0.01) Immature Gran % 0.6 % % (0.0-1.1) Immature Gran # 0.04 10^3/uL 10^3/uL (0.00-0.10) Sodium 138 mEq/L mEq/L (134-144) Potassium 4.7 mEq/L mEq/L (3.5-5.2) Chloride 103 mEq/L mEq/L (97-110) Carbon Dioxide 22 mEq/l mEq/l (22-31) Anion Gap 13 mEq/L mEq/L (8-16) BUN 23 mg/dL mg/dL (7-23) Creatinine 1.0 mg/dL mg/dL (0.7-1.3) Estimated GFR > 60 Glucose 144 mg/dL H mg/dL (70-100) Calcium 8.7 mg/dL mg/dL (8.5-10.4) Medications Given: Acetaminophen (Tylenol) 650 mg PO Q4HRS PRN PRN Reason: Pain, Mild/Fever, Can Take PO Stop: 08/28/17 10:58 Last Admin: 03/01/17 11:58 Dose: 650 mg Diltiazem HCl (Cardizem Er Q24hr) 120 mg PO DAILY THI Stop: 08/28/17 12:59 Last Admin: 03/01/17 13:08 Dose: 120 mg Hydromorphone HCl (Dilaudid) 2 - 4 mg PO Q4 PRN PRN Reason: Pain, Severe Able to Take PO Stop: 03/11/17 13:00 Last Admin: 03/01/17 13:08 Dose: 4 mg Metoprolol Succinate (Toprol Xl) 50 mg PO DAILY THI Stop: 08/28/17 12:59 Last Admin: 03/01/17 13:08 Dose: 50 mg Miscellaneous Information (Patch Removal) 1 ea TD DAILY21 THI Stop: 08/28/17 20:59 Last Admin: 03/01/17 07:56 Dose: Not Given Oxycodone HCl (Oxycodone Ir) 5 - 10 mg PO Q3HRS PRN PRN Reason: Pain, Severe Able to Take PO Stop: 03/11/17 10:58 Last Admin: 03/01/17 11:57 Dose: 10 mg Discontinued Medications Dexamethasone (Decadron Injection) 10 mg IVP EDNOW ONE Stop: 03/01/17 07:42 Last Admin: 03/01/17 08:14 Dose: Not Given Dexamethasone (Decadron Injection) 8 mg IVP EDNOW ONE Stop: 03/01/17 07:42 Last Admin: 03/01/17 07:50 Dose: 8 mg Gabapentin (Neurontin) 600 mg PO EDNOW ONE Stop: 03/01/17 07:42 Last Admin: 03/01/17 07:48 Dose: 600 mg Hydromorphone HCl (Dilaudid) 1 mg IVP EDNOW ONE Stop: 03/01/17 07:41 Last Admin: 03/01/17 07:49 Dose: 1 mg Hydromorphone HCl (Dilaudid) 1 mg IVP EDNOW ONE Stop: 03/01/17 09:03 Last Admin: 03/01/17 09:09 Dose: 1 mg Ketorolac Tromethamine (Toradol) 15 mg IVP EDNOW ONE Stop: 03/01/17 07:41 Last Admin: 03/01/17 07:49 Dose: 15 mg Lidocaine (Lidoderm 5%) 1 ea TD EDNOW ONE Stop: 03/01/17 07:42 Last Admin: 03/01/17 07:52 Dose: 1 ea General Time Seen by Provider: 03/01/17 06:58 Initial Vital Signs: Initial Vital Signs Temperature (C) 36.5 C 03/01/17 05:58 Heart Rate 101 H 03/01/17 05:58 Respiratory Rate 16 03/01/17 05:58 Blood Pressure 184/83 H 03/01/17 05:58 O2 Sat (%) 92 03/01/17 05:58 O2 Delivery Mode Nasal Cannula O2 (L/minute) 3 Allergies/Adverse Reactions: allopurinol Allergy (Verified 09/02/16 19:01) amlodipine Allergy (Verified 09/02/16 19:01) atorvastatin calcium [From Lipitor] Allergy (Verified 09/02/16 19:01) Other-Enter Comments ezetimibe [From Zetia] Allergy (Verified 09/02/16 19:01) lisinopril Allergy (Verified 09/02/16 19:01) Other-Enter Comments lorazepam Allergy (Verified 09/02/16 19:01) Other-Enter Comments losartan potassium [From Cozaar] Allergy (Verified 09/02/16 19:01) GOUT morphine Allergy (Verified 09/18/16 14:39) Other-Enter Comments pitavastatin calcium [From Livalo] Allergy (Verified 09/02/16 19:01) pravastatin Allergy (Verified 09/02/16 19:01) rosuvastatin calcium [From Crestor] Allergy (Verified 09/02/16 19:01) spironolactone Allergy (Verified 09/02/16 19:01) steroid injection Allergy (Uncoded 09/06/16 15:43) Red Man Syndrome Home Medications: Medication Instructions Recorded Aspirin [Aspirin 81mg (*)] 81 mg PO DAILY 06/05/16 predniSONE 5 mg PO BID 06/05/16 Diltiazem Cd [Cardizem ER 120 MG 120 mg PO DAILY #30 cap 09/23/16 (*)] Metoprolol Succinate Xr [Toprol Xl 50 mg PO DAILY 12/15/16 50 mg (*)] Acetaminophen [Tylenol ES 500 mg 1,000 mg PO Q6 PRN 03/01/17 (*)] Percocet 5/325 (*) 1 tab PO Q6 PRN 03/01/17 oxyCODONE/APAP 5/325 [Percocet 1 - 2 tab PO Q4H PRN 03/01/17 5/325 (*)] Departure - Departure Disposition: [facility] Inpatient Acute Clinical Impression: Lumbar back pain with radiculopathy affecting left lower extremity Condition: Good Instructions: Lumbar Radiculopathy (ED) Additional Instructions: 1. Follow up for surgery with Dr. Malcolm on Friday as scheduled. 2. Take your new pain medications as prescribed as needed for severe pain. 3. Return to the emergency department for uncontrollable pain, fever, numbness, weakness, change in location or nature of pain or other concerns. Referrals: Julián Mijares MD [Primary Care Provider] - As per Instructions Shemar Malcolm MD [Medical Doctor] - As per Instructions Report Scribed for: Karla Magdaleno Report Scribed by: Patricia Kimble Date of Report: 03/01/17 Time of Report: 07:14
[2017-03-01] MEDS ORDERED: KETOROLAC 15 MG/1 ML SDV IVP ONE (07:40)
[2017-03-01] MEDS ORDERED: HYDROmorphONE/DILAUDID 1 MG/ML INJ IVP ONE ×2 (07:40→09:02)
[2017-03-01] MEDS ORDERED: LIDOCAINE 5% 1 EA PATCH TD ONE (07:41)
[2017-03-01] MEDS ORDERED: GABAPENTIN 300 MG CAP PO ONE (07:41)
[2017-03-01] MEDS ORDERED: DEXAMETHASONE 4 MG/ML VIAL IVP ONE (07:41)
[2017-03-01] MEDS ORDERED: DEXAMETHASONE 10 MG/ML VIAL IVP ONE (07:41)
[2017-03-01] MEDS: PATCH REMOVAL 1 EA PATCH TD SCH ×2 (07:56→22:25)
[2017-03-01] MEDS ORDERED: ONDANSETRON 4 MG/2 ML VIAL IVP PRN (10:59)
[2017-03-01] MEDS ORDERED: HYDROCODONE/APAP 5/325 TAB PO PRN (10:59)
[2017-03-01] MEDS ORDERED: NS W/ 20 KCl/L 1,000 ML IV SCH (11:00)
[2017-03-01] MEDS: oxyCODONE IR 5 MG TAB PO PRN ×3 (11:57→21:19)
[2017-03-01] MEDS: ACETAMINOPHEN 325 MG TAB PO PRN ×2 (11:58→21:20)
[2017-03-01 12:17] LABS: % IMMATURE GRANULYOCYTES 0.6 % (0.0-1.1); ABSOLUTE IMMATURE GRANULOCYTES 0.04 10^3/uL (0.00-0.10); ADD DIFF? NO; ADD MORPH? NO; ADD SCAN? NO; ATYPICAL LYMPHOCYTE FLAG 0 (0-99); FRAGMENT RBC FLAG 0 (0-99); HEMATOCRIT 38.3 % (40.0-51.0); HEMOGLOBIN 13.1 g/dL (13.7-17.5); LEFT SHIFT FLG 0 (0-99); LIPEMIA HEMOLYSIS FLAG 90 (0-99); MEAN CELL HEMOGLOBIN 33.9 pg (27.9-34.1); MEAN CELL HEMOGLOBIN CONCENTR. 34.2 g/dL (32.4-36.7); MEAN CELL VOLUME 99.2 fL (81.5-99.8); MEAN PLATELET VOLUME 8.8 fL (8.7-11.7); PLATELET CLUMPS FLAG 0 (0-99); PLATELET COUNT 222 10^3/uL (150-400); RED BLOOD CELL COUNT 3.86 10^6/uL (4.40-6.38); RED CELL DISTRIBUTION WIDTH 15.9 % (11.5-15.2)
--- NOTE | 2017-03-01 12:20 | GHP ---
[f rep st] HISTORY AND PHYSICAL DATE OF ADMISSION: 03/01/2017 ER CONSULTATION NOTE AND HISTORY AND PHYSICAL REASON FOR ADMISSION: Intractable left lower extremity pain. HISTORY OF PRESENT ILLNESS: Mr. Acosta is a 71-year-old gentleman, who is well known to Dr. Didier Malcolm of [facility]. He is approximately 6 months status post a C4-C7 ACDF with Dr. Malcolm at [facility] on the August. The patient feels that his upper extremity symptoms have all resolved and he was overall very happy. He did have a very complicated postoperative course with gout in the hospital. He did have a gout flare up as well while he was in the hospital which resolved with anti-inflammatories. He wore a cervical collar for 2 months. The patient has also previously undergone an L4-L5 decompression with Dr. Malcolm several years ago from which he did quite well. He presented, however, to [facility] with ongoing complaints of left lower extremity pain in his thigh which did not extend below the knee on the left. An MRI of his lumbar spine at that time, demonstrates severe stenosis at L3-L4 corresponding with his symptoms as well as postoperative changes as noted at L4-5. The patient was recommended to undergo a lumbar laminectomy at L3, L4, with Dr. Malcolm and was cleared by Dr. Piedra of Oncology as well as Dr. Terrell of Cardiology for surgery. The patient, however, presented to [facility] on the February for intractable left anterior thigh pain. He has undergone electronic workup. The pain did not involve the right lower extremity and there was no associated weakness. However, he has been unable to ambulate and place any weight on the left lower extremity. The pain radiates into his low back as well. The pain was rated at 10:10 severity. He typically takes oxycodone for pain; however, it has not been relieving his pain. Therefore, he cam to [facility] for further evaluation and management. Patient denies any fevers, chills, shortness of breath, palpitations, vomiting, diarrhea, urinary complaints, headaches or lightheadedness. No bowel or bladder incontinence. REVIEW OF SYSTEMS: A complete 10-point review of systems from the patient intake form reviewed by myself significant only for those noted above in the HPI. PAST MEDICAL HISTORY: 1. Stage IIIA lung cancer for which he has undergone chemotherapy and left upper lung resection. 2. Coronary artery disease, status post stenting x2. 3. Gout. 4. Hypertension. 5. Carotid stenosis. 6. History of C difficile. 7. History atrial fibrillation, and SVT. PAST SURGICAL HISTORY: 1. History of ACDF C4 through C7. 2. History of lumbar laminectomy, L4-L5. 3. History of carotid endarterectomy. 4. History of left upper lobe resection for lung cancer. 5. Coronary artery stenting x2. SOCIAL HISTORY: The patient is a former smoker but denies any alcohol or other illicit drug use. He is and his family member is at the bedside. ALLERGIES: 1. Allopurinol. 2. Amlodipine. 3. Atorvastatin. 4. Ezetimibe. 5. Lisinopril. 6. Lorazepam. 7. Losartan. 8. Morphine. 9. Pitavastatin. 10. Pravastatin. 11. Rosuvastatin. 12. Spironolactone. 13. Steroid. HOME MEDICATIONS: 1. Aspirin 81 mg p.o. daily. 2. Prednisone 5 mg p.o. twice daily. 3. Diltiazem 120 mg p.o. daily. 4. Metoprolol 50 mg p.o. daily. PHYSICAL EXAMINATION: Blood pressure is 193/93, heart rate is 126. Sattting at 92% currently on room air. His pulse is 98, respiratory rate 16, his temperature is 36.5. In general, the patient is lying in the gurney and appears to be somewhat uncomfortable during the examination during movement but otherwise at rest appears to be very comfortable. His family member is at the bedside. HEENT: Head is atraumatic, normocephalic. Pupils are equal, round, reactive to light bilaterally. Oropharynx was moist. Cardiovascular and pulmonary are deferred. Neurologically cranial nerves II through XII are intact. Tongue protrudes midline. Face is symmetric. Uvula and palate elevate symmetrically. Shoulder shrug is symmetric bilaterally. He has intact sensation on his face bilaterally. His pupils are equal, round, and reactive to light bilaterally. His extraocular movements are intact. On motor exam he has 5/5 strength with bilateral upper extremities including relief cook, biceps, triceps, deltoid, right hip flexion, knee flexion extension and plantar dorsiflexion bilaterally. He does appear to have full strength in his left lower extremity with hip flexion, and left hip extension; however, this does elicit pain during movement. Sensory exam is intact sensation to light touch throughout all major dermatomes of bilateral upper and lower extremities throughout. No Mckinnon's. No Babinski. MEDICAL DECISION MAKING: There are no new images for my review. ASSESSMENT AND PLAN: Mr. Acosta is a 71-year-old gentleman with a prior history of lumbar laminectomy at L4, L5, and a prior history of anterior cervical diskectomy and fusion C4 through C7 by Dr. Malcolm from which he has done quite well. Patient was scheduled for outpatient elective surgery on the February and presents to the emergency department with a flare up of his pain into the left anterior thigh. The patient has received an extensive amount of oral steroids, Neurontin and pain medications; however, his pain has not been well controlled with the utilization of these extra modalities. I have discussed this case with Dr. Magdaleno of the ER as well as Dr. Malcolm his primary surgeon, and given the fact that the patient is scheduled for surgery in last 48 hours and has intractable pain but no new focal deficits, we will not plan for any new imaging studies. However, we will admit him to the hospital for pain control. The patient has already been consented as an outpatient. We will preop him as necessary with the appropriate orders. All of the patient's questions were answered today in the emergency department. /[id number]/MODL MTDD
[2017-03-01 12:26] LABS: ANION GAP 13 mEq/L (8-16); CALCIUM 8.7 mg/dL (8.5-10.4); CARBON DIOXIDE 22 mEq/l (22-31); CHLORIDE 103 mEq/L (97-110); GLOMERULAR FILTRATION RATE > 60; GLUCOSE 144 mg/dL (70-100); POTASSIUM 4.7 mEq/L (3.5-5.2); SODIUM 138 mEq/L (134-144)
[2017-03-01] MEDS ORDERED: HYDROmorphONE/DILAUDID 2 MG TAB PO PRN (13:01)
[2017-03-01] MEDS: DILTIAZEM CD 120 MG CAP PO SCH (13:08)
[2017-03-01] MEDS: METOPROLOL SUCCINATE XR 50 MG TAB PO SCH (13:08)
[2017-03-01] MEDS: predniSONE 5 MG TAB PO SCH (21:20)
[2017-03-01] MEDS: ONDANSETRON DISINTEGRATING 4 MG TAB PO PRN (22:26)
[2017-03-01] MEDS ORDERED: FLU VACC QS 2017-18 (3YR+)/PF 0.5 ML SYR (FLUARIX QUAD) IM ONE ×2 (23:51→23:53)
[2017-03-02] MEDS ORDERED: BISACODYL 10 MG SUPP PR PRN (00:55)
[2017-03-02] MEDS ORDERED: POLYETHYLENE GLYCOL 3350 17 GM PKT PO PRN (00:55)
[2017-03-02] MEDS ORDERED: MAGNESIUM HYDROXIDE 30 ML UDCUP PO PRN (00:55)
[2017-03-02] MEDS ORDERED: LACTULOSE 20 GM/30 ML UDCUP PO PRN (00:55)
[2017-03-02] MEDS: SENNOSIDES/DOCUSATE SODIUM TAB PO SCH ×3 (02:14→20:46)
[2017-03-02] MEDS: ONDANSETRON DISINTEGRATING 4 MG TAB PO PRN ×3 (06:03→20:47)
[2017-03-02] MEDS: oxyCODONE IR 5 MG TAB PO PRN ×3 (06:03→20:46)
[2017-03-02] MEDS: DILTIAZEM CD 120 MG CAP PO SCH (08:07)
[2017-03-02] MEDS: METOPROLOL SUCCINATE XR 50 MG TAB PO SCH (08:08)
[2017-03-02] MEDS: predniSONE 5 MG TAB PO SCH ×2 (08:09→20:46)
[2017-03-02] MEDS ORDERED: DILTIAZEM CD 120 MG CAP PO SCH (09:00)
[2017-03-02] MEDS ORDERED: METOPROLOL SUCCINATE XR 50 MG TAB PO SCH (09:00)
[2017-03-02] MEDS ORDERED: GABAPENTIN 300 MG CAP PO ONE (10:32)
--- NOTE | 2017-03-02 10:43 | SOAPPROG ---
SOAP Progress Note Assessment/Plan: Assessment: 71 yo male with L3/4 stenosis and severe left anterior thigh pain requiring admission prior to surgery for pain control. Pain currently under control, but has acute urinary retention, likely related to narcotics, however this could be related to stenosis. Plan: MRI lumbar spine today w/wo Estrada will be placed now activity as tolerated with assist NPO after midnight discussed plan with Dr Walden 03/02/17 10:40 03/02/17 10:43 Subjective: lying in bed, pain controlled. Unable to urinate and required straight cath overnight for 700ml Objective: Vital Signs Temp Pulse Resp BP Pulse Ox 35.8 C L 64 14 137/77 H 97 03/02/17 07:44 03/02/17 08:08 03/02/17 07:44 03/02/17 08:08 03/02/17 07:44 Laboratory Results 03/01/17 12:05 03/01/17 12:05 03/01/17 03/02/17 03/03/17 05:59 05:59 05:59 Intake Total 350 Output Total 600 Balance -250 Neuro: MENDOZA, sens +LT ambulatory ICD10 Worksheet Patient Problems: Problems Problem Status Onset Lumbar back pain with radiculopathy affecting left lower extremity Acute Arthrodesis status Acute C. difficile diarrhea Acute 04/05/16 Cervical stenosis of spine Acute Chest pain Acute Dehydration Acute Diarrhea Acute Dysphagia, oropharyngeal Acute Gout Acute Headache Acute Hypocalcemia Acute Hypokalemia Acute Hypomagnesemia Acute Nausea & vomiting Acute Neck pain Acute On total parenteral nutrition (TPN) Acute Pneumonia Acute RUQ abdominal pain Acute Weakness Acute CAD (coronary artery disease) Chronic Dyslipidemia Chronic
[2017-03-02] MEDS ORDERED: GADOBUTROL 10 ML VIAL IVP ONE (14:02)
--- NOTE | 2017-03-02 16:59 | ASMTCMCOM ---
CM Note CM Note Notes: 71 year old male admitted for left LE thigh pain. Patient has had a Hx of L4-5 decompression surgery, recent C4-7 ACDF, stage 3 lung CA-chemo and lung resection, CAD S/P stents x2, gout, carotid stenosis, Afib, HTN. Patient was to be admitted later this month due to L3-4 stenosis and surgery. Presently here for pain management. Therapies to [facility] waggoner to follow for discharge needs. Date Signed: 03/02/2017 04:59 PM Electronically Signed By:Amberly Gonsalez LCSW
[2017-03-02] MEDS: PATCH REMOVAL 1 EA PATCH TD SCH (20:51)
[2017-03-03] MEDS: oxyCODONE IR 5 MG TAB PO PRN ×3 (00:13→21:58)
[2017-03-03] MEDS: ONDANSETRON DISINTEGRATING 4 MG TAB PO PRN ×2 (00:14→04:59)
[2017-03-03] MEDS ORDERED: BUPIVACAINE 0.25% 30 ML SDV ONE (06:54)
[2017-03-03] MEDS ORDERED: CHLORHEXIDINE GLUC HIBICLENS 118 ML BTL TP ONE (06:54)
[2017-03-03] MEDS ORDERED: THROMBIN (BOVINE) 5,000 UNIT VIAL TP ONE (06:54)
[2017-03-03] MEDS ORDERED: DEPO METHYLPREDNISOLONE 40 MG/ML SDV ONE (06:54)
[2017-03-03] MEDS ORDERED: BACITRACIN 50,000 UNITS/10 ML SYR IRR ONE (06:55)
--- NOTE | 2017-03-03 07:06 | NEUSURGPN ---
Assessment/Plan: 71 yo male with L3/4 stenosis and severe left anterior thigh pain requiring admission prior to surgery for pain control. Pain currently under control, but has acute urinary retention, likely related to narcotics, however this could be related to stenosis. Plan: Patient will go to OR this am with Dr Malcolm for L3-4 laminectomy Patient is NPO Patient had urinary retention yesterday, repeat MRI demonstrated stable severe L3-4 stenosis with stable L1 compression fracture Estrada placed yesterday, patient's states patient has retention problems in past related to narcotics 03/02/17 10:40 Subjective: Patient has left leg pain Objective: AxO x3 PERRLA EOMI 5/5 BUE, BLE Sensation intact light touch BLE Neuro Check Frequency: per routine Urinary Catheter in Place: Yes Urinary Catheter Indication: Acute Urinary Retention - Physician Discussed Patient with : Gold Patient Seen by : Gold Neurosurgery Physical Exam - Vitals, I&O, Labs I and O 03/02/17 03/03/17 03/04/17 05:59 05:59 05:59 Intake Total 350 550 Output Total 600 1700 Balance -250 -1150 Weight 65.771 kg Intake: Oral (ml) 350 550 Output: Urine (ml) 600 1700 Catheter 600 1550 Toilet 150 Other: Intake Quantity Yes Yes Sufficient Bladder Scan Volume (ml) Catheter 475 Toilet 703 Vital Signs Temp Pulse Resp BP Pulse Ox 36.9 C 72 16 124/64 H 94 03/03/17 04:00 03/03/17 04:00 03/03/17 04:00 03/03/17 04:00 03/03/17 04:00 Laboratory Results 03/01/17 12:05 03/01/17 12:05 ICD10 Worksheet Patient Problems: Problems Problem Status Onset Lumbar back pain with radiculopathy affecting left lower extremity Acute Arthrodesis status Acute C. difficile diarrhea Acute 04/05/16 Cervical stenosis of spine Acute Chest pain Acute Dehydration Acute Diarrhea Acute Dysphagia, oropharyngeal Acute Gout Acute Headache Acute Hypocalcemia Acute Hypokalemia Acute Hypomagnesemia Acute Nausea & vomiting Acute Neck pain Acute On total parenteral nutrition (TPN) Acute Pneumonia Acute RUQ abdominal pain Acute Weakness Acute CAD (coronary artery disease) Chronic Dyslipidemia Chronic
--- NOTE | 2017-03-03 07:07 | PDHPUP ---
History & Physical Update H&P update statement: This history and physical update is based on an assessment of the patient which was completed after admission or registration (within 24 hours), but prior to the surgery/procedure. H&P update: H&P reviewed & patient examined, no change in patient's condition since H&P completed
--- NOTE | 2017-03-03 07:37 | PDANEPAE ---
ANE History of Present Illness Patient presents for laminectomy ANE Past Medical History - Cardiovascular History Hx Hypertension: Yes Hx Arrhythmias: Yes Hx Chest Pain: No Hx Coronary Artery / Peripheral Vascular Disease: Yes Hx CHF / Valvular Disease: No Hx Palpitations: No Cardiovascular History Comment: STENTS X3 LAST 05/2013 - Pulmonary History Hx COPD: No Hx Asthma/Reactive Airway Disease: No Hx Recent Upper Respiratory Infection: No Hx Oxygen in Use at Home: Yes O2 in Use at Home (L/minute): 1l Hx Sleep Apnea: No Sleep Apnea Screening Result - Last Documented: Positive Pulmonary History Comment: 08/2016 POST OP ASPIRATION PNEUMONIA. lung ca l lung - Neurologic History Hx Cerebrovascular Accident: No Hx Seizures: No Hx Dementia: No Neurologic History Comment: MIGRAINES - Endocrine History Hx Diabetes: No - Renal History Hx Renal Disorders: No - Liver History Hx Hepatic Disorders: No Hepatic History Comment: Can't tolerate statin medications. - Neurological & Psychiatric Hx Hx Neurological and Psychiatric Disorders: No - Cancer History Hx Cancer: Yes Cancer History Comment: lung ca dx 07-24-2014,surg & chemo Q 2 WKS - LD 02/19/17 - Congenital Disorder History Hx Congenital Disorders: No - GI History Hx Gastrointestinal Disorders: No Gastrointestinal History Comment: CONSTIPATION. - Other Health History Other Health History: missing teeth. GOUT - Chronic Pain History Chronic Pain: Yes (LEG PAIN) - Surgical History Prior Surgeries: CERVICAL FUSION. CAROTID ENDARTERECTOMY R. TIFFANIE 04/2015. LUMBAR DECOMPRESSION 2014. 3 stents, angiogram,. DEBBIE cataract surgery. DEBBIE FOOT gout surgery. LT LUNG upper lobectomy 08-31-14 ANE Review of Systems Review of Systems: ANE Patient History - Allergies Allergies/Adverse Reactions: allopurinol Allergy (Verified 09/02/16 19:01) amlodipine Allergy (Verified 09/02/16 19:01) atorvastatin calcium [From Lipitor] Allergy (Verified 09/02/16 19:01) Other-Enter Comments ezetimibe [From Zetia] Allergy (Verified 09/02/16 19:01) lisinopril Allergy (Verified 09/02/16 19:01) Other-Enter Comments lorazepam Allergy (Verified 09/02/16 19:01) Other-Enter Comments losartan potassium [From Cozaar] Allergy (Verified 09/02/16 19:01) GOUT morphine Allergy (Verified 09/18/16 14:39) Other-Enter Comments pitavastatin calcium [From Livalo] Allergy (Verified 09/02/16 19:01) pravastatin Allergy (Verified 09/02/16 19:01) rosuvastatin calcium [From Crestor] Allergy (Verified 09/02/16 19:01) spironolactone Allergy (Verified 09/02/16 19:01) steroid injection Allergy (Uncoded 09/06/16 15:43) Red Man Syndrome - Home Medications Home medications: home medication list seen and reviewed Home Medications: Aspirin [Aspirin 81mg (*)] 81 mg PO DAILY 06/05/16 [Last Taken 02/28/17] predniSONE 5 mg PO BID 06/05/16 [Last Taken 02/28/17 18:00] Metoprolol Succinate Xr [Toprol Xl 50 mg (*)] 50 mg PO DAILY 12/15/16 [Last Taken 02/28/17] Acetaminophen [Tylenol ES 500 mg (*)] 1,000 mg PO Q6 PRN 03/01/17 [Last Taken ] Percocet 5/325 (*) 1 tab PO Q6 PRN 03/01/17 [Last Taken 02/28/17] oxyCODONE/APAP 5/325 [Percocet 5/325 (*)] 1 - 2 tab PO Q4H PRN 03/01/17 [Last Taken 02/28/17] - NPO status NPO Since - Liquids (Date): 03/03/17 NPO Since - Liquids (Time): 00:01 NPO Since - Solids (Date): 03/02/17 NPO Since - Solids (Time): 19:00 - Anes Hx Anes Hx: no prior problems - Smoking Hx Smoking Status: Former smoker - Family Anes Hx Family Hx Anesthesia Complications: NONE ANE Labs/Vital Signs - Labs Result Diagrams: 03/01/17 12:05 03/01/17 12:05 - Vital Signs Blood Pressure: 124/64 Heart Rate: 72 Respiratory Rate: 16 O2 Sat (%): 94 Height: 162.56 cm Weight: 65.771 kg ANE Physical Exam - Airway Neck exam: decreased ROM Mallampati Score: Unable to assesss Mouth exam: small mouth opening - Pulmonary Pulmonary: no respiratory distress - Cardiovascular Cardiovascular: regular rate and rhythym - ASA Status ASA Status: III ANE Anesthesia Plan Anesthesia Plan: general endotracheal anesthesia Lines/Monitors: arterial line Specialized Airway: video laryngoscope (RBA discussed)
[2017-03-03] MEDS ORDERED: ceFAZolin 2 GM/DEXTROSE 100 ML IV ONE (08:00)
[2017-03-03] MEDS ORDERED: diphenhydrAMINE 25 MG CAP PO PRN (08:32)
[2017-03-03] MEDS ORDERED: METHOCARBAMOL 750 MG TAB PO PRN (08:32)
[2017-03-03] MEDS ORDERED: ONDANSETRON DISINTEGRATING 4 MG TAB PO PRN (08:32)
[2017-03-03] MEDS ORDERED: ONDANSETRON 4 MG/2 ML VIAL IVP PRN ×2 (08:32→09:55)
[2017-03-03] MEDS ORDERED: HYDROmorphONE/DILAUDID 1 MG/ML INJ IVP PRN ×2 (08:38→09:55)
[2017-03-03] MEDS ORDERED: NALOXONE HCL 0.4 MG/ML INJ IVP PRN (09:55)
[2017-03-03] MEDS ORDERED: OXYCODONE/APAP 5/325 TAB PO PRN (09:55)
--- NOTE | 2017-03-03 10:17 | POSTOPPROG ---
Post Op Note Date of Operation: 03/03/17 Surgeon: Shemar Malcolm Patient Access Manager: Suzie Calhoun [employer] Anesthesia: GET(General Endotracheal) Pre-op Diagnosis: L3-4 far lateral disc, lumbar stenosis Procedure: Far lateral L3-4 TK Inf/Abcess present in the surg proc area at time of surgery?: No Depth: Deep Incisional (Fascial) EBL: Minimal Assessment: 71 yr old lumbar stenosis, far lateral disc herniation-left leg pain Plan: -PT/OT -Pain management -Ok to leave rocha in for today, patient has difficultly with retention when taking narcotic-plan to dc rocha in AM -Call neurosurgery with any questions/concerns Subjective: Patient waking up in PACU Objective: Vital Signs Temp Pulse Resp BP Pulse Ox 36.9 C 72 16 124/64 H 94 03/03/17 08:39 03/03/17 08:39 03/03/17 08:39 03/03/17 08:39 03/03/17 08:39 Laboratory Results 03/01/17 12:05 03/01/17 12:05 03/02/17 03/03/17 03/04/17 05:59 05:59 05:59 Intake Total 350 550 Output Total 600 1700 Balance -250 -1150 Exam Waking up in PACU PERRLA EOMI 5/5 BUE, BLE Sensation intact to light touch BLE Incision/dressing CDI Allergies/Adverse Reactions: allopurinol Allergy (Verified 09/02/16 19:01) amlodipine Allergy (Verified 09/02/16 19:01) atorvastatin calcium [From Lipitor] Allergy (Verified 09/02/16 19:01) Other-Enter Comments ezetimibe [From Zetia] Allergy (Verified 09/02/16 19:01) lisinopril Allergy (Verified 09/02/16 19:01) Other-Enter Comments lorazepam Allergy (Verified 09/02/16 19:01) Other-Enter Comments losartan potassium [From Cozaar] Allergy (Verified 09/02/16 19:01) GOUT morphine Allergy (Verified 09/18/16 14:39) Other-Enter Comments pitavastatin calcium [From Livalo] Allergy (Verified 09/02/16 19:01) pravastatin Allergy (Verified 09/02/16 19:01) rosuvastatin calcium [From Crestor] Allergy (Verified 09/02/16 19:01) spironolactone Allergy (Verified 09/02/16 19:01) steroid injection Allergy (Uncoded 09/06/16 15:43) Red Man Syndrome
[2017-03-03] MEDS ORDERED: GABAPENTIN 300 MG CAP PO ONE (10:30)
[2017-03-03] MEDS ORDERED: LABETALOL HCL 5 MG/ML 20 ML MDV IVP PRN (10:31)
--- NOTE | 2017-03-03 10:32 | POSTANESTH ---
Post Anesthetic Evaluation Cardiovascular Status: Normal, Stable Respiratory Status: Normal, Stable Level of Consciousness/Mental Status: Can Participate in Eval Pain Control: Adequate, Prn Tx Ordered Nausea/Vomiting Control: Adequate, Prn Tx Ordered Complications Possibly Related to Anesthesia: None Noted (treating hypertension)
[2017-03-03] MEDS: FAMOTIDINE 20 MG TAB PO SCH ×2 (13:59→21:58)
[2017-03-03] MEDS: METOPROLOL SUCCINATE XR 50 MG TAB PO SCH (13:59)
[2017-03-03] MEDS: DILTIAZEM CD 120 MG CAP PO SCH (13:59)
[2017-03-03] MEDS: SENNOSIDES/DOCUSATE SODIUM TAB PO SCH ×2 (13:59→21:59)
[2017-03-03] MEDS: predniSONE 5 MG TAB PO SCH ×2 (14:00→21:58)
[2017-03-03] MEDS: ACETAMINOPHEN 500 MG TAB PO SCH ×2 (15:50→21:58)
[2017-03-03] MEDS: ceFAZolin 2 GM/DEXTROSE 100 ML IV SCH ×2 (15:51→21:59)
--- NOTE | 2017-03-03 18:24 | GOP ---
[f rep st] OPERATIVE REPORT DATE OF OPERATION: 03/03/2017 SURGEON: Kael Malcolm MD PERINATAL DIRECTOR: Suzie Calhoun PA-C. PREOPERATIVE DIAGNOSIS: Lumbar stenosis L3-4, but also there was a far lateral left L3-4 disk hernia tion and a left L3 radiculopathy. POSTOPERATIVE DIAGNOSIS: Lumbar stenosis L3-4, but also there was a far lateral left L3-4 disk herni ation and a left L3 radiculopathy. PROCEDURE PERFORMED: A left L3-4 extraforaminal microdiskectomy ([id number]), microscope. FINDINGS: ESTIMATED BLOOD LOSS: 10 cc. INDICATIONS: The patient is a mature gentleman who has a history of a multilevel ACDF, as well as a lumbar laminectomy with me in the past, who developed severe pain in the left leg. He had lumbar elizabeth nosis and mild spondylolisthesis at L3-4 and we discussed performing a laminectomy here. Over the we ekend, he got admitted with just excruciating left leg pain. He had no pain on the right-hand side a nd a new MRI was done and indeed, he really did have compression of the left L3 nerve root in the samreen ral foramen due to a disk prolapse in the neural foramen on the left-hand side. In view of this and his excruciating leg pain requiring hospital admission, I suggested a left far lateral extraforaminal diskectomy. I did mention that, in fact, he does have stenosis at L3-4 and if his pain persists, th en we may need to consider an L3-4 laminectomy. An instrumented fusion obviously would give us the a bility to treat both the spinal stenosis and the foraminal disease, but I felt that an extraforaminal diskectomy gave him the chance of succeeding without the need for instrumentation, as well as withou t the need for disturbing the spinal canal itself. He understood that he may need an additional proc edure, but he wanted to proceed. I thought there was a very high probability of success. The risks of nerve injury and continued symptoms were discussed. He understood these risks and wanted to proce ed. DESCRIPTION OF PROCEDURE: Patient was taken to the operating room, placed in supine position. Gener al anesthesia was begun. He was flipped prone on the Berry frame. Care was taken to pad all points of contact. His back was sterilely prepped and draped in usual fashion. A localizing x-ray was lindy en. We made a left paramedian incision above the L3-4 transverse processes and dissected down throug h the fascia and performed a muscle-splitting dissection down to the L3-4 facet joint. The TP of L3 was dissected free, as well as the pars interarticularis of L3. A localizing x-ray was taken. We th en removed some of the connective tissue above the L3 root right at the junction of the L3 TP and the pars interarticularis and immediately deep to this connective tissue was the nerve itself. There wa s some perineural fat. We decompressed the nerve and followed the nerve way out in the foramen and e roxanna after it was well decompressed, we then began to mobilize it and swept it inferiorly and rostrall y and underneath the nerve was a large subannular disk fragment. We squeezed a large number, at leas t 10-15 different large pieces out from the subannular location. We did not perform a microdiskectom y of L3-4. We simply removed the subannular fragment and this relaxed the nerve nicely. There was a lso some spondylosis and some osteophytes coming off the L3 vertebral body into the nerve itself. Th charlene were not putting any significant mass on the root itself. We irrigated with antibiotic saline so lution, shot a final x-ray, and then placed a little Gelfoam over the exiting L3 root along with some steroids. We then closed the incision in multiple layers using Vicryl sutures. A PDS was placed in the skin itself. There were no complications. COMPLICATIONS: None. /[id number]/MODL
[2017-03-03] MEDS: PATCH REMOVAL 1 EA PATCH TD SCH (22:04)
[2017-03-04 04:46] LABS: % IMMATURE GRANULYOCYTES 0.7 % (0.0-1.1); ABSOLUTE IMMATURE GRANULOCYTES 0.09 10^3/uL (0.00-0.10); ADD DIFF? NO; ADD MORPH? NO; ADD SCAN? NO; ATYPICAL LYMPHOCYTE FLAG 0 (0-99); FRAGMENT RBC FLAG 0 (0-99); HEMATOCRIT 33.5 % (40.0-51.0); HEMOGLOBIN 11.3 g/dL (13.7-17.5); LEFT SHIFT FLG 0 (0-99); LIPEMIA HEMOLYSIS FLAG 80 (0-99); MEAN CELL HEMOGLOBIN 34.1 pg (27.9-34.1); MEAN CELL HEMOGLOBIN CONCENTR. 33.7 g/dL (32.4-36.7); MEAN CELL VOLUME 101.2 fL (81.5-99.8); MEAN PLATELET VOLUME 9.6 fL (8.7-11.7); PLATELET CLUMPS FLAG 0 (0-99); PLATELET COUNT 189 10^3/uL (150-400); RED BLOOD CELL COUNT 3.31 10^6/uL (4.40-6.38); RED CELL DISTRIBUTION WIDTH 15.7 % (11.5-15.2)
[2017-03-04 05:15] LABS: ANION GAP 9 mEq/L (8-16); CALCIUM 8.7 mg/dL (8.5-10.4); CARBON DIOXIDE 25 mEq/l (22-31); CHLORIDE 103 mEq/L (97-110); CREATININE 1.1 mg/dL (0.7-1.3); GLOMERULAR FILTRATION RATE > 60; GLUCOSE 129 mg/dL (70-100); POTASSIUM 4.8 mEq/L (3.5-5.2); SODIUM 137 mEq/L (134-144)
[2017-03-04] MEDS: ACETAMINOPHEN 500 MG TAB PO SCH (05:33)
[2017-03-04] MEDS: METOPROLOL SUCCINATE XR 50 MG TAB PO SCH (08:10)
[2017-03-04] MEDS: FAMOTIDINE 20 MG TAB PO SCH (08:11)
[2017-03-04] MEDS: predniSONE 5 MG TAB PO SCH (08:11)
[2017-03-04] MEDS: DILTIAZEM CD 120 MG CAP PO SCH (08:11)
[2017-03-04] MEDS: SENNOSIDES/DOCUSATE SODIUM TAB PO SCH (08:11)
[2017-03-04 08:24] VITALS: BP 140/82; PULSE 67; RESP 16; TEMP 97.4; O2SAT 99
--- NOTE | 2017-03-04 08:44 | NEUSURGPN ---
Date of Surgery: 03/03/17 Post Op Day: 1 Assessment/Plan: 71 yo male with L3/4 stenosis and severe left anterior thigh pain, leg pain improved post op Plan: -PT/OT to eval, plan for discharge home today -Pain controlled with Tylenol -Estrada was discontinued this am and patient has voided -Dr Malcolm saw patient as well 03/02/17 10:40 Subjective: Patient feeling well this am Objective: AxO x3 PERRLA EOMI 5/5 BUE, BLE Sensation intact to light touch BLE Incision/Dressing CDI Neuro Check Frequency: per routine Urinary Catheter in Place: No - Physician Discussed Patient with : Gold Patient Seen by : Gold Neurosurgery Physical Exam - Vitals, I&O, Labs I and O 03/03/17 03/04/17 03/05/17 05:59 05:59 05:59 Intake Total 550 1520 Output Total 1700 1425 Balance -1150 95 Weight 65.771 kg Intake: Oral (ml) 550 520 IV Intake (ml) 1000 Output: Urine (ml) 1700 1400 Catheter 1550 1400 Toilet 150 Estimated Blood Loss (ml) 25 Other: Intake Quantity Yes Sufficient Bladder Scan Volume (ml) Catheter 475 Vital Signs Temp Pulse Resp BP Pulse Ox 36.3 C 67 16 140/82 H 99 03/04/17 08:22 03/04/17 08:22 03/04/17 08:22 03/04/17 08:22 03/04/17 08:22 Laboratory Results 03/04/17 04:16 03/04/17 04:16 ICD10 Worksheet Patient Problems: Problems Problem Status Onset Lumbar back pain with radiculopathy affecting left lower extremity Acute Arthrodesis status Acute C. difficile diarrhea Acute 04/05/16 Cervical stenosis of spine Acute Chest pain Acute Dehydration Acute Diarrhea Acute Dysphagia, oropharyngeal Acute Gout Acute Headache Acute Hypocalcemia Acute Hypokalemia Acute Hypomagnesemia Acute Nausea & vomiting Acute Neck pain Acute On total parenteral nutrition (TPN) Acute Pneumonia Acute RUQ abdominal pain Acute Weakness Acute CAD (coronary artery disease) Chronic Dyslipidemia Chronic
--- NOTE | 2017-03-04 10:04 | ASMTCMCOM ---
CM Note CM Note Notes: CM Discharge Note: Spoke with patient and who do not endorse any discharge needs. PT/OT cleared for home, as well. Patient will follow-up in outpatient setting as directed. Date Signed: 03/04/2017 10:03 AM Electronically Signed By:Selene Fernandez RN
--- NOTE | 2017-03-04 14:06 | ASDISCHSUM ---
Discharge Information Plan Status:Home with No Needs Medically Cleared to Leave: Discharge Date:03/04/2017 11:02 AM CM D/C Disposition:Home, Routine, Self-Care ADT D/C Disposition:Home, Routine, Self-Care Projected Discharge Date:03/04/2017 11:02 AM Transportation at D/C: Discharge Delay Reason: Follow-Up Date:03/04/2017 11:02 AM Discharge Slot: Final Diagnosis:Left lower extremity thigh pain Placement Information Patient Contact Information Contact Name:GABRIELLE Relationship: Address:[address] [place] [address] Work Phone: City:[place] Alternate Phone: State/Zip Code:[place] [address] Email: Financial Information Financial Class: Primary Plan Desc:MEDICARE INPATIENT Primary Plan Number:[id number] Secondary Plan Desc:[employer]/MDR SUPPLEMENT Secondary Plan Number:[id number] Assessment Information [facility] CM Progress Note CM Note CM Note Notes: 71 year old male admitted for left LE thigh pain. Patient has had a Hx of L4-5 decompression surgery, recent C4-7 ACDF, stage 3 lung CA-chemo and lung resection, CAD S/P stents x2, gout, carotid stenosis, Afib, HTN. Patient was to be admitted later this month due to L3-4 stenosis and surgery. Presently here for pain management. Therapies to [facility] waggoner to follow for discharge needs. Date Signed: 03/02/2017 04:59 PM Electronically Signed By:Amberly Gonsalez LCSW [facility] CM Progress Note CM Note CM Note Notes: CM Discharge Note: Spoke with patient and who do not endorse any discharge needs. PT/OT cleared for home, as well. Patient will follow-up in outpatient setting as directed. Date Signed: 03/04/2017 10:03 AM Electronically Signed By:Selene Fernandez RN Intervention Information Intervention Type:*Incorrect Registration Date of Service:03/01/2017 10:59 AM Patient Type:Inpatient Staff Member:PARAMJIT Ocampo, Elizabeth Hours:0.25 Discipline: Severity:1 (0-1 Hours) Comment:Registered observation, admit order wr itten inpatient status. Intervention Type:*IM-Signed Date of Service:03/04/2017 09:30 AM Patient Type:Inpatient Staff Member:Silvia Rosenbaum Hours: Discipline: Severity: Comment:
[2017-03-06] MEDS ORDERED: ENOXAPARIN 40 MG/0.4 ML SYR SC SCH (09:00)
== END 2017-03-04 11:02 | disposition home or self-care (01) | DRG 517 ==
LOC: F3N 10:51 → OBSVTOIN 10:59
PROVIDERS: ADMIT Neurological Surgery; ATTEND Neurological Surgery
PROC: 01NB0ZZ Release Lumbar Nerve, Open Approach (ICD-10-PCS; principal; 2017-03-03 07:30)
DX: M51.16 Intervertebral disc disorders with radiculopathy, lumbar region (principal); M48.061 Spinal stenosis, lumbar region without neurogenic claudication; M43.16 Spondylolisthesis, lumbar region; R33.0 Drug induced retention of urine; T40.605A Adverse effect of unspecified narcotics, initial encounter; I25.10 Atherosclerotic heart disease of native coronary artery without angina pectoris; Z95.5 Presence of coronary angioplasty implant and graft; M10.9 Gout, unspecified; I48.91 Unspecified atrial fibrillation; I10 Essential (primary) hypertension; Z85.118 Personal history of other malignant neoplasm of bronchus and lung; Z90.2 Acquired absence of lung [part of]; Z98.1 Arthrodesis status; Z87.891 Personal history of nicotine dependence; Z23 Encounter for immunization
CPT/HCPCS: 96374; 97161-GP; 97165-GO; A9585; G0008; G8978-GP-CJ; G8979-GP-CI; G8987-GO-CI; G8988-GO-CI; G8989-GO-CI; J0690; J1030; J1100; J1170; J1885

== ENCOUNTER 2017-03-09 07:00 | Emergency (ER) | payer OTHER, MEDICARE ==
[2017-03-09 07:09] VITALS: RESP 18; TEMP 98.2
--- NOTE | 2017-03-09 07:37 | EDPHY ---
H & P HPI/ROS: Chief complaint. Back pain and left knee pain HPI. 71-year-old male had L3-L4 diskectomy 1 week ago. He has had back pain since his surgery. He has also had medial left knee pain since his surgery. He has had some swelling to the inside of his left knee but none of the rest of his leg. The pain is discontinuous and in his left low back as well as left knee but not in his hip or thigh or calf or foot. There is no swelling to these areas as well. Denies trauma to the knee. He tells me he had an ultrasound 3 days ago of the left lower extremity which showed no evidence for DVT. There was some thought of gout as a cause. He has been taking indomethacin but without relief. He and his tell me that he can't walk. He had initially some trouble urinating after his surgery but since has not had trouble urinating or moving his bowels. No fever. Patient also has a history of lung cancer and he says that he is a survivor. ROS Constitutional. no fever/chills, no weakness Eyes. no problems with vision ENT. no sore throat, no nasal drainage Cardiovascular. no chest pain Respiratory. no shortness of breath, no cough Abdominal. no abdominal pain, no nausea/vomiting, no diarrhea . no problems urinating MS. low back pain and pain to the inner left knee Skin. no rash Lymph. no swollen glands Neuro. no headache, no dizziness, no difficulty walking or with speech Past Medical/Surgical History: Past medical history hypertension, dyslipidemia, gout, non-small cell lung cancer apparently in remission, coronary artery disease, atrial fibrillation, lung resection, cardiac stents, multiple back surgeries, cholecystectomy Social History: , nonsmoker, no alcohol Smoking Status: Former smoker Physical Exam: General Appearance: Alert well-developed male mild distress vital signs are stable Eyes: Pupils equal and round no pallor or injection. ENT, Mouth: Mucous membranes are moist. Respiratory: There are no retractions, lungs are clear to auscultation. Cardiovascular: Regular rate and rhythm. Gastrointestinal: Abdomen is soft and nontender, no masses, bowel sounds normal. Neurological: Awake and alert, sensory and motor exams grossly normal. Skin: Healing surgical incision in the lumbar area without evidence of infection. No significant swelling. Musculoskeletal: Neck is supple nontender. Extremities tenderness to palpation medial left knee. Mild swelling. No erythema. No thigh or calf tenderness. Good range of motion Psychiatric: Patient is oriented X 3, there is no agitation. Constitutional: Initial Vital Signs Temperature (C) 36.8 C 03/09/17 07:01 Heart Rate 75 03/09/17 07:01 Respiratory Rate 18 03/09/17 07:01 Blood Pressure 132/92 H 03/09/17 07:01 O2 Sat (%) 94 03/09/17 07:01 O2 Delivery Mode Room Air Allergies/Adverse Reactions: allopurinol Allergy (Verified 03/09/17 07:01) amlodipine Allergy (Verified 03/09/17 07:01) atorvastatin calcium [From Lipitor] Allergy (Verified 03/09/17 07:01) Other-Enter Comments ezetimibe [From Zetia] Allergy (Verified 03/09/17 07:01) lisinopril Allergy (Verified 03/09/17 07:01) Other-Enter Comments lorazepam Allergy (Verified 03/09/17 07:01) Other-Enter Comments losartan potassium [From Cozaar] Allergy (Verified 03/09/17 07:01) GOUT morphine Allergy (Verified 03/09/17 07:01) Other-Enter Comments pitavastatin calcium [From Livalo] Allergy (Verified 03/09/17 07:01) pravastatin Allergy (Verified 03/09/17 07:01) rosuvastatin calcium [From Crestor] Allergy (Verified 03/09/17 07:01) spironolactone Allergy (Verified 03/09/17 07:01) steroid injection Allergy (Uncoded 09/06/16 15:43) Red Man Syndrome Home Medications: Medication Instructions Recorded Aspirin [Aspirin 81mg (*)] 81 mg PO DAILY 06/05/16 predniSONE 5 mg PO BID 06/05/16 Diltiazem Cd [Cardizem ER 120 MG 120 mg PO DAILY #30 cap 09/23/16 (*)] Metoprolol Succinate Xr [Toprol Xl 50 mg PO DAILY 12/15/16 50 mg (*)] Acetaminophen [Tylenol ES 500 mg 1,000 mg PO Q8HRS tab 03/04/17 (*)] Indomethacin [Indocin 25 mg (*)] 25 mg PO 03/09/17 Medical Decision Making - Diagnostics Imaging Results: Imaging Impressions Knee X-Ray 03/09/17 07:52 Impression: 1. No acute osseous findings. 2. Atherosclerosis. Findings discussed with Dewayne Machado MD on March 09, 2017 at 0948 hours. Lumbar Spine MRI 03/09/17 07:52 Impression: 1. Stable severe spinal canal narrowing at L3-L4. 2. Expected postoperative changes of left far lateral diskectomy with no visible complication. Findings discussed with Dewayne Machado MD on March 09, 2017 at 0910 hours. Extremity Venous Study 03/09/17 10:31 Impression: No evidence of deep vein thrombosis. Findings discussed with DEWAYNE MACHADO 03/09/2017 at 11:39. MRI with IV contrast reviewed by me and discussed with Dr. Gil shows edema at the site. No hematoma. No evidence for abscess. Unchanged stenosis. X-ray left knee interpreted by me as nonacute Ultrasound left lower extremity shows no evidence of DVT Procedures: IV normal saline. Tylenol for pain ED Course/Re-evaluation: Re-evaluation 9:35 a.m.. Patient is stable. The patient, his , and I discussed imaging study results and laboratory evaluation. The patient now tells me he is able to walk. We will road test. He and I discussed treatment plan including criteria for return importance of follow-up further evaluation. They expressed understanding and agreement Re-evaluation at 11:40 a.m. patient and I discussed imaging study results, treatment plan, criteria for return and importance of follow-up and further evaluation. They expressed understanding and agreement. They are comfortable with going home Differential Diagnosis: possible the patient is having radiculopathy. There is no evidence for cauda equina syndrome though he has severe stenosis at L3-4. No evidence for DVT. Possibly is knee pain is from gout and he is being treated for gout to the knee with indomethacin. There is no evidence for abscess or hematoma at his operative site - Data Points Laboratory Results: Laboratory Results 03/09/17 08:00 03/09/17 08:00 03/09/17 03/09/17 03/09/17 08:00 08:00 08:00 WBC 8.36 10^3/uL 10^3/uL (3.80-9.50) RBC 3.80 10^6/uL L 10^6/uL (4.40-6.38) Hgb 13.2 g/dL L g/dL (13.7-17.5) Hct 37.9 % L % (40.0-51.0) MCV 99.7 fL fL (81.5-99.8) MCH 34.7 pg H pg (27.9-34.1) MCHC 34.8 g/dL g/dL (32.4-36.7) RDW 15.5 % H % (11.5-15.2) Plt Count 266 10^3/uL 10^3/uL (150-400) MPV 9.0 fL fL (8.7-11.7) Neut % (Auto) 83.2 % H % (39.3-74.2) Lymph % (Auto) 10.0 % L % (15.0-45.0) Cooper % (Auto) 5.3 % % (4.5-13.0) Eos % (Auto) 0.2 % L % (0.6-7.6) Baso % (Auto) 0.1 % L % (0.3-1.7) Nucleat RBC Rel Count 0.0 % % (0.0-0.2) Absolute Neuts (auto) 6.95 10^3/uL H 10^3/uL (1.70-6.50) Absolute Lymphs (auto) 0.84 10^3/uL L 10^3/uL (1.00-3.00) Absolute Monos (auto) 0.44 10^3/uL 10^3/uL (0.30-0.80) Absolute Eos (auto) 0.02 10^3/uL L 10^3/uL (0.03-0.40) Absolute Basos (auto) 0.01 10^3/uL L 10^3/uL (0.02-0.10) Absolute Nucleated RBC 0.00 10^3/uL 10^3/uL (0-0.01) Immature Gran % 1.2 % H % (0.0-1.1) Immature Gran # 0.10 10^3/uL 10^3/uL (0.00-0.10) PT 12.4 SEC SEC (12.0-15.0) INR 0.93 (0.83-1.16) APTT 24.3 SEC SEC (23.0-38.0) Sodium 141 mEq/L mEq/L (134-144) Potassium 4.6 mEq/L mEq/L (3.5-5.2) Chloride 104 mEq/L mEq/L (97-110) Carbon Dioxide 25 mEq/l mEq/l (22-31) Anion Gap 12 mEq/L mEq/L (8-16) BUN 34 mg/dL H mg/dL (7-23) Creatinine 1.0 mg/dL mg/dL (0.7-1.3) Estimated GFR > 60 Glucose 113 mg/dL H mg/dL (70-100) Calcium 9.5 mg/dL mg/dL (8.5-10.4) Medications Given: Discontinued Medications Acetaminophen (Tylenol) 1,000 mg PO EDNOW ONE Stop: 03/09/17 07:53 Last Admin: 03/09/17 08:59 Dose: 1,000 mg Sodium Chloride (Ns) 1,000 mls @ 0 mls/hr IV EDNOW ONE; Wide Open PRN Reason: Protocol Stop: 03/09/17 07:52 Last Admin: 03/09/17 08:59 Dose: 1,000 mls Departure - Departure Disposition: Home, Routine, Self-Care Clinical Impression: Lumbar radiculopathy Condition: Good Instructions: Lumbar Radiculopathy (ED) Additional Instructions: Continue regular medication including indomethacin. Return for bowel or bladder symptoms or leg weakness. Call Dr. Malcolm tomorrow to arrange follow- up evaluation. Referrals: Julián Mijares MD [Primary Care Provider] - As per Instructions Shemar Malcolm MD [Medical Doctor] - 2-3 days, call for appt.
[2017-03-09] MEDS ORDERED: NS 1,000 ML IV ONE (07:51)
[2017-03-09] MEDS ORDERED: ACETAMINOPHEN 500 MG TAB PO ONE (07:52)
[2017-03-09] MEDS ORDERED: GADOBUTROL 10 ML VIAL IVP ONE (08:03)
[2017-03-09 08:08] LABS: % IMMATURE GRANULYOCYTES 1.2 % (0.0-1.1); ADD DIFF? NO; ADD MORPH? NO; ADD SCAN? NO; ATYPICAL LYMPHOCYTE FLAG 0 (0-99); FRAGMENT RBC FLAG 0 (0-99); HEMATOCRIT 37.9 % (40.0-51.0); HEMOGLOBIN 13.2 g/dL (13.7-17.5); LEFT SHIFT FLG 0 (0-99); LIPEMIA HEMOLYSIS FLAG 90 (0-99); MEAN CELL HEMOGLOBIN 34.7 pg (27.9-34.1); MEAN CELL HEMOGLOBIN CONCENTR. 34.8 g/dL (32.4-36.7); MEAN CELL VOLUME 99.7 fL (81.5-99.8); PLATELET CLUMPS FLAG 10 (0-99); PLATELET COUNT 266 10^3/uL (150-400); RED CELL DISTRIBUTION WIDTH 15.5 % (11.5-15.2)
[2017-03-09 08:21] LABS: ANION GAP 12 mEq/L (8-16); CALCIUM 9.5 mg/dL (8.5-10.4); CARBON DIOXIDE 25 mEq/l (22-31); CHLORIDE 104 mEq/L (97-110); GLOMERULAR FILTRATION RATE > 60; GLUCOSE 113 mg/dL (70-100); POTASSIUM 4.6 mEq/L (3.5-5.2); SODIUM 141 mEq/L (134-144)
[2017-03-09 08:24] LABS: INR 0.93 (0.83-1.16); PROTIME(PATIENT) 12.4 SEC (12.0-15.0)
[2017-03-09 08:25] LABS: APTT 24.3 SEC (23.0-38.0)
[2017-03-09 12:04] VITALS: BP 121/71; PULSE 62; O2SAT 96
== END 2017-03-09 12:01 | disposition home or self-care (01) ==
PROC: 3E0337Z Introduction of Electrolytic and Water Balance Substance into Peripheral Vein, Percutaneous Approach (ICD-10-PCS; principal; 2017-03-09)
DX: M54.16 Radiculopathy, lumbar region (principal); I10 Essential (primary) hypertension; I25.10 Atherosclerotic heart disease of native coronary artery without angina pectoris; E86.9 Volume depletion, unspecified; Z79.82 Long term (current) use of aspirin; Z85.118 Personal history of other malignant neoplasm of bronchus and lung; Z87.891 Personal history of nicotine dependence
CPT/HCPCS: 72158; 73564; 93971; 96360; 99285; A9585

== ENCOUNTER 2017-03-23 23:48 | Emergency (ER) | payer OTHER, MEDICARE ==
[2017-03-24] MEDS ORDERED: KETOROLAC 15 MG/1 ML SDV IM ONE (00:32)
[2017-03-24] MEDS ORDERED: LIDOCAINE 5% 1 EA PATCH TD ONE (00:42)
--- NOTE | 2017-03-24 00:56 | EDPHY ---
H & P Stated Complaint: left knee pain/swelling Time Seen by Provider: 03/24/17 00:01 HPI/ROS: HPI The patient presents with left knee pain which has been present for the last several weeks and is on improved recently. He is about 3 weeks status post L3/ 4 for diskectomy performed for leg and back pain by Dr. Malcolm. He had pain after the operation and has had an MRI of his lumbar spine and his knee, these were unremarkable for any acute pathology. He was seen in the emergency department about 2 weeks ago for knee pain and had DVT ultrasound, MRI, x-ray which were all unremarkable. He was then referred to Orthopedics. He had a steroid joint injection which improved his pain transiently, however the pain has returned. He says the pain is sharp in nature, in the medial knee, is worse at night, and can wake him from sleep. He has had difficulty sleeping because of the pain. REVIEW OF SYSTEMS Constitutional: No fever, no chills. Eyes: No discharge. ENT: No sore throat. Cardiovascular: No chest pain, no palpitations. Respiratory: No cough, no shortness of breath. Gastrointestinal: No abdominal pain, no vomiting. Genitourinary: No hematuria. Musculoskeletal: No back pain. Skin: No rashes. Neurological: No headache. Soc Hx: Lives with his PHYSICAL General Appearance: Alert, no distress Eyes: Pupils equal and round no pallor or injection ENT, Mouth: Mucous membranes moist Respiratory: There are no retractions, lungs are clear to auscultation Cardiovascular: Regular rate and rhythm Gastrointestinal: Abdomen is soft and non-tender, no masses, bowel sounds normal Neurological: A&O, moves all extremities Skin: Warm and dry, no rashes Musculoskeletal: Left knee is medially tender to palpation along the joint line , there is some mild erythema of the skin in this area where a patch was placed , there is full range of motion of the knee, there is no obvious joint effusion , there is no laxity of the joint Extremities: symmetrical, full range of motion Psychiatric: Patient is oriented X 3, there is no agitation Source: Patient Exam Limitations: No limitations - Personal History Current Tetanus/Diphtheria Vaccine: No - Medical/Surgical History Hx Asthma: No Hx Chronic Respiratory Disease: Yes Hx Diabetes: No Hx Cardiac Disease: Yes Hx Renal Disease: No Hx Cirrhosis: No Hx Alcoholism: No Hx HIV/AIDS: No Hx Splenectomy or Spleen Trauma: No Other PMH: pmh- htn, hyperlipemia, gout, non-small cell lung ca stage IIIA, cad , afib. psh- L lung resection 08/31/14, cardiac stents x2, back surgery, cholecystectomy, port removed 2016 - Social History Smoking Status: Former smoker Constitutional: Initial Vital Signs Temperature (C) 36.4 C 03/23/17 23:50 Heart Rate 116 H 03/23/17 23:50 Respiratory Rate 20 03/23/17 23:50 Blood Pressure 130/88 H 03/23/17 23:50 O2 Sat (%) 95 03/23/17 23:50 O2 Delivery Mode Room Air Allergies/Adverse Reactions: allopurinol Allergy (Verified 03/23/17 23:56) amlodipine Allergy (Verified 03/23/17 23:56) atorvastatin calcium [From Lipitor] Allergy (Verified 03/23/17 23:56) Other-Enter Comments ezetimibe [From Zetia] Allergy (Verified 03/23/17 23:56) lisinopril Allergy (Verified 03/23/17 23:56) Other-Enter Comments lorazepam Allergy (Verified 03/23/17 23:56) Other-Enter Comments losartan potassium [From Cozaar] Allergy (Verified 03/23/17 23:56) GOUT morphine Allergy (Verified 03/23/17 23:56) Other-Enter Comments pitavastatin calcium [From Livalo] Allergy (Verified 03/23/17 23:56) pravastatin Allergy (Verified 03/23/17 23:56) rosuvastatin calcium [From Crestor] Allergy (Verified 03/23/17 23:56) spironolactone Allergy (Verified 03/23/17 23:56) steroid injection Allergy (Uncoded 09/06/16 15:43) Red Man Syndrome Home Medications: Medication Instructions Recorded Aspirin [Aspirin 81mg (*)] 81 mg PO DAILY 06/05/16 predniSONE 5 mg PO BID 06/05/16 Diltiazem Cd [Cardizem ER 120 MG 120 mg PO DAILY #30 cap 09/23/16 (*)] Metoprolol Succinate Xr [Toprol Xl 50 mg PO DAILY 12/15/16 50 mg (*)] Acetaminophen [Tylenol ES 500 mg 1,000 mg PO Q8HRS tab 03/04/17 (*)] Indomethacin [Indocin 25 mg (*)] 25 mg PO 03/09/17 Naproxen 375 mg PO BID #30 tablet 03/24/17 Medical Decision Making Procedures: Bedside left knee Ultrasound- performed and interpreted by me. Indication: Left knee pain Findings: No joint effusion, no cobblestoning or fluid collection seen in the soft tissue of the medial knee Impression: No joint effusion, no sinus cellulitis or abscess of the knee Differential Diagnosis: 71-year-old male presents with weeks of left leg and knee pain which is now more localized to his knee and not improved with recent steroid injection. Called his orthopedist and now is here for further evaluation. He initially had a diskectomy performed about 3 weeks ago for radiculopathy type symptoms. His pain now seems isolated to the left knee. He does not have any effusion, warmth, signs of infection. In the emergency department, I performed a bedside ultrasound which did not demonstrate any joint effusion, therefore I do not feel arthrocentesis would be helpful to evaluate for gout or any other pathology. He was given a Lidoderm 5 % patch as well as a dose of Toradol. His symptoms improved in the emergency department and he wanted to go home. His is concerned that the pain will return and they are not sure how to treat it. Given his improvement with Toradol here, I will give him a prescription for naproxen to take. I have advised that he should not be taking indomethacin or ibuprofen with this. He is taking Tylenol already around the clock. He may get benefit from taking naproxen with Tylenol. They have tried many other treatments for pain including gabapentin, opiates, without much relief. The cause of his pain is not entirely clear. It could be neuropathic verses related to muscle strain. I doubt septic joint, gout, cellulitis, fracture. He has follow up with his orthopedist in the next 1 day. I have advised him to follow up, he may benefit from physical therapy possibly. - Data Points Medications Given: Discontinued Medications Ketorolac Tromethamine (Toradol) 15 mg IM EDNOW ONE Stop: 03/24/17 00:33 Last Admin: 03/24/17 00:49 Dose: 15 mg Lidocaine (Lidoderm 5%) 1 ea TD DAILY THI Stop: 09/20/17 08:59 Last Admin: 03/24/17 00:51 Dose: 1 ea Departure - Departure Disposition: Home, Routine, Self-Care Clinical Impression: Left knee pain Qualifiers: Chronicity: acute Qualified Code(s): M25.562 - Pain in left knee Condition: Good Instructions: Knee Pain (ED) Additional Instructions: Please follow-up with the orthopedist as planned. Referrals: Tenzin Holcomb MD [Medical Doctor] - As per Instructions Prescriptions: Naproxen 375 mg PO BID #30 tablet
[2017-03-24 02:03] VITALS: BP 117/80; PULSE 108; RESP 18; TEMP 97.9; O2SAT 96
[2017-03-24] MEDS ORDERED: LIDOCAINE 5% 1 EA PATCH TD SCH (09:00)
[2017-03-24] MEDS ORDERED: PATCH REMOVAL 1 EA PATCH TD SCH (21:00)
== END 2017-03-24 02:00 | disposition home or self-care (01) ==
DX: M25.562 Pain in left knee (principal); I10 Essential (primary) hypertension; I25.10 Atherosclerotic heart disease of native coronary artery without angina pectoris; Z85.118 Personal history of other malignant neoplasm of bronchus and lung; Z87.891 Personal history of nicotine dependence; Z79.82 Long term (current) use of aspirin
CPT/HCPCS: 96372; 99284; J1885

== ENCOUNTER 2017-03-31 08:09 | Observation (INO) | payer OTHER, MEDICARE ==
[2017-03-31] MEDS ORDERED: ceFAZolin 2 GM/SWFI 2 GM/20 ML SYR IVP ONE (08:42)
[2017-03-31] MEDS ORDERED: LR 1,000 ML IV ONE (08:43)
[2017-03-31] MEDS ORDERED: LIDOCAINE 1% 2 ML INJ ID PRN (08:43)
[2017-03-31] MEDS ORDERED: ROPIVACAINE HCL 20 MG/10 ML INJ EP ONE ×3 (09:06→11:12)
[2017-03-31] MEDS ORDERED: ACETAMINOPHEN 325 MG TAB PO PRN (10:12)
[2017-03-31] MEDS ORDERED: HYDROmorphONE/DILAUDID 1 MG/ML INJ IVP PRN (10:12)
[2017-03-31] MEDS ORDERED: ONDANSETRON 4 MG/2 ML VIAL IVP PRN ×2 (10:12→11:16)
[2017-03-31] MEDS ORDERED: PROMETHAZINE HCL 25 MG/ML INJ IVP PRN (10:12)
[2017-03-31] MEDS ORDERED: OXYCODONE/APAP 5/325 TAB PO PRN (10:12)
[2017-03-31] MEDS ORDERED: D5W 1/2 NS W/ 20 KCl/L 1,000 ML IV SCH (10:15)
--- NOTE | 2017-03-31 10:17 | PDANEPAE ---
ANE History of Present Illness 71 yo m here for L knee arthroscopy ANE Past Medical History - Cardiovascular History Hx Hypertension: Yes Hx Arrhythmias: Yes Hx Chest Pain: No Hx Coronary Artery / Peripheral Vascular Disease: Yes Hx CHF / Valvular Disease: No Hx Palpitations: No Cardiovascular History Comment: A-FIB. STENTS X3 LAST 05/2013 - Pulmonary History Hx COPD: No Hx Asthma/Reactive Airway Disease: No Hx Recent Upper Respiratory Infection: No Hx Oxygen in Use at Home: Yes Hx Sleep Apnea: No Sleep Apnea Screening Result - Last Documented: Positive Pulmonary History Comment: 08/2016 POST OP ASPIRATION PNEUMONIA. lung ca l lung - Neurologic History Hx Cerebrovascular Accident: No Hx Seizures: No Hx Dementia: No Neurologic History Comment: MIGRAINES - Endocrine History Hx Diabetes: No - Renal History Hx Renal Disorders: No Renal History Comment: POST OP URINARY RETENTION 02/2017 - Liver History Hx Hepatic Disorders: No Hepatic History Comment: Can't tolerate statin medications. - Neurological & Psychiatric Hx Hx Neurological and Psychiatric Disorders: No - Cancer History Hx Cancer: Yes Cancer History Comment: lung ca dx 07-24-2014,surg & chemo Q 2 WKS - LD 03/27/2017 - Congenital Disorder History Hx Congenital Disorders: No - GI History Hx Gastrointestinal Disorders: No Gastrointestinal History Comment: CONSTIPATION. - Other Health History Other Health History: CURRENTLY DOING CHEMO BIWEEKLY. LAST 03/27/2017. missing teeth. GOUT - Chronic Pain History Chronic Pain: Yes (LT KNEE) - Surgical History Prior Surgeries: MICRODISKECTOMY 02/24/2017 POST OP URINARY RETENTION. CERVICAL FUSION 08/2016 POST OP ASPIRATION PNEUMONIA. RT CAROTID ENDARTERECTOMY 05/2016. TIFFANIE 04/2015. LUMBAR DECOMPRESSION 2014. 3 stents, angiogram,. DEBBIE cataract surgery. DEBBIE FOOT gout surgery. LT LUNG upper lobectomy 08-31-14 ANE Review of Systems Review of Systems: - Exercise capacity METS (RN): 4 METS ANE Patient History - Allergies Allergies/Adverse Reactions: allopurinol Allergy (Verified 03/23/17 23:56) amlodipine Allergy (Verified 03/23/17 23:56) atorvastatin calcium [From Lipitor] Allergy (Verified 03/23/17 23:56) Other-Enter Comments ezetimibe [From Zetia] Allergy (Verified 03/23/17 23:56) lisinopril Allergy (Verified 03/23/17 23:56) Other-Enter Comments lorazepam Allergy (Verified 03/23/17 23:56) Other-Enter Comments losartan potassium [From Cozaar] Allergy (Verified 03/23/17 23:56) GOUT morphine Allergy (Verified 03/23/17 23:56) Other-Enter Comments pitavastatin calcium [From Livalo] Allergy (Verified 03/23/17 23:56) pravastatin Allergy (Verified 03/23/17 23:56) rosuvastatin calcium [From Crestor] Allergy (Verified 03/23/17 23:56) spironolactone Allergy (Verified 03/23/17 23:56) steroid injection Allergy (Uncoded 09/06/16 15:43) Red Man Syndrome - Home Medications Home Medications: Aspirin [Aspirin 81mg (*)] 81 mg PO DAILY 06/05/16 [Last Taken 03/25/17] predniSONE mg PO BID 06/05/16 [Last Taken 03/31/17] Metoprolol Succinate Xr [Toprol Xl 50 mg (*)] 50 mg PO DAILY06 12/15/16 [Last Taken 03/31/17] Indomethacin [Indocin 25 mg (*)] 25 mg PO PRN PRN 03/09/17 [Last Taken Unknown] Diltiazem Cd [Cardizem ER 120 MG (*)] 120 mg PO DAILY06 03/28/17 [Last Taken 11/09] Milk of Magnesia PRN 03/28/17 [Last Taken Unknown] Senokot DAILY 03/28/17 [Last Taken Unknown] - NPO status NPO Status: no food or drink >8 hours NPO Since - Liquids (Date): 03/31/17 NPO Since - Liquids (Time): 07:00 NPO Since - Solids (Date): 03/30/17 NPO Since - Solids (Time): 12:00 - Anes Hx Anes Hx: no prior problems - Smoking Hx Smoking Status: Former smoker - Family Anes Hx Family Anes Hx: none Family Hx Anesthesia Complications: NONE ANE Labs/Vital Signs - Vital Signs Blood Pressure: 134/82 Heart Rate: 76 Respiratory Rate: 18 O2 Sat (%): 94 Height: 162.56 cm Weight: 63.503 kg ANE Physical Exam - Airway Neck exam: FROM Mallampati Score: Class 3 Mouth exam: small mouth opening Mouth image: 1 - missing - Pulmonary Pulmonary: no respiratory distress - Cardiovascular Cardiovascular: regular rate and rhythym - ASA Status ASA Status: III
[2017-03-31] MEDS ORDERED: PROPOFOL 200 MG/20 ML VIAL ONE ×2 (10:27)
[2017-03-31] MEDS ORDERED: fentaNYL 100 MCG/2 ML INJ ONE (10:27)
[2017-03-31] MEDS ORDERED: LIDOCAINE 2% 100 MG/5 ML SYR ONE (10:36)
[2017-03-31] MEDS ORDERED: NALOXONE HCL 0.4 MG/ML INJ IVP PRN (11:16)
[2017-03-31] MEDS ORDERED: fentaNYL 100 MCG/2 ML INJ IVP PRN (11:16)
--- NOTE | 2017-03-31 11:54 | GOP ---
[f rep st] OPERATIVE REPORT DATE OF OPERATION: 03/31/2017 SURGEON: Tenzin Holcomb MD PREOPERATIVE DIAGNOSIS: 1. Left knee medial meniscus tear. 2. Synovitis. POSTOPERATIVE DIAGNOSIS: 1. Left knee medial meniscus tear. 2. Synovitis. PROCEDURE PERFORMED: 1. Arthroscopic partial lateral meniscectomy, arthroscopic medial meniscectomy. 2. Arthroscopic extensive synovectomy. 3. Arthroscopic medial meniscal repair with curved fast fix. Rosado and Nephew. Middle horn medial meniscus. FINDINGS: INDICATIONS: The patient is a 71-year-old male who underwent lumbar laminectomy for medial adductor type of pain. The medial adductor resolved and had medial knee pain. It was focused around the medial femoral condyle near his hamstrings. He had a lumbar MRI which Dr. Malcolm reviewed. I was consulted for a right knee. An MRI was obtained which showed meniscal pathology. He underwent a successful lidocaine steroid injection test which gave him 80% relief of his left knee pain. He presents for operative fixation and stabilization of the left knee. DESCRIPTION OF PROCEDURE: The patient identified in the preoperative holding area, consent, laterality and preoperative antibiotics were confirmed delivered. All questions were answered. He was tender to touch over the medial femoral condyle. Tender medial joint line. He had essentially pain- free range of motion today. His was at the bedside for questions and answers. Patient brought into the operating room. Adductor canal block. Left lower extremity was identified. A thigh tourniquet was placed but was not used. The left lower extremity was prepped and draped in usual sterile fashion. Surgical time-out was performed. Standard two portal technique diagnostic arthroscopy included chondrocalcinosis. Grade 1 cartilage patella. Grade 1/2 cartilage trochlea. The medial compartment also grade 1/2. What I thought was interesting was the middle horn of the medial meniscus had a full-thickness meniscocapsular tear about a cm right at the middle of the middle horn. There was also a complex middle posterior horn tear that was on the inner 2/3. The ACL was intact. PCL was intact. Ligamentum mucosum intact. He had synovitis throughout. The lateral compartment looked better. Grade 1 cartilage lateral and just inner 3rd fraying. Approximately 30% of the posterior horn and medial meniscus was removed, the inner 3rd, and then we placed a FastFix at the middle of the middle horn. We trimmed less than 10% of the inner 3rd of the lateral meniscus and did an extensive synovectomy anterior, medial, lateral compartment. Arthroscopic fluid and debris were removed. We removed as much chondrocalcinosis as we could. We injected the joint with 10 cc of 0.2% ropivacaine. Injected with a spinal needle up the hamstring tendons in the pes anserinus bursa with another 10 cc of 0.2% ropivacaine and then 5 cc into each portal site. 3-0 Monocryl for closure. Mastisol, Steri-Strips, Xeroform, 4x4s, ABD, sterile Lewis applied. TOURNIQUET TIME: Zero. DISPOSITION: Extubated, awake to the PACU in stable condition. /[id number]/MODL MTDD
[2017-03-31] MEDS ORDERED: INDOMETHACIN 25 MG CAP PO PRN (15:51)
[2017-03-31] MEDS ORDERED: MAGNESIUM HYDROXIDE 30 ML UDCUP PO PRN (15:51)
[2017-03-31] MEDS: HYDROCODONE/APAP 5/325 TAB PO PRN ×2 (16:59→23:41)
--- NOTE | 2017-03-31 19:16 | GCON ---
[f rep st] CONSULTATION DATE OF CONSULTATION: 03/31/2017 REFERRING PHYSICIAN: Tenzin Holcomb MD REASON FOR REFERRAL: Medical management. HISTORY OF PRESENT ILLNESS: The patient is a 71-year-old admitted by Dr. Holcomb for left knee arthrosc opy, medial meniscal repair and partial lateral meniscectomy. He did well postop and is recovering i n his room and has no complaints. The patient has a number of medical issues that we are asked to fo llow. Currently, he denies any chest pain, palpitations, or shortness of breath. He denies any abdo tc complaints, nausea, vomiting, diarrhea. He has had no significant lower extremity edema. The rest of his review of systems was unremarkable. His main issues include coronary artery disease. He sees Dr. Terrell. He has had 1 episode of paroxysmal atrial fibrillation and has been in sinus rhythm since then. He has also had a history of lung cancer, followed by Dr. Kapoor and is currently cance r free. REVIEW OF SYSTEMS: A 10-point review of systems was done with pertinent positives present in HPI. PAST MEDICAL HISTORY: 1. Coronary artery disease, status post LAD and RCA stent. 2. Paroxysmal atrial fibrillation. Currently not on anticoagulation. 3. Gout. Takes occasional indomethacin. 4. Lung cancer, status post left upper lobe resection, chemo. Recently did, what sounds like, a gen e therapy and is cancer free. 5. Dyslipidemia. Intolerant of statins. 6. History of anemia. 7. History of pulmonary hypertension. 8. History of C difficile colitis on March of 2016. SOCIAL HISTORY: He is retired and living in [place] with his . They have no children. 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 He quit smoking in 2013 and used to be a heavy drin ker but quit drinking as well. FAMILY HISTORY: Reviewed and noncontributory. CURRENT MEDICATIONS: 1. Toprol-XL 50 mg daily. 2. Milk of Magnesia. 3. Indocin. 4. Diltiazem. 5. Aspirin. 6. Acetaminophen. 7. Prednisone. ALLERGIES: 1. Allopurinol. 2. Amlodipine. 3. Statins. 4. Zetia. 5. Lisinopril. 6. Lorazepam. 7. Losartan. 8. Morphine. 9. Livalo. 10. Spironolactone. 11. Steroid injection. PHYSICAL EXAMINATION: VITAL SIGNS: Afebrile. Heart rate 71, blood pressure 123/73, respirations 16 . He is 92% on room air. GENERAL: He is a very healthy-appearing 71-year-old. He is in no distres s. He is alert and oriented. HEENT: Atraumatic. Pupils equal. Extraocular movements intact. Muc ous membranes moist. Oropharynx clear. NECK: Supple. No adenopathy. HEART: Regular rate and rhy thm. No murmur, gallop, or rub. LUNGS: Clear bilaterally. No wheezes, rhonchi, or rales. ABDOMEN : Soft, nontender, nondistended. No masses. EXTREMITIES: No significant edema. No cyanosis or cl ubbing. MUSCULOSKELETAL: Status post left knee scope with bandage in place. No other deformities n oted. No muscle atrophy. NEUROLOGIC: He is alert and oriented. Speech is fluent. SKIN: No rash. LABORATORY DATA: CBC done on 03/27/2017, shows a white count of 7.4, hemoglobin 13.8 with platelet c ount 177. Chemistry shows normal electrolytes. Renal function shows a BUN 34, creatinine 1.1. Gluc ose slightly elevated at 101. Hemoglobin A1c is 6.6, done on 03/21/2015. ASSESSMENT AND PLAN: A 71-year-old admitted for a left knee scope. He is recovering well and has no acute issues at this time. He does have a medical history significant for multiple issues. 1. Coronary artery disease, status post stent. Currently asymptomatic. We will continue his usual home medications. 2. Hypertension, stable. We will continue his medications and monitor his blood pressure. 3. Dyslipidemia. He is intolerant to statins. 4. History of anemia. 5. Atrial fibrillation, paroxysmal atrial fibrillation. Has been in sinus rhythm for over a year. We will monitor his heart rate here in the hospital. 6. Elevated blood sugar noted in clinic. He is on prednisone. We will monitor sugars as needed. Twyla mak needs to follow up with a primary care physician as an outpatient for his diabetic/prediabetic care . 7. Thank you for the consultation. /[id number]/MODL
[2017-03-31] MEDS: predniSONE 5 MG TAB PO SCH (21:02)
[2017-03-31] MEDS: ACETAMINOPHEN 500 MG TAB PO SCH (23:01)
[2017-04-01] MEDS: HYDROCODONE/APAP 5/325 TAB PO PRN ×3 (03:59→12:39)
[2017-04-01 04:02] VITALS: TEMP 98.2
[2017-04-01] MEDS ORDERED: METOPROLOL SUCCINATE XR 50 MG TAB PO SCH (06:00)
[2017-04-01] MEDS: ACETAMINOPHEN 500 MG TAB PO SCH (06:09)
[2017-04-01 07:40] VITALS: RESP 16
[2017-04-01] MEDS ORDERED: ASPIRIN 81 MG CHEWABLE TAB PO SCH (09:00)
[2017-04-01] MEDS ORDERED: DILTIAZEM CD 120 MG CAP PO SCH (09:00)
[2017-04-01] MEDS ORDERED: ENOXAPARIN 40 MG/0.4 ML SYR SC SCH (09:00)
[2017-04-01] MEDS: predniSONE 5 MG TAB PO SCH (09:26)
[2017-04-01 11:36] VITALS: BP 108/60; PULSE 69; O2SAT 93
--- NOTE | 2017-04-01 14:21 | ASDISCHSUM ---
Discharge Information Plan Status:Home with No Needs Medically Cleared to Leave: Discharge Date:04/01/2017 01:58 PM CM D/C Disposition:Home, Routine, Self-Care ADT D/C Disposition:Home, Routine, Self-Care Projected Discharge Date:04/01/2017 01:58 PM Transportation at D/C: Discharge Delay Reason: Follow-Up Date:04/01/2017 01:58 PM Discharge Slot: Final Diagnosis: Placement Information Patient Contact Information Contact Name:GABRIELLE Relationship: Address:[address] [address] City:[place] Alternate Phone: [facility]/Zip Code:[place] [address] Email: Financial Information Financial Class: Primary Plan Desc:MEDICARE OUTPATIENT Primary Plan Number:[id number] Secondary Plan Desc:AARP/MDR SUPPLEMENT Secondary Plan Number:[id number] Assessment Information [facility] CM Progress Note CM Note CM Note Notes: PT rec outpatient, no CM d/c needs identified. Date Signed: 04/01/2017 02:20 PM Electronically Signed By:YON Olmos Intervention Information Intervention Type:*TR-Signed Date of Service:04/01/2017 11:40 AM Patient Type:Observation Staff Member:Silvia Rosenbaum Hours: Discipline: Severity: Comment:
--- NOTE | 2017-04-01 14:21 | ASDISCHSUM ---
Discharge Information Plan Status:Home with No Needs Medically Cleared to Leave: Discharge Date:04/01/2017 01:58 PM CM D/C Disposition:Home, Routine, Self-Care ADT D/C Disposition:Home, Routine, Self-Care Projected Discharge Date:04/01/2017 01:58 PM Transportation at D/C: Discharge Delay Reason: Follow-Up Date:04/01/2017 01:58 PM Discharge Slot: Final Diagnosis: Placement Information Patient Contact Information Contact Name:GABRIELLE Relationship: Address:[address] [address] City:[place] Alternate Phone: [facility]/Zip Code:[place] [address] Email: Financial Information Financial Class: Primary Plan Desc:MEDICARE OUTPATIENT Primary Plan Number:[id number] Secondary Plan Desc:AARP/MDR SUPPLEMENT Secondary Plan Number:[id number] Assessment Information [facility] CM Progress Note CM Note CM Note Notes: PT rec outpatient, no CM d/c needs identified. Date Signed: 04/01/2017 02:20 PM Electronically Signed By:YON Olmos Intervention Information Intervention Type:*TR-Signed Date of Service:04/01/2017 11:40 AM Patient Type:Observation Staff Member:Silvia Rosenbaum Hours: Discipline: Severity: Comment:
--- NOTE | 2017-04-01 14:21 | ASDISCHSUM ---
Discharge Information Plan Status:Home with No Needs Medically Cleared to Leave: Discharge Date:04/01/2017 01:58 PM CM D/C Disposition:Home, Routine, Self-Care ADT D/C Disposition:Home, Routine, Self-Care Projected Discharge Date:04/01/2017 01:58 PM Transportation at D/C: Discharge Delay Reason: Follow-Up Date:04/01/2017 01:58 PM Discharge Slot: Final Diagnosis: Placement Information Patient Contact Information Contact Name:GABRIELLE Relationship: Address:[address] [address] City:[place] Alternate Phone: [facility]/Zip Code:[place] [address] Email: Financial Information Financial Class: Primary Plan Desc:MEDICARE OUTPATIENT Primary Plan Number:[id number] Secondary Plan Desc:AARP/MDR SUPPLEMENT Secondary Plan Number:[id number] Assessment Information [facility] CM Progress Note CM Note CM Note Notes: PT rec outpatient, no CM d/c needs identified. Date Signed: 04/01/2017 02:20 PM Electronically Signed By:YON Olmos Intervention Information Intervention Type:*TR-Signed Date of Service:04/01/2017 11:40 AM Patient Type:Observation Staff Member:Silvia Rosenbaum Hours: Discipline: Severity: Comment:
--- NOTE | 2017-04-01 16:28 | HOSPPROG ---
Hospitalist Progress Note Assessment/Plan: 71 with multiple medical issues is admitted after knee scope for close monitoring. he had no issues overnight except some mild swelling in the surgical leg no cp or sob #.CAD: asymptomatic #. PAF: reg HR this am, no evidence of afib #. Hx PE: DVT prophylaxis per surgery #. Lung ca, remission. Stable for DC home when OK per surgery Subjective: no cp or sob, mild swelling left ankle Objective: Vital Signs Temp Pulse Resp BP Pulse Ox 36.8 C 69 16 108/60 93 04/01/17 07:39 04/01/17 11:35 04/01/17 11:35 04/01/17 11:35 04/01/17 11:35 03/31/17 04/01/17 04/02/17 05:59 05:59 05:59 Intake Total 1250 Output Total 170 Balance 1080 - Physical Exam Constitutional: no apparent distress Cardiovascular: regular rate and rhythym, no murmur, rub, or gallop, edema ( mild left ankle) Respiratory: no respiratory distress ICD10 Worksheet Patient Problems: Problems Problem Status Onset Headache Acute Chest pain Acute Lumbar back pain with radiculopathy affecting left lower extremity Acute CAD (coronary artery disease) Chronic Dyslipidemia Chronic RUQ abdominal pain Acute Dysphagia, oropharyngeal Acute On total parenteral nutrition (TPN) Acute C. difficile diarrhea Acute 04/05/16 Hypokalemia Acute Hypomagnesemia Acute Hypocalcemia Acute Gout Acute Diarrhea Acute Nausea & vomiting Acute Dehydration Acute Weakness Acute Neck pain Acute Pneumonia Acute Cervical stenosis of spine Acute Arthrodesis status Acute
== END 2017-04-01 13:58 | disposition home or self-care (01) ==
LOC: FSGY 08:09 → F3N 12:51
PROVIDERS: ADMIT Orthopaedic Surgery; ATTEND Orthopaedic Surgery
PROC: 0SBD4ZZ Excision of Left Knee Joint, Percutaneous Endoscopic Approach (ICD-10-PCS; principal; 2017-03-31 10:00)
PROC: 0SQD4ZZ Repair Left Knee Joint, Percutaneous Endoscopic Approach (ICD-10-PCS; principal; 2017-03-31 10:00)
DX: S83.242D Other tear of medial meniscus, current injury, left knee, subsequent encounter (principal); I25.10 Atherosclerotic heart disease of native coronary artery without angina pectoris; I48.0 Paroxysmal atrial fibrillation; M10.9 Gout, unspecified; E78.5 Hyperlipidemia, unspecified; Z85.118 Personal history of other malignant neoplasm of bronchus and lung; Z86.711 Personal history of pulmonary embolism; M65.862 Other synovitis and tenosynovitis, left lower leg
CPT/HCPCS: 29882; 97161; 97165; G8978; G8979; G8987; G8988; G8989; J0690; J1650; J2001; J2704; J2795; J3010

== ENCOUNTER 2017-04-19 22:44 | Emergency (ER) | payer OTHER, MEDICARE ==
--- NOTE | 2017-04-19 23:31 | EDPHY ---
H & P Stated Complaint: Gout, can't eat, and knee surgery nov Source: Patient, Family () Exam Limitations: No limitations - Personal History Current Tetanus/Diphtheria Vaccine: No Current Tetanus Diphtheria and Acellular Pertussis (TDAP): No - Medical/Surgical History Hx Asthma: No Hx Chronic Respiratory Disease: Yes Hx Diabetes: No Hx Cardiac Disease: Yes Hx Renal Disease: No Hx Cirrhosis: No Hx Alcoholism: No Hx HIV/AIDS: No Hx Splenectomy or Spleen Trauma: No Other PMH: pmh- htn, hyperlipemia, gout, non-small cell lung ca stage IIIA, cad , afib. psh- L lung resection 08/31/14, cardiac stents x2, back surgery, cholecystectomy, port removed 2016, left knee 2016 - Social History Smoking Status: Former smoker Time Seen by Provider: 04/19/17 23:31 HPI/ROS: HPI: This is a 71-year-old male presents with Chief Complaint: Gout, can't eat, and knee surgery nov Location: Left great toe Quality: gout Duration: 1-2 days Signs and Symptoms: no fever, + nausea, no vomiting, no hematemesis, no blood in stool, no abdominal bloating, no diarrhea, + back pain, no urinary symptoms, no testicular/groin pain, no indigestion, no chest pain, no shortness of breath Timing: Constant Severity: [id number] Context: Patient has a very complex history and presents with multiple complaints. Primarily he has experienced for the last 1-2 days left great toe gout despite taking colchicine and indomethacin. He also has lung cancer is currently taking chemotherapy. He has had 3 surgeries this year included carotid surgery, neck surgery and knee surgery. He had been on opiate pain medications for quite some time and patient has quit cold turkey recently. For the last 40+ hours patient has not had an appetite and has not eaten any food. Modifying Factors: None Comment: ROS: see HPI Constitutional: No fever, no chills, no weight loss Eyes: No blurred vision Respiratory: No shortness of breath, no cough Cardiovascular: No chest pain, no palpitations Gastrointestinal: + nausea, no vomiting, no diarrhea, no hematemesis, no blood in stool Genitourinary: No dysuria, no blood in urine Extremities: No myalgias, no edema Neurologic: No weakness, no numbness Skin: No rashes, no petechiae Hematologic: No bruising, no bleeding MEDICAL/SURGICAL/SOCIAL HISTORY: pmh- htn, hyperlipemia, gout, non-small cell lung ca stage IIIA, cad, afib psh- L lung resection 08/31/14, cardiac stents x2, back surgery, cholecystectomy, port removed 2016, left knee 2017 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 Tympanic membranes clear. Oropharynx clear, no exudate and moist pink mucosa. Airway patent. No lymphadenopathy. No meningismus. Cardiovascular: Normal S1/S2, tachycardia, regular rhythm, without murmur rub or gallop. PULMONARY/CHEST: Symmetrical and nontender. Clear to auscultation bilaterally. Good air movement. No accessory muscle usage. ABDOMEN: Soft, nondistended, nontender, no rebound, no guarding, no peritoneal signs, no masses or organomegaly. No CVAT. EXTREMITIES: 2/2 DP and PT pulses, left great toe mild redness and swelling. strength 5/5, no deformities, no clubbing, no cyanosis or edema. NEUROLOGICAL: no focal neuro deficits. GCS 15. SKIN: Warm and dry, no erythema. no rash. Good capillary refill. (Shanique Mitchell) Constitutional: Initial Vital Signs Temperature (C) 36.4 C 04/19/17 22:49 Heart Rate 117 H 04/19/17 22:49 Respiratory Rate 18 04/19/17 22:49 Blood Pressure 164/90 H 04/19/17 22:49 O2 Sat (%) 95 04/19/17 22:49 O2 Delivery Mode Nasal Cannula O2 (L/minute) 2 Allergies/Adverse Reactions: allopurinol Allergy (Verified 04/19/17 22:54) amlodipine Allergy (Verified 04/19/17 22:54) atorvastatin calcium [From Lipitor] Allergy (Verified 04/19/17 22:54) Other-Enter Comments ezetimibe [From Zetia] Allergy (Verified 04/19/17 22:54) lisinopril Allergy (Verified 04/19/17 22:54) Other-Enter Comments lorazepam Allergy (Verified 04/19/17 22:54) Other-Enter Comments losartan potassium [From Cozaar] Allergy (Verified 04/19/17 22:54) GOUT morphine Allergy (Verified 04/19/17 22:54) Other-Enter Comments pitavastatin calcium [From Livalo] Allergy (Verified 04/19/17 22:54) pravastatin Allergy (Verified 04/19/17 22:54) rosuvastatin calcium [From Crestor] Allergy (Verified 04/19/17 22:54) spironolactone Allergy (Verified 04/19/17 22:54) steroid injection Allergy (Uncoded 04/19/17 22:54) Red Man Syndrome Home Medications: Medication Instructions Recorded Aspirin [Aspirin 81mg (*)] 81 mg PO DAILY 06/05/16 predniSONE 5 mg PO BID 06/05/16 Metoprolol Succinate Xr [Toprol Xl 50 mg PO DAILY06 12/15/16 50 mg (*)] Indomethacin [Indocin 25 mg (*)] 25 mg PO DAILY PRN 03/09/17 Diltiazem Cd [Cardizem ER 120 MG 120 mg PO DAILY 03/28/17 (*)] Magnesium Hydroxide [Milk of 30 ml PO DAILY PRN 03/28/17 Magnesia] Hydrocodone/APAP 5/325 [[place] 1 - 2 tab PO Q3HRS PRN #30 tab 04/01/17 5/325 (*)] Ondansetron [Zofran Odt] 8 mg PO Q8H PRN #10 tab.rapdis 04/01/17 Medical Decision Making ED Course/Re-evaluation: Labs, urinalysis, IV fluids, left foot x-ray, CT abdomen and pelvis scan ordered Etiology could be opiate withdrawal, acute kidney injury, small bowel obstruction Given 2 L normal saline, IV Zofran, IV Solu-Medrol, IV Dilaudid with adequate relief of pain 0115: Called by Radiology Dr. Encarnacion who advised that CT abdomen and pelvis scan shows no signs of colitis, obstruction, appendicitis. + does show some fluid filled bowel that would be consistent with a gastroenteritis type picture. Foot x-ray shows degenerative changes consistent with a gouty arthropathy at the 1st MTP 0140: Reassessed patient who reports that his pain is improved but he still does not feel like he can eat. Discussed patient with attending. Patient will receive IV fluids over the next several hours and then be re-evaluated by Dr. Molina in the AM. (Shanique Mitchell) 3:45 a.m.- Patient remained stable throughout the last several hours. He is feeling much better. He received more IV fluids. He is asking to go home. I feel this is reasonable given his relatively normal evaluation here. I have advised him and his to continue the indomethacin for his gout. He will be discharged from the emergency department. PHYSICIAN DOCUMENTATION: The patient was evaluated and managed by the Physician Registered Radiographer. My co- signature indicates that I have reviewed this chart and I agree with the findings and plan of care as documented. I am the secondary supervising physician. (Kailyn Molina) Differential Diagnosis: Abdominal pain including but not limited to appendicitis, cholecystitis, gastritis and urinary tract infection. (Shanique Mitchell) - Data Points Laboratory Results: Laboratory Results 04/19/17 23:45 04/19/17 23:45 04/20/17 04/20/17 04/19/17 01:20 00:05 23:45 WBC RBC Hgb Hct MCV MCH MCHC RDW Plt Count MPV Neut % (Auto) Lymph % (Auto) [place] % (Auto) Eos % (Auto) Baso % (Auto) Nucleat RBC Rel Count Absolute Neuts (auto) Absolute Lymphs (auto) Absolute Monos (auto) Absolute Eos (auto) Absolute Basos (auto) Absolute Nucleated RBC Immature Gran % Immature Gran # PT INR APTT VBG Lactic Acid 1.2 mmol/L mmol/L (0.7-2.1) Sodium 141 mEq/L mEq/L (134-144) Potassium 4.1 mEq/L mEq/L (3.5-5.2) Chloride 107 mEq/L mEq/L (97-110) Carbon Dioxide 21 mEq/l L mEq/l (22-31) Anion Gap 13 mEq/L mEq/L (8-16) BUN 18 mg/dL mg/dL (7-23) Creatinine 1.1 mg/dL mg/dL (0.7-1.3) Estimated GFR > 60 Glucose 103 mg/dL H mg/dL (70-100) Calcium 9.2 mg/dL mg/dL (8.5-10.4) Total Bilirubin 0.6 mg/dL mg/dL (0.1-1.4) Conjugated Bilirubin 0.0 mg/dL mg/dL (0.0-0.5) Unconjugated Bilirubin 0.6 mg/dL mg/dL (0.0-1.1) AST 34 IU/L IU/L (17-59) ALT 42 IU/L IU/L (21-72) Alkaline Phosphatase 94 IU/L IU/L (38-126) Total Protein 6.7 g/dL g/dL (6.3-8.2) Albumin 4.1 g/dL g/dL (3.5-5.0) Lipase 293 IU/L IU/L (23-300) Urine Color PALE YELLOW Urine Appearance CLEAR Urine pH 5.0 (5.0-7.5) Ur Specific Joshua 1.011 (1.002-1.030) Urine Protein NEGATIVE (NEGATIVE) Urine Ketones NEGATIVE (NEGATIVE) Urine Blood NEGATIVE (NEGATIVE) Urine Nitrate NEGATIVE (NEGATIVE) Urine Bilirubin NEGATIVE (NEGATIVE) Urine Urobilinogen NEGATIVE EU EU (0.2-1.0) Ur Leukocyte Esterase NEGATIVE (NEGATIVE) Urine Glucose NEGATIVE (NEGATIVE) 04/19/17 04/19/17 23:45 23:45 WBC 6.17 10^3/uL 10^3/uL (3.80-9.50) RBC 4.29 10^6/uL L 10^6/uL (4.40-6.38) Hgb 14.8 g/dL g/dL (13.7-17.5) Hct 42.5 % % (40.0-51.0) MCV 99.1 fL fL (81.5-99.8) MCH 34.5 pg H pg (27.9-34.1) MCHC 34.8 g/dL g/dL (32.4-36.7) RDW 14.3 % % (11.5-15.2) Plt Count 289 10^3/uL 10^3/uL (150-400) MPV 8.7 fL fL (8.7-11.7) Neut % (Auto) 58.9 % % (39.3-74.2) Lymph % (Auto) 27.7 % % (15.0-45.0) [place] % (Auto) 9.7 % % (4.5-13.0) Eos % (Auto) 1.1 % % (0.6-7.6) Baso % (Auto) 0.8 % % (0.3-1.7) Nucleat RBC Rel Count 0.0 % % (0.0-0.2) Absolute Neuts (auto) 3.63 10^3/uL 10^3/uL (1.70-6.50) Absolute Lymphs (auto) 1.71 10^3/uL 10^3/uL (1.00-3.00) Absolute Monos (auto) 0.60 10^3/uL 10^3/uL (0.30-0.80) Absolute Eos (auto) 0.07 10^3/uL 10^3/uL (0.03-0.40) Absolute Basos (auto) 0.05 10^3/uL 10^3/uL (0.02-0.10) Absolute Nucleated RBC 0.00 10^3/uL 10^3/uL (0-0.01) Immature Gran % 1.8 % H % (0.0-1.1) Immature Gran # 0.11 10^3/uL H 10^3/uL (0.00-0.10) PT 12.4 SEC SEC (12.0-15.0) INR 0.93 (0.83-1.16) APTT 26.3 SEC SEC (23.0-38.0) VBG Lactic Acid Sodium Potassium Chloride Carbon Dioxide Anion Gap BUN Creatinine Estimated GFR Glucose Calcium Total Bilirubin Conjugated Bilirubin Unconjugated Bilirubin AST ALT Alkaline Phosphatase Total Protein Albumin Lipase Urine Color Urine Appearance Urine pH Ur Specific Joshua Urine Protein Urine Ketones Urine Blood Urine Nitrate Urine Bilirubin Urine Urobilinogen Ur Leukocyte Esterase Urine Glucose Medications Given: Sodium Chloride (Ns) 1,000 mls @ 100 mls/hr IV CONT THI Stop: 10/17/17 01:44 Last Admin: 04/20/17 01:43 Dose: 1,000 mls Discontinued Medications Hydromorphone HCl (Dilaudid) 1 mg IVP EDNOW ONE Stop: 04/19/17 23:47 Last Admin: 04/20/17 00:20 Dose: 1 mg Sodium Chloride (Ns) 1,000 mls @ 0 mls/hr IV EDNOW ONE; Wide Open PRN Reason: Protocol Stop: 04/19/17 23:45 Last Admin: 04/20/17 00:21 Dose: 1,000 mls Sodium Chloride (Ns) 1,000 mls @ 0 mls/hr IV EDNOW ONE; Wide Open PRN Reason: Protocol Stop: 04/19/17 23:45 Last Admin: 04/19/17 23:00 Dose: 1,000 mls Methylprednisolone Sodium Succinate (Solu-Medrol) 40 mg IVP EDNOW ONE Stop: 04/19/17 23:47 Last Admin: 04/20/17 00:20 Dose: 40 mg Ondansetron HCl (Zofran) 4 mg IVP EDNOW ONE Stop: 04/19/17 23:45 Last Admin: 04/20/17 00:22 Dose: 4 mg Departure - Departure Disposition: Home, Routine, Self-Care Clinical Impression: Gouty arthropathy, Decreased oral intake Condition: Good Instructions: Dehydration (ED), Gout (ED) Referrals: Julián Mijares MD [Primary Care Provider] - As per Instructions
[2017-04-19] MEDS ORDERED: ONDANSETRON 4 MG/2 ML VIAL IVP ONE (23:44)
[2017-04-19] MEDS ORDERED: NS 1,000 ML IV ONE ×2 (23:44)
[2017-04-19] MEDS ORDERED: methylPREDNISolone SOD SUCC 40 MG/ML VIAL IVP ONE (23:46)
[2017-04-19] MEDS ORDERED: HYDROmorphONE/DILAUDID 1 MG/ML INJ IVP ONE (23:46)
[2017-04-19 23:53] LABS: % IMMATURE GRANULYOCYTES 1.8 % (0.0-1.1); ABSOLUTE IMMATURE GRANULOCYTES 0.11 10^3/uL (0.00-0.10); ADD DIFF? NO; ADD MORPH? NO; ADD SCAN? NO; ATYPICAL LYMPHOCYTE FLAG 10 (0-99); FRAGMENT RBC FLAG 0 (0-99); HEMATOCRIT 42.5 % (40.0-51.0); HEMOGLOBIN 14.8 g/dL (13.7-17.5); LEFT SHIFT FLG 10 (0-99); LIPEMIA HEMOLYSIS FLAG 90 (0-99); MEAN CELL HEMOGLOBIN 34.5 pg (27.9-34.1); MEAN CELL HEMOGLOBIN CONCENTR. 34.8 g/dL (32.4-36.7); MEAN CELL VOLUME 99.1 fL (81.5-99.8); MEAN PLATELET VOLUME 8.7 fL (8.7-11.7); PLATELET CLUMPS FLAG 20 (0-99); PLATELET COUNT 289 10^3/uL (150-400); RED BLOOD CELL COUNT 4.29 10^6/uL (4.40-6.38); RED CELL DISTRIBUTION WIDTH 14.3 % (11.5-15.2)
[2017-04-20 00:11] LABS: ALANINE AMINOTRANSFERASE 42 IU/L (21-72); ALBUMIN 4.1 g/dL (3.5-5.0); ALKALINE PHOSPHATASE 94 IU/L (38-126); ANION GAP 13 mEq/L (8-16); ASPARTATE AMINOTRANSFERASE 34 IU/L (17-59); BILIRUBIN,TOTAL 0.6 mg/dL (0.1-1.4); BILIRUBIN-UNCONJUGATED 0.6 mg/dL (0.0-1.1); CALCIUM 9.2 mg/dL (8.5-10.4); CARBON DIOXIDE 21 mEq/l (22-31); CHLORIDE 107 mEq/L (97-110); CREATININE 1.1 mg/dL (0.7-1.3); GLOMERULAR FILTRATION RATE > 60; GLUCOSE 103 mg/dL (70-100); POTASSIUM 4.1 mEq/L (3.5-5.2); SODIUM 141 mEq/L (134-144); TOTAL PROTEIN 6.7 g/dL (6.3-8.2)
[2017-04-20 00:15] LABS: INR 0.93 (0.83-1.16); PROTIME(PATIENT) 12.4 SEC (12.0-15.0)
[2017-04-20 00:16] LABS: APTT 26.3 SEC (23.0-38.0)
[2017-04-20] MEDS ORDERED: IOPAMIDOL (ISOVUE-300) 100 ML BTL ONE (00:37)
[2017-04-20] MEDS ORDERED: NS 1,000 ML IV SCH (01:45)
[2017-04-20 01:51] LABS: COLOR PALE YELLOW; LEUKOCYTE ESTERASE,URINE NEGATIVE (NEGATIVE); NITRITE,URINE NEGATIVE (NEGATIVE)
[2017-04-20 03:05] VITALS: PULSE 84; RESP 16; TEMP 98.1
[2017-04-20 04:21] VITALS: BP 135/82; O2SAT 93
== END 2017-04-20 04:00 | disposition home or self-care (01) ==
DX: M10.9 Gout, unspecified (principal); R63.8 Other symptoms and signs concerning food and fluid intake; I10 Essential (primary) hypertension; I25.10 Atherosclerotic heart disease of native coronary artery without angina pectoris; E86.9 Volume depletion, unspecified; Z79.82 Long term (current) use of aspirin; Z85.118 Personal history of other malignant neoplasm of bronchus and lung; Z87.891 Personal history of nicotine dependence
CPT/HCPCS: 73630; 74177; J1170; J2920; Q9967; 96374

== ENCOUNTER 2017-05-12 09:18 | Day surgery (SDC) | payer OTHER, MEDICARE ==
[2017-05-12] MEDS ORDERED: ceFAZolin 2 GM/SWFI 2 GM/20 ML SYR IVP ONE (09:36)
[2017-05-12] MEDS ORDERED: LR 1,000 ML IV ONE (09:43)
[2017-05-12] MEDS ORDERED: LIDOCAINE 1% 2 ML INJ ID PRN (09:43)
[2017-05-12 10:05] VITALS: PULSE 65
--- NOTE | 2017-05-12 11:52 | PDANEPAE ---
ANE History of Present Illness 71 year old male w/ PMHx of CAD (w/ cardiac stents), AI, HTN, HLD, migraine ARELLANO, Cervical fusion and lung cancer presents for vascular access placement. ANE Past Medical History - Cardiovascular History Hx Hypertension: Yes Hx Arrhythmias: Yes Hx Chest Pain: No Hx Coronary Artery / Peripheral Vascular Disease: Yes Hx CHF / Valvular Disease: No Hx Palpitations: No Cardiovascular History Comment: A-FIB. STENTS X3 LAST 05/2013. hx of svt after cervical spine surgery. aortic regurg. cad. hyperlipidemia. htn - Pulmonary History Hx COPD: No Hx Asthma/Reactive Airway Disease: No Hx Recent Upper Respiratory Infection: No Hx Oxygen in Use at Home: No Hx Sleep Apnea: No Sleep Apnea Screening Result - Last Documented: Positive Pulmonary History Comment: 08/2016 POST OP ASPIRATION PNEUMONIA. lung ca l lung - Neurologic History Hx Cerebrovascular Accident: No Hx Seizures: No Hx Dementia: No Neurologic History Comment: MIGRAINES. hx of cervical fusion - Endocrine History Hx Diabetes: No - Renal History Hx Renal Disorders: Yes Renal History Comment: hx of POST OP URINARY RETENTION - Liver History Hx Hepatic Disorders: No Hepatic History Comment: Can't tolerate statin medications. - Neurological & Psychiatric Hx Hx Neurological and Psychiatric Disorders: No - Cancer History Hx Cancer: Yes Cancer History Comment: lung ca dx 07-24-2014,surg & chemo Q 2 WKS -. chemo 05/08 - Congenital Disorder History Hx Congenital Disorders: No - GI History Hx Gastrointestinal Disorders: Yes Gastrointestinal History Comment: CONSTIPATION. - Other Health History Other Health History: wears glasses. missing teeth. GOUT - Chronic Pain History Chronic Pain: Yes (knees and feet) - Surgical History Prior Surgeries: 03/31/17 Left knee scope with Zhang. MICRODISKECTOMY 02/24/2017 POST OP URINARY RETENTION. CERVICAL FUSION 08/2016 POST OP ASPIRATION PNEUMONIA. RT CAROTID ENDARTERECTOMY 05/2016. TIFFANIE 04/2015. LUMBAR DECOMPRESSION 2014. 3 stents, angiogram,. DEBBIE cataract surgery. DEBBIE FOOT gout surgery. LT LUNG upper lobectomy 08-31-14 ANE Review of Systems Review of Systems: - Exercise capacity METS (RN): 3 METS ANE Patient History - Allergies Allergies/Adverse Reactions: allopurinol Allergy (Verified 05/09/17 12:10) causes gout amlodipine Allergy (Verified 05/09/17 12:10) causes gout symptoms atorvastatin calcium [From Lipitor] Allergy (Verified 05/09/17 12:10) CHRONIC COUGHING ezetimibe [From Zetia] Allergy (Verified 05/09/17 12:10) causes gout symptoms lisinopril Allergy (Verified 05/09/17 12:10) muscle ache lorazepam Allergy (Verified 05/09/17 12:10) anger, memory issues losartan potassium [From Cozaar] Allergy (Verified 05/09/17 12:10) causes gout symptoms morphine Allergy (Verified 05/09/17 12:10) "URINARY RETENTION" per RN per pitavastatin calcium [From Livalo] Allergy (Verified 05/09/17 12:10) causes gout symptoms pravastatin Allergy (Verified 05/09/17 12:10) causes gout symptoms rosuvastatin calcium [From Crestor] Allergy (Verified 05/09/17 12:10) causes gout symptoms spironolactone Allergy (Verified 05/09/17 12:10) causes gout symptoms steroid injection Allergy (Uncoded 04/19/17 22:54) Red Man Syndrome - Home Medications Home medications: home medication list seen and reviewed Home Medications: RX: Aspirin [Aspirin 81mg (*)] 06/05/16 [Last Taken 05/07/17] RX: predniSONE 06/05/16 [Last Taken 05/12/17 08:00] RX: Metoprolol Succinate Xr [Toprol Xl 50 mg (*)] 12/15/16 [Last Taken 08:15] RX: Indomethacin [Indocin 25 mg (*)] 03/09/17 [Last Taken 05/05/17] RX: Diltiazem Cd [Cardizem ER 120 MG (*)] 03/28/17 [Last Taken 05/12/17 08:00] - NPO status NPO Status: no food or drink >8 hours NPO Since - Liquids (Date): 05/11/17 NPO Since - Liquids (Time): 23:00 NPO Since - Solids (Date): 05/11/17 NPO Since - Solids (Time): 17:00 - Anes Hx Hx Anesthesia Complications (with details): Many allergies - Smoking Hx Smoking Status: Former smoker - Family Anes Hx Family Hx Anesthesia Complications: none ANE Labs/Vital Signs - Vital Signs Vital Signs: reviewed preoperatively; see RN documention for details Blood Pressure: 147/96 Heart Rate: 65 Respiratory Rate: 16 O2 Sat (%): 93 Height: 162.56 cm Weight: 63.503 kg ANE Physical Exam - Airway Neck exam: FROM Mallampati Score: Class 2 Mouth exam: normal dental/mouth exam - Pulmonary Pulmonary: no respiratory distress - Cardiovascular Cardiovascular: regular rate and rhythym - ASA Status ASA Status: IV ANE Anesthesia Plan Anesthesia Plan: GA w LMA (GA as back-up plan only.), MAC Total IV Anesthesia: Yes
[2017-05-12] MEDS ORDERED: BACITRACIN ZINC 14.2 GM OINTTUBE TP ONE (11:55)
[2017-05-12] MEDS ORDERED: BUPIVACAINE 0.5% 30 ML SDV ONE (11:56)
[2017-05-12] MEDS ORDERED: LIDOCAINE 1% 300 MG/30 ML SDV ONE (11:56)
[2017-05-12] MEDS ORDERED: MIDAZOLAM 2 MG/2 ML VIAL ONE (12:46)
[2017-05-12] MEDS ORDERED: PROPOFOL/EMULSION 500 MG/50 ML BOTTLE IV ONE ×2 (12:49→13:27)
[2017-05-12] MEDS ORDERED: NALOXONE HCL 0.4 MG/ML INJ IVP PRN (12:53)
[2017-05-12] MEDS ORDERED: fentaNYL 100 MCG/2 ML INJ IVP PRN (12:53)
[2017-05-12] MEDS ORDERED: IOPAMIDOL (ISOVUE-M 300) 15 ML VIAL ONE (13:36)
--- NOTE | 2017-05-12 14:18 | POSTOPPROG ---
Post Op Note Date of Operation: 05/12/17 Surgeon: Medardo Preston Anesthesiologist: Rivas Perera Anesthesia: GET(General Endotracheal) Pre-op Diagnosis: lung CA Procedure: power port placement with flouroscopic guidance Findings: good position and flow Inf/Abcess present in the surg proc area at time of surgery?: No EBL: Minimal Complications: none
--- NOTE | 2017-05-12 14:38 | POSTOPPROG ---
Post Op Note Date of Operation: 05/12/17 Surgeon: Medardo Preston Anesthesiologist: cem Anesthesia: IV Sedation Pre-op Diagnosis: lung cancer Post-op Diagnosis: same Indication: chemo access Procedure: left subclavian port with frlouro and venography Findings: difficult course of catheter Inf/Abcess present in the surg proc area at time of surgery?: No Depth: Deep Incisional (Fascial) EBL: 50-100 Complications: 0
[2017-05-12 15:19] VITALS: RESP 16; O2SAT 95
--- NOTE | 2017-05-12 15:37 | POSTANESTH ---
Post Anesthetic Evaluation Cardiovascular Status: Normal, Stable, Similar to Pre-Op Cond Respiratory Status: Normal, Stable, Similar to Pre-op Cond. Level of Consciousness/Mental Status: Can Participate in Eval, Alert and Oriented Pain Control: Adequate, Prn Tx Ordered Nausea/Vomiting Control: Adequate, Prn Tx Ordered Complications Possibly Related to Anesthesia: None Noted
[2017-05-12 16:07] VITALS: BP 92/58
[2017-05-12 16:10] VITALS: TEMP 97.7
== END 2017-05-12 16:00 | disposition home or self-care (01) ==
LOC: FSGY 09:18
PROVIDERS: ATTEND Surgery
PROC: 0JH60XZ Insertion of Tunneled Vascular Access Device into Chest Subcutaneous Tissue and Fascia, Open Approach (ICD-10-PCS; principal; 2017-05-12 11:15)
PROC: 02HV33Z Insertion of Infusion Device into Superior Vena Cava, Percutaneous Approach (ICD-10-PCS; principal; 2017-05-12 11:15)
DX: Z45.2 Encounter for adjustment and management of vascular access device (principal); C34.12 Malignant neoplasm of upper lobe, left bronchus or lung; I25.10 Atherosclerotic heart disease of native coronary artery without angina pectoris; Z95.5 Presence of coronary angioplasty implant and graft; I10 Essential (primary) hypertension; I35.1 Nonrheumatic aortic (valve) insufficiency; I27.29 Other secondary pulmonary hypertension; Z87.891 Personal history of nicotine dependence; Z98.1 Arthrodesis status
CPT/HCPCS: C1788; J0690; J1642; J2250; J2704; Q9967

== ENCOUNTER 2017-08-05 22:20 | Emergency (ER) | payer OTHER, MEDICARE ==
[2017-08-06 00:40] VITALS: RESP 18
--- NOTE | 2017-08-06 00:53 | EDPHY ---
H & P Stated Complaint: 3 DAYS COUGH, SOB SINCE YEST, TIRED, CHEMO LAST WEEK Time Seen by Provider: 08/05/17 23:03 HPI/ROS: Chief Complaint: Cough, shortness of breath HPI: 72-year-old male with a history of metastatic lung cancer, status post resection. He is currently on chemotherapy. Patient has been having a persistent cough for the last week or so. When he was seen by his oncologist, Dr. Piedra, last week he had a CT scan of his chest ordered which she had [facility]. Patient has also been having some increasing shortness of breath and fatigue today. No cough. No fevers or chills. Has been taking NyQuil with good relief. He has been on oxygen in the past but is not currently on any home oxygen at this time. No chest pain. No headache. No nausea or vomiting. ROS: 10 point Review of Systems is negative except as noted in the HPI. PMH: Metastatic lung cancer Social History: No smoking, no alcohol, no recreational drug use Family History: non-contributory Physical Exam: Gen: Awake, Alert, No Distress HEENT: Nose: no rhinorrhea Eyes: PERRLA, EOMI Mouth: Moist mucosa Neck: Supple, no JVD Chest: nontender, decreased breath sounds at the left lung base Heart: S1, S2 normal, no murmur Abd: Soft, non-tender, no guarding Back: no CVA tenderness, no midline tenderness Ext: no edema, non-tender Skin: no rash Neuro: CN II-XII intact, Sensation grossly intact, Strength 5/5 in bilateral upper and lower extremities - Personal History Current Tetanus/Diphtheria Vaccine: No - Medical/Surgical History Hx Asthma: No Hx Chronic Respiratory Disease: Yes Hx Diabetes: No Hx Cardiac Disease: Yes Hx Renal Disease: No Hx Cirrhosis: No Hx Alcoholism: No Hx HIV/AIDS: No Hx Splenectomy or Spleen Trauma: No Other PMH: pmh- htn, hyperlipemia, gout, non-small cell lung ca stage IIIA, cad , afib. psh- L lung resection 08/31/14, cardiac stents x2, back surgery, cholecystectomy, port removed 2016, left knee 2016 - Social History Smoking Status: Former smoker Constitutional: Initial Vital Signs Temperature (C) 36.7 C 08/05/17 22:24 Heart Rate 73 08/05/17 22:24 Respiratory Rate 20 08/05/17 22:24 Blood Pressure 129/71 H 08/05/17 22:24 O2 Sat (%) 90 L 08/05/17 22:24 O2 Delivery Mode Nasal Cannula O2 (L/minute) 2 Allergies/Adverse Reactions: allopurinol Allergy (Verified 08/05/17 22:22) causes gout amlodipine Allergy (Verified 08/05/17 22:22) causes gout symptoms atorvastatin calcium [From Lipitor] Allergy (Verified 08/05/17 22:22) CHRONIC COUGHING ezetimibe [From Zetia] Allergy (Verified 08/05/17 22:22) causes gout symptoms lisinopril Allergy (Verified 08/05/17 22:22) muscle ache lorazepam Allergy (Verified 08/05/17 22:22) anger, memory issues losartan potassium [From Cozaar] Allergy (Verified 08/05/17 22:22) causes gout symptoms morphine Allergy (Verified 08/05/17 22:22) "URINARY RETENTION" per RN per pitavastatin calcium [From Livalo] Allergy (Verified 08/05/17 22:22) causes gout symptoms pravastatin Allergy (Verified 08/05/17 22:22) causes gout symptoms rosuvastatin calcium [From Crestor] Allergy (Verified 08/05/17 22:22) causes gout symptoms spironolactone Allergy (Verified 08/05/17 22:22) causes gout symptoms steroid injection Allergy (Uncoded 08/05/17 22:22) Red Man Syndrome Home Medications: Medication Instructions Recorded Aspirin [Aspirin 81mg (*)] 06/05/16 predniSONE 06/05/16 Metoprolol Succinate Xr [Toprol Xl 12/15/16 50 mg (*)] Indomethacin [Indocin 25 mg (*)] 03/09/17 Diltiazem Cd [Cardizem ER 120 MG 03/28/17 (*)] Nyquil 08/05/17 predniSONE 60 mg PO DAILY #9 tab 08/06/17 Medical Decision Making - Diagnostics Imaging Results: I have discussed the patient's CT scan results with the on-call radiologist. He has a small left effusion with an elevated left hemidiaphragm which is no change from his prior study. There are focal areas of fibrosis primarily in the right lower lobe ends get her elsewhere. There pit patchy and reticular in nature. They occur consistent with new airspace disease, likely drug reaction or medication reaction. They do not appear to be infectious per Dr. White. ED Course/Re-evaluation: 72-year-old male with metastatic lung cancer who has increasing shortness of breath, now has some mild hypoxemia and has been having cough. There are new right lower lobe in right long areas of fibrosis on his CT scan. These do not appear to be infectious per the radiologist. His blood chemistry is normal. I reviewed his CBC, It is normal. I have discussed findings with Dr. Kapoor, on-call for Dr. Piedra. He believes symptoms are likely secondary to a drug reaction. Will place the patient on prednisone 60 mg daily up from his normal 5 mg daily. He will follow up with Dr. Piedra tomorrow. - Data Points Laboratory Results: Laboratory Results 08/06/17 00:00 08/05/17 23:55 08/06/17 08/05/17 00:00 23:55 WBC 4.61 10^3/uL 10^3/uL (3.80-9.50) RBC 4.06 10^6/uL L 10^6/uL (4.40-6.38) Hgb 13.4 g/dL L g/dL (13.7-17.5) Hct 39.9 % L % (40.0-51.0) MCV 98.3 fL fL (81.5-99.8) MCH 33.0 pg pg (27.9-34.1) MCHC 33.6 g/dL g/dL (32.4-36.7) RDW 13.3 % % (11.5-15.2) Plt Count 258 10^3/uL 10^3/uL (150-400) MPV 9.4 fL fL (8.7-11.7) Neut % (Auto) 60.5 % % (39.3-74.2) Lymph % (Auto) 17.6 % % (15.0-45.0) Sanders % (Auto) 17.1 % H % (4.5-13.0) Eos % (Auto) 3.9 % % (0.6-7.6) Baso % (Auto) 0.7 % % (0.3-1.7) Nucleat RBC Rel Count 0.0 % % (0.0-0.2) Absolute Neuts (auto) 2.79 10^3/uL 10^3/uL (1.70-6.50) Absolute Lymphs (auto) 0.81 10^3/uL L 10^3/uL (1.00-3.00) Absolute Monos (auto) 0.79 10^3/uL 10^3/uL (0.30-0.80) Absolute Eos (auto) 0.18 10^3/uL 10^3/uL (0.03-0.40) Absolute Basos (auto) 0.03 10^3/uL 10^3/uL (0.02-0.10) Absolute Nucleated RBC 0.00 10^3/uL 10^3/uL (0-0.01) Immature Gran % 0.2 % % (0.0-1.1) Immature Gran # 0.01 10^3/uL 10^3/uL (0.00-0.10) Sodium 146 mEq/L H mEq/L (135-145) Potassium 4.3 mEq/L mEq/L (3.5-5.2) Chloride 110 mEq/L mEq/L (97-110) Carbon Dioxide 23 mEq/l mEq/l (22-31) Anion Gap 13 mEq/L mEq/L (8-16) BUN 20 mg/dL mg/dL (7-23) Creatinine 1.0 mg/dL mg/dL (0.7-1.3) Estimated GFR > 60 Glucose 90 mg/dL mg/dL (70-100) Calcium 8.5 mg/dL mg/dL (8.5-10.4) Total Bilirubin 0.3 mg/dL mg/dL (0.1-1.4) AST 20 IU/L IU/L (17-59) ALT 31 IU/L IU/L (21-72) Alkaline Phosphatase 65 IU/L IU/L (38-126) Total Protein 6.2 g/dL L g/dL (6.3-8.2) Albumin 3.6 g/dL g/dL (3.5-5.0) Departure - Departure Disposition: Home, Routine, Self-Care Clinical Impression: Drug reaction Condition: Good Instructions: Dyspnea (ED) Additional Instructions: Follow up with Dr. Sitarik tomorrow. Return to the emergency department for increasing chest pain, shortness of breath, worsening cough, fevers, chills, or any other concerns. Referrals: Eran Piedra MD [Medical Doctor] - As per Instructions Prescriptions: predniSONE 60 mg PO DAILY #9 tab
[2017-08-06 00:58] LABS: PLATELET COUNT 258 10^3/uL (150-400)
[2017-08-06] MEDS ORDERED: predniSONE 20 MG TAB PO ONE (01:14)
[2017-08-06 01:22] VITALS: BP 166/83; PULSE 73; TEMP 97.7; O2SAT 92
== END 2017-08-06 01:25 | disposition home or self-care (01) ==
DX: R06.02 Shortness of breath (principal); I10 Essential (primary) hypertension; T50.905A Adverse effect of unspecified drugs, medicaments and biological substances, initial encounter; Z95.5 Presence of coronary angioplasty implant and graft; Z85.118 Personal history of other malignant neoplasm of bronchus and lung; Z87.891 Personal history of nicotine dependence; Z79.82 Long term (current) use of aspirin
CPT/HCPCS: 99283; J7512

== ENCOUNTER 2017-08-27 04:50 | Emergency (ER) | payer OTHER, MEDICARE ==
[2017-08-27 05:04] VITALS: TEMP 97.7
[2017-08-27] MEDS ORDERED: NS 1,000 ML IV ONE (05:12)
[2017-08-27] MEDS ORDERED: KETOROLAC 15 MG/1 ML SDV IVP/IM ONE (05:12)
[2017-08-27] MEDS ORDERED: METOCLOPRAMIDE 10 MG/2 ML VIAL IVP ONE (05:12)
--- NOTE | 2017-08-27 05:52 | EDPHY ---
H & P Stated Complaint: MIGRAINE, COUGH 48 HOURS/LUNG CA/LAST CHEMO 3 WEEKS AGO Time Seen by Provider: 08/27/17 05:06 HPI/ROS: HPI The patient presents with headache that feels typical of his migraines which began 2 days ago slowly and has gotten progressively worse. It is a dull throbbing pain which is intermittent in his left temporal occipital region. He does not have any nausea or vomiting with this. He has not been drinking as much fluid as usual. As he is being treated for a pneumonitis with prednisone, his dose was recently increased from 20 mg daily to 30 mg daily. He does not have any changes in his vision, fever, nuchal rigidity. He does not have any weakness of his arms or legs. He has been trying Tylenol at home without much improvement in his symptoms.. REVIEW OF SYSTEMS Constitutional: No fever, no chills. Eyes: No discharge. ENT: No sore throat. Cardiovascular: No chest pain, no palpitations. Respiratory: No cough, no shortness of breath. Gastrointestinal: No abdominal pain, no vomiting. Genitourinary: No hematuria. Musculoskeletal: No back pain. Skin: No rashes. Neurological: No headache. PMHx: Lung cancer which is metastatic on chemotherapy, recent pneumonitis on steroids Soc Hx: Lives at home with his who provides the majority of his care PHYSICAL General Appearance: Alert, no distress Eyes: Pupils equal and round no pallor or injection ENT, Mouth: Mucous membranes moist Respiratory: There are no retractions, lungs are clear to auscultation Cardiovascular: Regular rate and rhythm Gastrointestinal: Abdomen is soft and non-tender, no masses, bowel sounds normal Neurological: A&O, cranial nerves 2-12 intact, 5/5 strength in upper and lower extremities which is symmetric Skin: Warm and dry, no rashes Musculoskeletal: Neck is supple non tender Extremities: symmetrical, full range of motion Psychiatric: Patient is oriented X 3, there is no agitation Source: Patient Exam Limitations: No limitations - Personal History Current Tetanus Diphtheria and Acellular Pertussis (TDAP): No - Medical/Surgical History Hx Asthma: No Hx Chronic Respiratory Disease: Yes Hx Diabetes: No Hx Cardiac Disease: Yes Hx Renal Disease: No Hx Cirrhosis: No Hx Alcoholism: No Hx HIV/AIDS: No Hx Splenectomy or Spleen Trauma: No Other PMH: pmh- htn, hyperlipemia, gout, non-small cell lung ca stage IIIA, cad , afib. psh- L lung resection 08/31/14, cardiac stents x2, back surgery, cholecystectomy, port removed 2016, left knee 2017 - Social History Smoking Status: Former smoker Constitutional: Initial Vital Signs Temperature (C) 36.5 C 08/27/17 04:58 Heart Rate 69 08/27/17 04:58 Respiratory Rate 16 08/27/17 04:58 Blood Pressure 106/63 08/27/17 04:58 O2 Sat (%) 90 L 08/27/17 04:58 O2 Delivery Mode Room Air Allergies/Adverse Reactions: allopurinol Allergy (Verified 08/05/17 22:22) causes gout amlodipine Allergy (Verified 08/05/17 22:22) causes gout symptoms atorvastatin calcium [From Lipitor] Allergy (Verified 08/05/17 22:22) CHRONIC COUGHING ezetimibe [From Zetia] Allergy (Verified 08/05/17 22:22) causes gout symptoms lisinopril Allergy (Verified 08/05/17 22:22) muscle ache lorazepam Allergy (Verified 08/05/17 22:22) anger, memory issues losartan potassium [From Cozaar] Allergy (Verified 08/05/17 22:22) causes gout symptoms morphine Allergy (Verified 08/05/17 22:22) "URINARY RETENTION" per RN per pitavastatin calcium [From Livalo] Allergy (Verified 08/05/17 22:22) causes gout symptoms pravastatin Allergy (Verified 08/05/17 22:22) causes gout symptoms rosuvastatin calcium [From Crestor] Allergy (Verified 08/05/17 22:22) causes gout symptoms spironolactone Allergy (Verified 08/05/17 22:22) causes gout symptoms steroid injection Allergy (Uncoded 08/05/17 22:22) Red Man Syndrome Home Medications: Medication Instructions Recorded Aspirin [Aspirin 81mg (*)] 06/05/16 predniSONE 06/05/16 Metoprolol Succinate Xr [Toprol Xl 12/15/16 50 mg (*)] Indomethacin [Indocin 25 mg (*)] 03/09/17 Diltiazem Cd [Cardizem ER 120 MG 03/28/17 (*)] Nyquil 08/05/17 predniSONE 60 mg PO DAILY #9 tab 08/06/17 Medical Decision Making - Diagnostics Imaging Results: Chest x-ray two views shows changes in the right lower lung field consistent with fibrosis I suspect, unchanged from prior chest x-ray. This is interpreted by me and the radiology interpretation is pending. Differential Diagnosis: This is a 72-year-old man with history of lung cancer on chemotherapy, also recent pneumonitis being treated with steroids who presents from home with 2 days of headache which has been intermittent, dull, unilateral and feels like his prior migraines. On exam he does not have any neurologic deficits, thus I feel that mets to his brain are unlikely. I also doubt stroke given no neurologic deficits. I suspect he is having a migraine headache versus a tension type headache. In the emergency department, patient was given IV fluids, Toradol, Reglan with much improvement in his headache. He felt well enough to go home. Labs did not reveal any electrolyte disturbance, though his was concerned. He will be discharged home with instructions to take Tylenol for his headache. - Data Points Laboratory Results: Laboratory Results 08/27/17 05:45 08/27/17 05:45 Sodium 141 mEq/L mEq/L (135-145) Potassium 4.0 mEq/L mEq/L (3.5-5.2) Chloride 106 mEq/L mEq/L (97-110) Carbon Dioxide 24 mEq/l mEq/l (22-31) Anion Gap 11 mEq/L mEq/L (8-16) BUN 27 mg/dL H mg/dL (7-23) Creatinine 0.9 mg/dL mg/dL (0.7-1.3) Estimated GFR > 60 Glucose 107 mg/dL H mg/dL (70-100) Calcium 8.3 mg/dL L mg/dL (8.5-10.4) Medications Given: Discontinued Medications Heparin Sodium (Porcine) (Heparin Lock Flush) 500 unit IVP EDNOW ONE Stop: 08/27/17 06:47 Last Admin: 08/27/17 06:49 Dose: 500 unit Sodium Chloride (Ns) 1,000 mls @ 3,000 mls/hr IV EDNOW ONE Stop: 08/27/17 05:31 Last Admin: 08/27/17 05:24 Dose: 1,000 mls Ketorolac Tromethamine (Toradol) 15 mg IVP/IM EDNOW ONE Stop: 08/27/17 05:13 Last Admin: 08/27/17 05:39 Dose: 15 mg Metoclopramide HCl (Reglan Injection) 10 mg IVP EDNOW ONE Stop: 08/27/17 05:13 Last Admin: 08/27/17 05:39 Dose: 10 mg Departure - Departure Disposition: Home, Routine, Self-Care Clinical Impression: Cough Migraine Qualifiers: Migraine type: unspecified Status migrainosus presence: with status migrainosus Intractability: not intractable Qualified Code(s): G43.901 - Migraine, unspecified, not intractable, with status migrainosus Condition: Good Instructions: Migraine Headache (ED) Additional Instructions: I recommend you take Tylenol 650 mg every 6 hr as needed for your headache. You should return to the emergency department if your worse in any way. Referrals: Julián Mijares MD [Primary Care Provider] - As per Instructions
[2017-08-27 06:47] VITALS: BP 128/71; PULSE 67; RESP 18; O2SAT 95
== END 2017-08-27 06:57 | disposition home or self-care (01) ==
DX: G43.901 Migraine, unspecified, not intractable, with status migrainosus (principal); R05 Cough; I10 Essential (primary) hypertension; Z85.118 Personal history of other malignant neoplasm of bronchus and lung; Z79.82 Long term (current) use of aspirin; Z87.891 Personal history of nicotine dependence; Z95.5 Presence of coronary angioplasty implant and graft
CPT/HCPCS: 71046; 96361; 96374; 96375; 99284; J1642; J1885; J2765

== ENCOUNTER → 2017-08-28 | Outpatient (CLI) | payer OTHER, MEDICARE | LOC: FIMAGING 11:02 | PROVIDERS: ATTEND Physician Assistant | DX: M48.02 Spinal stenosis, cervical region (principal); M50.31 Other cervical disc degeneration, high cervical region; M50.33 Other cervical disc degeneration, cervicothoracic region; M25.562 Pain in left knee; Z98.890 Other specified postprocedural states ==

== ENCOUNTER 2017-08-29 06:25 | Inpatient (IN) | payer OTHER, MEDICARE ==
[2017-08-29] MEDS ORDERED: NS 1,000 ML IV ONE ×2 (07:20→08:17)
--- NOTE | 2017-08-29 07:23 | EDPHY ---
HPI/HX/ROS/PE/MDM Narrative: CHIEF COMPLAINT: Cough HPI: The patient is a 72 y/o male with metastatic lung cancer on chemotherapy returning to the ED with his for the second time in the last 48 hours complaining of a persistent cough and difficulty sleeping. He was recently treated for pneumonitis with prednisone and was seen here on 08/27/17 with a cough and headache. He received symptomatic treatment with improvement and [facility] with [facility] yesterday. They performed a chest x-ray, prescribed a cough syrup, and ordered home O2, which has not arrived at their home yet. He has continued to have a persistent cough that keeps him awake at night and his also notes a fever around 100F and shivering. His O2 saturation drops when walking around the house limiting him to lying in bed. He would like to be admitted to the hospital for O2, cough suppression, and says, "I just want to sleep." REVIEW OF SYSTEMS: Aside from elements discussed in the HPI, a comprehensive 10-point review of systems was reviewed and is negative. PMH: Metastatic lung cancer on chemotherapy with resection August 2014, recent pneumonitis on steroids, CAD, cardiac stents x2, atrial fibrillation, hypertension, hyperlipidemia, cholecystectomy, back surgery, left knee surgery SOCIAL HISTORY: at bedside is also caregiver. Former smoker. Prior medical records reviewed including ED visit 08/27/17 for headache and cough. PHYSICAL EXAM: General:Patient is alert, in no acute distress. ENT:Eyes are normal to inspection. ENT inspection normal. Neck: Normal inspection. Full range of motion. Respiratory:No respiratory distress. Cardiovascular: Regular rate and rhythm. Strong peripheral pulses. Normal cap refill. Abdomen:The abdomen is nontender to palpation. There are no peritoneal signs. Back: Normal to inspection. No tenderness to palpation. Skin: Normal color. No rash. Warm and dry. Extremities: Normal appearance. Full range of motion. Neuro: Oriented x3. Normal motor function. Normal sensory function. ED Course: This is a relatively well-appearing 72 y/o male with metastatic lung cancer who presents with persistent cough, difficulty sleeping, low fever, and mildly low SpO2 when walking around his home. He is requesting admission for cough suppression and O2 so he can sleep. Plan for IV, labs including respiratory panel, chest x-ray. 1L IV NS ordered. Lactate slightly elevated at 2.3. WBC normal. Vitals remain stable on reassessment. 1L IV NS, 750mg IV Levaquin ordered. Respiratory panel is positive for human metapneumovirus. Spoke with hospitalist service. Dr. Hamm accepts admission. - Data Points Imaging Results: Imaging Impressions Chest X-Ray 08/29/17 07:00 Impression: 1. No acute pulmonary process since 2 days prior. No evidence of aspiration or evolving pneumonia. 2. Asymmetric elevation of the left hemidiaphragm and bibasilar linear scarring versus atelectasis unchanged. Imaging: Discussed imaging studies w/ political science research assistant Radiologist, I viewed and interpreted images myself Laboratory Results: Laboratory Results 08/29/17 07:48 08/29/17 08/29/17 08/29/17 08:40 07:48 07:40 WBC 8.90 10^3/uL 10^3/uL (3.80-9.50) RBC 4.15 10^6/uL L 10^6/uL (4.40-6.38) Hgb 13.3 g/dL L g/dL (13.7-17.5) Hct 39.2 % L % (40.0-51.0) MCV 94.5 fL fL (81.5-99.8) MCH 32.0 pg pg (27.9-34.1) MCHC 33.9 g/dL g/dL (32.4-36.7) RDW 15.1 % % (11.5-15.2) Plt Count 216 10^3/uL 10^3/uL (150-400) MPV 9.4 fL fL (8.7-11.7) Neut % (Auto) 77.7 % H % (39.3-74.2) Lymph % (Auto) 11.6 % L % (15.0-45.0) [place] % (Auto) 9.2 % % (4.5-13.0) Eos % (Auto) 0.4 % L % (0.6-7.6) Baso % (Auto) 0.3 % % (0.3-1.7) Nucleat RBC Rel Count 0.0 % % (0.0-0.2) Absolute Neuts (auto) 6.91 10^3/uL H 10^3/uL (1.70-6.50) Absolute Lymphs (auto) 1.03 10^3/uL 10^3/uL (1.00-3.00) Absolute Monos (auto) 0.82 10^3/uL H 10^3/uL (0.30-0.80) Absolute Eos (auto) 0.04 10^3/uL 10^3/uL (0.03-0.40) Absolute Basos (auto) 0.03 10^3/uL 10^3/uL (0.02-0.10) Absolute Nucleated RBC 0.00 10^3/uL 10^3/uL (0-0.01) Immature Gran % 0.8 % % (0.0-1.1) Immature Gran # 0.07 10^3/uL 10^3/uL (0.00-0.10) VBG Lactic Acid 2.3 mmol/L H mmol/L (0.7-2.1) Urine Color PALE YELLOW Urine Appearance HAZY Urine pH 5.0 (5.0-7.5) Ur Specific [place] 1.009 (1.002-1.030) Urine Protein NEGATIVE (NEGATIVE) Urine Ketones NEGATIVE (NEGATIVE) Urine Blood NEGATIVE (NEGATIVE) Urine Nitrate NEGATIVE (NEGATIVE) Urine Bilirubin NEGATIVE (NEGATIVE) Urine Urobilinogen NEGATIVE EU EU (0.2-1.0) Ur Leukocyte Esterase NEGATIVE (NEGATIVE) Urine Glucose NEGATIVE (NEGATIVE) Medications Given: Levofloxacin/Dextrose (Levaquin 750 Mg (Premix)) 150 mls @ 100 mls/hr IV EDNOW ONE PRN Reason: Protocol Stop: 08/29/17 10:09 Last Admin: 08/29/17 08:47 Dose: 150 mls Discontinued Medications Sodium Chloride (Ns) 1,000 mls @ 0 mls/hr IV ONCE ONE; Wide Open PRN Reason: Protocol Stop: 08/29/17 07:21 Last Admin: 08/29/17 07:50 Dose: 1,000 mls Sodium Chloride (Ns) 1,000 mls @ 0 mls/hr IV EDNOW ONE; Wide Open PRN Reason: Protocol Stop: 08/29/17 08:18 Last Admin: 08/29/17 08:37 Dose: 1,000 mls Microbiology Results: MICROBIOLOGY 08/29/17 07:40 Nasal, Sinus - Swab Respiratory Panel (PCR) - Final Human Metapneumovirus Detected General Time Seen by Provider: 08/29/17 06:49 Initial Vital Signs: Initial Vital Signs Temperature (C) 36.9 C 08/29/17 06:31 Heart Rate 103 H 08/29/17 06:31 Respiratory Rate 20 08/29/17 06:31 Blood Pressure 177/92 H 08/29/17 06:31 O2 Sat (%) 92 04 06:31 O2 Delivery Mode Nasal Cannula O2 (L/minute) 2 Allergies/Adverse Reactions: allopurinol Allergy (Verified 08/29/17 06:28) causes gout amlodipine Allergy (Verified 08/29/17 06:28) causes gout symptoms atorvastatin calcium [From Lipitor] Allergy (Verified 08/29/17 06:28) CHRONIC COUGHING ezetimibe [From Zetia] Allergy (Verified 08/29/17 06:28) causes gout symptoms lisinopril Allergy (Verified 08/29/17 06:28) muscle ache lorazepam Allergy (Verified 08/29/17 06:28) anger, memory issues losartan potassium [From Cozaar] Allergy (Verified 08/29/17 06:28) causes gout symptoms morphine Allergy (Verified 08/29/17 06:28) "URINARY RETENTION" per RN per pitavastatin calcium [From Livalo] Allergy (Verified 08/29/17 06:28) causes gout symptoms pravastatin Allergy (Verified 08/29/17 06:28) causes gout symptoms rosuvastatin calcium [From Crestor] Allergy (Verified 08/29/17 06:28) causes gout symptoms spironolactone Allergy (Verified 08/29/17 06:28) causes gout symptoms steroid injection Allergy (Uncoded 08/29/17 06:28) Red Man Syndrome Home Medications: Medication Instructions Recorded Aspirin [Aspirin 81mg (*)] 81 mg PO DAILY 06/05/16 Metoprolol Succinate Xr [Toprol Xl 50 mg PO DAILY 12/15/16 50 mg (*)] Indomethacin [Indocin 25 mg (*)] 25 mg PO TID PRN 03/09/17 Diltiazem Cd [Cardizem ER 120 MG 120 mg PO DAILY 03/28/17 (*)] Benzonatate [Tessalon Pearles (RX)] 100 mg PO TID PRN 08/29/17 Latanoprost 0.005% [Xalatan 0.005% 1 drops EACHEYE HS 08/29/17 (*)] predniSONE 40 mg PO DAILY 08/29/17 Departure - Departure Disposition: [facility] Inpatient Acute Clinical Impression: Cough, Infection due to human metapneumovirus (hMPV) Lung cancer Qualifiers: Laterality: unspecified laterality Lung location: unspecified part of lung Qualified Code(s): C34.90 - Malignant neoplasm of unspecified part of unspecified bronchus or lung Condition: Fair Report Scribed for: Rafi Fitch Report Scribed by: Lilia Chand Date of Report: 08/29/17 Time of Report: 06:58 Physician Review and Approval Statement: Portions of this note were transcribed by an ED scribe. I personally performed the history, physical exam, and medical decision making; and confirm the accuracy of the information in the transcribed note.
[2017-08-29 08:13] LABS: PLATELET COUNT 216 10^3/uL (150-400)
[2017-08-29] MEDS ORDERED: INDOMETHACIN 25 MG CAP PO PRN (12:51)
[2017-08-29] MEDS ORDERED: ONDANSETRON 4 MG/2 ML VIAL IVP PRN (12:55)
[2017-08-29] MEDS ORDERED: IBUPROFEN 200 MG TAB PO PRN (12:55)
[2017-08-29] MEDS ORDERED: ZOLPIDEM TARTRATE 5 MG TAB PO PRN (12:55)
[2017-08-29] MEDS ORDERED: ACETAMINOPHEN 325 MG TAB PO PRN (12:55)
[2017-08-29] MEDS ORDERED: NS 1,000 ML IV SCH (13:00)
--- NOTE | 2017-08-29 13:37 | GHP ---
[f rep st] HISTORY AND PHYSICAL DATE OF ADMISSION: 08/29/2017 CHIEF COMPLAINT: Shortness of breath and fever. HISTORY: This patient is a 72-year-old male, who has been sick for multiple days. He has been havin g a cough and low-grade fever with shivering at home. He was seen in the emergency room 48 hours ago , and was discharged home. He returned to the hospital because he continues to feel so poorly. He d enies any chest pain. He is now starting to feel a little better. PAST MEDICAL HISTORY: 1. Lung cancer, status post resection, currently in remission. Continues on chemotherapy. 2. Coronary artery disease, status post stent, 2010. 3. Gout. 4. Atrial fibrillation and SVT. 5. Pneumonitis secondary to chemotherapy. PAST SURGICAL HISTORY: 1. Lumbar stenosis, status post microdiskectomy. 2. Cervical fusion. 3. Cholecystectomy. 4. Carotid endarterectomy. MEDICATIONS: Please see computer record for full detailed list. ALLERGIES: Allopurinol, amlodipine, atorvastatin. Please see computerized chart for full list. SOCIAL HISTORY: Former smoker. No alcohol. 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 He lives with his ; she owns a restaurant in [place]. REVIEW OF SYSTEMS: Complete review of systems obtained. Review of systems negative for constitution al, HEENT, GI, pulmonary, vascular, , hematology, skin, muscular, endocrine, psych, except for posi tives as noted in HPI. FAMILY HISTORY: Reviewed and noncontributory to current complaint. PHYSICAL EXAMINATION: GENERAL: Well-developed, well-nourished male in no distress. VITAL SIGNS: T emperature 37.2, pulse 96, blood pressure 146/85, satting 97% on 4 L. HEENT: Eyes: Normal conjunct ivae. Pupils reactive to light. ENT: Normal ears and nose. Hearing intact. Normal teeth. Oropha rynx moist. NECK: Trachea midline. No thyromegaly. CHEST: Normal respiratory effort. LUNGS: So me scattered wheezes and rhonchi. CARDIOVASCULAR: Regular rhythm. No murmur. No extremity edema. ABDOMEN: Soft, nontender. No hepatosplenomegaly. SKIN: Warm, dry, intact. No rash. MUSCULOSKEL ETAL: No cyanosis or clubbing. Strength 5/5 upper and lower extremities. NEUROLOGIC: Cranial nerv es intact. Normal sensation to light touch. PSYCH: Alert and oriented x3. Normal affect. Normal judgment and insight. Normal memory. LABORATORY DATA: White count 8.9, hematocrit 39.2, platelets 216, lactate is 2.2. It did come down to 1.5 after hydration. Urinalysis is negative. Respiratory: PCR positive for human metapneumovirus. Chest x-ray is negative. Medical chart was reviewed. Previous hospitalizations, mostly related to back surgery. He did have a severe gout flare during one of those stays. This case was discussed with Dr. Jeff Fitch of the emergency room. He reported to me the positive human metapneumovirus. ASSESSMENT AND PLAN: 1. Viral bronchitis with respiratory PCR positive for human metapneumovirus. He also has an associa saturnino reactive airway disease exacerbation. We will increase his steroid dose, and start him on schedu led nebulizers, and otherwise treat supportively. 2. Lung cancer, status post resection. Continues on chemotherapy, currently well controlled, in rem ission. 3. Atrial fibrillation. Supraventricular tachycardia. At home, he takes diltiazem, metoprolol, and aspirin, which will be continued. 4. Coronary artery disease, status post stent. This is stable without any evidence for acute ischem ia. 5. Pneumonitis, secondary to chemotherapy. He is chronically on steroids. His dose was recently in creased by Oncology due to this acute illness. Once he gets a higher dose for a few days. He can be tapered back down to his chronic prednisone dose, which needs to be clarified. CODE STATUS: Full. ADMISSION STATUS: Will admit to observation. Reevaluate tomorrow regarding ongoing need for hospita lization. DEEP VENOUS THROMBOSIS PROPHYLAXIS: He is high risk. Will place on subcu Lovenox. /[id number]/MODL
[2017-08-29] MEDS: DILTIAZEM CD 120 MG CAP PO SCH (16:24)
[2017-08-29] MEDS: ASPIRIN 81 MG CHEWABLE TAB PO SCH (16:24)
[2017-08-29] MEDS: METOPROLOL SUCCINATE XR 50 MG TAB PO SCH (16:24)
[2017-08-29] MEDS: predniSONE 20 MG TAB PO SCH (16:25)
[2017-08-29] MEDS: IPRATROPIUM/ALBUTEROL 3 ML DEYVIAL IH SCH ×2 (17:26→21:12)
[2017-08-29] MEDS: LATANOPROST 0.005% 2.5 ML OPHT DROPS EACHEYE SCH (21:55)
[2017-08-30 05:58] LABS: PLATELET COUNT 204 10^3/uL (150-400)
[2017-08-30] MEDS: BENZONATATE 100 MG CAP PO PRN (08:36)
[2017-08-30] MEDS: ASPIRIN 81 MG CHEWABLE TAB PO SCH (08:36)
[2017-08-30] MEDS: predniSONE 20 MG TAB PO SCH (08:36)
[2017-08-30] MEDS: ENOXAPARIN 40 MG/0.4 ML SYR SC SCH (08:49)
[2017-08-30] MEDS: IPRATROPIUM/ALBUTEROL 3 ML DEYVIAL IH SCH (09:47)
[2017-08-30] MEDS ORDERED: IPRATROPIUM/ALBUTEROL 3 ML DEYVIAL IH PRN (10:04)
--- NOTE | 2017-08-30 10:08 | HOSPPROG ---
Hospitalist Progress Note Assessment/Plan: * Viral bronchitis - human metapneumovirus -supportive care - continue to hold antibiotics * RAD exacerbation -prednisone, nebs * Pneumonitis due to chemo - with chronic respiratory failure -uses O2 intermittently at home -chronic prednisone - taper back down to chronic dose at discharge * Lung cancer s/p resection -continues on chemo - in remission * Gout -prn indomethacin * Afib -diltiazem/metoprolol + ASA * CAD/stent Subjective: Getting better but not ready for discharge Objective: Vital Signs Temp Pulse Resp BP Pulse Ox 36.3 C 68 16 99/68 L 96 08/30/17 08:40 08/30/17 08:40 08/30/17 08:40 08/30/17 08:40 08/30/17 08:40 Laboratory Results 08/30/17 05:40 08/30/17 05:40 08/29/17 08/30/17 08/31/17 05:59 05:59 05:59 Intake Total 2300 Output Total 200 Balance 2100 - Physical Exam Constitutional: no apparent distress, appears nourished, not in pain Cardiovascular: regular rate and rhythym, no murmur, rub, or gallop Respiratory: no respiratory distress, no rales or rhonchi, clear to auscultation Gastrointestinal: normoactive bowel sounds, soft, non-tender abdomen, no palpable masses Neurologic: AAOx3, sensation intact bilaterally Psychiatric: interacting appropriately, not anxious, not encephalopathic, thought process linear ICD10 Worksheet Patient Problems: Problems Problem Status Onset Cough Acute Infection due to human metapneumovirus (hMPV) Acute Lung cancer Acute Arthrodesis status Acute C. difficile diarrhea Acute 04/05/16 Cervical stenosis of spine Acute Chest pain Acute Dehydration Acute Diarrhea Acute Dysphagia, oropharyngeal Acute Gout Acute Headache Acute Hypocalcemia Acute Hypokalemia Acute Hypomagnesemia Acute Lumbar back pain with radiculopathy affecting left lower extremity Acute Nausea & vomiting Acute Neck pain Acute On total parenteral nutrition (TPN) Acute Pneumonia Acute RUQ abdominal pain Acute Weakness Acute CAD (coronary artery disease) Chronic Dyslipidemia Chronic
[2017-08-30] MEDS ORDERED: LEVALBUTEROL 0.63 MG/3 ML DEYVIAL IH PRN (10:09)
[2017-08-30] MEDS: METOPROLOL SUCCINATE XR 50 MG TAB PO SCH (10:11)
[2017-08-30] MEDS: DILTIAZEM CD 120 MG CAP PO SCH (10:11)
--- NOTE | 2017-08-30 10:39 | PDMN ---
Medical Necessity Medical necessity: C/M review: est. > 2 MN LOS for eval and TX of acute and persistent viral bronchitis due to human metapneumovirus, reactive airway disease exacerbation requiring ongoing Duonebs, oral prednisone, pulse oximetry , supplemental O2, acute inpt PT, comorbid pneumonitis due to chemo wuth chronic respiratory failure on intermittent o2 at home, lung cancer S/P resection, gout, atrial fibrillation, CAD S/P stent per 08/30/2017 Hospitalist progress note.
[2017-08-30] MEDS ORDERED: NS 1,000 ML IV SCH (14:30)
--- NOTE | 2017-08-30 17:57 | ASMTCMCOM ---
CM Note CM Note Notes: Pt admitted with shortness of breath, fever, cough for multiple days. Diagnosed with pneumonia. Per MD notes, pt history includes lung cancer s/p resection. Pt is currently in remission, but continues on chemo. 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 He lives with his , who owns a restaurant here in [place]. Discharge needs remain unclear at this time. Anticipate pt may discharge home independently with family support when stable. CM will continue to follow for any potential needs. Current Discharge Plan: To be determined Date Signed: 08/30/2017 05:57 PM Electronically Signed By:Sara Hennessy RN
[2017-08-30] MEDS: LATANOPROST 0.005% 2.5 ML OPHT DROPS EACHEYE SCH (22:01)
[2017-08-31] MEDS: BENZONATATE 100 MG CAP PO PRN ×2 (00:45→09:28)
[2017-08-31] MEDS: GUAIFENESIN/DM 10 ML UDCUP PO PRN ×3 (02:20→11:27)
[2017-08-31] MEDS ORDERED: COSYNTROPIN 0.25 MG/2 ML SYRINGE IVP ONE (06:00)
[2017-08-31 06:54] LABS: PLATELET COUNT 215 10^3/uL (150-400)
[2017-08-31] MEDS: DILTIAZEM CD 120 MG CAP PO SCH (09:17)
[2017-08-31] MEDS: METOPROLOL SUCCINATE XR 50 MG TAB PO SCH (09:17)
[2017-08-31] MEDS: ASPIRIN 81 MG CHEWABLE TAB PO SCH (09:17)
[2017-08-31] MEDS: predniSONE 20 MG TAB PO SCH (09:17)
[2017-08-31] MEDS: ENOXAPARIN 40 MG/0.4 ML SYR SC SCH (09:18)
--- NOTE | 2017-08-31 09:53 | HOSPPROG ---
Hospitalist Progress Note Assessment/Plan: * Pneumonia -resp PCR + human metapneumovirus -suspect secondary bacterial given focal infiltrate on CXR -continue levaquin (got 1st dose in ER) * RAD exacerbation -prednisone, nebs * Pneumonitis due to chemo - with chronic respiratory failure -uses O2 intermittently at home -chronic prednisone - taper back down to chronic dose at discharge * Lung cancer s/p resection -continues on chemo - in remission * Gout -prn indomethacin * Afib -diltiazem/metoprolol + ASA * CAD/stent Subjective: Bad night, worse cough Objective: Vital Signs Temp Pulse Resp BP Pulse Ox 36.4 C 96 16 124/72 H 96 08/31/17 08:00 08/31/17 09:17 08/31/17 08:00 08/31/17 09:17 08/31/17 08:00 Laboratory Results 08/31/17 06:40 08/31/17 06:40 08/30/17 08/31/17 09/01/17 05:59 05:59 05:59 Intake Total 2300 2885 Output Total 200 900 Balance 2100 1984 CXR viewed - significant RLL infiltrate - Physical Exam Constitutional: no apparent distress, appears nourished, not in pain Cardiovascular: regular rate and rhythym, no murmur, rub, or gallop Respiratory: no respiratory distress, rhonchi, No reduced air movement, No expiratory wheeze Gastrointestinal: normoactive bowel sounds, soft, non-tender abdomen, no palpable masses Skin: no rashes or abrasions, no fluctuance, no induration Neurologic: AAOx3, sensation intact bilaterally Psychiatric: interacting appropriately, not anxious, not encephalopathic, thought process linear ICD10 Worksheet Patient Problems: Problems Problem Status Onset Cough Acute Infection due to human metapneumovirus (hMPV) Acute Lung cancer Acute Arthrodesis status Acute C. difficile diarrhea Acute 04/05/16 Cervical stenosis of spine Acute Chest pain Acute Dehydration Acute Diarrhea Acute Dysphagia, oropharyngeal Acute Gout Acute Headache Acute Hypocalcemia Acute Hypokalemia Acute Hypomagnesemia Acute Lumbar back pain with radiculopathy affecting left lower extremity Acute Nausea & vomiting Acute Neck pain Acute On total parenteral nutrition (TPN) Acute Pneumonia Acute RUQ abdominal pain Acute Weakness Acute CAD (coronary artery disease) Chronic Dyslipidemia Chronic
[2017-08-31] MEDS: LEVALBUTEROL 0.63 MG/3 ML DEYVIAL IH SCH ×2 (13:42→21:18)
[2017-08-31] MEDS: LATANOPROST 0.005% 2.5 ML OPHT DROPS EACHEYE SCH (22:23)
[2017-09-01] MEDS: GUAIFENESIN/DM 10 ML UDCUP PO PRN (00:58)
[2017-09-01] MEDS: LEVALBUTEROL 0.63 MG/3 ML DEYVIAL IH SCH ×2 (06:13→17:44)
[2017-09-01] MEDS: predniSONE 20 MG TAB PO SCH (10:29)
[2017-09-01] MEDS: ENOXAPARIN 40 MG/0.4 ML SYR SC SCH (10:29)
[2017-09-01] MEDS: DILTIAZEM CD 120 MG CAP PO SCH (10:30)
[2017-09-01] MEDS: ASPIRIN 81 MG CHEWABLE TAB PO SCH ×2 (10:30→10:31)
[2017-09-01] MEDS: METOPROLOL SUCCINATE XR 50 MG TAB PO SCH (10:31)
[2017-09-01 11:30] VITALS: BP 136/78
--- NOTE | 2017-09-01 11:42 | PDHOMEO2F ---
Home Oxygen Face to Face Home Orders: I certify that a physician or a nurse practitioner or physician's senior court office assistant has had a [id number] encounter with this patient on the date of this order due to the diagnosis listed, which relates to the primary reason the patient requires home oxygen. Alternative treatments have been tried, or considered, and deemed ineffective. It is anticipated that supplemental oxygen will result in improvement with treatment. Home oxygen qualifying diagnosis: pneumonia SpO2 on room air (%): 86 Frequency of home oxygen needed: with activity Home oxygen liters per minute: 2 Home oxygen delivery device: nasal cannula Concentrator: Yes E-tanks for mobility and back up: Yes If ordering portable O2, is the patient mobile in the home?: Yes I certify that, based on these findings, the home oxygen is medically necessary for this patient for the following length of time. Length of time home oxygen needed: 3 months
--- NOTE | 2017-09-01 17:16 | ASDISCHSUM ---
Discharge Information Plan Status:Home with No Needs Medically Cleared to Leave: Discharge Date:09/01/2017 02:19 PM CM D/C Disposition:Home, Routine, Self-Care ADT D/C Disposition:Home, Routine, Self-Care Projected Discharge Date:09/01/2017 02:19 PM Transportation at D/C:Family Discharge Delay Reason: Follow-Up Date:09/01/2017 02:19 PM Discharge Slot: Final Diagnosis: Placement Information Patient Contact Information Contact Name:GABRIELLE Relationship: Address:[address] [facility] City:[place] Alternate Phone: [facility]/Zip Code:[place] [address] Email: Financial Information Financial Class:Medicare Primary Plan Desc:MEDICARE INPATIENT Primary Plan Number:[id number] Secondary Plan Desc:[employer]/MDR SUPPLEMENT Secondary Plan Number:[id number] Assessment Information LACE LACE Length of stay for Answers: 4-6 days current admission Acuity / Level of Answers: Yes Care: Did the patient have an inpatient admission? Comorbidities - select Answers: Any tumor (including all that apply lymphoma or leukemia) Coronary Artery Disease # of Emergency department Answers: 5-8 visits in the last 6 months Score: 15 Date Signed: 09/01/2017 05:15 PM Electronically Signed By:Itzel White RN [facility] CM Progress Note CM Note CM Note Notes: Pt admitted with shortness of breath, fever, cough for multiple days. Diagnosed with pneumonia. Per MD notes, pt history includes lung cancer s/p resection. Pt is currently in remission, but continues on chemo. 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 He lives with his , who owns a restaurant here in [place]. Discharge needs remain unclear at this time. Anticipate pt may discharge home independently with family support when stable. CM will continue to follow for any potential needs. Current Discharge Plan: To be determined Date Signed: 08/30/2017 05:57 PM Electronically Signed By:Sara Hennessy RN [facility] CM Progress Note CM Note CM Note Notes: Dc order received. Spoke with pt's regarding dc poc; declines HHC. Respiratory assisting with home oxygen setup through [facility]. Spoke with Sofy, from [facility]; TC to follow. Anticipate dc home with support of family. CM avaialble if needs/changes. Date Signed: 09/01/2017 05:14 PM Electronically Signed By:Itzel White RN Intervention Information
--- NOTE | 2017-09-01 17:21 | GDS ---
[f rep st] DISCHARGE SUMMARY DISCHARGE DIAGNOSES: Include: 1. Community-acquired pneumonia. 2. Acute human metapneumovirus infection. 3. Acute hypoxic respiratory failure secondary to pneumonia. 4. Reactive airways exacerbation. 5. History of chemotherapy-induced pneumonitis, on chronic steroids. 6. Lung cancer, status post resection, receiving chemotherapy. 7. Gout. 8. Atrial fibrillation. 9. Coronary artery disease. HISTORY OF PRESENT ILLNESS: This is a 72-year-old male presenting with cough and shortness of breath . For details of patient's initial presentation, please see the history and physical dated 8. CONSULTATIVE SERVICES: None. PROCEDURES: None. HOSPITAL COURSE: By issue: 1. Acute hypoxic respiratory failure. Patient was found to have a patchy infiltrate in his right lo wer lung consistent with pneumonia. I suspect the patient started with a viral human metapneumovirus infection which converted to a secondary bacterial pneumonia. Patient was initiated on levofloxacin IV and will complete a 7-day course in the outpatient setting. He is being provided with supplement al oxygen during exertion. He will follow in the outpatient setting with his primary care provider. 2. Acute human metapneumovirus. Patient was provided supportive care as well as treatment for his c ough. 3. Reactive airways. The patient was wheezing on initial presentation. Was continued on outpatient higher dose steroids and inhaled beta agonists. He will follow in the outpatient setting with his P CP. 4. History of chemotherapy-induced pneumonitis. Patient is on chronic steroids. Recently had them increased up to higher doses, though should follow repeat taper in the outpatient setting once seen b y his outpatient oncologist. MEDICATIONS AT THE TIME OF TRANSFER: Please reference the med rec printed on 09/01/2017. PENDING STUDIES: At the time of this dictation, include blood cultures drawn 08/29/2017, which are p reliminary, no growth today. FOLLOWUP APPOINTMENTS: 1. Include with his outpatient oncologist for ongoing monitoring of his pneumonitis and lung cancer. 2. With his outpatient PCP for long-term management of his reactive airways. I spent greater than 30 minutes in the planning and coordination of this discharge. /[id number]/MODL
--- NOTE | 2017-09-02 14:57 | PDHOMEO2F ---
Home Oxygen Face to Face Home Orders: I certify that a physician or a nurse practitioner or physician's retail administrative assistant has had a [id number] encounter with this patient on the date of this order due to the diagnosis listed, which relates to the primary reason the patient requires home oxygen. Alternative treatments have been tried, or considered, and deemed ineffective. It is anticipated that supplemental oxygen will result in improvement with treatment. Home oxygen qualifying diagnosis: lung CA Home oxygen secondary diagnosis: pneumonia SpO2 on room air (%): 86 Frequency of home oxygen needed: with activity Home oxygen liters per minute: 2 Home oxygen delivery device: nasal cannula Concentrator: Yes E-tanks for mobility and back up: Yes If ordering portable O2, is the patient mobile in the home?: Yes I certify that, based on these findings, the home oxygen is medically necessary for this patient for the following length of time. Length of time home oxygen needed: 99 years
== END 2017-09-01 14:19 | disposition home or self-care (01) | DRG 193 ==
LOC: OBSVTOIN 08:44 → F1N 09:40
PROVIDERS: ADMIT Internal Medicine; ATTEND Internal Medicine
DX: J12.3 Human metapneumovirus pneumonia (principal); J15.9 Unspecified bacterial pneumonia; J96.01 Acute respiratory failure with hypoxia; C34.90 Malignant neoplasm of unspecified part of unspecified bronchus or lung; J45.909 Unspecified asthma, uncomplicated; M10.9 Gout, unspecified; I48.91 Unspecified atrial fibrillation; I25.10 Atherosclerotic heart disease of native coronary artery without angina pectoris; Z90.2 Acquired absence of lung [part of]; Z79.52 Long term (current) use of systemic steroids; E78.5 Hyperlipidemia, unspecified; Z95.5 Presence of coronary angioplasty implant and graft; Z87.891 Personal history of nicotine dependence
CPT/HCPCS: 96365; G0378; J0834; J1650; J1956; J7512

== ENCOUNTER 2017-09-11 07:03 | Emergency (ER) | payer OTHER, MEDICARE ==
[2017-09-11] MEDS ORDERED: NS 500 ML IV ONE (07:35)
--- NOTE | 2017-09-11 07:43 | EDPHY ---
H & P Time Seen by Provider: 09/11/17 07:15 HPI/ROS: HPI Recent history of pneumonia, continued cough, gout flare. 72-year-old male by private vehicle with his . He is very familiar to our emergency department. He states that he was recently admitted to the hospital for pneumonitis and pneumonia. He was discharged a week ago last Friday. He was on Levaquin until this last Friday. He presents to the emergency department complaining primarily of continued cough which is keeping him up at night and not being able to sleep for the last 3 nights. He has not had a fever. He has a history of non-small cell lung cancer stage III. He is currently on chemotherapy. His oncologist is Dr. Lowery. He states that he has been temporarily off chemotherapy secondary to his admission and treatment for pneumonia. He also reports a gout flare to his right medial aspect 1st metatarsal phalangeal joint. Worsening for the last several days. He has been taking indomethacin for this. His reports that he was given indomethacin this morning. ROS: Constitutional: No fever, no chills. No weakness. Eyes: No discharge. No changes in vision. ENT: No sore throat. No nasal congestion or rhinorrhea. Respiratory: As above. No shortness of breath. Cardiac: No chest pain, no palpitations. Gastrointestinal: No abdominal pain, no vomiting, no diarrhea. Genitourinary: No hematuria. No dysuria or increased frequency with urination. Musculoskeletal: No back pain. No neck pain. Right foot pain as above. No other extremity pain. Skin: No rashes. Neurological: No headache. No focal weakness or altered sensation. Past medical history: Non-small cell lung cancer stage III, ongoing chemotherapy, recent history of pneumonia, necrotic gallbladder, coronary artery disease with stent, gout, hypertension, carotid stenosis, C diff 1 year ago, left upper lobe resection, cholecystectomy, right-sided carotid endarterectomy. 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 Here with his . Nonsmoker. Physical Exam: General Appearance: Alert, no distress. This patient is responding to questions appropriately and in full sentences. This patient appears well- hydrated and well-nourished. Eyes: Pupils equal and round no pallor or injection. No lid edema, erythema or injection. Respiratory: There are no retractions, lungs are clear to auscultation with good air movement bilaterally. Cardiovascular: Regular rate and rhythm. No murmur. Gastrointestinal: Abdomen is soft and nontender, no masses, bowel sounds normal. No focal tenderness at McBurney's point. No Velásquez sign. Neurological: Motor sensory function is grossly intact. Cranial nerves are normal. Gait is normal. Skin: Warm and dry, no rashes. Musculoskeletal: Neck is supple and nontender. Tophus with localized erythema , right medial aspect 1st MCP joint. No edema beyond erythema. It is about the size of a quarter. This does not look cellulitic. Extremities are symmetrical. All joints range without pain or impingement. Psychiatric: No agitation. No depression. Database: EKG: Imaging: Chest x-ray PA and lateral; patchy infiltrates, right lower long, significantly improved. No other acute cardiopulmonary disease process noted. Interpreted by me. Comparison study from 08/31/2017. Procedures: Emergency department course: Vital signs reviewed and are normal. An IV was placed. Chest x-ray to be obtained. He was started on IV normal saline with 500 cc to be given over the next hour. He will initially be given 0.5 mg of IV hydromorphone for pain to treat his gout flare. He was given indomethacin without affect this morning by his . 7:50 a.m., spoke with on-call oncologist Dr. Mckay. This patient's case was discussed in detail with her. She sees no contraindication to giving colchicine for gouty arthritis flare. 8:40 a.m., patient has intermittent dry nonproductive cough. He was given an albuterol/Atrovent nebulizer treatment for this. He was given 200 mg Tessalon Perle. He tells me that he does not feel comfortable going home and he is requesting admission. He feels that he will not be able to sleep at home and he thinks that he is getting sicker. 8:50 a.m., I spoke with on-call hospitalist. The patient's case was discussed in detail. I explained that the hospital was requesting admission and refusing to be discharged. At this time I do not feel that the patient is to be started on another antibiotic. Tentative plan, the patient will be admitted to the hospitalist service but the hospitalist will evaluate the patient in the emergency department and should there be a change I will assist with disposition. 9:30 a.m., Dr. Chadd White evaluated this patient. Dr. White will discharge this patient to home from the emergency department. I feel this is reasonable. Dr. White has prescribed cough medications. He agrees the patient does not need further antibiotic treatment at this time. The patient does have colchicine at home. He will take this as previously private for his gout. He will follow up with his oncologist in the next day or 2. Return to emergency department precautions were reviewed with him and his . All of their questions were answered. The patient was discharged in good condition. Differential Diagnosis: The differential diagnosis on this patient includes but is not limited to gouty arthritis, residual bronchitis, recent history of pneumonia. This represents a partial list of diagnoses considered. These considerations are based on history , physical exam, past history, reassessment and diagnostic testing. Smoking Status: Former smoker Constitutional: Initial Vital Signs Temperature (C) 36.4 C 09/11/17 07:08 Heart Rate 91 09/11/17 07:08 Respiratory Rate 18 09/11/17 07:08 Blood Pressure 103/100 H 09/11/17 07:08 O2 Sat (%) 96 09/11/17 07:08 O2 Delivery Mode Room Air Allergies/Adverse Reactions: allopurinol Allergy (Verified 09/11/17 07:07) causes gout amlodipine Allergy (Verified 09/11/17 07:07) causes gout symptoms atorvastatin calcium [From Lipitor] Allergy (Verified 09/11/17 07:07) CHRONIC COUGHING ezetimibe [From Zetia] Allergy (Verified 09/11/17 07:07) causes gout symptoms lisinopril Allergy (Verified 09/11/17 07:07) muscle ache lorazepam Allergy (Verified 09/11/17 07:07) anger, memory issues losartan potassium [From Cozaar] Allergy (Verified 09/11/17 07:07) causes gout symptoms morphine Allergy (Verified 09/11/17 07:07) "URINARY RETENTION" per RN per pitavastatin calcium [From Livalo] Allergy (Verified 09/11/17 07:07) causes gout symptoms pravastatin Allergy (Verified 09/11/17 07:07) causes gout symptoms rosuvastatin calcium [From Crestor] Allergy (Verified 09/11/17 07:07) causes gout symptoms spironolactone Allergy (Verified 09/11/17 07:07) causes gout symptoms steroid injection Allergy (Uncoded 08/29/17 06:28) Red Man Syndrome Home Medications: Medication Instructions Recorded Aspirin [Aspirin 81mg (*)] 81 mg PO DAILY 06/05/16 Metoprolol Succinate Xr [Toprol Xl 50 mg PO DAILY 12/15/16 50 mg (*)] Indomethacin [Indocin 25 mg (*)] 25 mg PO TID PRN 03/09/17 Diltiazem Cd [Cardizem ER 120 MG 120 mg PO DAILY 03/28/17 (*)] Benzonatate [Tessalon Pearles] 100 mg PO TID PRN 08/29/17 Latanoprost 0.005% [Xalatan 0.005% 1 drops EACHEYE HS 08/29/17 (*)] predniSONE 40 mg PO DAILY 08/29/17 Medical Decision Making - Diagnostics Imaging Results: Imaging Impressions Chest X-Ray 09/11/17 07:35 Impression: 1. Decreased right lower lobe pneumonia. 2. Improved aeration at the left base. - Data Points Laboratory Results: Laboratory Results 09/11/17 07:55 09/11/17 07:55 09/11/17 09/11/17 07:55 07:55 WBC 14.20 10^3/uL H 10^3/uL (3.80-9.50) RBC 4.04 10^6/uL L 10^6/uL (4.40-6.38) Hgb 12.8 g/dL L g/dL (13.7-17.5) Hct 38.8 % L % (40.0-51.0) MCV 96.0 fL fL (81.5-99.8) MCH 31.7 pg pg (27.9-34.1) MCHC 33.0 g/dL g/dL (32.4-36.7) RDW 15.8 % H % (11.5-15.2) Plt Count 282 10^3/uL 10^3/uL (150-400) MPV 8.7 fL fL (8.7-11.7) Neut % (Auto) 84.7 % H % (39.3-74.2) Lymph % (Auto) 6.6 % L % (15.0-45.0) [place] % (Auto) 6.1 % % (4.5-13.0) Eos % (Auto) 0.4 % L % (0.6-7.6) Baso % (Auto) 0.2 % L % (0.3-1.7) Nucleat RBC Rel Count 0.0 % % (0.0-0.2) Absolute Neuts (auto) 12.03 10^3/uL H 10^3/uL (1.70-6.50) Absolute Lymphs (auto) 0.94 10^3/uL L 10^3/uL (1.00-3.00) Absolute Monos (auto) 0.87 10^3/uL H 10^3/uL (0.30-0.80) Absolute Eos (auto) 0.05 10^3/uL 10^3/uL (0.03-0.40) Absolute Basos (auto) 0.03 10^3/uL 10^3/uL (0.02-0.10) Absolute Nucleated RBC 0.00 10^3/uL 10^3/uL (0-0.01) Immature Gran % 2.0 % H % (0.0-1.1) Immature Gran # 0.28 10^3/uL H 10^3/uL (0.00-0.10) Sodium 145 mEq/L mEq/L (135-145) Potassium 3.6 mEq/L mEq/L (3.5-5.2) Chloride 110 mEq/L mEq/L (97-110) Carbon Dioxide 26 mEq/l mEq/l (22-31) Anion Gap 9 mEq/L mEq/L (8-16) BUN 34 mg/dL H mg/dL (7-23) Creatinine 1.0 mg/dL mg/dL (0.7-1.3) Estimated GFR > 60 Glucose 187 mg/dL H mg/dL (70-100) Calcium 8.6 mg/dL mg/dL (8.5-10.4) Medications Given: Discontinued Medications Albuterol/Ipratropium (Duoneb) 3 ml IH EDNOW ONE Stop: 09/11/17 08:42 Last Admin: 09/11/17 08:52 Dose: 3 ml Benzonatate (Tessalon Pearles) 200 mg PO EDNOW ONE Stop: 09/11/17 08:42 Last Admin: 09/11/17 08:50 Dose: 200 mg Colchicine (Colchicine) 1.2 mg PO EDNOW ONE Stop: 09/11/17 07:50 Last Admin: 09/11/17 08:09 Dose: 1.2 mg Guaifenesin/Codeine Phosphate (Robitussin Ac) 10 ml PO ONCE ONE Stop: 09/11/17 09:03 Last Admin: 09/11/17 09:41 Dose: 10 ml Heparin Sodium (Porcine) (Heparin Lock Flush) 500 unit IVP AD THI Stop: 03/10/18 09:29 Last Admin: 09/11/17 09:34 Dose: 500 unit Hydromorphone HCl (Dilaudid) 0.5 mg IVP EDNOW ONE Stop: 09/11/17 07:48 Last Admin: 09/11/17 08:08 Dose: 0.5 mg Sodium Chloride (Ns) 500 mls @ 1,000 mls/hr IV EDNOW ONE PRN Reason: Protocol Stop: 09/11/17 08:04 Last Admin: 09/11/17 08:08 Dose: 500 mls Departure - Departure Disposition: Home, Routine, Self-Care Clinical Impression: Bronchitis, Gout attack Condition: Good Instructions: Gout (ED), Acute Bronchitis (ED) Additional Instructions: Read and follow provided instructions. Follow-up with your oncologist her primary care physician within 1-2 days for re -evaluation. Take medication as prescribed for cough and gout. Return to the emergency department for worsening symptoms, fever, worsening cough, difficulty breathing, worsening pain or swelling to your right foot or other serious concerns. Referrals: Julián Mijares MD [Primary Care Provider] - As per Instructions Eran Piedra MD [Medical Doctor] - As per Instructions
[2017-09-11] MEDS ORDERED: HYDROmorphONE/DILAUDID 2 MG/ML INJ IVP ONE (07:47)
[2017-09-11] MEDS ORDERED: COLCHICINE 0.6 MG CAP/TAB PO ONE (07:49)
[2017-09-11 08:01] LABS: PLATELET COUNT 282 10^3/uL (150-400)
[2017-09-11] MEDS ORDERED: IPRATROPIUM/ALBUTEROL 3 ML DEYVIAL IH ONE (08:41)
[2017-09-11] MEDS ORDERED: BENZONATATE 100 MG CAP PO ONE (08:41)
[2017-09-11] MEDS ORDERED: guaiFENesin/CODEINE PHOS 10 ML UDCUP PO ONE (09:02)
[2017-09-11] MEDS ORDERED: NS 1,000 ML IV SCH (09:15)
[2017-09-11] MEDS ORDERED: guaiFENesin 200 MG/10 ML UDL ONE (09:25)
[2017-09-11 09:40] VITALS: BP 127/78
--- NOTE | 2017-09-11 10:15 | GCON ---
[f rep st] CONSULTATION Mr. Acosta is a 72-year-old gentleman with a history of lung cancer, recent admission for bacterial pneu monia with human metapneumovirus, who was discharged on the . He may have left against medical ad vice. He returns today with ongoing cough precluding him sleeping as well as a gout flare. He says he has not had fever or chills. He has not been short of breath. He has been eating and drinking ok ay. He has been coughing at night. It sounds like he has taken some Tessalon Perles, but no Robitus sin AC or other opiate containing cough suppressant. It is been nonproductive. Regarding his gout flare, he had a flare at his right 1st MTP. He has a known history of gout. REVIEW OF SYSTEMS: A complete 10-point review of systems conducted, negative except as noted in the HPI. PAST MEDICAL HISTORY: Lung cancer status post resection, currently in remission, continues on chemot herapy, CAD with a stent in 2010, gout, atrial fibrillation, SVT, history of pneumonitis secondary to chemotherapy on chronic prednisone, lumbar stenosis, cervical fusion, cholecystectomy, carotid endar terectomy. ALLERGIES: Allopurinol, amlodipine, atorvastatin, ezetimibe, lisinopril, lorazepam, losartan, morphi ne, pravastatin, pitavastatin, rosuvastatin, spironolactone. MEDICATIONS: His home medications are aspirin metoprolol, prednisone 40, latanoprost, indomethacin, diltiazem, Tessalon Perles. SOCIAL HISTORY: Former smoker. Drinks alcohol. 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 FAMILY HISTORY: Parents . PHYSICAL EXAMINATION: VITAL SIGNS: Temperature 36.4, blood pressure 103/100, pulse 91, breathing 18 times a minute, 96% on room air. GENERAL: No acute distress. Conversant. Not short of breath. H EENT: Sclerae anicteric. Oropharynx clear. Mucous membranes moist. NECK: Supple. No lymphadenop athy or JVD. LUNGS: Clear to auscultation bilaterally. There is a well-healed left thoracotomy sca r. HEART: S1, S2. Not tachycardic. ABDOMEN: Soft, nontender, nondistended. LOWER EXTREMITIES: Without edema. His right proximal metatarsal phalangeal joint is edematous and erythematous and warm. It is not particularly tender. There is no lymphangitic streaking. LABORATORY DATA: White count 14, hematocrit 38.8, platelets are 282,000. Sodium 145, potassium 3.6, chloride 110, bicarb 26, BUN 34, creatinine 1.0. IMAGING: Chest x-ray interpreted by me shows improving right lower lobe infiltrate. I discussed the case Dr. CRUZ] ASSESSMENT AND PLAN: This is a 72-year-old gentleman who presents to the hospital with ongoing cough and gout flare. 1. Cough. This is a sequelae of his recent human metapneumovirus. He does not have an oxygen requi rement, he does not have a worsening infiltrate and he is not short of breath or have increased work of breathing. I think the patient needs aggressive cough suppression. I have written him for Robitu ssin AC and I have given him a prescription to take this scheduled for 3 days and then p.r.n. thereaf ter. I have given him enough for about a week. I have also written for oxycodone 5 at bedtime sched uled. Hopefully, this will provide him some nocturnal cough suppression. I have recommended to take it for 5 days at night scheduled and then p.r.n. thereafter. 2. Gout flare. The patient is on prednisone. He has colchicine at home which I recommended to take twice a day. We reviewed the known side effect of diarrhea with colchicine. 3. Leukocytosis. This is likely secondary to his gout flare. His pneumonia is improving. 4. Coronary artery disease. He will continue with home medications. 5. Disposition. I believe the patient is safe to be discharged from the hospital. I spent greater than 30 minutes discussing this with him and the patient is amenable to discharge. /[id number]/MODL
== END 2017-09-11 09:42 | disposition home or self-care (01) ==
LOC: UNDOADMOB 08:53
DX: J40 Bronchitis, not specified as acute or chronic (principal); M10.9 Gout, unspecified; I10 Essential (primary) hypertension; E86.9 Volume depletion, unspecified; Z79.82 Long term (current) use of aspirin; Z85.118 Personal history of other malignant neoplasm of bronchus and lung; Z87.891 Personal history of nicotine dependence; Z95.5 Presence of coronary angioplasty implant and graft
CPT/HCPCS: 71046; 96374; 96375; 99284; J1170

== ENCOUNTER 2017-09-18 19:18 | Emergency (ER) | payer OTHER, MEDICARE ==
--- NOTE | 2017-09-18 19:24 | EDPHY ---
HPI/HX/ROS/PE/MDM Narrative: CHIEF COMPLAINT: Hand cramping, cough HISTORY OF PRESENT ILLNESS: The patient is a 72 y/o male with an extensive history including non-small cell lung cancer stage III, CAD with a stent, and left upper lobe resection complaining of hand cramping and a cough. On 09/11/17 he was seen in this emergency department for a continued cough s/p pneumonia and a gout flare. During this visit he a had a chest x-ray which revealed a decreasing right lower lobe pneumonia and was discharged home. On Friday, 3 days ago, he tripped , fell, and became unconscious, this was not witnessed. He does not remember hitting his head at this time. Since the fall he has had a mild headache. On Friday, 2 days ago, he developed mild chest pain and decided to see a block greaser. The block greaser was concerned about a PE as the patient has had worsening shortness of breath for 5 week. They were unable to have a chest CT with contrast at this time. Yesterday he developed bilateral hand cramping, which caused him to drop things. This cramping felt like "electricity was shooting through his hands". Per his , the hand cramping was occurring every 3-5 minutes today. Upon arriving to the ED today, he developed left upper quadrant, left lateral chest cramping and pain. His shortness of breath is currently close to his baseline. Takes oxycodone and hydrocodone for cough, with mild relief of symptoms. Denies history of PE or DVT. No fever, chills, palpitations, vomiting, diarrhea, urinary complaints, lightheadedness. Prior medical records reviewed including ED visit on 09/11/[address] Bansal. REVIEW OF SYSTEMS: Aside from elements discussed in the HPI, a comprehensive 10-point review of systems was reviewed and is negative. Patient also reported difficulty swallowing yesterday. PAST MEDICAL HISTORY: Non-small cell lung cancer stage III, ongoing chemotherapy , recent history of pneumonia, necrotic gallbladder, coronary artery disease with stent, gout, hypertension, carotid stenosis, C diff 1 year ago, left upper lobe resection, cholecystectomy, right-sided carotid endarterectomy. SOCIAL HISTORY: at bedside, lives in [place], retired VITAL SIGNS: Reviewed by me GENERAL: Somewhat overweight, no acute distress. HEENT: Atraumatic. Eyes: No icterus, no injection. Mouth: moist mucous membranes. No erythema or lesions. Neck: supple with no adenopathy. LUNGS: Takes short, rapid breaths. Clear to auscultation bilaterally, no wheezes , rhonchi or rales. CARDIAC: Borderline tachycardia, no rubs, murmurs or gallops. ABDOMEN: Soft, nontender, nondistended, bowel sounds normal. BACK: Lobectomy scars on back. No CVA tenderness. EXTREMITIES: No trauma. No edema. Range of motion is normal throughout. NEURO: Alert and oriented, grossly nonfocal. SKIN: Warm and dry, no rash. PSYCHIATRIC: Normal mentation, no agitation. Portions of this note were transcribed by a medical translator. I personally performed a history, physical exam, medical decision making, and confirmed accuracy of information the transcribed note. ED Course: The patient is a 72 y/o male with an extensive history including non-small cell lung cancer stage III, CAD with a stent, and a left upper lobe resection presenting with intermittent hand cramping and persistent cough. On exam, he is taking short, rapid breaths and has borderline tachycardia. Labs, chest x-ray, and EKG ordered. 1L IV NS administered. Per the patient's , the main concerns and symptoms prompting manuel's emergency department visit included cramping in the hands, cramping in the left side and chest, and a syncopal episode 4 days ago with chest pain then which has resolved. They also have some concerns regarding the possibility of a pulmonary embolism as expressed by pulmonology. 2004: 12-LEAD EKG: Please see the full report in [facility]. My interpretation: Sinus tachycardia with a rate of 100. No acute ischemic changes. 2021: I reviewed patient's chest x-ray, radiologist reading reveals persistent moderate elevation left hemidiaphragm. CT scan of the chest demonstrates no pulmonary embolism. Prior pneumonia has resolved. Ground-glass opacifications in the right lower posterior lateral lobe consistent with pneumonitis. Patient has no current chest pain or shortness of breath above his chronic baseline shortness of breath. Patient's is being followed by Pulmonary. Patient has normal electrolytes. EKG is nonischemic. Troponin is negative. Patient will be discharged home after receiving fluids and advised to follow up with his primary care physician, and with pulmonary, and to continue his prior medications. MDM: Differential diagnoses for the patient's symptom complex was considered including but not limited to cardiac ischemia, electrolyte abnormalities, pulmonary embolism, worsening pneumonia. - Data Points Imaging Results: Imaging Impressions Chest X-Ray 09/18/17 19:59 Impression: 1. No active cardiopulmonary disease seen. 2. Persistent moderate elevation left hemidiaphragm. Chest CT 09/18/17 20:23 Impression: 1. No evidence of pulmonary embolus using CT protocol. 2. Interval resolution of previous consolidation/pneumonia inferior aspect right upper lobe as well as left base with some residual scarring present. 3. Groundglass attenuation has developed involving the right lower lobe posterior laterally. Consider pneumonitis. Findings discussed with Karla Magdaleno MD at 21:07 hour, 09/18/2017. Imaging: Discussed imaging studies w/ inbound call center representative Radiologist, I viewed and interpreted images myself Laboratory Results: Laboratory Results 09/18/17 20:10 09/18/17 20:10 09/18/17 09/18/17 09/18/17 21:20 20:15 20:10 WBC RBC Hgb POC Hgb 14.3 gm/dL gm/dL (13.7-17.5) Hct POC Hct 42 % % (40-51) MCV MCH MCHC RDW Plt Count MPV Neut % (Auto) Lymph % (Auto) Hubbard % (Auto) Eos % (Auto) Baso % (Auto) Nucleat RBC Rel Count Absolute Neuts (auto) Absolute Lymphs (auto) Absolute Monos (auto) Absolute Eos (auto) Absolute Basos (auto) Absolute Nucleated RBC Immature Gran % Immature Gran # POC Sodium 139 mEq/L mEq/L (135-145) Sodium 137 mEq/L mEq/L (135-145) POC Potassium 4.5 mEq/L mEq/L (3.3-5.0) Potassium 4.8 mEq/L mEq/L (3.5-5.2) POC Chloride 100 mEq/L mEq/L (97-110) Chloride 99 mEq/L mEq/L (97-110) Carbon Dioxide 26 mEq/l mEq/l (22-31) Anion Gap 12 mEq/L mEq/L (8-16) POC BUN 27 mg/dL H mg/dL (7-23) BUN 27 mg/dL H mg/dL (7-23) Creatinine 1.0 mg/dL mg/dL (0.7-1.3) POC Creatinine 1.1 mg/dL mg/dL (0.7-1.3) Estimated GFR > 60 Glucose 121 mg/dL H mg/dL (70-100) POC Glucose 134 mg/dL H mg/dL (70-100) Calcium 9.1 mg/dL mg/dL (8.5-10.4) Troponin I < 0.012 ng/mL ng/mL (0.000-0.034) Urine Color PALE YELLOW Urine Appearance CLEAR Urine pH 6.0 (5.0-7.5) Ur Specific Paradise 1.016 (1.002-1.030) Urine Protein NEGATIVE (NEGATIVE) Urine Ketones NEGATIVE (NEGATIVE) Urine Blood NEGATIVE (NEGATIVE) Urine Nitrate NEGATIVE (NEGATIVE) Urine Bilirubin NEGATIVE (NEGATIVE) Urine Urobilinogen NEGATIVE EU EU (0.2-1.0) Ur Leukocyte Esterase NEGATIVE (NEGATIVE) Urine Glucose NEGATIVE (NEGATIVE) 09/18/17 20:10 WBC 9.97 10^3/uL H 10^3/uL (3.80-9.50) RBC 4.20 10^6/uL L 10^6/uL (4.40-6.38) Hgb 13.3 g/dL L g/dL (13.7-17.5) POC Hgb Hct 39.9 % L % (40.0-51.0) POC Hct MCV 95.0 fL fL (81.5-99.8) MCH 31.7 pg pg (27.9-34.1) MCHC 33.3 g/dL g/dL (32.4-36.7) RDW 15.8 % H % (11.5-15.2) Plt Count 271 10^3/uL 10^3/uL (150-400) MPV 9.0 fL fL (8.7-11.7) Neut % (Auto) 85.7 % H % (39.3-74.2) Lymph % (Auto) 5.3 % L % (15.0-45.0) Hubbard % (Auto) 8.0 % % (4.5-13.0) Eos % (Auto) 0.0 % L % (0.6-7.6) Baso % (Auto) 0.1 % L % (0.3-1.7) Nucleat RBC Rel Count 0.0 % % (0.0-0.2) Absolute Neuts (auto) 8.54 10^3/uL H 10^3/uL (1.70-6.50) Absolute Lymphs (auto) 0.53 10^3/uL L 10^3/uL (1.00-3.00) Absolute Monos (auto) 0.80 10^3/uL 10^3/uL (0.30-0.80) Absolute Eos (auto) 0.00 10^3/uL L 10^3/uL (0.03-0.40) Absolute Basos (auto) 0.01 10^3/uL L 10^3/uL (0.02-0.10) Absolute Nucleated RBC 0.00 10^3/uL 10^3/uL (0-0.01) Immature Gran % 0.9 % % (0.0-1.1) Immature Gran # 0.09 10^3/uL 10^3/uL (0.00-0.10) POC Sodium Sodium POC Potassium Potassium POC Chloride Chloride Carbon Dioxide Anion Gap POC BUN BUN Creatinine POC Creatinine Estimated GFR Glucose POC Glucose Calcium Troponin I Urine Color Urine Appearance Urine pH Ur Specific Paradise Urine Protein Urine Ketones Urine Blood Urine Nitrate Urine Bilirubin Urine Urobilinogen Ur Leukocyte Esterase Urine Glucose Medications Given: Discontinued Medications Heparin Sodium (Porcine) (Heparin Lock Flush) 500 unit IVP EDNOW ONE Stop: 09/18/17 21:31 Last Admin: 09/18/17 21:35 Dose: 500 unit Sodium Chloride (Ns) 1,000 mls @ 0 mls/hr IV ONCE ONE; Wide Open PRN Reason: Protocol Stop: 09/18/17 20:01 Last Admin: 09/18/17 20:23 Dose: 1,000 mls Point of Care Test Results: 09/18/17 20:15 POC Sodium 139 POC Potassium 4.5 POC Chloride 100 POC BUN 27 H POC Creatinine 1.1 POC Glucose 134 H General Time Seen by Provider: 09/18/17 19:23 Initial Vital Signs: Initial Vital Signs Temperature (C) 36.8 C 09/18/17 19:39 Heart Rate 94 09/18/17 19:39 Respiratory Rate 18 09/18/17 19:39 Blood Pressure 120/68 09/18/17 19:39 O2 Sat (%) 93 09/18/17 19:39 O2 Delivery Mode Room Air Allergies/Adverse Reactions: allopurinol Allergy (Verified 09/18/17 19:39) causes gout amlodipine Allergy (Verified 09/18/17 19:39) causes gout symptoms atorvastatin calcium [From Lipitor] Allergy (Verified 09/18/17 19:39) CHRONIC COUGHING ezetimibe [From Zetia] Allergy (Verified 09/18/17 19:39) causes gout symptoms lisinopril Allergy (Verified 09/18/17 19:39) muscle ache lorazepam Allergy (Verified 09/18/17 19:39) anger, memory issues losartan potassium [From Cozaar] Allergy (Verified 09/18/17 19:39) causes gout symptoms morphine Allergy (Verified 09/18/17 19:39) "URINARY RETENTION" per RN per pitavastatin calcium [From Livalo] Allergy (Verified 09/18/17 19:39) causes gout symptoms pravastatin Allergy (Verified 09/18/17 19:39) causes gout symptoms rosuvastatin calcium [From Crestor] Allergy (Verified 09/18/17 19:39) causes gout symptoms spironolactone Allergy (Verified 09/18/17 19:39) causes gout symptoms steroid injection Allergy (Uncoded 09/18/17 19:39) Red Man Syndrome Home Medications: Medication Instructions Recorded Aspirin [Aspirin 81mg (*)] 81 mg PO DAILY 06/05/16 Metoprolol Succinate Xr [Toprol Xl 50 mg PO DAILY 12/15/16 50 mg (*)] Indomethacin [Indocin 25 mg (*)] 25 mg PO TID PRN 03/09/17 Diltiazem Cd [Cardizem ER 120 MG 120 mg PO DAILY 03/28/17 (*)] Benzonatate [Tessalon Pearles] 100 mg PO TID PRN 08/29/17 Latanoprost 0.005% [Xalatan 0.005% 1 drops EACHEYE HS 08/29/17 (*)] predniSONE 40 mg PO DAILY 08/29/17 Departure - Departure Disposition: Home, Routine, Self-Care Clinical Impression: Cough, Pneumonitis Condition: Fair Instructions: Chronic Cough (ED) Additional Instructions: There is no pulmonary embolism seen on your CT scan. Your EKG and troponin are both negative, your urinalysis is normal. Please continue all medications as previously directed. Be sure you drink plenty of fluid. Please follow up with your primary care physician early next week. Follow up with your block greaser as soon as possible. Referrals: Julián Mijares MD [Primary Care Provider] - As per Instructions Report Scribed for: Karla Magdaleno Report Scribed by: Roro Daigle Date of Report: 09/18/17 Time of Report: 19:24
[2017-09-18] MEDS ORDERED: NS 1,000 ML IV ONE (20:00)
--- NOTE | 2017-09-18 20:06 | CPEKG ---
Heart Rate: 100 RR Interval: 600 P-R Interval: 140 QRSD Interval: 82 QT Interval: 340 QTC Interval: 439 P Anamoose: 53 QRS [place]amoose: -1 T Wave [place]amoose: 69 EKG Severity - BORDERLINE ECG - EKG Impression: SINUS TACHYCARDIA EKG Impression: PROBABLE LEFT ATRIAL ABNORMALITY Electronically Signed By: Karla Magdaleno 18-Sep-2017 21:01:13
[2017-09-18 20:22] LABS: PLATELET COUNT 271 10^3/uL (150-400)
[2017-09-18] MEDS ORDERED: IOPAMIDOL (ISOVUE-300) 100 ML BTL ONE (20:36)
[2017-09-18 21:35] VITALS: BP 165/87
== END 2017-09-18 21:38 | disposition home or self-care (01) ==
DX: J18.9 Pneumonia, unspecified organism (principal); I10 Essential (primary) hypertension; I25.10 Atherosclerotic heart disease of native coronary artery without angina pectoris; E86.9 Volume depletion, unspecified; Z79.82 Long term (current) use of aspirin; Z85.118 Personal history of other malignant neoplasm of bronchus and lung; Z95.5 Presence of coronary angioplasty implant and graft
CPT/HCPCS: 71046; 71260; 93005; 96361; 96374; 99285; J1642; Q9967; 82947-QW

== ENCOUNTER 2017-09-19 06:33 | Inpatient (IN) | payer OTHER, MEDICARE ==
--- NOTE | 2017-09-19 06:59 | EDPHY ---
H & P Stated Complaint: Coughing, urinary retention, D/C'd last night Time Seen by Provider: 09/19/17 06:55 HPI/ROS: CHIEF COMPLAINT: Chronic cough, urinary complaints HISTORY OF PRESENT ILLNESS: The patient presents to the ED with complaints of a chronic cough. He reports this is been going on for the past week. He was seen in the emergency department yesterday and had an evaluation including a CT scan and was discharged home. The patient returns today stating that he continues to have a severe intractable cough any time he lays flat. Additionally the patient has endorsed some symptoms of urinary retention. The patient denies fever, acute pain, rash, weight loss or other complaints. The patient reportedly has a history of treated lung cancer. REVIEW OF SYSTEMS: A comprehensive 10 point review of systems is otherwise negative aside from elements mentioned in the history of present illness. Source: Patient - Personal History Current Tetanus/Diphtheria Vaccine: No Current Tetanus Diphtheria and Acellular Pertussis (TDAP): No - Medical/Surgical History Hx Asthma: No Hx Chronic Respiratory Disease: Yes Hx Diabetes: No Hx Cardiac Disease: Yes Hx Renal Disease: No Hx Cirrhosis: No Hx Alcoholism: No Hx HIV/AIDS: No Hx Splenectomy or Spleen Trauma: No Other PMH: pmh- htn, hyperlipemia, gout, non-small cell lung ca stage IIIA, cad , afib. psh- L lung resection 08/31/14, cardiac stents x2, back surgery, cholecystectomy, port removed 2016, left knee 2017 - Social History Smoking Status: Former smoker - Physical Exam Exam: General Appearance: Alert, no distress Eyes: Pupils equal and round no pallor or injection ENT, Mouth: Mucous membranes moist Respiratory: There are no retractions, lungs are clear to auscultation Cardiovascular: Regular rate and rhythm Gastrointestinal: Abdomen is soft and nontender, no masses, bowel sounds normal Neurological: 5/5 strength all 4 extremities Skin: Warm and dry, no rashes Musculoskeletal: Neck is supple nontender Extremities: symmetrical, full range of motion Constitutional: Initial Vital Signs Temperature (C) 36.9 C 09/19/17 06:35 Heart Rate 91 09/19/17 06:35 Respiratory Rate 17 09/19/17 06:35 Blood Pressure 165/78 H 09/19/17 06:35 O2 Sat (%) 93 09/19/17 06:35 O2 Delivery Mode Room Air O2 (L/minute) 2 Allergies/Adverse Reactions: allopurinol Allergy (Verified 09/18/17 19:39) causes gout amlodipine Allergy (Verified 09/18/17 19:39) causes gout symptoms atorvastatin calcium [From Lipitor] Allergy (Verified 09/18/17 19:39) CHRONIC COUGHING ezetimibe [From Zetia] Allergy (Verified 09/18/17 19:39) causes gout symptoms lisinopril Allergy (Verified 09/18/17 19:39) muscle ache lorazepam Allergy (Verified 09/18/17 19:39) anger, memory issues losartan potassium [From Cozaar] Allergy (Verified 09/18/17 19:39) causes gout symptoms morphine Allergy (Verified 09/18/17 19:39) "URINARY RETENTION" per RN per pitavastatin calcium [From Livalo] Allergy (Verified 09/18/17 19:39) causes gout symptoms pravastatin Allergy (Verified 09/18/17 19:39) causes gout symptoms rosuvastatin calcium [From Crestor] Allergy (Verified 09/18/17 19:39) causes gout symptoms spironolactone Allergy (Verified 09/18/17 19:39) causes gout symptoms steroid injection Allergy (Uncoded 09/18/17 19:39) Red Man Syndrome Home Medications: Medication Instructions Recorded Aspirin [Aspirin 81mg (*)] 81 mg PO DAILY 06/05/16 Metoprolol Succinate Xr [Toprol Xl 50 mg PO DAILY 12/15/16 50 mg (*)] Indomethacin [Indocin 25 mg (*)] 25 mg PO TID PRN 03/09/17 Diltiazem Cd [Cardizem ER 120 MG 120 mg PO DAILY 03/28/17 (*)] Benzonatate [Tessalon Pearles] 100 mg PO TID PRN 08/29/17 Latanoprost 0.005% [Xalatan 0.005% 1 drops EACHEYE HS 08/29/17 (*)] predniSONE 40 mg PO DAILY 08/29/17 Albuterol [Ventolin Hfa Inhaler] 2 puffs IH QID PRN #1 mdi 09/19/17 predniSONE [prednisone 20mg (RX)] 2 tab PO DAILY #10 tab 09/19/17 Medical Decision Making ED Course/Re-evaluation: I reviewed the patient's past medical history including his workup yesterday and evaluation by Internal Medicine and emergency department several weeks ago. Yesterday the patient had a CT pulmonary angiogram which demonstrated no evidence of PE. His laboratory testing was unremarkable. His chief complaint was one of coughing and cramping of the hands. The patient's postvoid residual is 90 mL. The patient did have evidence of pneumonitis on his chest CT scan yesterday. This may be contributing to his cough. The patient was given an albuterol nebulizer in the emergency department. The patient's arrived and provided additional history. She has been seen multiple providers for his complaints of chronic cough. The patient has been given narcotics as an attempted cough suppressant however this is resulted in confusion and falls. The patient has also had some bouts of hypoxemia while using narcotics. Additionally the patient was recently started on increased steroids for possible pneumonitis however this failed to improve his symptoms. The patient's is tearful and exhausted. She is quite frustrated at the patient's ongoing symptoms of cough and dyspnea. She feels as if the patient is at significant risk for harm giving his falls and confusion. The patient will be admitted to the hospital. They would like a consultation by Pulmonary. I feel it is reasonable to consider a multi disciplinary case conference involving the patient's oncologist, pulmonary medicine, internal medicine and possibly palliative care. Differential Diagnosis: Differential diagnosis considered includes asthma, bronchitis, pneumonia - Data Points Medications Given: Discontinued Medications Albuterol (Proventil Neb) 3 ml IH EDNOW ONE Stop: 09/19/17 07:29 Last Admin: 09/19/17 07:32 Dose: 3 ml Departure - Departure Clinical Impression: Chronic cough Condition: Good Prescriptions: Albuterol [Ventolin Hfa Inhaler] 2 puffs IH QID PRN #1 mdi PRN Reason: for shortness of breath predniSONE [prednisone 20mg (RX)] 2 tab PO DAILY #10 tab
[2017-09-19] MEDS ORDERED: ALBUTEROL 3 ML DEYVIAL IH ONE (07:28)
[2017-09-19] MEDS ORDERED: INDOMETHACIN 25 MG CAP PO PRN (10:54)
[2017-09-19] MEDS ORDERED: ACETAMINOPHEN 325 MG TAB PO PRN (11:30)
[2017-09-19] MEDS ORDERED: traMADol 50 MG TAB PO PRN (11:30)
[2017-09-19] MEDS ORDERED: ONDANSETRON 4 MG/2 ML VIAL IVP PRN (11:30)
[2017-09-19] MEDS: COLCHICINE 0.6 MG CAP/TAB PO SCH ×2 (11:58→21:42)
[2017-09-19] MEDS: DILTIAZEM CD 120 MG CAP PO SCH (11:58)
[2017-09-19] MEDS: METOPROLOL SUCCINATE XR 50 MG TAB PO SCH (11:58)
[2017-09-19] MEDS: CETIRIZINE 10 MG TAB PO SCH (11:59)
[2017-09-19] MEDS: guaiFENesin 600 MG TAB.ER PO SCH ×2 (11:59→21:42)
[2017-09-19] MEDS ORDERED: NYSTATIN PO SCH (12:00)
[2017-09-19] MEDS: FLUNISOLIDE NASAL 200 SPRAYS/25 ML MDI NS SCH ×2 (12:01→21:47)
[2017-09-19] MEDS: NYSTATIN SUSP 500000 UNIT/5 ML UDCUP PO SCH ×3 (12:01→21:42)
[2017-09-19] MEDS: HYDROcodone/CPM TUSSIONEX 5 ML UDSYR PO SCH ×2 (12:09→21:42)
[2017-09-19] MEDS: BENZONATATE 100 MG CAP PO PRN ×2 (12:09→18:49)
[2017-09-19] MEDS: predniSONE 10 MG TAB PO SCH (12:21)
[2017-09-19] MEDS: PANTOPRAZOLE SODIUM 40 MG TAB PO SCH (12:23)
[2017-09-19] MEDS: ASPIRIN 81 MG CHEWABLE TAB PO SCH (12:25)
--- NOTE | 2017-09-19 12:25 | WOCRNPDOC ---
WOCRN Advanced Assessment Note - Skin Integrity Problem, Advanced Assess Right First Metatarsal Head Dressing Type: Allevyn Life Dressing Description: Clean/Dry, Intact Exudate Amount: Minimal Exudate Color: Yellow Exudate Characteristic(s): Other (chalky white related to crystallized uric acid ) Integumentary Issue Intervention: Visualized Under Dressing [place] Wound Tissue: Erythema, Swollen, Painful/Tender [place] Wound Swelling: Moderate Skin Integrity Problem Comment: Unable to see base of wound due to uric acid crystallization and patient complaint of pain to wound and periwound. Wound care will follow up next week to determine whether patient responds to colchicine treatment and crystals dissolve, and monitor if wound then requires treatment.
[2017-09-19] MEDS: IPRATROPIUM/ALBUTEROL 3 ML DEYVIAL IH SCH ×3 (13:23→22:42)
[2017-09-19] MEDS: FLUTICASONE/SALMETER 250/50MCG DISKUS IH SCH ×2 (13:28→22:42)
[2017-09-19] MEDS: LIDOCAINE 1% 5 ML SDV IH SCH ×2 (17:06→22:47)
[2017-09-19] MEDS: CEPACOL LOZENGE PO PRN (18:49)
--- NOTE | 2017-09-19 18:56 | GHP ---
[f rep st] HISTORY AND PHYSICAL DATE OF ADMISSION: 09/19/2017 CHIEF COMPLAINT: Cough. HISTORY: Mr. Acosta is a 72-year-old male who has been coughing for weeks in an unrelenting manner that has severely affected his quality of life and safety at home. He was hospitalized here 2 weeks ago, and respiratory PCR was positive for human metapneumovirus. He was also felt to have a secondary ba cterial infection, and he was treated with Levaquin. Since discharge, his cough has persisted and he continues to be short of breath. Shortness of breath is worse at night when he lies down flat, alth ough according to his , he coughs 24/7. He has not slept in 4 days due to persistent cough. He was prescribed as an outpatient a narcotic-containing cough suppressant. However, this caused confus ion and he subsequently fell. He has also had a syncopal event, although details are unclear. Narco tic also caused urinary retention, although postvoid residual in the ER today was only 90 and his uri nalysis was negative. He takes chronic steroids for chemotherapy-induced pneumonitis, and also was d iagnosed with a reactive airway disease exacerbation on his recent hospitalization and treated with a n increased steroid dose with taper. He was seen in the emergency room yesterday, and a CT angiogram of the chest and labs were negative and discharged home. He now came back to the ER today with her 4th ER visit in recent history. The is tearful and exhausted, and concerned for her 's s afety. PAST MEDICAL HISTORY: 1. Lung cancer, status post lobectomy and chemotherapy, currently in remission. 2. 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 3. Gout. 4. Atrial fibrillation. 5. Reactive airways disease. 6. Coronary artery disease/COPD. 7. Coronary artery disease, status post stent in 2010. PAST SURGICAL HISTORY: Cholecystectomy, carotid endarterectomy, cervical fusion, lumbar stenosis sta tus post microdiskectomy. MEDICATIONS: Please see computer record for full details allergies is list is extensive. Please see . SOCIAL HISTORY: Former heavy smoker. 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 No alcohol. Live s with his . She owns a [employer] restaurant locally here in [place]. REVIEW OF SYSTEMS: Complete review of systems obtained. Review of systems negative regarding consti tutional, HEENT, GI, pulmonary, cardiovascular, , hematology, skin, muscular endocrine, psych excep t for positives and negatives as are in HPI. FAMILY HISTORY: Reviewed, noncontributory to presenting complaint. PHYSICAL EXAMINATION: GENERAL: Well-developed, well-nourished male, no acute distress. VITAL SIGNS : Temperature is 36.2, pulse 91, blood pressure 134/79, saturating 96% on room air. EYE: Normal co njunctiva. Pupils react light. ENT: Normal ears and nose. Hearing intact. Normal teeth. Orophar ynx moist. NECK: Trachea midline. No thyromegaly. CHEST: Normal expiratory effort. LUNGS: Sonia r to auscultation bilaterally. CARDIOVASCULAR: Regular rate and rhythm. No murmur. No lower extre mity edema. ABDOMEN: Soft, nontender. No hepatosplenomegaly. SKIN: Warm, dry, intact. No rash. MUSCULOSKELETAL: No cyanosis or clubbing. Strength 5/5 upper and lower extremities. NEUROLOGIC: Cranial nerves intact. Normal sensation to light touch. PSYCHIATRIC: Alert and oriented x3. Esperanza l mood and affect. Normal judgment. Normal insight. Normal memory. LABORATORIES: White count 9.97, hematocrit 39.9, platelets 271. Sodium 137, potassium 4.8, chloride 99, bicarb 26, BUN 27, creatinine 1.0, glucose 121. Urinalysis is negative. CT scan of the chest s hows no pulmonary embolus, minimal pneumonitis. Old chart was reviewed. He was seen in the emergency room yesterday and had a workup that was unrema rkable. He was discharged from the hospital on September 05. ASSESSMENT/PLAN: 1. Persistent cough. I suspect this is post viral. CT angiogram of the chest is negative for pulmo nary embolism and also showed minimal pneumonitis. The differential diagnosis also includes persiste nt reactive airway disease, and we will start him on scheduled nebulizers and inhaled steroids. Also in the differential is postnasal drip, and nasal steroids and antihistamines will be continued. Alt mary less likely, gastroesophageal reflux disease can sometimes cause chronic cough, so I will empir ically start him on a proton pump inhibitor. We will avoid narcotic cough suppressants secondary to them causing increased confusion, falls, and urinary retention. 2. Reactive airways disease/chronic obstructive pulmonary disease exacerbation. Steroids and nebuli zers, with tapering steroids back down to his chronic dose. 3. Pneumonitis secondary to chemotherapy. He has been on chronic steroids for this. There is no ev idence of active pneumonitis on his recent CT. 4. Lung cancer, in remission status post lobectomy. 5. Gout. He has not been treated with allopurinol because of his other medical conditions taking pr ecedence in their lives. 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 We will start him on colchicine and continue Indocin. I discussed with them again regarding outpatient rheumatology co nsultation to initiate allopurinol. 6. Atrial fibrillation. Continue verapamil and aspirin. 7. Coronary artery disease, status post previous stents. Current cardiac appears stable. We will c heck a BNP given the positional nature to his shortness of breath. He also recently had a syncopal e vent, although it sounds that it is likely vagal related to this coughing. We will check an EKG in t he morning. 8. Oral thrush. Continue nystatin. 9. Muscle cramps. We will check electrolytes and a TSH. CODE STATUS: Full. ADMISSION STATUS: Will admit to observation, re-evaluate tomorrow regarding the ongoing need for hos pitalization. DEEP VENOUS THROMBOSIS PROPHYLAXIS: High risk. We will place him on subcu Lovenox. /[id number]/MODL
[2017-09-19] MEDS ORDERED: LIDOCAINE 1.5% NB SCH (21:00)
[2017-09-19] MEDS ORDERED: LIDOCAINE 1% 5 ML SDV IH SCH (21:00)
[2017-09-19] MEDS: CEPACOL LOZENGE PO SCH (21:41)
[2017-09-19] MEDS: INDOMETHACIN 25 MG CAP PO SCH (21:43)
[2017-09-19] MEDS: LATANOPROST 0.005% 2.5 ML OPHT DROPS EACHEYE SCH (21:47)
[2017-09-20] MEDS: BENZONATATE 100 MG CAP PO PRN ×3 (02:54→15:40)
[2017-09-20] MEDS: IPRATROPIUM/ALBUTEROL 3 ML DEYVIAL IH SCH ×4 (05:56→21:50)
[2017-09-20] MEDS: LIDOCAINE 1% 5 ML SDV IH SCH ×4 (05:56→23:46)
[2017-09-20] MEDS: CEPACOL LOZENGE PO SCH ×4 (06:15→21:03)
[2017-09-20] MEDS: NYSTATIN SUSP 500000 UNIT/5 ML UDCUP PO SCH ×5 (06:22→21:05)
[2017-09-20 06:30] LABS: PLATELET COUNT 247 10^3/uL (150-400)
[2017-09-20] MEDS: COLCHICINE 0.6 MG CAP/TAB PO SCH ×2 (08:17→21:04)
[2017-09-20] MEDS: INDOMETHACIN 25 MG CAP PO SCH ×3 (08:17→21:10)
[2017-09-20] MEDS: CETIRIZINE 10 MG TAB PO SCH (08:18)
[2017-09-20] MEDS: DILTIAZEM CD 120 MG CAP PO SCH (08:18)
[2017-09-20] MEDS: ASPIRIN 81 MG CHEWABLE TAB PO SCH (08:18)
[2017-09-20] MEDS: PANTOPRAZOLE SODIUM 40 MG TAB PO SCH (08:18)
[2017-09-20] MEDS: guaiFENesin 600 MG TAB.ER PO SCH ×2 (08:18→21:04)
[2017-09-20] MEDS: METOPROLOL SUCCINATE XR 50 MG TAB PO SCH (08:18)
[2017-09-20] MEDS: predniSONE 10 MG TAB PO SCH (08:18)
[2017-09-20] MEDS: ENOXAPARIN 40 MG/0.4 ML SYR SC SCH (08:19)
[2017-09-20] MEDS: FLUNISOLIDE NASAL 200 SPRAYS/25 ML MDI NS SCH ×2 (09:00→21:06)
[2017-09-20] MEDS: FLUTICASONE/SALMETER 250/50MCG DISKUS IH SCH ×2 (10:08→21:06)
--- NOTE | 2017-09-20 14:37 | PDINTPN ---
Cargo Bracer Progress Note Assessment/Plan: Assessment: Plan: Objective: Vital Signs Temp Pulse Resp BP Pulse Ox 36.4 C 79 12 127/74 H 98 09/20/17 08:00 09/20/17 10:12 09/20/17 10:12 09/20/17 08:00 09/20/17 10:12 Microbiology 09/19/17 14:15 Respiratory Panel (PCR) - Final Nasal, Sinus - Swab No Organism Detected Laboratory Results 09/20/17 06:15 09/20/17 06:15 Videoswallow/esophagram: No aspiration. Moderate GERD to mid-esophagus. Images reviewed. ICD10 Worksheet Patient Problems: Problems Problem Status Onset Chronic cough Acute Arthrodesis status Acute C. difficile diarrhea Acute 04/05/16 Cervical stenosis of spine Acute Chest pain Acute Dehydration Acute Diarrhea Acute Dysphagia, oropharyngeal Acute Gout Acute Headache Acute Hypocalcemia Acute Hypokalemia Acute Hypomagnesemia Acute Infection due to human metapneumovirus (hMPV) Acute Lumbar back pain with radiculopathy affecting left lower extremity Acute Lung cancer Acute Nausea & vomiting Acute Neck pain Acute On total parenteral nutrition (TPN) Acute Pneumonia Acute RUQ abdominal pain Acute Weakness Acute chronic disease mgmt/transitional care Acute CAD (coronary artery disease) Chronic Dyslipidemia Chronic
--- NOTE | 2017-09-20 14:53 | GCON ---
[f rep st] CONSULTATION ONCOLOGY INITIAL VISIT REASON FOR VISIT: Evaluation and management of non-small cell lung cancer. HISTORY OF PRESENT ILLNESS: The patient is a 72-year-old gentleman who was diagnosed stage IIIA lung cancer in July 2014. He underwent surgical resection and adjuvant chemotherapy. He then developed recurrence and was treated with nivolumab. He has had issues with pneumonitis, but had an excellent response to the chemotherapy. He was recently in the hospital on September 11 with a viral pneumoniti s from human metapneumovirus. He was treated supportively. He also had some reactive airway disease . He is also on steroids for the underlying pneumonitis. He was able to go home, but returned last night. He had been in our office complaining of significant cough. He had finished the recent antib iotic. Oxygenation on room air is 96%. He is using Tessalon Perles and Robitussin without much reli ef. His steroids were 30 mg daily. He was tried on both a nebulizer and a codeine based cough suppr essant. However, he started having some confusion and falls and syncopal event. He also developed u rinary retention, which is a common problem with him when he uses narcotics. His brought him to the ER, as she was concerned for her 's safety. This morning, he is doing much better. Lilly thing easier. Cough is better. Still gets winded with activity. He has been trying to become more active, but still a little bit generally weak. PAST MEDICAL HISTORY: ALLERGIES: Allopurinol, amlodipine, atorvastatin, calcium, ezetimibe, and he is intolerant to narcot ics. Also allergic to lisinopril, lorazepam, losartan, pitavastatin, pravastatin, rosuvastatin, spir onolactone, zolpidem. HOME MEDICATIONS: Include Tussionex, nystatin, diltiazem, benzonatate, aspirin, prednisone, metoprol ol, latanoprost, or Xalatan eye drops. Indomethacin and albuterol. CHRONIC ILLNESSES: 1. Lung cancer as per HPI. Currently in remission. 2. Immunotherapy induced pneumonitis on chronic steroids. 3. Gout. 4. Atrial fibrillation. 5. Recent viral pneumonia and possible bacterial pneumonia. 6. Coronary artery disease/COPD. Last stent in 2010. SURGICAL HISTORY: Includes lobectomy, cholecystectomy, carotid endarterectomy, cervical fusion, lumb ar stenosis. SOCIAL HISTORY: Previously heavy smoker and heavy drinker. 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 He is of [place] descent. He is . 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 FAMILY HISTORY: Noncontributory. REVIEW OF SYSTEMS: 10-point review of systems performed. Pertinent positives as per HPI, otherwise negative. PHYSICAL EXAM: VITAL SIGNS: Temp is 36.4, pulse 89, blood pressure 127/74. GENERAL: He is well-ap pearing, currently sitting at the edge of the bed, able to have a conversation. HEENT: Unremarkable . LUNGS: Some generally decreased breath sounds, but clear without wheezing. CARDIAC: Regular. A BDOMEN: Soft. NEUROLOGIC: Grossly intact. LABS: Unremarkable. He had a recent video fluoroscopy swallow with some esophageal dysmotility, but no aspiration. IMPRESSION: 1. Reactive airway disease, post viral human metapneumovirus. 2. Significant cough, poorly controlled at home. 3. Urinary retention from narcotics. 4. Falls and confusions from narcotics. 5. Lung cancer, currently in remission. He is currently doing better, especially off the narcotics, but still having some dyspnea and cough, although it is getting better as well. I spoke with the hospitalist and encouraged ambulation and wo rk on cough control. Once he is stabilized and able to take care of himself and control the cough, t hen he would be able to go home. I recommend continuing the steroid same dose, and he will continue the slow taper as an outpatient with Dr. Piedra. We will follow along as needed. /[id number]/MODL
--- NOTE | 2017-09-20 15:04 | GCON ---
[f rep st] CONSULTATION PULMONARY CONSULTATION DATE OF CONSULTATION: 09/19/2017 REFERRING PHYSICIAN: Eveline Hamm MD REASON FOR CONSULTATION: Evaluation and management of cough. HISTORY: The patient is a 72-year-old male, known to me from 3 years ago when he was diagnosed with a left upper lobe lung cancer. He underwent a left upper lobectomy and was found at the time of surgery to have a positive subcarinal lymph node, as well as invasive disease of the pericardium. He has been apparently currently getting a second-line therapy with good results which his describes as being in remission. He was last treated with immunotherapy on 07/31/2017, but developed a pneumonitis, follow with a symptom of a cough. He was placed on prednisone at 40 mg a day and then was titrated down. He also had shortness of breath. He was admitted to the hospital 3 weeks ago because of the cough, as well as fever and shivering. He was found to have human metapneumovirus and felt to have airways disease exacerbation. His steroids were increased, and he was then discharged. His and the patient report that he has had persistent cough since then, and his cough has been getting worse. He tried a hydrocodone-containing cough medicine, but it made him unsteady and also caused urinary retention, with only marginal improvement in the cough. He also tried Tessalon Perles with just slight improvement. He was admitted because of intractable cough which has been making it difficult for him to get rest or sleep for the last several days. He and his report that the cough is worse when he lies down and, also, he gets a cough after eating. His cough is better when he sits up but does not completely resolve. He states that the cough occurs because of a tickle in his throat. There is scant sputum production. He denies significant reflux and/or postnasal drip. PAST MEDICAL HISTORY: 1. Lung cancer status post lobectomy and chemotherapy. 2. Chemotherapy-induced pneumonitis, on steroids. 3. History of atrial fibrillation. 4. Reactive airways disease. 5. Coronary artery disease status post stent in 2010. MEDICATIONS ON ADMISSION: Include aspirin, Toprol, indomethacin, Cardizem, Tessalon Perles, prednisone, and Tussionex. ALLERGIES: Include allopurinol, amlodipine, atorvastatin, calcium, ezetimibe. SOCIAL HISTORY: The patient is a former heavy smoker. He moved here from [place] several years ago. FAMILY HISTORY: Unremarkable. REVIEW OF SYSTEMS: A 10-point review of systems adds nothing to the History of Present Illness. PHYSICAL EXAMINATION: GENERAL: The patient is awake, alert, and in no acute distress but does have frequent episodes of nonproductive cough. The blood pressure is 141/77, with a heart rate of 94. He is afebrile. Oxygen saturations are 97% on 2 L. HEENT: Normocephalic and atraumatic. No icterus. NECK: No JVD. Trachea is midline. CHEST: He has some rales in the bases. CARDIAC: Regular rate and rhythm without murmur. ABDOMEN: Soft, nontender. Bowel sounds are present. EXTREMITIES: No clubbing, cyanosis, or edema. NEURO : Alert, oriented x 3. No motor weakness. DATA: A chest x-ray from 09/[address] scan shows postoperative changes on the left. There is a small area of pneumonitis/infiltrate in the right posterior base. This has developed when compared to a prior CT scan from a year ago. There is no evidence of pulmonary embolism. Images reviewed by me. ASSESSMENT: Cough. This apparently started at the time he developed pneumonitis from chemotherapy. His current CT scan really does not demonstrate significant or extensive pneumonitis suggestive of ongoing untreated or undertreated pneumonitis. The recent human metapneumovirus infection likely exacerbated his cough. He could have prolonged reactive airways/cough following this. He has been treated fairly aggressively with steroids, as well as antitussives, but has not had much relief. Given that he reports a sensation of irritation in his throat, silent reflux or postnasal drip are possibilities. He also could have just a chronic, irritative cough that is difficult to resolve due to the forcefulness of cough. RECOMMENDATIONS: 1. Nasal steroids and antihistamine. 2. A proton pump inhibitor. 3. Trial of Cepacol lozenges and nebulized lidocaine to see if these will help with his throat irritation. 4. Agree with barium swallow as per Dr. Hamm. /[id number]/MODL MTDD
--- NOTE | 2017-09-20 15:17 | ASMTCMCOM ---
CM Note CM Note Notes: Spoke w/, pt admitted for chronic cough leaving the patient unable to sleep and his exhausted trying to care for him. He does have a history of lung ca. Pt will dc independent with support of but may warrent visit from as , per MD, was crying from exhaustion. Otherwise pt has no needs, CM available for any changes. DC Plan: Independent Date Signed: 09/20/2017 03:16 PM Electronically Signed By:Clara Gonzalez RN
--- NOTE | 2017-09-20 15:20 | HOSPPROG ---
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 steroids -no recurrence of pneumonitis by CT * COPD exacerbation -increased steroids above baseline -continue nebs - needs inhaled therapy at home * Recent human metapneumovirus and secondary bacterial PNA -antibiotics complete * Tophaceous gout with flare -colchicine + indomethacin -outpatient rheumatology consult to initiate allopurinol * Afib -verapamil, ASA * CAD/stent * Oral thrush -continue nystatin Subjective: A little better Objective: Vital Signs Temp Pulse Resp BP Pulse Ox 36.4 C 79 12 127/74 H 98 09/20/17 08:00 09/20/17 10:12 09/20/17 10:12 09/20/17 08:00 09/20/17 10:12 Microbiology 09/19/17 14:15 Respiratory Panel (PCR) - Final Nasal, Sinus - Swab No Organism Detected Laboratory Results 09/20/17 06:15 09/20/17 06:15 case d/w DR. Dawson - he know patient well and will consult barium esophagram - mild gerd - Physical Exam Constitutional: no apparent distress, appears nourished, not in pain Cardiovascular: regular rate and rhythym, no murmur, rub, or gallop Respiratory: no respiratory distress, no rales or rhonchi, clear to auscultation Gastrointestinal: normoactive bowel sounds, soft, non-tender abdomen, no palpable masses Skin: no rashes or abrasions, no fluctuance, no induration Neurologic: AAOx3, sensation intact bilaterally Psychiatric: interacting appropriately, not anxious, not encephalopathic, thought process linear ICD10 Worksheet Patient Problems: Problems Problem Status Onset Chronic cough Acute chronic disease mgmt/transitional care Acute Headache Acute Chest pain Acute Lumbar back pain with radiculopathy affecting left lower extremity Acute Lung cancer Acute Infection due to human metapneumovirus (hMPV) Acute CAD (coronary artery disease) Chronic Dyslipidemia Chronic RUQ abdominal pain Acute Dysphagia, oropharyngeal Acute On total parenteral nutrition (TPN) Acute C. difficile diarrhea Acute 04/05/16 Hypokalemia Acute Hypomagnesemia Acute Hypocalcemia Acute Gout Acute Diarrhea Acute Nausea & vomiting Acute Dehydration Acute Weakness Acute Neck pain Acute Pneumonia Acute Cervical stenosis of spine Acute Arthrodesis status Acute
[2017-09-20] MEDS: CEPACOL LOZENGE PO PRN (15:43)
--- NOTE | 2017-09-20 15:46 | PDMN ---
Medical Necessity Medical necessity: C/M review: est. > 2 MN LOS for eval and TX of acute and persistent intractable cough (narcotic cough suppressants causes confusion, falls and urinary retention), COPD exacerbation, tophaceous gout with acute flare, oral thrush, requiring treat RAD, GERD, PND - inhaled steroid, nasal steroid, anti-histamine, inhaled lidocaine, empiric PPI, increased oral steroids above baseline, nebs, oral colchicine plus indomethacin, continue nystatin, cardiac monitoring but patient refusing telemetry, cardiac monitoring order comorbid history of lung cancer S/P resection, pneumonitis due to chemotherapy - on chronic steroids, recent human metapneumovirus and secondary bacterial pneumonia - antibiotics complete, atrial fibrillation, CAD S/P stent per 09/20/2017 Hospitalist progress note.
--- NOTE | 2017-09-20 15:51 | PDINTPN ---
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 Treated with a combination of topical anesthetics, PPI , and Claritin/Nasal steroid (not likely to have had en effect yet). GERD: No symptoms,but small reflux to mid-esophagus seen on esophagram. I usually wouldn't think much of this, but with his intractable cough that may have responded to empiric therapy, I'd continue to treat Arelis Wheeler: He's requesting topical antibiotic. Plan: Continue Cepacol, PPI, Claritin, nasal steroid. Can D/C lidocaine neb at discharge home I encouraged him to suppress cough. Triple antibiotic ointment to gouty tophus 09/20/17 15:44 09/20/17 15:52 Subjective: Cough nearly resolved. He thinks that lidocaine nebs and Cepacol contributed Objective: Vital Signs Temp Pulse Resp BP Pulse Ox 36.3 C 75 18 116/73 95 09/20/17 15:34 09/20/17 15:34 09/20/17 15:34 09/20/17 15:34 09/20/17 15:34 Microbiology 09/19/17 14:15 Respiratory Panel (PCR) - Final Nasal, Sinus - Swab No Organism Detected Laboratory Results 09/20/17 06:15 09/20/17 06:15 Ba Swallow: No aspiration. Small reflux to mid-esophagus. Images reviewed. Physical Exam - Physical Exam General Appearance: alert, no apparent distress EENT: normal ENT inspection Neck: normal inspection Respiratory: lungs clear Cardiac/Chest: regular rate, rhythm, No edema Abdomen: normal bowel sounds, non-tender Skin: normal color, warm/dry Extremities: other (ulcerated tophus right great toe) Neuro/Psych: alert, normal mood/affect, oriented x 3 ICD10 Worksheet Patient Problems: Problems Problem Status Onset Chronic cough Acute Arthrodesis status Acute C. difficile diarrhea Acute 04/05/16 Cervical stenosis of spine Acute Chest pain Acute Dehydration Acute Diarrhea Acute Dysphagia, oropharyngeal Acute Gout Acute Headache Acute Hypocalcemia Acute Hypokalemia Acute Hypomagnesemia Acute Infection due to human metapneumovirus (hMPV) Acute Lumbar back pain with radiculopathy affecting left lower extremity Acute Lung cancer Acute Nausea & vomiting Acute Neck pain Acute On total parenteral nutrition (TPN) Acute Pneumonia Acute RUQ abdominal pain Acute Weakness Acute chronic disease mgmt/transitional care Acute CAD (coronary artery disease) Chronic Dyslipidemia Chronic
[2017-09-20] MEDS: NEOMY SULF/BACITRAC ZN/POLY 30 GM OINTTUBE TP SCH ×2 (18:13→21:08)
[2017-09-20] MEDS: LATANOPROST 0.005% 2.5 ML OPHT DROPS EACHEYE SCH ×2 (21:10→23:24)
[2017-09-21] MEDS: BENZONATATE 100 MG CAP PO PRN ×2 (02:19→23:03)
[2017-09-21] MEDS: IPRATROPIUM/ALBUTEROL 3 ML DEYVIAL IH SCH ×4 (04:22→23:31)
[2017-09-21] MEDS: LIDOCAINE 1% 5 ML SDV IH SCH ×4 (04:22→23:31)
[2017-09-21] MEDS: NYSTATIN SUSP 500000 UNIT/5 ML UDCUP PO SCH ×4 (05:52→23:03)
[2017-09-21] MEDS: NEOMY SULF/BACITRAC ZN/POLY 30 GM OINTTUBE TP SCH ×3 (05:54→20:51)
[2017-09-21] MEDS: CEPACOL LOZENGE PO SCH ×4 (05:55→20:45)
[2017-09-21] MEDS: DILTIAZEM CD 120 MG CAP PO SCH (10:03)
[2017-09-21] MEDS: ASPIRIN 81 MG CHEWABLE TAB PO SCH (10:03)
[2017-09-21] MEDS: predniSONE 10 MG TAB PO SCH (10:04)
[2017-09-21] MEDS: INDOMETHACIN 25 MG CAP PO SCH ×3 (10:05→22:22)
[2017-09-21] MEDS: CETIRIZINE 10 MG TAB PO SCH (10:05)
[2017-09-21] MEDS: COLCHICINE 0.6 MG CAP/TAB PO SCH ×2 (10:06→20:45)
[2017-09-21] MEDS: PANTOPRAZOLE SODIUM 40 MG TAB PO SCH (10:06)
[2017-09-21] MEDS: METOPROLOL SUCCINATE XR 50 MG TAB PO SCH (10:07)
[2017-09-21] MEDS: guaiFENesin 600 MG TAB.ER PO SCH ×2 (10:07→20:46)
[2017-09-21] MEDS: ENOXAPARIN 40 MG/0.4 ML SYR SC SCH (10:08)
[2017-09-21] MEDS: FLUTICASONE/SALMETER 250/50MCG DISKUS IH SCH ×2 (10:10→23:32)
[2017-09-21] MEDS: FLUNISOLIDE NASAL 200 SPRAYS/25 ML MDI NS SCH ×2 (10:11→20:46)
[2017-09-21] MEDS: CEPACOL LOZENGE PO PRN (11:43)
--- NOTE | 2017-09-21 13:58 | PDINTPN ---
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 Treated with a combination of topical anesthetics, PPI , and Claritin/Nasal steroid (not likely to have had en effect yet). GERD: No symptoms,but small reflux to mid-esophagus seen on esophagram. I usually wouldn't think much of this, but with his intractable cough that may have responded to empiric therapy, I'd continue to treat Arelis Wheeler: He's requesting topical antibiotic. Thrush: None on exam. Plan: Continue Cepacol, PPI, Claritin, nasal steroid. Try lidocaine neb +/- Cepacol at bedtime/during night. Can D/C lidocaine neb at discharge home I encouraged him to suppress cough once agian. Triple antibiotic ointment to arelis wheeler 09/21/17 13:56 Subjective: Did well until 1-2 AM, then cough returned and bothered him for the ret of the night. Improved this morning, but still more prominent than yesterday. Objective: Vital Signs Temp Pulse Resp BP Pulse Ox 36.5 C 87 22 H 131/76 H 94 09/21/17 11:28 09/21/17 11:28 09/21/17 11:28 09/21/17 11:28 09/21/17 11:28 Laboratory Results 09/20/17 06:15 09/20/17 06:15 09/20/17 09/21/17 09/22/17 05:59 05:59 05:59 Intake Total 240 Balance 240 Physical Exam - Physical Exam General Appearance: alert, no apparent distress EENT: normal ENT inspection Neck: normal inspection Respiratory: lungs clear, normal breath sounds Cardiac/Chest: regular rate, rhythm, No edema Abdomen: normal bowel sounds, non-tender Skin: normal color, warm/dry Extremities: normal inspection Neuro/Psych: alert, normal mood/affect, oriented x 3 ICD10 Worksheet Patient Problems: Problems Problem Status Onset Chronic cough Acute Arthrodesis status Acute C. difficile diarrhea Acute 04/05/16 Cervical stenosis of spine Acute Chest pain Acute Dehydration Acute Diarrhea Acute Dysphagia, oropharyngeal Acute Gout Acute Headache Acute Hypocalcemia Acute Hypokalemia Acute Hypomagnesemia Acute Infection due to human metapneumovirus (hMPV) Acute Lumbar back pain with radiculopathy affecting left lower extremity Acute Lung cancer Acute Nausea & vomiting Acute Neck pain Acute On total parenteral nutrition (TPN) Acute Pneumonia Acute RUQ abdominal pain Acute Weakness Acute chronic disease mgmt/transitional care Acute CAD (coronary artery disease) Chronic Dyslipidemia Chronic
--- NOTE | 2017-09-21 17:50 | HOSPPROG ---
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 steroids -no recurrence of pneumonitis by CT * COPD exacerbation -increased steroids above baseline -continue nebs - needs inhaled therapy at home * Recent human metapneumovirus and secondary bacterial PNA -antibiotics complete * Tophaceous gout with flare -colchicine + indomethacin -outpatient rheumatology consult to initiate allopurinol * Afib -verapamil, ASA * CAD/stent * Oral thrush -continue nystatin Subjective: Cough returned last night, thinks he is no better Objective: Vital Signs Temp Pulse Resp BP Pulse Ox 36.8 C 73 18 125/77 H 92 09/21/17 16:00 09/21/17 16:00 09/21/17 16:00 09/21/17 16:00 09/21/17 16:00 Laboratory Results 09/20/17 06:15 09/20/17 06:15 09/20/17 09/21/17 09/22/17 05:59 05:59 05:59 Intake Total 240 Balance 240 - Physical Exam Constitutional: no apparent distress, appears nourished, not in pain Cardiovascular: regular rate and rhythym, no murmur, rub, or gallop Respiratory: no respiratory distress, no rales or rhonchi, clear to auscultation Gastrointestinal: normoactive bowel sounds, soft, non-tender abdomen, no palpable masses Skin: no rashes or abrasions, no fluctuance, no induration Neurologic: AAOx3, sensation intact bilaterally Psychiatric: interacting appropriately, not anxious, not encephalopathic, thought process linear ICD10 Worksheet Patient Problems: Problems Problem Status Onset Chronic cough Acute Arthrodesis status Acute C. difficile diarrhea Acute 04/05/16 Cervical stenosis of spine Acute Chest pain Acute Dehydration Acute Diarrhea Acute Dysphagia, oropharyngeal Acute Gout Acute Headache Acute Hypocalcemia Acute Hypokalemia Acute Hypomagnesemia Acute Infection due to human metapneumovirus (hMPV) Acute Lumbar back pain with radiculopathy affecting left lower extremity Acute Lung cancer Acute Nausea & vomiting Acute Neck pain Acute On total parenteral nutrition (TPN) Acute Pneumonia Acute RUQ abdominal pain Acute Weakness Acute chronic disease mgmt/transitional care Acute CAD (coronary artery disease) Chronic Dyslipidemia Chronic
[2017-09-21] MEDS: LATANOPROST 0.005% 2.5 ML OPHT DROPS EACHEYE SCH (20:46)
[2017-09-22] MEDS: NEOMY SULF/BACITRAC ZN/POLY 30 GM OINTTUBE TP SCH ×3 (01:04→12:55)
[2017-09-22] MEDS: NYSTATIN SUSP 500000 UNIT/5 ML UDCUP PO SCH ×2 (04:59→12:53)
[2017-09-22] MEDS: IPRATROPIUM/ALBUTEROL 3 ML DEYVIAL IH SCH ×2 (05:01→10:59)
[2017-09-22] MEDS: LIDOCAINE 1% 5 ML SDV IH SCH ×2 (05:01→11:00)
[2017-09-22] MEDS: CEPACOL LOZENGE PO SCH ×2 (05:16→13:01)
[2017-09-22] MEDS: predniSONE 10 MG TAB PO SCH (09:23)
[2017-09-22] MEDS: DILTIAZEM CD 120 MG CAP PO SCH (09:24)
[2017-09-22] MEDS: CETIRIZINE 10 MG TAB PO SCH (09:25)
[2017-09-22] MEDS: INDOMETHACIN 25 MG CAP PO SCH (09:28)
[2017-09-22] MEDS: METOPROLOL SUCCINATE XR 50 MG TAB PO SCH (09:29)
[2017-09-22] MEDS: ASPIRIN 81 MG CHEWABLE TAB PO SCH (09:29)
[2017-09-22] MEDS: COLCHICINE 0.6 MG CAP/TAB PO SCH (09:30)
[2017-09-22] MEDS: FLUTICASONE/SALMETER 250/50MCG DISKUS IH SCH (09:30)
[2017-09-22] MEDS: guaiFENesin 600 MG TAB.ER PO SCH (09:31)
[2017-09-22] MEDS: PANTOPRAZOLE SODIUM 40 MG TAB PO SCH (09:31)
[2017-09-22] MEDS: ENOXAPARIN 40 MG/0.4 ML SYR SC SCH (09:32)
[2017-09-22] MEDS: FLUNISOLIDE NASAL 200 SPRAYS/25 ML MDI NS SCH (10:08)
--- NOTE | 2017-09-22 10:34 | PDHOMEO2F ---
Home Oxygen Face to Face Home Orders: I certify that a physician or a nurse practitioner or physician's assistant federal public defender has had a [id number] encounter with this patient on the date of this order due to the diagnosis listed, which relates to the primary reason the patient requires home oxygen. Alternative treatments have been tried, or considered, and deemed ineffective. It is anticipated that supplemental oxygen will result in improvement with treatment. Home oxygen qualifying diagnosis: pneumonitis due to chemo SpO2 on room air (%): 86 Frequency of home oxygen needed: with activity, during sleep Home oxygen liters per minute: 2 Home oxygen delivery device: nasal cannula Concentrator: Yes E-tanks for mobility and back up: Yes If ordering portable O2, is the patient mobile in the home?: Yes I certify that, based on these findings, the home oxygen is medically necessary for this patient for the following length of time. Length of time home oxygen needed: 99 years
[2017-09-22 11:49] VITALS: BP 137/80
--- NOTE | 2017-09-22 19:48 | GDS ---
[f rep st] DISCHARGE SUMMARY DIAGNOSES: 1. Post viral cough. 2. Recent human metapneumovirus and secondary bacterial pneumonia. 3. Lung cancer, status post resection. Now in remission. 4. Pneumonitis due to chemotherapy, on chronic steroids. 5. Chronic obstructive pulmonary disease exacerbation. 6. Confusion, falls and urinary retention due to narcotic cough suppressants. 7. Tophaceous gout with acute flare. 8. Atrial fibrillation. 9. Coronary artery disease, status post stent. 10. Oral thrush. HISTORY: The patient is a 72-year-old male, who was recently hospitalized for human metapneumovirus with a secondary bacterial pneumonia. He was discharged on Levaquin. Since his hospital discharge, he has continued to do poorly and continues to cough incessantly, leading to poor quality of life, in ability to sleep and severe distress to him and his . They have come to the ER 4-5 times recentl y, eventually were admitted when the was tearful, feeling like she could no longer care for him in the home. He was prescribed narcotic cough suppressant which caused confusion, falls and urinary retention. He was admitted to the hospital and differential diagnosis for chronic cough were considered in detai l. He was treated empirically for reactive airway disease, postnasal drip and GERD, although the ernesto picion was that this was a prolonged post viral cough. He was started on inhaled steroids, nasal elizabeth roids, antihistamines, inhaled lidocaine, and empiric proton pump inhibitor. He was seen in consulta tion with Dr. Maulik Dawson, who is his usual outpatient digital art director. Despite all these measures, he s ays we have not helped him at all and his cough persists without change. He had a CT angiogram of th e chest that was negative for PE and also showed minimal pneumonitis, there was no ongoing pneumonia. Repeat respiratory PCR is now negative, and he is no longer showing human metapneumovirus. Despite his lack of improvement, he did feel strongly that he wanted to go home today. He was saturating 95 % on room air. We really found no acute or life-threatening condition related to this cough, it is r eally more of a quality of life issue. All of his symptoms from the narcotic cough medications have resolved with holding this medication, and he refuses any further narcotics. I offered him prescript ions for all the therapies we were using here to try to assist with his cough; however, as they were really not helping him, he did not want any new prescriptions at discharge. He also presented with a gout flare. He has known longstanding gout and has been intolerant of allop urinol in the past. His right foot has a large tophi from which white exudate could be expressed. Twyla mak was started on colchicine. It was stressed to him that his attempt at allopurinol were likely not an allergy, but he needs to follow closely with Rheumatology to initiate allopurinol in a manner that does not exacerbate his baseline poor control of his gout. DISCHARGE MEDICATIONS: Please see computer record for full detailed list. New medications: 1. Albuterol inhaler 2 puffs 4 times a day as needed. 2. Advair 250/50 one puff twice daily. 3. Colchicine 0.6 mg p.o. twice daily. 4. Prednisone dose at discharge, 20 mg p.o. daily. ADDITIONAL DISCHARGE INSTRUCTIONS: 1. Home oxygen requested, however, he did not qualify as he was 95% on room air. 2. Outpatient rheumatology consultation for initiation of allopurinol. The patient reports at discharge he intends to get a consultation at [facility] for michelle oing management of his intractable cough. Again, prescriptions for all the medications that were tri ed here in the hospital were offered and refused at discharge. Greater than 30 minutes' time was spent arranging this discharge. Patient seen and examined by me on day of discharge. /[id number]/MODL
== END 2017-09-22 13:15 | disposition home or self-care (01) | DRG 204 ==
LOC: OBSVTOIN 08:17 → F3E 10:35
PROVIDERS: ADMIT Internal Medicine; ATTEND Internal Medicine
DX: R05 Cough (principal); R33.0 Drug induced retention of urine; T40.605A Adverse effect of unspecified narcotics, initial encounter; M10.9 Gout, unspecified; B37.0 Candidal stomatitis; J44.1 Chronic obstructive pulmonary disease with (acute) exacerbation; K21.9 Gastro-esophageal reflux disease without esophagitis; I25.10 Atherosclerotic heart disease of native coronary artery without angina pectoris; I48.91 Unspecified atrial fibrillation; I10 Essential (primary) hypertension; E78.5 Hyperlipidemia, unspecified; Z95.5 Presence of coronary angioplasty implant and graft; Z87.891 Personal history of nicotine dependence; Z85.118 Personal history of other malignant neoplasm of bronchus and lung; Z79.52 Long term (current) use of systemic steroids; Z91.81 History of falling; Z87.01 Personal history of pneumonia (recurrent); Z96.652 Presence of left artificial knee joint; Z98.1 Arthrodesis status
CPT/HCPCS: 82947-QW; 92611-GN; 96374; G0378; G8996-GN-CI; G8997-GN-CI; G8998-GN-CI; J1642; J1650; J7512; J7613; Q9967

== ENCOUNTER 2017-09-29 00:45 | Emergency (ER) | payer OTHER, MEDICARE ==
--- NOTE | 2017-09-29 01:14 | EDPHY ---
H & P Stated Complaint: SOB, COUGH, MUCUS YELLOW/D/C'D LAST FRIDAY SX GETTING WORSE Time Seen by Provider: 09/29/17 00:58 HPI/ROS: HPI The patient presents with cough which has been present for the last several weeks though over the last 2-3 days sputum has changed from clear to yellowish. His has noticed that he has been shivering, however has been afebrile in a similar time course. He was not able to sleep tonight because of his cough. He is not short of breath. He also is complaining of redness of his left great toe. He has a history of gout and his has been treating him with colchicine and indomethacin. Of note, the patient was admitted to the hospital from September 19 to September 22 for postviral cough with testing positive for human metapneumo virus with minimal improvement with a variety of treatments. He has follow-up scheduled in [address] Dawson. REVIEW OF SYSTEMS Constitutional: No fever, no chills. Eyes: No discharge. ENT: No sore throat. Cardiovascular: No chest pain, no palpitations. Respiratory: Positive for cough, no shortness of breath. Gastrointestinal: No abdominal pain, no vomiting. Genitourinary: No hematuria. Musculoskeletal: No back pain. Skin: No rashes. Neurological: No headache. PMHx: Recent hospitalization for cough Soc Hx: Lives at home with his PHYSICAL General Appearance: Alert, no distress Eyes: Pupils equal and round no pallor or injection ENT, Mouth: Mucous membranes moist Respiratory: There are no retractions, lungs are clear to auscultation Cardiovascular: Regular rate and rhythm Gastrointestinal: Abdomen is soft and non-tender, no masses, bowel sounds normal Neurological: A&O, moves all extremities Skin: Warm and dry, no rashes Musculoskeletal: Neck is supple non tender Extremities: Right great toe with diffuse erythema and warmth to palpation with limited range of motion secondary to pain, there is a bullae which appears to be ruptured draining clear fluid Psychiatric: Patient is oriented X 3, there is no agitation Source: Patient Exam Limitations: No limitations - Personal History Current Tetanus Diphtheria and Acellular Pertussis (TDAP): No - Medical/Surgical History Hx Asthma: No Hx Chronic Respiratory Disease: Yes Hx Diabetes: No Hx Cardiac Disease: Yes Hx Renal Disease: No Hx Cirrhosis: No Hx Alcoholism: No Hx HIV/AIDS: No Hx Splenectomy or Spleen Trauma: No Other PMH: pmh- htn, hyperlipemia, gout, non-small cell lung ca stage IIIA, cad , afib. psh- L lung resection 08/31/14, cardiac stents x2, back surgery, cholecystectomy, port removed 2016, left knee 2016 - Social History Smoking Status: Former smoker Constitutional: Initial Vital Signs Temperature (C) 36.8 C 09/29/17 00:49 Heart Rate 112 H 09/29/17 00:49 Respiratory Rate 20 09/29/17 00:49 Blood Pressure 177/88 H 09/29/17 00:49 O2 Sat (%) 95 09/29/17 00:49 O2 Delivery Mode Room Air Allergies/Adverse Reactions: amlodipine Allergy (Verified 09/18/17 19:39) causes gout symptoms atorvastatin calcium [From Lipitor] Allergy (Verified 09/18/17 19:39) CHRONIC COUGHING ezetimibe [From Zetia] Allergy (Verified 09/18/17 19:39) causes gout symptoms lisinopril Allergy (Verified 09/18/17 19:39) muscle ache lorazepam Allergy (Verified 09/18/17 19:39) anger, memory issues losartan potassium [From Cozaar] Allergy (Verified 09/18/17 19:39) causes gout symptoms morphine Allergy (Verified 09/18/17 19:39) "URINARY RETENTION" per RN per pitavastatin calcium [From Livalo] Allergy (Verified 09/18/17 19:39) causes gout symptoms pravastatin Allergy (Verified 09/18/17 19:39) causes gout symptoms rosuvastatin calcium [From Crestor] Allergy (Verified 09/18/17 19:39) causes gout symptoms spironolactone Allergy (Verified 09/18/17 19:39) causes gout symptoms zolpidem [From Ambien] Allergy (Verified 09/20/17 16:15) agitation steroid injection Allergy (Uncoded 09/18/17 19:39) Red Man Syndrome Home Medications: Medication Instructions Recorded Aspirin [Aspirin 81mg (*)] 81 mg PO DAILY 06/05/16 Metoprolol Succinate Xr [Toprol Xl 50 mg PO DAILY 12/15/16 50 mg (*)] Indomethacin [Indocin 25 mg (*)] 25 mg PO TID PRN 03/09/17 Diltiazem Cd [Cardizem ER 120 MG 120 mg PO DAILY 03/28/17 (*)] Benzonatate [Tessalon Pearles] 100 mg PO TID PRN 08/29/17 Latanoprost 0.005% [Xalatan 0.005% 1 drops EACHEYE HS 08/29/17 (*)] Albuterol [Ventolin Hfa Inhaler] 2 puffs IH QID PRN #1 mdi 09/19/17 Nystatin Susp [Mycostatin Oral 4 ml PO QID 09/19/17 Liquid] Colchicine [Colchicine (*)] 0.6 mg PO BID #60 ea 09/22/17 Fluticasone/Salmeter 250/50Mcg 1 puffs IH BID #1 disk 09/22/17 [Advair 250/50 (*)] predniSONE 20 mg PO DAILY #100 tab 09/22/17 Doxycycline Hyclate 100 mg PO BID #14 tab 09/29/17 Medical Decision Making - Diagnostics EKG Interpretation: EKG: Complete interpretation has been separately recorded in the [employer] archive. Summary impression: Atrial fibrillation Imaging Results: Chest x-ray shows possible right lower lobe infiltrate though unchanged from prior recent chest x-ray. Imaging: I viewed and interpreted images myself Differential Diagnosis: This is a 72-year-old man with multiple medical problems, most recently struggling with a chronic cough thought to be postviral in addition to a gout flare in his right great toe. He presents today with difficulty sleeping because of a cough that he has had for several weeks, however now sputum has changed color to greenish yellow and he has some shivering though has been afebrile. His right great toe appears to have a gout flare. Also he is noted to be slightly tachycardic with an irregular rhythm. EKG demonstrates atrial fibrillation. He has a history of this. I gave him a dose of his home metoprolol. I checked basic labs, he has a very mild leukocytosis though improved from his most recent laboratory testing. Chest x-ray looks unchanged from previous. He may be suffering from a post viral cough verses new pneumonia. Because he has a change in his sputum color I will treat him with a course of doxycycline. He declines any nebulizer treatments as he feels these do not help him. He was happy to go home and will be discharged with his . He does have pulmonary follow-up in 2 days. - Data Points Laboratory Results: Laboratory Results 09/29/17 02:35 09/29/17 02:35 09/29/17 09/29/17 02:35 02:35 WBC 9.71 10^3/uL H 10^3/uL (3.80-9.50) RBC 3.89 10^6/uL L 10^6/uL (4.40-6.38) Hgb 12.1 g/dL L g/dL (13.7-17.5) Hct 37.4 % L % (40.0-51.0) MCV 96.1 fL fL (81.5-99.8) MCH 31.1 pg pg (27.9-34.1) MCHC 32.4 g/dL g/dL (32.4-36.7) RDW 15.1 % % (11.5-15.2) Plt Count 322 10^3/uL 10^3/uL (150-400) MPV 9.9 fL fL (8.7-11.7) Neut % (Auto) 79.9 % H % (39.3-74.2) Lymph % (Auto) 7.3 % L % (15.0-45.0) [place] % (Auto) 11.3 % % (4.5-13.0) Eos % (Auto) 0.2 % L % (0.6-7.6) Baso % (Auto) 0.2 % L % (0.3-1.7) Nucleat RBC Rel Count 0.0 % % (0.0-0.2) Absolute Neuts (auto) 7.75 10^3/uL H 10^3/uL (1.70-6.50) Absolute Lymphs (auto) 0.71 10^3/uL L 10^3/uL (1.00-3.00) Absolute Monos (auto) 1.10 10^3/uL H 10^3/uL (0.30-0.80) Absolute Eos (auto) 0.02 10^3/uL L 10^3/uL (0.03-0.40) Absolute Basos (auto) 0.02 10^3/uL 10^3/uL (0.02-0.10) Absolute Nucleated RBC 0.00 10^3/uL 10^3/uL (0-0.01) Immature Gran % 1.1 % % (0.0-1.1) Immature Gran # 0.11 10^3/uL H 10^3/uL (0.00-0.10) Sodium 142 mEq/L mEq/L (135-145) Potassium 3.7 mEq/L mEq/L (3.5-5.2) Chloride 108 mEq/L mEq/L (97-110) Carbon Dioxide 24 mEq/l mEq/l (22-31) Anion Gap 10 mEq/L mEq/L (8-16) BUN 15 mg/dL mg/dL (7-23) Creatinine 0.8 mg/dL mg/dL (0.7-1.3) Estimated GFR > 60 Glucose 119 mg/dL H mg/dL (70-100) Calcium 8.7 mg/dL mg/dL (8.5-10.4) Medications Given: Discontinued Medications Doxycycline Hyclate (Doxycycline Hyclate) 100 mg PO EDNOW ONE PRN Reason: Protocol Stop: 09/29/17 03:37 Last Admin: 09/29/17 03:46 Dose: 100 mg Metoprolol Tartrate (Lopressor) 25 mg PO EDNOW ONE Stop: 09/29/17 03:38 Last Admin: 09/29/17 03:46 Dose: 25 mg Departure - Departure Disposition: Home, Routine, Self-Care Clinical Impression: Cough Condition: Good Instructions: Chronic Cough (ED) Additional Instructions: You may have a pneumonia. Because of this we will treat antibiotics. You should check her temperature at home. Return to the ER if worse in any way. Otherwise please follow-up with Dr. Dawson as planned. Referrals: Doug Dawson MD [Medical Doctor] - As per Instructions Prescriptions: Doxycycline Hyclate 100 mg PO BID #14 tab
[2017-09-29 02:43] LABS: PLATELET COUNT 322 10^3/uL (150-400)
[2017-09-29] MEDS ORDERED: DOXYCYCLINE HYCLATE 100 MG CAP/TAB PO ONE (03:36)
[2017-09-29] MEDS ORDERED: METOPROLOL TARTRATE 25 MG TAB PO ONE (03:37)
--- NOTE | 2017-09-29 03:44 | CPEKG ---
Heart Rate: 116 RR Interval: 517 QRSD Interval: 86 QT Interval: 348 QTC Interval: 484 QRS [place]: 10 T Wave [place]: -4 EKG Severity - ABNORMAL ECG - EKG Impression: ATRIAL FIBRILLATION, V-RATE 80-155 EKG Impression: BORDERLINE PROLONGED QT INTERVAL Electronically Signed By: Kailyn Molina 29-Sep-2017 05:29:19
[2017-09-29 04:45] VITALS: BP 134/79
== END 2017-09-29 04:45 | disposition home or self-care (01) ==
DX: R05 Cough (principal); I10 Essential (primary) hypertension; Z79.82 Long term (current) use of aspirin; Z87.891 Personal history of nicotine dependence; Z95.5 Presence of coronary angioplasty implant and graft

== ENCOUNTER 2017-10-06 19:37 | Inpatient (IN) | payer OTHER, MEDICARE ==
--- NOTE | 2017-10-06 19:51 | EDPHY ---
H & P Time Seen by Provider: 10/06/17 19:50 HPI/ROS: CHIEF COMPLAINT: Cough and chills HISTORY OF PRESENT ILLNESS: Patient was seen in our emergency department on September 29 and was discharge, admitted at [facility] the same day or the next day and discharged this past Friday with diagnosis of"sepsis." Discharged on Cefdinir on Friday. Patient presents today with fever and chills for the last 36 hr with continued cough. Symptoms moderate, not better worse with anything. Not associated with urinary symptoms or sputum production or hemoptysis. REVIEW OF SYSTEMS: Eye: no change in vision ENT: no sore throat Cardiac: no chest pain or syncope Pulmonary: Persistent chronic cough unchanged Abdomen: no vomiting, diarrhea, abdominal pain Musculoskeletal: gout worse on right foot at base of great toe Skin: 1mm wound draining pus right medial foot Neuro: no headache Constitutional: Patient has had fever and chills for the last 36 hr : no urinary symptoms A comprehensive 10 point review of systems is otherwise negative aside from elements mentioned in the history of present illness. PAST MEDICAL HISTORY: Lung cancer s/p left multiple lobectomy surgeries, gout, Afib, RAD, COPD, CAD. History and physical dated 09/19/[address] Mera's personally reviewed. Also includes cholecystectomy and carotid arterectomy, cervical fusion, lumbar diskectomy. Social history: Former smoker General Appearance: Alert and conversant, cooperative. Eyes: No scleral icterus. ENT, Mouth: Normal mucous membranes. Respiratory: Decreased breath sounds on the left lung. Cardiovascular: Regular rate and rhythm. Gastrointestinal: Abdomen is soft and non tender. Neurological: Alert, face symmetric, normal motor and sensory in extremities. Skin: Warm and dry, no rashes. Skin over the left sided subclavian port is clean dry and intact without redness or warmth. Skin on right foot medial great toe is red, slightly warm, 1mm draining wound. Musculoskeletal: No peripheral edema. Psychiatric: Not agitated. Emergency Department course/MDM: 2023: Discussed with Sherman, recommended admission with IV Zosyn. 2100: Seen by Dr. Preston, culture taken from the right foot, vancomycin added for possible right foot cellulitis. Admission hospitalist service Rafael 2106. Does not appear to have SIRS criteria, severe sepsis or septic shock. Smoking Status: Former smoker Constitutional: Initial Vital Signs Temperature (C) 36.3 C 10/06/17 19:40 Heart Rate 76 10/06/17 19:40 Respiratory Rate 18 10/06/17 19:40 Blood Pressure 126/68 H 10/06/17 19:40 O2 Sat (%) 95 10/06/17 19:40 O2 Delivery Mode Room Air Allergies/Adverse Reactions: amlodipine Allergy (Verified 10/06/17 19:41) causes gout symptoms atorvastatin calcium [From Lipitor] Allergy (Verified 10/06/17 19:41) CHRONIC COUGHING ezetimibe [From Zetia] Allergy (Verified 10/06/17 19:41) causes gout symptoms lisinopril Allergy (Verified 10/06/17 19:41) muscle ache lorazepam Allergy (Verified 10/06/17 19:41) anger, memory issues losartan potassium [From Cozaar] Allergy (Verified 10/06/17 19:41) causes gout symptoms morphine Allergy (Verified 10/06/17 19:41) "URINARY RETENTION" per RN per pitavastatin calcium [From Livalo] Allergy (Verified 10/06/17 19:41) causes gout symptoms pravastatin Allergy (Verified 10/06/17 19:41) causes gout symptoms rosuvastatin calcium [From Crestor] Allergy (Verified 10/06/17 19:41) causes gout symptoms spironolactone Allergy (Verified 10/06/17 19:41) causes gout symptoms zolpidem [From Ambien] Allergy (Verified 10/06/17 19:41) agitation steroid injection Allergy (Uncoded 09/18/17 19:39) Red Man Syndrome Home Medications: Medication Instructions Recorded Aspirin [Aspirin 81mg (*)] 81 mg PO DAILY 06/05/16 Metoprolol Succinate Xr [Toprol Xl 50 mg PO DAILY 12/15/16 50 mg (*)] Indomethacin [Indocin 25 mg (*)] 25 mg PO Q4H PRN 03/09/17 Diltiazem Cd [Cardizem ER 120 MG 120 mg PO DAILY 03/28/17 (*)] Benzonatate [Tessalon Pearles] 100 mg PO TID PRN 08/29/17 Latanoprost 0.005% [Xalatan 0.005% 1 drops EACHEYE HS 08/29/17 (*)] Nystatin Susp [Mycostatin Oral 4 ml PO QID 09/19/17 Liquid] Cefdinir [Omnicef (*)] 300 mg PO BID 10/06/17 Colchicine [Colchicine (*)] 0.6 mg PO BID PRN 10/06/17 guaiFENesin/DEXTROMETHORPHAN 10 ml PO Q4 PRN 10/06/17 [Robitussin Dm Oral Liquid (*)] predniSONE 20 mg PO DAILY 10/06/17 Medical Decision Making - Diagnostics EKG Interpretation: 12-lead EKG interpreted by me; official reading is in trace master. My interpretation is sinus rhythm rate 72 no ischemic changes. Normal intervals. Imaging Results: Imaging Impressions Chest X-Ray 10/06/17 20:12 Impression: Probable mild bronchitis. Other chronic findings, as above, which are stable. Chest x-ray shows evidence of previous left lung surgery, no definite infiltrates visualized. Imaging: I viewed and interpreted images myself Differential Diagnosis: Differential for chills considered including but not limited to UTI, pneumonia, sepsis, endocarditis, drug reaction. - Data Points Laboratory Results: Laboratory Results 10/06/17 20:04 10/06/17 20:04 10/06/17 10/06/17 10/06/17 20:04 20:04 20:04 WBC 7.65 10^3/uL 10^3/uL (3.80-9.50) RBC 3.67 10^6/uL L 10^6/uL (4.40-6.38) Hgb 11.5 g/dL L g/dL (13.7-17.5) Hct 35.2 % L % (40.0-51.0) MCV 95.9 fL fL (81.5-99.8) MCH 31.3 pg pg (27.9-34.1) MCHC 32.7 g/dL g/dL (32.4-36.7) RDW 14.8 % % (11.5-15.2) Plt Count 377 10^3/uL 10^3/uL (150-400) MPV 10.0 fL fL (8.7-11.7) Neut % (Auto) 92.3 % H % (39.3-74.2) Lymph % (Auto) 4.3 % L % (15.0-45.0) [place] % (Auto) 2.4 % L % (4.5-13.0) Eos % (Auto) 0.0 % L % (0.6-7.6) Baso % (Auto) 0.1 % L % (0.3-1.7) Nucleat RBC Rel Count 0.0 % % (0.0-0.2) Absolute Neuts (auto) 7.06 10^3/uL H 10^3/uL (1.70-6.50) Absolute Lymphs (auto) 0.33 10^3/uL L 10^3/uL (1.00-3.00) Absolute Monos (auto) 0.18 10^3/uL L 10^3/uL (0.30-0.80) Absolute Eos (auto) 0.00 10^3/uL L 10^3/uL (0.03-0.40) Absolute Basos (auto) 0.01 10^3/uL L 10^3/uL (0.02-0.10) Absolute Nucleated RBC 0.00 10^3/uL 10^3/uL (0-0.01) Immature Gran % 0.9 % % (0.0-1.1) Immature Gran # 0.07 10^3/uL 10^3/uL (0.00-0.10) RBC/WBC/PLT Morphology TNP Platelet Estimate TNP PT 12.9 SEC SEC (12.0-15.0) INR 0.95 (0.83-1.16) APTT 29.8 SEC SEC (23.0-38.0) VBG Lactic Acid Sodium 140 mEq/L mEq/L (135-145) Potassium 5.1 mEq/L H mEq/L (3.3-5.0) Chloride 102 mEq/L mEq/L (97-110) Carbon Dioxide 24 mEq/l mEq/l (22-31) Anion Gap 14 mEq/L mEq/L (8-16) BUN 19 mg/dL mg/dL (7-23) Creatinine 0.9 mg/dL mg/dL (0.7-1.3) Estimated GFR > 60 Glucose 214 mg/dL H mg/dL (70-100) Calcium 8.2 mg/dL L mg/dL (8.5-10.4) Total Bilirubin 0.7 mg/dL mg/dL (0.1-1.4) 10/06/17 20:04 WBC RBC Hgb Hct MCV MCH MCHC RDW Plt Count MPV Neut % (Auto) Lymph % (Auto) [place] % (Auto) Eos % (Auto) Baso % (Auto) Nucleat RBC Rel Count Absolute Neuts (auto) Absolute Lymphs (auto) Absolute Monos (auto) Absolute Eos (auto) Absolute Basos (auto) Absolute Nucleated RBC Immature Gran % Immature Gran # RBC/WBC/PLT Morphology Platelet Estimate PT INR APTT VBG Lactic Acid 1.4 mmol/L mmol/L (0.7-2.1) Sodium Potassium Chloride Carbon Dioxide Anion Gap BUN Creatinine Estimated GFR Glucose Calcium Total Bilirubin Medications Given: Discontinued Medications Piperacillin/Tazobactam/Dextrose (Zosyn 3.375 Gm (Premix)) 50 mls @ 100 mls/hr IV EDNOW ONE PRN Reason: Protocol Stop: 10/06/17 21:14 Last Admin: 10/06/17 22:20 Dose: 50 mls Sodium Chloride (Ns) 1,000 mls @ 0 mls/hr IV EDNOW ONE; Wide Open PRN Reason: Protocol Stop: 10/06/17 20:47 Last Admin: 10/06/17 20:59 Dose: 1,000 mls Vancomycin/Sodium Chloride (Vancomycin 1 Gm (Premix)) 250 mls @ 250 mls/hr IV EDNOW ONE PRN Reason: Protocol Stop: 10/06/17 21:57 Last Admin: 10/06/17 21:13 Dose: 250 mls Departure - Departure Disposition: [facility] Acute Clinical Impression: Cellulitis of right foot Condition: Good
--- NOTE | 2017-10-06 19:58 | CPEKG ---
Heart Rate: 72 RR Interval: 833 P-R Interval: 146 QRSD Interval: 86 QT Interval: 408 QTC Interval: 447 P [place]: 57 QRS [place]: 6 T Wave [place]: 38 EKG Severity - NORMAL ECG - EKG Impression: SINUS RHYTHM Electronically Signed By: Nakul Ross 06-Oct-2017 20:30:59
[2017-10-06 20:21] LABS: PLATELET COUNT 377 10^3/uL (150-400)
[2017-10-06 20:44] LABS: INR 0.95 (0.83-1.16); PROTIME(PATIENT) 12.9 SEC (12.0-15.0)
[2017-10-06] MEDS ORDERED: PIPERACILLIN/TAZO 3.375 GM/DEX 50 ML IV ONE (20:45)
[2017-10-06] MEDS ORDERED: NS 1,000 ML IV ONE (20:46)
[2017-10-06] MEDS ORDERED: VANCOMYCIN HCL/NORMAL SALINE 250 ML IV ONE (20:58)
[2017-10-06] MEDS ORDERED: ONDANSETRON 4 MG/2 ML VIAL IVP PRN (21:58)
[2017-10-06] MEDS ORDERED: ACETAMINOPHEN 325 MG TAB PO PRN (21:58)
[2017-10-06] MEDS ORDERED: IBUPROFEN 200 MG TAB PO PRN (21:58)
[2017-10-06] MEDS ORDERED: ONDANSETRON DISINTEGRATING 4 MG TAB PO PRN (21:58)
[2017-10-06] MEDS ORDERED: NS 1,000 ML IV SCH (22:00)
[2017-10-06] MEDS ORDERED: BENZONATATE 100 MG CAP PO PRN (22:03)
[2017-10-06] MEDS ORDERED: INDOMETHACIN 25 MG CAP PO PRN (22:03)
[2017-10-06] MEDS ORDERED: COLCHICINE 0.6 MG CAP/TAB PO PRN (22:03)
--- NOTE | 2017-10-06 22:13 | PDGENHP ---
History and Physical - Chief Complaint Acute chills - History of Present Illness Primary care provider: Dr. Julián Ruggiero Primary Gen Surg: Dr. Preston HPI: 72-year-old male presents with acute chills characterized as generalized shaking with associated subjective fevers and nonproductive cough with onset of fevers and chills approximately 8 days prior and duration intermittent thereafter. Patient 1st presented for this issue on 09/29/2017 to our emergency department, had a negative infectious evaluation at that time, was discharged home. He subsequently went to [facility] where he was admitted for 5 days, given a diagnosis of severe sepsis without an exact localized infection, discharged on cefdinir, and the patient has been adherent to this medication thereafter. He currently denies any abdominal pain nausea vomiting diarrhea or headache, but he does endorse that he experiences severe coughing nightly, which seems to exacerbate and provoke some pain in his chest, which is only alleviated by holding his chest very tightly and taking some Tessalon and Robitussin. He also reports that he has been regularly taking tramadol, colchicine, indomethacin for gout located in the right 1st metatarsal, which has recently been blanching, erythematous, exhibiting White pustulant exudate. He has been able to walk on his foot and reports that his mobility has not been impaired. History Information - Allergies/Home Medication List Allergies/Adverse Reactions: amlodipine Allergy (Verified 10/06/17 19:41) causes gout symptoms atorvastatin calcium [From Lipitor] Allergy (Verified 10/06/17 19:41) CHRONIC COUGHING ezetimibe [From Zetia] Allergy (Verified 10/06/17 19:41) causes gout symptoms lisinopril Allergy (Verified 10/06/17 19:41) muscle ache lorazepam Allergy (Verified 10/06/17 19:41) anger, memory issues losartan potassium [From Cozaar] Allergy (Verified 10/06/17 19:41) causes gout symptoms morphine Allergy (Verified 10/06/17 19:41) "URINARY RETENTION" per RN per pitavastatin calcium [From Livalo] Allergy (Verified 10/06/17 19:41) causes gout symptoms pravastatin Allergy (Verified 10/06/17 19:41) causes gout symptoms rosuvastatin calcium [From Crestor] Allergy (Verified 10/06/17 19:41) causes gout symptoms spironolactone Allergy (Verified 10/06/17 19:41) causes gout symptoms zolpidem [From Ambien] Allergy (Verified 10/06/17 19:41) agitation steroid injection Allergy (Uncoded 09/18/17 19:39) Red Man Syndrome Home Medications: Aspirin [Aspirin 81mg (*)] 81 mg PO DAILY 06/05/16 [Last Taken 10/06/17 09:00] Metoprolol Succinate Xr [Toprol Xl 50 mg (*)] 50 mg PO DAILY 12/15/16 [Last Taken 10/06/17 09:00] Indomethacin [Indocin 25 mg (*)] 25 mg PO Q4H PRN 03/09/17 [Last Taken 10/06/17 17:30] Diltiazem Cd [Cardizem ER 120 MG (*)] 120 mg PO DAILY 03/28/17 [Last Taken 10/06 09:00] Benzonatate [Tessalon Pearles] 100 mg PO TID PRN 08/29/17 [Last Taken 10/06/17 15:00] Latanoprost 0.005% [Xalatan 0.005% (*)] 1 drops EACHEYE HS 08/29/17 [Last Taken 10/05/17 21:00] Nystatin Susp [Mycostatin Oral Liquid] 4 ml PO QID 09/19/17 [Last Taken 09/17/17 ] Cefdinir [Omnicef (*)] 300 mg PO BID 10/06/17 [Last Taken 10/06/17 09:00] Colchicine [Colchicine (*)] 0.6 mg PO BID PRN 10/06/17 [Last Taken 10/05/17 23: 00] guaiFENesin/DEXTROMETHORPHAN [Robitussin Dm Oral Liquid (*)] 10 ml PO Q4 PRN [Last Taken 10/06/17 17:30] predniSONE 20 mg PO DAILY 10/06/17 [Last Taken 10/06/17 09:00] I have personally reviewed and updated: family history, medical history, social history, surgical history - Past Medical History Additional medical history: Non-small cell lung cancer stage IIIA, ongoing chemotherapy. Necrotic gallbladder. Coronary artery disease with stent. Gout. Hypertension. Carotid stenosis. C diff 1 year ago. Morganella bacteremia from port. Atrial fibrillation and SVT during hospitalization 09/09 - Surgical History Additional surgical history: Left upper lobe resection. L-spine surgery. Cholecystectomy. Carotid endarterectomy on right. cervical fusion 09/09. 2 drug-eluting stents placed to the right coronary artery in 2010 - Family History Additional family history: No recent sick family contacts - Social History Smoking Status: Former smoker Alcohol Use: Sober Drug Use: None Additional social history: Normally independent in his ADLs Review of Systems Review of Systems: ROS: 10pt was reviewed & negative except for what was stated in HPI & below Constitutional: Reports: chills, fever, malaise Cardiac: Reports: chest pain Respiratory: Reports: cough Muscolosketal: Reports: other (Right foot pain) Skin: Reports: other (Erythema over right foot) Physical Exam Physical Exam: Temp Pulse Resp BP Pulse Ox 36.8 C 78 16 133/78 H 96 10/06/17 21:58 10/06/17 21:58 10/06/17 21:58 10/06/17 21:58 10/06/17 21:58 Constitutional: no apparent distress, not in pain, uncomfortable Eyes: PERRL, anicteric sclera, EOMI Ears, Nose, Mouth, Throat: moist mucous membranes, hearing normal, ears appear normal, no oral mucosal ulcers Cardiovascular: systolic murmur (1/6 at the sternum ), No irregularly irregular , No tachycardia, No edema Respiratory: reduced air movement (Left base), other (Intermittent severe coughing), No expiratory wheeze, No inspiratory crackles, No bronchial breath sounds, No respiratory distress Gastrointestinal: normoactive bowel sounds, soft, non-tender abdomen, no palpable masses Genitourinary: no bladder fullness, no bladder tenderness, other (No CVA tenderness) Skin: other (Blanching of the right medial foot, small area of skin break and small amount of purulent exudate) Musculoskeletal: other (Full range of motion right tarsal metatarsal without pain, small effusion with tenderness, nontender tophi on left 1st metatarsal) Neurologic: AAOx3, sensation intact bilaterally, No weakness Psychiatric: interacting appropriately, not anxious, not encephalopathic, thought process linear Lab Data & Imaging Review 10/06/17 20:04 10/06/17 20:04 WBC 7.65 10^3/uL (3.80-9.50) 10/06/17 20:04 RBC 3.67 10^6/uL (4.40-6.38) L 10/06/17 20:04 Hgb 11.5 g/dL (13.7-17.5) L 10/06/17 20:04 Hct 35.2 % (40.0-51.0) L 10/06/17 20:04 MCV 95.9 fL (81.5-99.8) 10/06/17 20:04 MCH 31.3 pg (27.9-34.1) 10/06/17 20:04 MCHC 32.7 g/dL (32.4-36.7) 10/06/17 20:04 RDW 14.8 % (11.5-15.2) 10/06/17 20:04 Plt Count 377 10^3/uL (150-400) 10/06/17 20:04 MPV 10.0 fL (8.7-11.7) 10/06/17 20:04 Neut % (Auto) 92.3 % (39.3-74.2) H 10/06/17 20:04 Lymph % (Auto) 4.3 % (15.0-45.0) L 10/06/17 20:04 [place] % (Auto) 2.4 % (4.5-13.0) L 10/06/17 20:04 Eos % (Auto) 0.0 % (0.6-7.6) L 10/06/17 20:04 Baso % (Auto) 0.1 % (0.3-1.7) L 10/06/17 20:04 Nucleat RBC Rel Count 0.0 % (0.0-0.2) 10/06/17 20:04 Absolute Neuts (auto) 7.06 10^3/uL (1.70-6.50) H 10/06/17 20:04 Absolute Lymphs (auto) 0.33 10^3/uL (1.00-3.00) L 10/06/17 20:04 Absolute Monos (auto) 0.18 10^3/uL (0.30-0.80) L 10/06/17 20:04 Absolute Eos (auto) 0.00 10^3/uL (0.03-0.40) L 10/06/17 20:04 Absolute Basos (auto) 0.01 10^3/uL (0.02-0.10) L 10/06/17 20:04 Absolute Nucleated RBC 0.00 10^3/uL (0-0.01) 10/06/17 20:04 Immature Gran % 0.9 % (0.0-1.1) 10/06/17 20:04 Immature Gran # 0.07 10^3/uL (0.00-0.10) 10/06/17 20:04 RBC/WBC/PLT Morphology TNP 10/06/17 20:04 Platelet Estimate TNP 10/06/17 20:04 PT 12.9 SEC (12.0-15.0) 10/06/17 20:04 INR 0.95 (0.83-1.16) 10/06/17 20:04 APTT 29.8 SEC (23.0-38.0) 10/06/17 20:04 VBG Lactic Acid 1.4 mmol/L (0.7-2.1) 10/06/17 20:04 Sodium 140 mEq/L (135-145) 10/06/17 20:04 Potassium 5.1 mEq/L (3.3-5.0) H 10/06/17 20:04 Chloride 102 mEq/L (97-110) 10/06/17 20:04 Carbon Dioxide 24 mEq/l (22-31) 10/06/17 20:04 Anion Gap 14 mEq/L (8-16) 10/06/17 20:04 BUN 19 mg/dL (7-23) 10/06/17 20:04 Creatinine 0.9 mg/dL (0.7-1.3) 10/06/17 20:04 Estimated GFR > 60 10/06/17 20:04 Glucose 214 mg/dL (70-100) H 10/06/17 20:04 Calcium 8.2 mg/dL (8.5-10.4) L 10/06/17 20:04 Total Bilirubin 0.7 mg/dL (0.1-1.4) 10/06/17 20:04 Visualized and Interpreted Chest x-ray results: Yes Chest X-Ray results: no infiltrate, other (Left lower lobectomy) Visualized and Interpreted imaging results: Yes Interpretation: Right Foot x-ray demonstrates bone erosion of the right 1st metatarsal Visualized and Interpreted EKG results: Yes EKG Interpretation: Positive for: other (Normal sinus mechanism) Assessment & Plan Assessment: 72-year-old male presents with persistent subjective fever and chills, possible right foot osteomyelitis Plan: 1. Possible osteomyelitis. Acute, new problem this provider, further workup indicated. Right foot, site of previously overlying gout -reviewed foot x-ray with Dr. Preston, we have discussed ordering an MRI given that we have no previous x-ray for comparison and there is obvious bone erosion , either secondary to gout or osteo -discussed with Dr. Nakul Ross, he reports to me that the patient has been discussed with Dr. Rangel Whitaker, he has recommended Zosyn for empiric antibiotic coverage, and Dr. Ross would like to add vancomycin as well given the evidence of skin break -status post dose of Zosyn and vancomycin in emergency department -will check ESR, CRP, monitor CBC -blood culture sent 2. Cough. Reviewed outside records including 09/22/[address] Eveline Hamm, she reports the patient has been experiencing a protracted post viral cough which responded very minimally to supportive care, she also reports large right tophi with exudate at that time, placed on colchicine and indomethacin -patient reports that he has responded well to Tessalon and Robitussin, will order p.r.n. -patient reportedly has follow-up at [facility], has yet to receive that consultation 3. Lung cancer. Currently receiving outpatient oncology care, service will be notified of his presentation 4. Chronic immunosuppression with chronic steroid use. Continue prednisone 20 mg Diet. Regular Prophylaxis. High risk patient, Lovenox 40 Code. Full Disposition. Anticipated discharge uncertain this time, anticipated length stay is greater than 48 hr for reasonable medical necessity including suspected osteomyelitis requiring further workup and empiric IV antibiotics as well as Infectious Disease consultation and that by General surgery as outlined above.
[2017-10-06] MEDS ORDERED: traMADol 50 MG TAB PO PRN (22:24)
[2017-10-07] MEDS: LATANOPROST 0.005% 2.5 ML OPHT DROPS EACHEYE SCH ×2 (00:18→21:56)
[2017-10-07] MEDS: GUAIFENESIN/DM 10 ML UDCUP PO PRN (02:44)
[2017-10-07 05:05] LABS: PLATELET COUNT 311 10^3/uL (150-400)
[2017-10-07] MEDS ORDERED: NYSTATIN PO SCH (06:00)
--- NOTE | 2017-10-07 08:04 | PDMN ---
Medical Necessity Medical necessity: Pt meets IP criteria per MD; est los >2 mn for eval/tx of R foot cellulitis w/suspected osteomyelitis; admit for further workup/monitoring, ID/Surgery consults, IV abx & therapy; hx recent hospitalizations for pneumonia , sepsis & post viral cough, lung cancer w/ongoing chemo, CAD w/stent, HTN, gout , AFIB & SVT; per H&P & order 10/06/17
[2017-10-07] MEDS: ASPIRIN 81 MG CHEWABLE TAB PO SCH (08:28)
[2017-10-07] MEDS: predniSONE 20 MG TAB PO SCH (08:28)
[2017-10-07] MEDS: METOPROLOL SUCCINATE XR 50 MG TAB PO SCH (08:28)
[2017-10-07] MEDS: DILTIAZEM CD 120 MG CAP PO SCH (08:28)
[2017-10-07] MEDS: ENOXAPARIN 40 MG/0.4 ML SYR SC SCH (08:29)
--- NOTE | 2017-10-07 13:35 | PCMIDPN ---
Assessment/Plan: Assessment/Plan: 1. Right foot with chronic draining wound: - underlying gout - xray reviewed. - agree with MRI to further evaluate -s/p zosyn , vanco in ER. - no further chills today. -Will continue with Vanco while cultures and MRI are in progress 2. REcent respiratory infection with HMPV: - CXR without pneumonia - symptoms actually improving. Subjective: patient well known to ID service. Records from [facility] and here reviewed. afebrile. cough has started to improve. no sob at present. chronic draining wound from right foot x 2 weeks after trauma to site. Has underlying gout involving right great toe. In brief, patient was hospitalized in august for respiratory symptoms, cough. Diagnosed wih Human metapneumovirus. Seen by pulmonary. was discharge late august. Returned on 09/29/17 with c/o chills, shivering, tachycardia to ER. Was sent home but due to ongoing symptoms patinet went to [facility]. He was notd to be febrile, tachycardic, tachypneic with leukocytosis. HE was hospitalized in ICU x 5 days with possibly HAP, rapid Afib. He was treated with VAnco from 09/29- and Cefepime from 09/29-10/02, then transitioned to ceftriaxone on 10/02/17 and discharged on 10/04/17 on cefdinir. He returned to our ER yesterday with return of shaking chills. CXR show mild peribronchial thickening. Foot xray showe erosive changes that could be related to gout. patient feels much better today. Denies diarrhea, abd pain , urinary symptoms, sorethroat, headaches. Objective: Vital Signs Temp Pulse Resp BP Pulse Ox 36.6 C 75 20 132/80 H 94 10/07/17 11:21 10/07/17 11:21 10/07/17 11:21 10/07/17 11:21 10/07/17 11:21 Laboratory Results 10/07/17 04:15 10/07/17 04:15 10/06/17 10/07/17 10/08/17 05:59 05:59 05:59 Output Total 150 Balance -150 ESR 54 MM/HR (0-20) H 10/07/17 04:15 C-Reactive Protein 36.4 mg/L (<10.0) H 10/07/17 04:15 - Physical Exam General Appearance: alert, no apparent distress Respiratory: coarse breath sounds (mild) Cardiac/Chest: regular rate, rhythm Extremities: No swelling Abdomen: normal bowel sounds, non-tender, soft, No distended Skin: other (right great toe/dorsum of foot: pigmentation changes around area of tophi. no erythema or cellulitis. mild warmth. small open wound. tender to palpate around it. ), No erythema - Time Spent With Patient Time Spent with Patient: greater than 35 minutes Time Spent with Patient: Greater than 35 minutes spent on this patients care, greater than 50% of time spent counseling, educating, and coordinating care regarding the above mentioned plan. ICD10 Worksheet Patient Problems: Problems Problem Status Onset Cellulitis of right foot Acute Arthrodesis status Acute C. difficile diarrhea Acute 04/05/16 Cervical stenosis of spine Acute Chest pain Acute Chronic cough Acute Dehydration Acute Diarrhea Acute Dysphagia, oropharyngeal Acute Gout Acute Headache Acute Hypocalcemia Acute Hypokalemia Acute Hypomagnesemia Acute Infection due to human metapneumovirus (hMPV) Acute Lumbar back pain with radiculopathy affecting left lower extremity Acute Lung cancer Acute Nausea & vomiting Acute Neck pain Acute On total parenteral nutrition (TPN) Acute Pneumonia Acute RUQ abdominal pain Acute Weakness Acute chronic disease mgmt/transitional care Acute CAD (coronary artery disease) Chronic Dyslipidemia Chronic
[2017-10-07] MEDS ORDERED: GADOBUTROL 10 ML VIAL IVP ONE (14:25)
--- NOTE | 2017-10-07 16:44 | HOSPPROG ---
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 -unclear if bacterial superinfection -IV Vanco pending cultures -continue colchicine - start allopurinol as outpatient * Human metapneumovirus - persistent + resp PCR -slow clearance of virus likely explains chronic cough * Lung cancer s/p resection - in remission * Chemo induced pneumonitis -controlled on chronic prednisone * Afib -metoprolol, Cardizem, ASA * CAD/stent * COPD Objective: Vital Signs Temp Pulse Resp BP Pulse Ox 36.6 C 87 28 H 112/64 81 L 10/07/17 15:33 10/07/17 15:33 10/07/17 15:33 10/07/17 15:33 10/07/17 15:33 Laboratory Results 10/07/17 04:15 10/07/17 04:15 10/06/17 10/07/17 10/08/17 05:59 05:59 05:59 Output Total 650 Balance -650 PT 12.9 SEC (12.0-15.0) 10/06/17 20:04 INR 0.95 (0.83-1.16) 10/06/17 20:04 MRCP foot - most c/w destructive gout CXR viewed, my personal interpretation is - no infiltrate, elevated left hemidiaphragm - Physical Exam Constitutional: no apparent distress, appears nourished, not in pain Cardiovascular: regular rate and rhythym, no murmur, rub, or gallop Respiratory: no respiratory distress, no rales or rhonchi, clear to auscultation Gastrointestinal: normoactive bowel sounds, soft, non-tender abdomen, no palpable masses Skin: no rashes or abrasions, no fluctuance, no induration Neurologic: AAOx3, sensation intact bilaterally Psychiatric: interacting appropriately, not anxious, not encephalopathic, thought process linear ICD10 Worksheet Patient Problems: Problems Problem Status Onset Cellulitis of right foot Acute Arthrodesis status Acute C. difficile diarrhea Acute 04/05/16 Cervical stenosis of spine Acute Chest pain Acute Chronic cough Acute Dehydration Acute Diarrhea Acute Dysphagia, oropharyngeal Acute Gout Acute Headache Acute Hypocalcemia Acute Hypokalemia Acute Hypomagnesemia Acute Infection due to human metapneumovirus (hMPV) Acute Lumbar back pain with radiculopathy affecting left lower extremity Acute Lung cancer Acute Nausea & vomiting Acute Neck pain Acute On total parenteral nutrition (TPN) Acute Pneumonia Acute RUQ abdominal pain Acute Weakness Acute chronic disease mgmt/transitional care Acute CAD (coronary artery disease) Chronic Dyslipidemia Chronic
[2017-10-07] MEDS: VANCOMYCIN 1 GM in NS 250 ML IV SCH (16:48)
[2017-10-07] MEDS ORDERED: VANCOMYCIN HCL/NORMAL SALINE 250 ML IV SCH (17:00)
--- NOTE | 2017-10-07 17:16 | ASMTCASEMG ---
Living Arrangements What is your living Answers: With Spouse arrangement? Who do you live with? Type Of Residence What kind of residence do Answers: Apartment you live in? Discharge Plan Comments Coordination Status Comments Notes: Pt is a 72 y/o man admitted for a right foot cellulitis. ID has been consulted. PT has been ordered and awaiting recommendations. Needs are TBD at this time. CM to follow. Plan: TBD Date Signed: 10/07/2017 04:29 PM Electronically Signed By:JANN Muro
[2017-10-07] MEDS: COLCHICINE 0.6 MG CAP/TAB PO SCH (21:56)
[2017-10-08] MEDS: GUAIFENESIN/DM 10 ML UDCUP PO PRN (03:02)
[2017-10-08] MEDS: VANCOMYCIN 1 GM in NS 250 ML IV SCH (05:53)
[2017-10-08] MEDS: predniSONE 20 MG TAB PO SCH (09:29)
[2017-10-08] MEDS: ASPIRIN 81 MG CHEWABLE TAB PO SCH (09:29)
[2017-10-08] MEDS: METOPROLOL SUCCINATE XR 50 MG TAB PO SCH (09:30)
[2017-10-08] MEDS: COLCHICINE 0.6 MG CAP/TAB PO SCH ×2 (09:30→21:26)
[2017-10-08] MEDS: DILTIAZEM CD 120 MG CAP PO SCH (09:30)
[2017-10-08] MEDS: ENOXAPARIN 40 MG/0.4 ML SYR SC SCH (09:31)
--- NOTE | 2017-10-08 13:31 | PCMIDPN ---
Assessment/Plan: Assessment/Plan: * Recurrent rigors: Unclear etiology with history consistent with recurrent rigors. Improved while on antibiotic therapy at [facility] but now have recurred. Given recurrent nature of rigors without identified etiology, will proceed with CT scan of chest, abdomen and pelvis to further assess for occult etiology. Consideration does remain that symptoms could be related to significant gout flare in right great toe - MRI findings consistent with gout rather than osteomyelitis. Given persistent and worsening toe pain, query if prednisone should be increased verses intra-articular steroid injection for tophaceous gout. Blood cultures remain negative. Will therefore discontinue vancomycin and observe off antibiotics. * Persistently positive respiratory PCR panel for human metapneumovirus: No respiratory symptoms currently. Suspect this represents ongoing shadowing rather than contributing to active disease. Time spent, greater than 35 min, of which greater than half was spent in education/counseling/coordination of care related to recurrent rigors and gout. 10/08/17 13:28 10/08/17 13:30 10/08/17 13:31 Subjective: Patient complains of worsening pain in right great toe. No further drainage from toe. Objective: Vital Signs Temp Pulse Resp BP Pulse Ox 36.3 C 82 16 127/69 H 98 10/08/17 12:00 10/08/17 12:00 10/08/17 12:00 10/08/17 12:00 10/08/17 12:00 Laboratory Results 10/07/17 04:15 10/07/17 04:15 10/07/17 10/08/17 10/09/17 05:59 05:59 05:59 Intake Total 1150 Output Total 650 Balance 500 ESR 54 MM/HR (0-20) H 10/07/17 04:15 C-Reactive Protein 36.4 mg/L (<10.0) H 10/07/17 04:15 Vancomycin # 2 Blood cultures x2 no growth MRI of foot suggestive of erosive change from gout - Physical Exam General Appearance: alert, no apparent distress EENT: No scleral icterus, No thrush, No conjunctival petechiae Respiratory: lungs clear, No respiratory distress Cardiac/Chest: regular rate, rhythm Extremities: inflammation (Right great toe with erythema at base of great toe which is tender to palpation; no active drainage from previous pinpoint opening medially; mild pain with range of motion of toe) Abdomen: non-tender, No distended Skin: No rash, No embolic lesions ICD10 Worksheet Patient Problems: Problems Problem Status Onset Cellulitis of right foot Acute Arthrodesis status Acute C. difficile diarrhea Acute 04/05/16 Cervical stenosis of spine Acute Chest pain Acute Chronic cough Acute Dehydration Acute Diarrhea Acute Dysphagia, oropharyngeal Acute Gout Acute Headache Acute Hypocalcemia Acute Hypokalemia Acute Hypomagnesemia Acute Infection due to human metapneumovirus (hMPV) Acute Lumbar back pain with radiculopathy affecting left lower extremity Acute Lung cancer Acute Nausea & vomiting Acute Neck pain Acute On total parenteral nutrition (TPN) Acute Pneumonia Acute RUQ abdominal pain Acute Weakness Acute chronic disease mgmt/transitional care Acute CAD (coronary artery disease) Chronic Dyslipidemia Chronic
[2017-10-08] MEDS ORDERED: IOPAMIDOL (ISOVUE-300) 100 ML BTL ONE (15:38)
--- NOTE | 2017-10-08 16:28 | HOSPPROG ---
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 -vanco stopped by ID, appreciate the assistance -CTs pending today per ID -continue colchicine, sylvain eastman closely - start allopurinol as outpatient * Human metapneumovirus - persistent + resp PCR -slow clearance of virus likely explains chronic cough -contact/resp precautions * Lung cancer s/p resection - in remission * Chemo induced pneumonitis -controlled on chronic prednisone * Afib -metoprolol, Cardizem, ASA * Anemia -watch for stability * Hx CAD/stent -no acute issues * COPD -stable, likely at baseline PCP FULL CODE DISPO >2 more mdtns depending upon results of CT and clinical course off abx Subjective: Having pain in toe/foot but ambulating a bit more No cp/sob/n/v/d. in room for part of time spent with pt. Overally he is very frustrated with care encounters at ER. I requested a pt advocate visit with him when dicussing later with CM. Objective: Vital Signs Temp Pulse Resp BP Pulse Ox 97.8 F 86 18 110/61 90 L 10/08/17 15:17 10/08/17 15:17 10/08/17 15:17 10/08/17 15:17 10/08/17 15:17 Laboratory Results 10/07/17 04:15 10/07/17 04:15 10/07/17 10/08/17 10/09/17 11:59 11:59 11:59 Intake Total 1150 Output Total 150 500 Balance -150 650 PT 12.9 SEC (12.0-15.0) 10/06/17 20:04 INR 0.95 (0.83-1.16) 10/06/17 20:04 - Time Spent With Patient Time Spent with Patient: greater than 35 minutes Time Spent with Patient: Greater than 35 minutes spent on this patients care, greater than 50% of time spent counseling, educating, and coordinating care regarding the above mentioned plan. - Physical Exam Constitutional: no apparent distress, appears nourished Eyes: anicteric sclera Ears, Nose, Mouth, Throat: moist mucous membranes, hearing normal Cardiovascular: regular rate and rhythym Respiratory: no respiratory distress, no rales or rhonchi (decreased/minimal BS throughout) Gastrointestinal: normoactive bowel sounds, soft, non-tender abdomen Skin: warm, other (R 1st toe with slight erythema, + pain to palpation) Psychiatric: interacting appropriately, not anxious, not encephalopathic ICD10 Worksheet Patient Problems: Problems Problem Status Onset Cellulitis of right foot Acute Arthrodesis status Acute C. difficile diarrhea Acute 04/05/16 Cervical stenosis of spine Acute Chest pain Acute Chronic cough Acute Dehydration Acute Diarrhea Acute Dysphagia, oropharyngeal Acute Gout Acute Headache Acute Hypocalcemia Acute Hypokalemia Acute Hypomagnesemia Acute Infection due to human metapneumovirus (hMPV) Acute Lumbar back pain with radiculopathy affecting left lower extremity Acute Lung cancer Acute Nausea & vomiting Acute Neck pain Acute On total parenteral nutrition (TPN) Acute Pneumonia Acute RUQ abdominal pain Acute Weakness Acute chronic disease mgmt/transitional care Acute CAD (coronary artery disease) Chronic Dyslipidemia Chronic
--- NOTE | 2017-10-08 16:58 | ASMTCMCOM ---
CM Note CM Note Notes: Per MD, pt very upset with [facility] ER. CM left message for patient rep. Date Signed: 10/08/2017 04:57 PM Electronically Signed By:Clara Gonzalez RN
[2017-10-08] MEDS ORDERED: predniSONE 20 MG TAB PO ONE (17:03)
[2017-10-08] MEDS: LATANOPROST 0.005% 2.5 ML OPHT DROPS EACHEYE SCH (21:26)
[2017-10-08 23:47] VITALS: BP 124/64
[2017-10-09 07:25] LABS: PLATELET COUNT 354 10^3/uL (150-400)
[2017-10-09] MEDS ORDERED: predniSONE 20 MG TAB PO SCH (09:00)
[2017-10-09] MEDS: DILTIAZEM CD 120 MG CAP PO SCH (09:21)
[2017-10-09] MEDS: ASPIRIN 81 MG CHEWABLE TAB PO SCH (09:21)
[2017-10-09] MEDS: METOPROLOL SUCCINATE XR 50 MG TAB PO SCH (09:23)
[2017-10-09] MEDS: COLCHICINE 0.6 MG CAP/TAB PO SCH (09:23)
[2017-10-09] MEDS: ENOXAPARIN 40 MG/0.4 ML SYR SC SCH (09:24)
--- NOTE | 2017-10-09 14:13 | GCON ---
[f rep st] CONSULTATION NEW PATIENT CONSULTATION REFERRING PHYSICIAN: Ana Lilia Abdi MD PRIMARY ONCOLOGIST: Eran Piedra MD. HISTORY OF PRESENT ILLNESS: The patient has a history of non-small cell lung cancer. He was diagnos ed in July of 2014. At that time, his stage was T4 N0 M0, location subcarinal, and final stage IIIA . His subtype is squamous cell carcinoma, EGFR mutation negative, ALK rearrangement by FISH negative , PDL-1 unknown. Patient has been receiving immunotherapy with Dr. Piedra more recently. He has al so been dealing with multiple bouts of acute gouty arthritis and pain. Patient also has had persiste nt pneumonitis with immunotherapy, and more recently a pneumonia was masked by this. He last saw Dr. Piedra 09/25/2017, and Dr. Piedra felt that he was continuing to have evidence of p neumonitis in right lower lobe. This is also the location of previous radiation, and the feeling is this has been exacerbated by nivolumab. He remains on prednisone. His gout continues to be very problematic. On 10/06/2017, he was admitted to [facility] for acute chills and subjective fevers as well as nonproductive cough. Patient first presented 09/29/2017, to emergency department, and had a negative infectious e valuation at that time. He was discharged home. He subsequently went to [facility], where he was admitted for 5 days and given a diagnosis of severe sepsis without an exact localized infection, discharged on cefdinir, and the patient was very adherent to the medication. Workup here has been to rule out possible osteomyelitis and to work up cough further. 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 He is actually much improved today an d planning discharge. REVIEW OF SYSTEMS: Is feeling well today. Slight pain in the right 1st MTP. Cough is chronic, but mostly improved. Otherwise, 14-point review of systems negative. PROBLEM LIST: Lung cancer, non-small cell; coronary artery disease; cholecystectomy; C difficile col itis; herpes zoster; cough; pneumonitis; and gouty arthritis. FAMILY HISTORY: Noncontributory. SOCIAL HISTORY: Accompanied by his today. He is and lives in [place]. No current alco hol, tobacco, or drugs. MEDICATIONS: Have been reviewed in EMR and include aspirin, colchicine, indomethacin, metoprolol, on dansetron, prednisone 40 daily, and tramadol. PHYSICAL EXAM: VITAL SIGNS: Today, vital signs show a blood pressure of 124/64, pulse is 65, respir atory rate 16, satting 99% on room air, temperature is 36.4. GENERAL: He is a 72-year-old [place] g entleman, not in acute distress, alert and oriented. HEENT: He has mcintosh facies. HEART: Regular ra te and rhythm. LUNGS: Show minimal bilateral inspiratory crackles. ABDOMEN: Soft, nontender. No enlarged liver or spleen. LOWER EXTREMITIES: Improving gout in 1st MTP, but still slightly erythema tous and tender. LABS: Today show white blood cell count of 8.5, hemoglobin 9.7, hematocrit 30.6, platelet count 354, 000. Sodium 143, creatinine 0.8. LFTs unremarkable. Urinalysis negative. IMAGING: Chest and abdominal CT have shown no other evidence of infectious etiology. Lower extremit y MRI did not show any evidence of osteomyelitis. ASSESSMENT AND PLAN: A 72-year-old gentleman with a history of non-small cell lung cancer, specifica lly squamous cell, most recently on nivolumab, who presented with fever and cough. 1. Cough, multifactorial, possibly due to human metapneumovirus as well as pneumonitis. Appreciate Infectious Disease and will continue prednisone taper. 2. Destructive tophaceous gout, 1st metatarsophalangeal. No antibiotics, stopped by Infectious Dise ase as ruled out osteomyelitis. He will continue colchicine, watching creatinine closely. He is als o on indomethacin and prednisone. He will start allopurinol as an outpatient. 3. Lung cancer, status post resection, in remission. Dr. Piedra plans to hold nivolumab due to rec urrent pneumonitis. He will be followed off therapy. Notably, most recent PET/CT on August 05, 2017, shows worsening fibrosis predominantly in the right lower lobe consistent with pneumonitis, no convi ncing evidence of new or recurrent disease in the chest. 4. Other medical issues including atrial fibrillation, anemia, history of coronary artery disease an d chronic obstructive pulmonary disease per primary team. The patient will follow up with Dr. Eran Piedra as an outpatient next available. More than 30 minutes was spent with the patient, more than 50% of time counseling. /[id number]/MODL
--- NOTE | 2017-10-09 16:09 | PCMIDPN ---
Assessment/Plan: Assessment/Plan: * Recurrent rigors: CT of chest, abdomen and pelvis unrevealing other than some evidence of loculated left pleural fluid. Blood cultures remain negative. Inflammatory changes in right great toe significantly decreased. MRI reviewed with findings consistent with gouty arthropathy. Unclear if gout potentially contributing to symptoms with improvement now after resuming prednisone 40 mg daily. Have reviewed with Rheumatology with plans for intra- articular injection as an outpatient if symptoms progress or fail to resolve with continued prednisone. If continues to have rigors in the future, may need to undergo thoracentesis to ensure no evidence of infection within pleural fluid. Will arrange for patient to have ongoing follow-up in my office next week. * Persistently positive respiratory PCR panel for human metapneumovirus: No respiratory symptoms currently. Do not think this is contributing to current presentation and likely represents prolonged shedding. 10/09/17 16:06 Subjective: Patient feels significantly improved. No further rigors. Right great toe markedly improved. No respiratory symptoms. Objective: Vital Signs Temp Pulse Resp BP Pulse Ox 36.4 C 65 16 124/64 H 99 10/09/17 07:47 10/09/17 09:23 10/09/17 07:47 10/09/17 09:23 10/09/17 07:47 Laboratory Results 10/09/17 06:30 10/09/17 06:30 10/08/17 10/09/17 10/10/17 05:59 05:59 05:59 Intake Total 1150 2340 Output Total 650 200 Balance 500 2140 ESR 54 MM/HR (0-20) H 10/07/17 04:15 C-Reactive Protein 36.4 mg/L (<10.0) H 10/07/17 04:15 Blood cultures x2 no growth CT chest, abdomen and pelvis reviewed showing some loculated left pleural effusion without notable focus of infection MRI of foot reviewed with changes consistent with gouty arthropathy - Physical Exam General Appearance: alert, no apparent distress EENT: No scleral icterus, No thrush, No conjunctival petechiae Respiratory: other (Decreased breath sounds left base), No respiratory distress Cardiac/Chest: regular rate, rhythm Extremities: inflammation (Marked decrease in inflammation over right great toe with some residual pain over MTP) Abdomen: non-tender, No distended Skin: No rash, No embolic lesions ICD10 Worksheet Patient Problems: Problems Problem Status Onset Arthrodesis status Acute C. difficile diarrhea Acute 04/05/16 Cellulitis of right foot Acute Cervical stenosis of spine Acute Chest pain Acute Chronic cough Acute Dehydration Acute Diarrhea Acute Dysphagia, oropharyngeal Acute Gout Acute Headache Acute Hypocalcemia Acute Hypokalemia Acute Hypomagnesemia Acute Infection due to human metapneumovirus (hMPV) Acute Lumbar back pain with radiculopathy affecting left lower extremity Acute Lung cancer Acute Nausea & vomiting Acute Neck pain Acute On total parenteral nutrition (TPN) Acute Pneumonia Acute RUQ abdominal pain Acute Weakness Acute chronic disease mgmt/transitional care Acute CAD (coronary artery disease) Chronic Dyslipidemia Chronic
--- NOTE | 2017-10-12 11:17 | GDS ---
[f rep st] DISCHARGE SUMMARY SERVICE: [facility] Hospitalist. CONSULTS: Infectious Disease. PROCEDURES: Chest x-ray, foot x-ray, lower extremity MRI, abdomen CT, chest CT. Chest CT showed chronically elevated left hemidiaphragm with chronic atelectasis and reticular change s. Small loculated left pleural effusion. Atherosclerotic changes. No significant adenopathy. Abd omen CT showed old benign compression fractures at L1, atherosclerosis. No evidence of intraabdomina l abscesses. No obstruction, diverticulitis, or appendicitis. MRI foot showed advanced gouty arthro mery at the 1st metatarsal joint on the right, extensive erosive changes, volume loss of the metatar yudy head, possible partial pathologic fracture. No evidence of abscess or osteomyelitis. Admission H and P: Please see previously dictated note by Dr. Hall. ADMISSION DIAGNOSES: 1. Possible right foot osteomyelitis. 2. Chronic cough. 3. History of lung cancer, chronic immunosuppression. DISCHARGE DIAGNOSES: 1. Acute gout flare. 2. Human metapneumovirus colonization. 3. History of lung cancer, chronic immunosuppression. HOSPITAL COURSE: The patient came into the emergency department for evaluation because of ongoing ri ght foot pain and persistent fevers and chills. Initial concern was for osteomyelitis at the site of previous gout. After evaluation of x-ray in the emergency department, he was admitted to the hospit al and started on Zosyn for empiric coverage, and also vancomycin. Infectious Disease was asked to c onsult. An MRI was done with the foot, which did not show any evidence of osteomyelitis. He was kendall ated with steroids and symptoms of rigors and chills did improve. On the day prior to discharge, Dr. Chavez stopped all antibiotics and recommended he be observed without them. On the day of discharge, as he was continuing to feel well, it was decided to discharge him home without any further antibioti cs. Of note, Dr. Preston was informally consulted at the beginning of his hospital stay as he knows hi m well from previous issues. A formal consult was not done. Recommended to patient and his zak t he establish care with a local corner block cutter and information was given for Dr. Contreras or Dr. Rashid to establish care Multiple labs and other studies were done at his admission to try to find another source of possible infection. A blood culture and Gram stain were done but were negative at time of discharge. A respi ratory panel was done and showed human metapneumovirus, so he was placed on precautions. His vital s igns remained stable throughout his stay. He did require some O2 support, but by the day of discharg e, he was on room air and very comfortable. He remained afebrile throughout his stay. History of lung cancer. His primary oncologist is Dr. Piedra. Oncology was not asked to see him in the hospital, but I have strongly recommended to him and his that they follow up with Dr. Quintin junior early next week as he is essentially his primary care provider. DISCHARGE INSTRUCTIONS: He and his were given discharge instructions extensively by myself. Th ey are going to be discharged home with no home health care needed. They are aware of a gout diet an d are already following this. New medications include prednisone orally, for which he is to take an increased dose today but then decrease to 40 mg daily and maintain that until seen by Dr. Piedra to discuss when to taper down to 20 mg. His other chronic home medications are unchanged. They have be en instructed to call Dr. Piedra for a followup appointment early next week. They have also been in structed to see Dr. Chavez. An appointment was made on 10/16, at 1 p.m. I strongly suggest that they check in with their primary care provider also. If at any time he has worsening pain, fevers or chil ls, increased redness in his foot, or other concerns, they should return immediately to the hospital for evaluation. /[id number]/MODL
== END 2017-10-09 13:51 | disposition home or self-care (01) | DRG 553 ==
LOC: F3E 23:08
PROVIDERS: ADMIT Internal Medicine; ATTEND Internal Medicine
DX: M1A.9XX1 Chronic gout, unspecified, with tophus (tophi) (principal); J12.3 Human metapneumovirus pneumonia; M84.477A Pathological fracture, right toe(s), initial encounter for fracture; J44.9 Chronic obstructive pulmonary disease, unspecified; I25.10 Atherosclerotic heart disease of native coronary artery without angina pectoris; J70.3 Chronic drug-induced interstitial lung disorders; T45.1X5A Adverse effect of antineoplastic and immunosuppressive drugs, initial encounter; I48.91 Unspecified atrial fibrillation; D64.9 Anemia, unspecified; Z87.891 Personal history of nicotine dependence; Z85.118 Personal history of other malignant neoplasm of bronchus and lung; Z95.5 Presence of coronary angioplasty implant and graft
CPT/HCPCS: 96374; A9585; J1642; J1650; J2543; J3370; J7512; Q9967

== ENCOUNTER 2017-10-23 23:32 | Emergency (ER) | payer OTHER, MEDICARE | END 2017-10-24 00:16 | disposition left against medical advice (07) | DX: Z53.21 Procedure and treatment not carried out due to patient leaving prior to being seen by health care provider (principal) ==

== ENCOUNTER 2017-10-24 07:44 | Emergency (ER) | payer OTHER, MEDICARE ==
--- NOTE | 2017-10-24 08:11 | EDPHY ---
H & P Time Seen by Provider: 10/24/17 07:53 HPI/ROS: HPI Difficulty urinating. 72-year-old male by private vehicle. This patient is very familiar to our emergency department and hospital. He came to the emergency department last night with complaint of fever but did not want to be seen by the physician who is on duty at that time so he left. He now returns to the emergency department with complaint of urinary hesitancy. He has had this in the past. This is not a new issue for him. He tells me has not had a fever this morning but did have a fever last night when he was initially seen. ROS: Constitutional: As above, no chills. No weakness. Eyes: No discharge. No changes in vision. ENT: No sore throat. No nasal congestion or rhinorrhea. Respiratory: No cough. No shortness of breath. Cardiac: No chest pain, no palpitations. Gastrointestinal: No abdominal pain, no vomiting, no diarrhea. Genitourinary: No hematuria. No dysuria or increased frequency with urination. As above. Musculoskeletal: No back pain. No neck pain. No myalgias or arthralgias. Skin: No rashes. Neurological: No headache. No focal weakness or altered sensation. Past medical history: Non-small cell lung cancer stage III, ongoing chemotherapy, necrotic gallbladder, coronary artery disease with stent, gout, hypertension, carotid stenosis, Morganella bacteria in [place], atrial fibrillation and SVT. Surgical history includes left upper lobe resection, L- spine surgery, cholecystectomy, carotid endarterectomy on the right, cervical fusion, right coronary artery stenting. Social history: Former smoker. No alcohol. He is . 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 Physical Exam: General Appearance: Alert, no distress. This patient is responding to questions appropriately and in full sentences. This patient appears well- hydrated and well-nourished. Eyes: Pupils equal and round no pallor or injection. No lid edema, erythema or injection. ENT, Mouth: Mucous membranes are moist. The pharyngeal tissues are unremarkable. No edema or swelling. No asymmetry suggestive of abscess. No erythema or exudates. Respiratory: There are no retractions, lungs are clear to auscultation with good air movement bilaterally. Cardiovascular: Regular rate and rhythm. No murmur. Gastrointestinal: Abdomen is soft and nontender, no masses, bowel sounds normal. No focal tenderness at Burney's point. No Velásquez sign. Neurological: Motor sensory function is grossly intact. Cranial nerves are normal. Gait is normal. Skin: Warm and dry, no rashes. Musculoskeletal: Neck is supple and nontender. Extremities are symmetrical. All joints range without pain or impingement. Psychiatric: No agitation. No depression. Database: EKG: Imaging: Chest x-ray PA and lateral: No acute findings. No evidence of pneumonia or other acute infectious process. Interpreted by me. Please see radiologist's report for further details. Procedures: Emergency department course: Triage vital signs reviewed. He is mildly tachycardic and tachypneic and moderately hypertensive. He is afebrile here. Bladder scan performed at the bedside demonstrates 52 cc of urine. 8:25 a.m., vital signs reviewed. Blood pressure 161/94. Pulse oximetry 94% on room air. winter intern shows a narrow complex sinus rhythm ventricular rate of 93. 9:10 a.m., patient re-evaluated. Resting comfortably at this time. Vital signs reviewed again. He remains afebrile. Moderately hypertensive but vital signs otherwise normal. winter intern shows a narrow complex sinus rhythm with ventricular rate of 78. His urinalysis is unremarkable. He was able to urinate without issue in the emergency department. Chest x-ray is unremarkable. The results of these test were discussed with him. I do not feel he requires admission or new antibiotics at this time. He feels comfortable going home. He will follow up with his primary care physician and oncologist. Return to emergency department precautions were reviewed with him. All of his questions were answered. He was discharged from the emergency department in good condition. Differential Diagnosis: The differential diagnosis on this patient includes but is not limited to viral syndrome. Urinary tract infection, pneumonia, meningitis, encephalitis, other serious bacterial infection unlikely. This represents a partial list of diagnoses considered. These considerations are based on history, physical exam , past history, reassessment and diagnostic testing. Smoking Status: Former smoker Constitutional: Initial Vital Signs Temperature (C) 36.7 C 10/24/17 07:46 Heart Rate 113 H 10/24/17 07:46 Respiratory Rate 22 H 10/24/17 07:46 Blood Pressure 160/78 H 10/24/17 07:46 O2 Sat (%) 92 10/24/17 07:46 O2 Delivery Mode Room Air O2 (L/minute) 2 Allergies/Adverse Reactions: amlodipine Allergy (Verified 10/24/17 07:45) causes gout symptoms atorvastatin calcium [From Lipitor] Allergy (Verified 10/24/17 07:45) CHRONIC COUGHING ezetimibe [From Zetia] Allergy (Verified 10/24/17 07:45) causes gout symptoms lisinopril Allergy (Verified 10/24/17 07:45) muscle ache lorazepam Allergy (Verified 10/24/17 07:45) anger, memory issues losartan potassium [From Cozaar] Allergy (Verified 10/24/17 07:45) causes gout symptoms morphine Allergy (Verified 10/24/17 07:45) "URINARY RETENTION" per RN per pitavastatin calcium [From Livalo] Allergy (Verified 10/24/17 07:45) causes gout symptoms pravastatin Allergy (Verified 10/24/17 07:45) causes gout symptoms rosuvastatin calcium [From Crestor] Allergy (Verified 10/24/17 07:45) causes gout symptoms spironolactone Allergy (Verified 10/24/17 07:45) causes gout symptoms zolpidem [From Ambien] Allergy (Verified 10/24/17 07:45) agitation steroid injection Allergy (Uncoded 09/18/17 19:39) Red Man Syndrome Home Medications: Medication Instructions Recorded Aspirin [Aspirin 81mg (*)] 81 mg PO DAILY 06/05/16 Metoprolol Succinate Xr [Toprol Xl 50 mg PO DAILY 12/15/16 50 mg (*)] Indomethacin [Indocin 25 mg (*)] 25 mg PO Q4H PRN 03/09/17 Diltiazem Cd [Cardizem ER 120 MG 120 mg PO DAILY 03/28/17 (*)] Latanoprost 0.005% [Xalatan 0.005% 1 drops EACHEYE HS 08/29/17 (*)] Colchicine [Colchicine (*)] 0.6 mg PO BID PRN 10/06/17 Acetaminophen [Tylenol 325mg (*)] 650 mg PO Q4HRS PRN tab 10/09/17 predniSONE 20 mg PO DAILY #30 tablet 10/09/17 Medical Decision Making - Diagnostics Imaging Results: Imaging Impressions Chest X-Ray 10/24/17 08:21 Impression: Chest negative for acute abnormality with findings noted as detailed above. - Data Points Laboratory Results: 10/24/17 08:25 Urine Color YELLOW Urine Appearance CLEAR Urine pH 7.0 (5.0-7.5) Ur Specific [place] 1.016 (1.002-1.030) Urine Protein NEGATIVE (NEGATIVE) Urine Ketones NEGATIVE (NEGATIVE) Urine Blood NEGATIVE (NEGATIVE) Urine Nitrate NEGATIVE (NEGATIVE) Urine Bilirubin NEGATIVE (NEGATIVE) Urine Urobilinogen 2.0 EU H EU (0.2-1.0) Ur Leukocyte Esterase NEGATIVE (NEGATIVE) Urine RBC 3-5 /hpf H /hpf (0-3) Urine WBC 1-3 /hpf /hpf (0-3) Ur Epithelial Cells NONE SEEN /lpf /lpf (NONE-1+) Urine Mucus TRACE /lpf /lpf (NONE-1+) Urine Glucose NEGATIVE (NEGATIVE) Departure - Departure Disposition: Home, Routine, Self-Care Clinical Impression: History of fever, Difficulty urinating Condition: Good Instructions: Fever in Adults (ED) Additional Instructions: Read and follow provided instructions. Follow-up with your primary care physician or oncologist in 2-3 days for re- evaluation. Take your medication as prescribed. Return to the emergency department for worsening symptoms, high fever, difficulty breathing, vomiting or other serious concerns. Referrals: Julián Mijares MD [Primary Care Provider] - As per Instructions
[2017-10-24 09:22] VITALS: BP 155/88
== END 2017-10-24 09:22 | disposition home or self-care (01) ==
DX: R39.198 Other difficulties with micturition (principal); I10 Essential (primary) hypertension; I25.10 Atherosclerotic heart disease of native coronary artery without angina pectoris; Z85.118 Personal history of other malignant neoplasm of bronchus and lung; Z86.19 Personal history of other infectious and parasitic diseases; Z87.891 Personal history of nicotine dependence

== ENCOUNTER → 2018-01-27 | Outpatient (CLI) | payer OTHER, MEDICARE | LOC: FIMAGING 11:05 | PROVIDERS: ATTEND Neurological Surgery | DX: Z09 Encounter for follow-up examination after completed treatment for conditions other than malignant neoplasm (principal); Z98.1 Arthrodesis status; M51.36 Other intervertebral disc degeneration, lumbar region; M51.34 Other intervertebral disc degeneration, thoracic region ==

== ENCOUNTER → 2018-02-19 | Outpatient (CLI) | payer OTHER, MEDICARE | LOC: FIMAGING 09:55 | PROVIDERS: ATTEND Internal Medicine Critical Care Medicine | DX: R05 Cough (principal) ==

== ENCOUNTER 2018-03-06 23:05 | Observation (INO) | payer OTHER, MEDICARE ==
[2018-03-07 00:22] LABS: PLATELET COUNT 256 10^3/uL (150-400)
[2018-03-07] MEDS ORDERED: ONDANSETRON 4 MG/2 ML VIAL IVP PRN (00:41)
[2018-03-07] MEDS ORDERED: ACETAMINOPHEN 325 MG TAB PO PRN (00:41)
[2018-03-07] MEDS ORDERED: ALBUTEROL 3 ML DEYVIAL IH PRN (00:41)
[2018-03-07] MEDS ORDERED: ONDANSETRON DISINTEGRATING 4 MG TAB PO PRN (00:41)
--- NOTE | 2018-03-07 00:53 | EDPHY ---
H & P Stated Complaint: dry cough and fever Time Seen by Provider: 03/06/18 23:24 HPI/ROS: Chief complaint: Fever, worsening cough History of present illness: This is a 72-year-old male with a history of non- small cell lung cancer, not currently under treatment, who presents to the emergency department for fever and worsening cough. He states he has had a cough for the last 2 months. It has been extensively worked up by his oncologist and internal control manager. However, over the last few days it has significantly worsened. He has had foul-smelling sputum in his throat. He started a Z-Kelvin 2 days ago. His internal control manager, Dr. Dawson ordered sputum cultures yesterday. Today he developed a fever, reported at approximately 100.7 degrees F. He also has a slight sore throat. He denies trouble breathing. He denies rash. He denies headache. He is concerned because when he become sick like this he will rapidly progress to severe illness including sepsis. Review of systems: A 10 point review of systems was obtained and other than described above was negative - Personal History Current Tetanus/Diphtheria Vaccine: No Current Tetanus Diphtheria and Acellular Pertussis (TDAP): No - Medical/Surgical History Hx Asthma: No Hx Chronic Respiratory Disease: Yes Hx Diabetes: No Hx Cardiac Disease: Yes Hx Renal Disease: No Hx Cirrhosis: No Hx Alcoholism: No Hx HIV/AIDS: No Hx Splenectomy or Spleen Trauma: No Other PMH: pmh- htn, hyperlipemia, gout, non-small cell lung ca stage IIIA, cad , afib. psh- L lung resection 08/31/14, cardiac stents x2, back surgery, cholecystectomy, port removed 2016, left knee 2017 - Social History Smoking Status: Former smoker - Physical Exam Exam: General Appearance: Alert, nontoxic. Eyes: Pupils equal and round no pallor or injection. ENT, Mouth: Tympanic membranes, external auditory canals, external easr and surrounding soft tissue including over the mastoids are unremarkable. Nasopharynx is not injected. There is no rhinorrhea. Oropharynx is not injected. There is no edema. There is no exudate. There is no asymmetry. The uvula is midline. No elevation of the tongue. There is no hoarseness, no drooling, no trismus, no stridor. Respiratory: No use of accessory muscles or evidence of respiratory distress. Diminished lung sounds in left lower lung suarez. No rales, rhonchi, or wheezing appreciated. Cardiovascular: Regular rate and rhythm. Gastrointestinal: Abdomen is soft and non tender, no masses, bowel sounds normal. Neurological: Alert and oriented x4. Strength and sensation intact and symmetrical. No meningismus. Skin: Warm and dry, no rashes. Musculoskeletal: Neck is supple non tender. Extremities are symmetrical, full range of motion. Psychiatric: Patient is oriented X 3, there is no agitation. Constitutional: Initial Vital Signs Temperature (C) 37.0 C 03/06/18 23:07 Heart Rate 71 03/06/18 23:07 Respiratory Rate 16 03/06/18:07 Blood Pressure 139/86 H 03/06/18: O2 Sat (%) 95 03/06/18: O2 Delivery Mode Room Air Allergies/Adverse Reactions: amlodipine Allergy (Verified 03/06/18 23:11) causes gout symptoms atorvastatin calcium [From Lipitor] Allergy (Verified 03/06/18 23:11) CHRONIC COUGHING ezetimibe [From Zetia] Allergy (Verified 03/06/18 23:11) causes gout symptoms lisinopril Allergy (Verified 03/06/18 23:11) muscle ache lorazepam Allergy (Verified 03/06/18 23:11) anger, memory issues losartan potassium [From Cozaar] Allergy (Verified 03/06/18 23:11) causes gout symptoms morphine Allergy (Verified 03/06/18 23:11) "URINARY RETENTION" per RN per pitavastatin calcium [From Livalo] Allergy (Verified 03/06/18 23:11) causes gout symptoms pravastatin Allergy (Verified 03/06/18 23:11) causes gout symptoms rosuvastatin calcium [From Crestor] Allergy (Verified 03/06/18 23:11) causes gout symptoms spironolactone Allergy (Verified 03/06/18 23:11) causes gout symptoms zolpidem [From Ambien] Allergy (Verified 03/06/18 23:11) agitation steroid injection Allergy (Uncoded 03/06/18 23:11) Red Man Syndrome Home Medications: Medication Instructions Recorded Metoprolol Succinate Xr [Toprol Xl 50 mg PO DAILY 12/15/16 50 mg (*)] Diltiazem Cd [Cardizem ER 120 MG 120 mg PO DAILY 03/28/17 (*)] Latanoprost 0.005% [Xalatan 0.005% 1 drops EACHEYE HS 08/29/17 (*)] Colchicine [Colchicine (*)] 0.6 mg PO BID PRN 10/06/17 Acetaminophen [Tylenol 325mg (*)] 650 mg PO Q4HRS PRN tab 10/09/17 predniSONE 7.5 mg PO DAILY 12/05/17 Febuxostat [ULORIC] 40 mg PO DAILY 12/10/17 Apixaban [Eliquis] 5 mg PO BID #60 tab 12/15/17 Aspirin EC [Aspirin EC 81 mg (*)] 81 mg PO DAILY #30 tab 12/15/17 Gabapentin [Neurontin 100 MG (*)] 100 mg PO DAILY #90 cap 12/15/17 Methocarbamol [Robaxin 750 mg (*)] 750 mg PO QID PRN #60 tab 12/15/17 oxyCODONE IR [Oxycodone Ir (*)] 5 - 10 mg PO Q4HRS PRN #90 tab 12/15/17 traMADol [Ultram 50 mg (*)] 50 mg PO Q6HRS PRN #60 tab 12/15/17 Azithromycin 03/06/18 Robafen AC Oral Solution 03/06/18 Medical Decision Making - Diagnostics Imaging Results: Imaging Impressions Chest X-Ray 03/06/18 23:46 Impression: 1. Partial left pneumonectomy with elevated left hemidiaphragm appears similar to previous study. 2. Chronic bronchitis/airways disease. 3. No pneumothorax. 4. No definite acute pneumonia. Imaging: I viewed and interpreted images myself ED Course/Re-evaluation: Patient was discussed with my secondary supervising physician Dr. Tio Butts. Patient presents to the emergency department reporting worsening cough and fever today. On presentation he is nontoxic. He is afebrile, no recent antipyretic medications, vital signs are stable. I reviewed his sputum cultures from yesterday which showed Gram-negative fermenting and nonfermenting rods. His chest x-ray tonight is stable to previous ones. Laboratory studies are stable. Respiratory PCR panel is pending. Blood cultures pending. I have consulted with Dr. Dawson who is in agreement with workup and plan this evening. He will consult on patient in the morning. I have consulted with the on-call hospitalist, Dr. Morocho who will admit the patient for further evaluation and care. The plan has been discussed with the patient who voiced understanding and agreement with it. Differential Diagnosis: Included but not limited to pneumonia, bronchitis, URI, influenza, recurrence of lung cancer - Data Points Laboratory Results: Laboratory Results 03/07/18 00:14 03/07/18 00:14 03/07/18 03/07/18 03/07/18 00:14 00:14 00:12 WBC 7.79 10^3/uL 10^3/uL (3.80-9.50) RBC 3.69 10^6/uL L 10^6/uL (4.40-6.38) Hgb 11.5 g/dL L g/dL (13.7-17.5) Hct 35.2 % L % (40.0-51.0) MCV 95.4 fL fL (81.5-99.8) MCH 31.2 pg pg (27.9-34.1) MCHC 32.7 g/dL g/dL (32.4-36.7) RDW 16.8 % H % (11.5-15.2) Plt Count 256 10^3/uL 10^3/uL (150-400) MPV 9.5 fL fL (8.7-11.7) Neut % (Auto) 77.8 % H % (39.3-74.2) Lymph % (Auto) 12.3 % L % (15.0-45.0) [place] % (Auto) 9.2 % % (4.5-13.0) Eos % (Auto) 0.3 % L % (0.6-7.6) Baso % (Auto) 0.1 % L % (0.3-1.7) Nucleat RBC Rel Count 0.0 % % (0.0-0.2) Absolute Neuts (auto) 6.06 10^3/uL 10^3/uL (1.70-6.50) Absolute Lymphs (auto) 0.96 10^3/uL L 10^3/uL (1.00-3.00) Absolute Monos (auto) 0.72 10^3/uL 10^3/uL (0.30-0.80) Absolute Eos (auto) 0.02 10^3/uL L 10^3/uL (0.03-0.40) Absolute Basos (auto) 0.01 10^3/uL L 10^3/uL (0.02-0.10) Absolute Nucleated RBC 0.00 10^3/uL 10^3/uL (0-0.01) Immature Gran % 0.3 % % (0.0-1.1) Immature Gran # 0.02 10^3/uL 10^3/uL (0.00-0.10) Sodium 142 mEq/L mEq/L (135-145) Potassium 4.1 mEq/L mEq/L (3.3-5.0) Chloride 108 mEq/L mEq/L (97-110) Carbon Dioxide 25 mEq/l mEq/l (22-31) Anion Gap 9 mEq/L mEq/L (6-14) BUN 24 mg/dL H mg/dL (7-23) Creatinine 0.9 mg/dL mg/dL (0.7-1.3) Estimated GFR > 60 Glucose 128 mg/dL H mg/dL (70-100) Calcium 8.9 mg/dL mg/dL (8.5-10.4) Procalcitonin Pending Departure - Departure Disposition: [facility] Acute Clinical Impression: Cough Fever Qualifiers: Fever type: unspecified Qualified Code(s): R50.9 - Fever, unspecified Condition: Good
--- NOTE | 2018-03-07 02:07 | PDGENHP ---
History and Physical - Chief Complaint Cough, fever - History of Present Illness 72 yo M w/ hx of lung CA s/p resection, pneumonitis, AF, CAD, and gout presents with cough and fever. The patient tells me he has been dealing with a cough for about 5 weeks despite prednisone and qHS codeine. This has been progressive and mostly dry. He has also had some throat discomfort that has also been getting worse. Then, today, he noted a fever of 100.7 at home[address] He called Dr. Dawson who recommended he come in for admission and further investigation. Dr. Dawson did start azithromycin 2 days ago as well obtain a sputum culture. This is notable for GNR's both lactose supervisor hardboard and non. In the ED his evaluation has thus far been mostly unremarkable. His CXR continues to be stable from prior with no clear pathology. History Information - Allergies/Home Medication List Allergies/Adverse Reactions: amlodipine Allergy (Verified 03/06/18 23:11) causes gout symptoms atorvastatin calcium [From Lipitor] Allergy (Verified 03/06/18 23:11) CHRONIC COUGHING ezetimibe [From Zetia] Allergy (Verified 03/06/18 23:11) causes gout symptoms lisinopril Allergy (Verified 03/06/18 23:11) muscle ache lorazepam Allergy (Verified 03/06/18 23:11) anger, memory issues losartan potassium [From Cozaar] Allergy (Verified 03/06/18 23:11) causes gout symptoms morphine Allergy (Verified 03/06/18 23:11) "URINARY RETENTION" per RN per pitavastatin calcium [From Livalo] Allergy (Verified 03/06/18 23:11) causes gout symptoms pravastatin Allergy (Verified 03/06/18 23:11) causes gout symptoms rosuvastatin calcium [From Crestor] Allergy (Verified 03/06/18 23:11) causes gout symptoms spironolactone Allergy (Verified 03/06/18 23:11) causes gout symptoms zolpidem [From Ambien] Allergy (Verified 03/06/18 23:11) agitation steroid injection Allergy (Uncoded 03/06/18 23:11) Red Man Syndrome Home Medications: Metoprolol Succinate Xr [Toprol Xl 50 mg (*)] 50 mg PO DAILY 12/15/16 [Last Taken 12/08/17] Diltiazem Cd [Cardizem ER 120 MG (*)] 120 mg PO DAILY 03/28/17 [Last Taken 12/08] Latanoprost 0.005% [Xalatan 0.005% (*)] 1 drops EACHEYE HS 08/29/17 [Last Taken 12/07/17] Colchicine [Colchicine (*)] 0.6 mg PO BID PRN 10/06/17 [Last Taken 12/07/17] predniSONE 7.5 mg PO DAILY 12/05/17 [Last Taken 12/07/17] Febuxostat [ULORIC] 40 mg PO DAILY 12/10/17 [Last Taken Unknown] Azithromycin 03/06/18 [Last Taken Unknown] Robafen AC Oral Solution 03/06/18 [Last Taken Unknown] I have personally reviewed and updated: family history - Past Medical History Additional medical history: Non-small cell lung cancer stage IIIA, ongoing chemotherapy. Necrotic gallbladder. Coronary artery disease with stent. Gout. Hypertension. Carotid stenosis. C diff 1 year ago. Morganella bacteremia from port. Atrial fibrillation and SVT during hospitalization 09/09 - Surgical History Additional surgical history: Left upper lobe resection. L-spine surgery. Cholecystectomy. Carotid endarterectomy on right. cervical fusion 09/09. 2 drug-eluting stents placed to the right coronary artery in 2010 - Family History Additional family history: No recent sick family contacts - Social History Smoking Status: Former smoker Additional social history: Normally independent in his ADLs Review of Systems Review of Systems: ROS: 10pt was reviewed & negative except for what was stated in HPI & below Physical Exam Physical Exam: Temp Pulse Resp BP Pulse Ox 36.2 C 72 18 143/68 H 95 03/07/18 01:32 03/07/18 01:32 03/07/18 01:32 03/07/18 01:32 03/07/18 01:32 Constitutional: no apparent distress, not in pain Eyes: PERRL, EOMI Ears, Nose, Mouth, Throat: moist mucous membranes, no oral mucosal ulcers Cardiovascular: regular rate and rhythym, no murmur, rub, or gallop Respiratory: no respiratory distress, clear to auscultation Gastrointestinal: normoactive bowel sounds, soft, non-tender abdomen Skin: warm, normal color Musculoskeletal: full muscle strength, no muscle tenderness Neurologic: AAOx3, CN II-XII Intact Psychiatric: interacting appropriately, not anxious Lab Data & Imaging Review 03/07/18 00:14 03/07/18 00:14 WBC 7.79 10^3/uL (3.80-9.50) 03/07/18 00:14 RBC 3.69 10^6/uL (4.40-6.38) L 03/07/18 00:14 Hgb 11.5 g/dL (13.7-17.5) L 03/07/18 00:14 Hct 35.2 % (40.0-51.0) L 03/07/18 00:14 MCV 95.4 fL (81.5-99.8) 03/07/18 00:14 MCH 31.2 pg (27.9-34.1) 03/07/18 00:14 MCHC 32.7 g/dL (32.4-36.7) 03/07/18 00:14 RDW 16.8 % (11.5-15.2) H 03/07/18 00:14 Plt Count 256 10^3/uL (150-400) 03/07/18 00:14 MPV 9.5 fL (8.7-11.7) 03/07/18 00:14 Neut % (Auto) 77.8 % (39.3-74.2) H 03/07/18 00:14 Lymph % (Auto) 12.3 % (15.0-45.0) L 03/07/18 00:14 [place] % (Auto) 9.2 % (4.5-13.0) 03/07/18 00:14 Eos % (Auto) 0.3 % (0.6-7.6) L 03/07/18 00:14 Baso % (Auto) 0.1 % (0.3-1.7) L 03/07/18 00:14 Nucleat RBC Rel Count 0.0 % (0.0-0.2) 03/07/18 00:14 Absolute Neuts (auto) 6.06 10^3/uL (1.70-6.50) 03/07/18 00:14 Absolute Lymphs (auto) 0.96 10^3/uL (1.00-3.00) L 03/07/18 00:14 Absolute Monos (auto) 0.72 10^3/uL (0.30-0.80) 03/07/18 00:14 Absolute Eos (auto) 0.02 10^3/uL (0.03-0.40) L 03/07/18 00:14 Absolute Basos (auto) 0.01 10^3/uL (0.02-0.10) L 03/07/18 00:14 Absolute Nucleated RBC 0.00 10^3/uL (0-0.01) 03/07/18 00:14 Immature Gran % 0.3 % (0.0-1.1) 03/07/18 00:14 Immature Gran # 0.02 10^3/uL (0.00-0.10) 03/07/18 00:14 Sodium 142 mEq/L (135-145) 03/07/18 00:14 Potassium 4.1 mEq/L (3.3-5.0) 03/07/18 00:14 Chloride 108 mEq/L (97-110) 03/07/18 00:14 Carbon Dioxide 25 mEq/l (22-31) 03/07/18 00:14 Anion Gap 9 mEq/L (6-14) 03/07/18 00:14 BUN 24 mg/dL (7-23) H 03/07/18 00:14 Creatinine 0.9 mg/dL (0.7-1.3) 03/07/18 00:14 Estimated GFR > 60 03/07/18 00:14 Glucose 128 mg/dL (70-100) H 03/07/18 00:14 Calcium 8.9 mg/dL (8.5-10.4) 03/07/18 00:14 Procalcitonin 0.05 ng/mL (0.02-0.10) 03/07/18 00:12 Imaging Review: Imaging Impressions Chest X-Ray 03/06/18 23:46 Impression: 1. Partial left pneumonectomy with elevated left hemidiaphragm appears similar to previous study. 2. Chronic bronchitis/airways disease. 3. No pneumothorax. 4. No definite acute pneumonia. Assessment & Plan Assessment: 72 yo M w/ hx of lung cancer s/p resection, pneumonitis, AF, and CAD presents with cough and fever. Plan: 1. Fever - Noted at home by patient to 100.7, none so far while here. Patient denies all symptoms aside from respiratory (cough, sore throat), which have been ongoing for about 5 weeks. He was started on azithromycin by Dr. Dawson 2 days prior to presentation. CXR (personally reviewed/interpreted) unchanged from prior with no clear pneumonia. - Admit for observation - Obtain UA - Blood and sputum cultures pending (currently with GNR's) - Will also obtain respiratory PCR and procalcitonin - Continue azithromycin course for now - Dr. Dawson to see patient in the morning, may benefit from chest CT for further evaluation but will defer to his judgment 2. Cough - Ongoing for about 5 weeks and progressive. Mostly dry although does occasionally have scant, bitter sputum production. This has been associated with throat pain and persistent despite increase in prednisone, trial of PPI, and cough suppressants. - Infectious work-up as above - Dr. Dawson to see - Albuterol PRN 3. Hx lung CA - S/p partial L lung resection; not currently on therapy. 4. Hx pneumonitis - On prednisone chronically. - Continue medications pending reconciliation 5. Hx CAD - S/p stents in the past. 6. Hx AF - On diltiazem and metoprolol as outpatient, continue pending reconciliation Diet - Regular Code - Full Ppx - SCDs Dispo - Admit under observation status
[2018-03-07 06:06] LABS: PLATELET COUNT 231 10^3/uL (150-400)
[2018-03-07] MEDS: AZITHROMYCIN 250 MG TAB PO SCH (08:05)
--- NOTE | 2018-03-07 12:11 | PDINTPN ---
Information Management Specialist Progress Note Assessment/Plan: Assessment: Acute and Chronic bronchitis:This has been quite disruptive to his quality of life, with a cough that is interfering with his sleep. It has been refractory to multiple different medications and other treatment times over the last several months. He had a fever to 102 yesterday, which prompted his ER evaluation/admission. A respiratory pathogens panel was negative. The cough seems to have improved a bit last night, possibly due to azithromycin. A sputum culture done as an outpatient is growing 2 gram negatives. It is unclear if these are pathogens include contributing to his cough/fever. Fall: The patient had a fall which in part prompted his admission. This could be due to steroid myopathy as well as possibly acute illness. He feels a bit more stable today. Plan: Continue azithromycin. Continue prednisone at 10 mg daily. I have asked the microbiology lab to get further speciation and sensitivities on the Gram negatives in his sputum. Since he is clinically feeling better and not having a fever right now I will hold off on broadening his antibiotics until the sputum culture results are back. Physical therapy and occupational therapy consults have been ordered. 03/07/18 12:07 Subjective: The patient reports that his cough improved last night, and did not interfere much with his sleep. It is still productive of scant yellow sputum. Objective: Vital Signs Temp Pulse Resp BP Pulse Ox 36.9 C 72 16 126/59 H 93 03/07/18 08:00 03/07/18 08:00 03/07/18 08:00 03/07/18 08:00 03/07/18 08:00 Microbiology 03/07/18 01:12 Respiratory Panel (PCR) - Final Nasal, Sinus - Swab No Organism Detected Laboratory Results 03/07/18 05:45 03/07/18 05:45 03/06/18 03/07/18 03/08/18 05:59 05:59 05:59 Intake Total 0 Output Total 0 Balance 0 Microbiology 03/07/18 01:12 Nasal, Sinus - Swab Respiratory Panel (PCR) - Final No Organism Detected 03/05/18 10:54 Sputum, Expectorated - Final 03/05/18 10:54 Sputum, Expectorated Sputum Culture - Preliminary Gram Neg Mario Lactose Bolt Threader Gram Neg Mario Nonlactose Ferm. CXR: No acute change. Images reviewed by me. Physical Exam - Physical Exam General Appearance: alert, no apparent distress EENT: normal ENT inspection Neck: normal inspection Respiratory: lungs clear, normal breath sounds, decreased breath sounds (left base) Cardiac/Chest: edema Abdomen: normal bowel sounds, non-tender Skin: normal color, warm/dry Extremities: normal inspection Neuro/Psych: alert, normal mood/affect, oriented x 3 ICD10 Worksheet Patient Problems: Problems Problem Status Onset Cough Acute Fever Acute Arthrodesis status Acute C. difficile diarrhea Acute 04/05/16 Cellulitis of right foot Acute Cervical stenosis of spine Acute Chest pain Acute Chronic cough Acute Dehydration Acute Diarrhea Acute Dysphagia, oropharyngeal Acute Gout Acute Headache Acute Hypocalcemia Acute Hypokalemia Acute Hypomagnesemia Acute Infection due to human metapneumovirus (hMPV) Acute Lumbar back pain with radiculopathy affecting left lower extremity Acute Lung cancer Acute Nausea & vomiting Acute Neck pain Acute On total parenteral nutrition (TPN) Acute Pneumonia Acute RUQ abdominal pain Acute Weakness Acute chronic disease mgmt/transitional care Acute CAD (coronary artery disease) Chronic Dyslipidemia Chronic
[2018-03-07] MEDS ORDERED: CEPACOL LOZENGE PO PRN (13:12)
[2018-03-07] MEDS: predniSONE 10 MG TAB PO SCH (13:36)
--- NOTE | 2018-03-07 15:36 | ASMTCMCOM ---
CM Note CM Note Notes: Pt is a 72 y/ man admitted for a cough and fever. Therapies have been ordered and awaiting recommendations. Pt is being followed by transitional care. Cardiac rehab have been consulted. Needs are TBD at this time. CM to follow. Plan: TBD Date Signed: 03/07/2018 03:35 PM Electronically Signed By:JANN Muro
[2018-03-07] MEDS ORDERED: COLCHICINE 0.6 MG CAP/TAB PO PRN (15:45)
--- NOTE | 2018-03-07 15:46 | HOSPPROG ---
Hospitalist Progress Note Assessment/Plan: Subjective Follow-up on cough. Patient states he has had a significant cough over the past 3 weeks. He has been followed by Dr. Dawson in the outpatient setting. He states that it may be somewhat better today. No subjective fevers or chills but reportedly did have an objective fever prior to coming into the hospital. Objective Vital signs as detailed below Exam General-awake alert conversant no acute distress Heart-regular rate and rhythm no murmurs Lungs-Clear to auscultation with normal respiratory effort Abdomen-soft nontender nondistended normal bowel sounds -no Estrada catheter in place Extremities-no significant pitting edema or calf pain with palpation Skin-no concerning skin rashes noted. Labs as detailed below Assessment and plan Fever-no recurrence here in the hospital. Continue to monitor. Cough-improved. Patient is currently on azithromycin and prednisone. Procalcitonin is low and no obvious infiltrate noted on chest imaging. Appreciate Dr. Dawson recommendations and following along on the case as well. Coronary artery disease-patient has a history of PCI in past. Continue aspirin therapy. I do not see that the patient takes statin therapy. Atrial fibrillation-continue metoprolol for rate control. Patient is not anticoagulated this time. Hypertension-appears well controlled with current metoprolol. Non-small cell lung cancer-status post left-sided lobectomy. Diagnosed in 2014. He was also treated with adjuvant chemotherapy. DVT prophylaxis-patient is lower risk is ambulatory. Disposition-possibly home in the next 1-2 days if continued clinical improvement. Objective: Vital Signs Temp Pulse Resp BP Pulse Ox 36.4 C 83 18 136/84 H 95 03/07/18 12:00 03/07/18 12:00 03/07/18 12:00 03/07/18 12:00 03/07/18 12:00 Microbiology 03/07/18 01:12 Respiratory Panel (PCR) - Final Nasal, Sinus - Swab No Organism Detected Laboratory Results 03/07/18 05:45 03/07/18 05:45 03/06/18 03/07/18 03/08/18 05:59 05:59 05:59 Intake Total 0 Output Total 0 Balance 0 ICD10 Worksheet Patient Problems: Problems Problem Status Onset Cough Acute Fever Acute Arthrodesis status Acute C. difficile diarrhea Acute 04/05/16 Cellulitis of right foot Acute Cervical stenosis of spine Acute Chest pain Acute Chronic cough Acute Dehydration Acute Diarrhea Acute Dysphagia, oropharyngeal Acute Gout Acute Headache Acute Hypocalcemia Acute Hypokalemia Acute Hypomagnesemia Acute Infection due to human metapneumovirus (hMPV) Acute Lumbar back pain with radiculopathy affecting left lower extremity Acute Lung cancer Acute Nausea & vomiting Acute Neck pain Acute On total parenteral nutrition (TPN) Acute Pneumonia Acute RUQ abdominal pain Acute Weakness Acute chronic disease mgmt/transitional care Acute CAD (coronary artery disease) Chronic Dyslipidemia Chronic
[2018-03-07] MEDS: ALLOPURINOL 300 MG TAB PO SCH (16:08)
[2018-03-07] MEDS: ASPIRIN 81 MG CHEWABLE TAB PO PRN (16:08)
[2018-03-07] MEDS: METOPROLOL SUCCINATE XR 50 MG TAB PO SCH (16:34)
[2018-03-07] MEDS ORDERED: BENZONATATE 100 MG CAP PO PRN (19:33)
[2018-03-07] MEDS: guaiFENesin/CODEINE PHOS 10 ML UDCUP PO PRN (19:58)
[2018-03-07] MEDS ORDERED: LATANOPROST 0.005% 2.5 ML OPHT DROPS EACHEYE SCH (21:00)
[2018-03-08 08:12] VITALS: BP 154/91
[2018-03-08] MEDS: AZITHROMYCIN 250 MG TAB PO SCH (09:11)
[2018-03-08] MEDS: METOPROLOL SUCCINATE XR 50 MG TAB PO SCH (09:11)
[2018-03-08] MEDS: ALLOPURINOL 300 MG TAB PO SCH (09:11)
[2018-03-08] MEDS: predniSONE 10 MG TAB PO SCH (09:11)
[2018-03-08] MEDS: ASPIRIN 81 MG CHEWABLE TAB PO PRN (09:21)
[2018-03-08] MEDS: guaiFENesin/CODEINE PHOS 10 ML UDCUP PO PRN (09:21)
--- NOTE | 2018-03-08 12:04 | PDINTPN ---
[employer] Progress Note Assessment/Plan: Assessment: Acute and Chronic bronchitis:This has been quite disruptive to his quality of life, with a cough that is interfering with his sleep. It has been refractory to multiple different medications and other treatment times over the last several months. Today he reports that for the 1st time in about 3 months he has essentially no cough. The only intervention was hospitalization as well as starting azithromycin, although interestingly the 2 bacteria in his sputum would not typically be expected to be sensitive to azithromycin. Fall: The patient had a fall which in part prompted his admission. This could be due to steroid myopathy as well as possibly acute illness. He feels stronger today Plan: Okay to discharge home. Continue azithromycin. Continue prednisone at 10 mg daily, then try to decrease to 5 mg daily later this week if he is doing well. If his cough returns, I will probably prescribe a course of Levaquin, which should cover both of the gram negative bacteria from his sputum culture. 03/08/18 12:38 Subjective: Cough has essentially resolved. Feels stronger. Objective: Vital Signs Temp Pulse Resp BP Pulse Ox 36.5 C 71 16 154/91 H 92 03/08/18 08:00 03/08/18 08:00 03/08/18 08:00 03/08/18 08:00 03/08/18 08:00 Microbiology 03/07/18 01:12 Respiratory Panel (PCR) - Final Nasal, Sinus - Swab No Organism Detected Laboratory Results 03/07/18 05:45 03/07/18 05:45 03/07/18 03/08/18 03/09/18 05:59 05:59 05:59 Intake Total 0 Output Total 0 Balance 0 Microbiology 03/05/18 10:54 Sputum, Expectorated - Final 03/05/18 10:54 Sputum, Expectorated Sputum Culture - Final Klebsiella Oxytoca Pseudomonas [place] Physical Exam - Physical Exam General Appearance: alert, no apparent distress EENT: normal ENT inspection Neck: normal inspection Respiratory: lungs clear Cardiac/Chest: regular rate, rhythm, No edema Abdomen: normal bowel sounds, non-tender Skin: normal color, warm/dry Extremities: normal inspection Neuro/Psych: alert, normal mood/affect, oriented x 3 ICD10 Worksheet Patient Problems: Problems Problem Status Onset Cough Acute Fever Acute Arthrodesis status Acute C. difficile diarrhea Acute 04/05/16 Cellulitis of right foot Acute Cervical stenosis of spine Acute Chest pain Acute Chronic cough Acute Dehydration Acute Diarrhea Acute Dysphagia, oropharyngeal Acute Gout Acute Headache Acute Hypocalcemia Acute Hypokalemia Acute Hypomagnesemia Acute Infection due to human metapneumovirus (hMPV) Acute Lumbar back pain with radiculopathy affecting left lower extremity Acute Lung cancer Acute Nausea & vomiting Acute Neck pain Acute On total parenteral nutrition (TPN) Acute Pneumonia Acute RUQ abdominal pain Acute Weakness Acute chronic disease mgmt/transitional care Acute CAD (coronary artery disease) Chronic Dyslipidemia Chronic
--- NOTE | 2018-03-08 14:58 | ASMTLACE ---
ARVINDE Length of stay for Answers: 1 day current admission Acuity / Level of Answers: No Care: Did the patient have an inpatient admission? Comorbidities - select Answers: Coronary Artery Disease all that apply Other Notes: HTN, Afib # of Emergency department Answers: 9-12 visits in the last 6 months Score: 9 Date Signed: 03/08/2018 02:57 PM Electronically Signed By:Clara Gonzalez RN
--- NOTE | 2018-03-08 15:01 | ASMTCMCOM ---
CM Note CM Note Notes: Pt cleared by OT and declined the need for PT, will dc home w/support of . CM available for any changes. DC Plan: Independent Date Signed: 03/08/2018 03:00 PM Electronically Signed By:Clara Gonzalez RN
--- NOTE | 2018-03-08 18:40 | GDS ---
IN-HOSPITAL CONSULTANTS: Dr. Dawson, pulmonary and critical care medicine. DISCHARGE DIAGNOSIS: Intractable cough. HISTORY OF PRESENT ILLNESS: The patient is a pleasant 72-year-old gentleman with a past medical hist ory of left-sided lung cancer, status post partial left lobectomy and chemotherapy diagnosed in 2014, who had been working with Dr. Dawson in the outpatient setting for intractable cough over the past 2- 3 months. The patient had reported that he had a fever so was directed to go to the emergency room, and he was admitted for further evaluation. The patient had been previously started on azithromycin in the outpatient setting. This was continued during this hospitalization. Fortunately, he remained afebrile during the hospitalization and his cough actually improved significantly. He was felt stab le for discharge home. The tentative plan was to continue with a course of azithromycin for which he will need 1 additional tablet and to continue with prednisone at 10 mg daily with the plan for a katya rt-term followup with Dr. Dawson and likely reduce the dose at that point in time, if he continues to do well. His chest x-ray was unchanged without any focal infiltrate. His procalcitonin level was al so low. HOSPITAL COURSE BY PROBLEM: Fever: No recurrence. Continue to monitor. Cough: Improved. Continue course of azithromycin and prednisone as detailed above. Patient will garcia ve short-term followup with Dr. Dawson to reassess. Coronary artery disease: Patient had a history of PCI in the past. Continue aspirin therapy. I do not see that he is on statin therapy. Atrial fibrillation: Continue metoprolol for rate control. Patient is not anticoagulated. Hypertension: Appears well controlled with current dosing of metoprolol. The patient states he is al so on diltiazem at home. Non-small cell lung cancer: Patient is status post partial left-sided lobectomy. This was diagnosed in 2014. Dr. Piedra is his oncologist. DVT prophylaxis: The patient was ambulatory and felt to be low risk. DISCHARGE PHYSICAL EXAMINATION: VITAL SIGNS: Temperature 36.5, blood pressure 154/91, heart rate 71 , respirations 16, sating 92% on room air. GENERAL: Patient appeared comfortable. He was awake, al ert, conversant in no acute distress. HEART: Irregular. No murmurs appreciated. LUNGS: Clear on auscultation with normal respiratory effort. No wheezes or crackles noted. ABDOMEN: Soft, nontender, nondistended. : No Estrada catheter in place. EXTREMITIES: No significant angie ing edema or calf pain with palpation. NOTABLE STUDIES: Respiratory PCR pathogen negative. Sputum cultures did show Klebsiella and Pseudom onas. Procalcitonin negative. White blood cell count 7, hemoglobin 10.5, platelets 231. Sodium 141 , potassium 3.8, chloride 108, bicarb 27, BUN 22, creatinine 0.8. DISCHARGE MEDICATIONS: 1. Azithromycin 250 mg daily for 1 additional day. 2. Prednisone 10 mg daily. 3. Allopurinol 300 mg daily. 4. Aspirin 81 mg daily. 5. Colchicine 0.6 mg twice a day. 6. Diltiazem ER 120 mg daily. 7. Metoprolol succinate 50 mg daily. 8. Latanoprost eye drops. DISCHARGE INSTRUCTIONS: Patient will have a short-term followup with Dr. Dawson to reassess his cough symptoms for further recommendations. 35 minutes of time dedicated to discharge efforts today. /[id number]/MODL
[2018-03-09] MEDS ORDERED: ASPIRIN 81 MG CHEWABLE TAB PO SCH (09:00)
== END 2018-03-08 15:02 | disposition home or self-care (01) ==
LOC: F3E 03-07 01:27
PROVIDERS: ADMIT Student in an Organized Health Care Education/Training Program; ATTEND Student in an Organized Health Care Education/Training Program
DX: J44.9 Chronic obstructive pulmonary disease, unspecified (principal); I10 Essential (primary) hypertension; I25.10 Atherosclerotic heart disease of native coronary artery without angina pectoris; Z85.118 Personal history of other malignant neoplasm of bronchus and lung; Z90.2 Acquired absence of lung [part of]; Z95.5 Presence of coronary angioplasty implant and graft; Z79.899 Other long term (current) drug therapy
CPT/HCPCS: 71046; 97165; 99285; G0378; G8987; G8988; G8989; J1642; J7512

== ENCOUNTER → 2018-03-24 | Outpatient (CLI) | payer OTHER, MEDICARE | LOC: CIMAGING 13:57 | PROVIDERS: ATTEND Internal Medicine Infectious Disease | DX: R05 Cough (principal) | CPT/HCPCS: 71250-PO ==

== ENCOUNTER → 2018-04-02 | Outpatient (CLI) | payer OTHER, MEDICARE | LOC: BHFA 10:30 | PROVIDERS: ATTEND Internal Medicine Cardiovascular Disease | DX: Z01.810 Encounter for preprocedural cardiovascular examination (principal); I48.0 Paroxysmal atrial fibrillation; I25.10 Atherosclerotic heart disease of native coronary artery without angina pectoris; R01.1 Cardiac murmur, unspecified ==

== ENCOUNTER 2018-04-07 12:57 | Day surgery (SDC) | payer OTHER, MEDICARE ==
[2018-04-07] MEDS ORDERED: BENZOCAINE UNIT DOSE SPRAY HURRICAINE MM ONE (13:19)
[2018-04-07] MEDS ORDERED: LIDOCAINE HCL 4% TOPICAL SOLN 50ML ONE (13:20)
[2018-04-07] MEDS ORDERED: LIDOCAINE 1% 300 MG/30 ML SDV ONE (13:20)
[2018-04-07] MEDS ORDERED: EPINEPHrine 1 MG/10 ML SYR IVP ONE (13:20)
[2018-04-07] MEDS ORDERED: LR 1,000 ML IV ONE (13:42)
[2018-04-07] MEDS ORDERED: fentaNYL 100 MCG/2 ML INJ ONE (13:46)
[2018-04-07] MEDS ORDERED: MIDAZOLAM 2 MG/2 ML VIAL ONE ×2 (13:46)
--- NOTE | 2018-04-07 15:04 | BVPULMO ---
[facility] Surgical Services- Pulmonology Patient Name: Renny Acosta Procedure Date: 04/07/2018 1:14 PM Patient Type: Outpatient Attending MD/ER Physician: Doug Dawson MD Procedure: Bronchoscopy Indications: Chronic cough with abnormal CT Providers: Doug Dawson MD Medicines: Midazolam 4 mg IV, Fentanyl 175 mcg IV, Lidocaine applied to nares and subglott ic space Complications: No immediate complications Procedure: After informed consent, a time out was performed. N95 masks were worn, and the procedure was done in a negative pressure room. The patient was given appropria te topical anesthesia and intravenous sedation. The fiberopic bronchoscope was pas sed via a bite block orally into the larynx and subsequently into the lower trachea bronchial tree. Throughout the procedure, the patient's blood pressure, pulse, and oxygen saturations were monitored continuously. The Bronchoscope (Video) was introduced through the mouth and advanced to the tracheobronchial tree of both lungs. The procedure was accomplished without difficulty. The patient tolerated the procedure fairly well. Findings: Right Lung Abnormalities: Scant and mucopurulent exudate was found in the right lower lobe. Left Lung Abnormalities: Distortion was found in the left lower lobe. Evidence of previous surgery was found in the left upper lobe. The bronchial stump is well healed, with a small amount of thick purulent exydate adherent to the stump. Endobronchial biopsies of a lesion were performed in the left upper lobe and in the left lower lobe adjacent to the surgical stump, although the mucosa was grossly normal in the area around the stump. The mucosa in the LLL was more friable, bu t no definite infiltrate was seen. Post Op Diagnosis: - Chronic cough with abnormal CT - Exudate was found in the right lower lobe. - Distortion was found in the left lower lobe. - Evidence of previous surgery was found in the left upper lobe. - Partial dehiscence of the surgical anastomosis. Estimated Blood Loss: Estimated blood loss was minimal. Recommendation: - Await biopsy, culture and cytology results. Attending Participation: I was present and participated during the entire procedure, including non-arellano portions. Doug Dawson MD 04/07/2018 3:03:53 PM Number of Addenda: 0 Note Initiated On: 04/07/2018 1:14 PM [email or web address]
[2018-04-07 18:32] VITALS: BP 136/74
== END 2018-04-07 16:10 | disposition home or self-care (01) ==
LOC: FSGY 12:57
PROVIDERS: ATTEND Internal Medicine Critical Care Medicine
DX: J18.9 Pneumonia, unspecified organism (principal); Z85.118 Personal history of other malignant neoplasm of bronchus and lung
CPT/HCPCS: J1642; J2250; J3010

== ENCOUNTER 2018-04-26 16:26 | Emergency (ER) | payer OTHER, MEDICARE ==
--- NOTE | 2018-04-26 17:12 | EDPHY ---
H & P Time Seen by Provider: 04/26/18 16:32 HPI/ROS: HPI Right foot pain. 72-year-old male by private vehicle with family. This patient reports pain to the arch of his right foot ongoing for the last 2-3 days. No history of trauma. He has been wearing a lidocaine like patch with little relief. He states that he has gone some period of time without wearing shoes secondary to other foot issues. No swelling or discoloration. Denies fever. ROS: Constitutional: No fever, no chills. No weakness. Musculoskeletal: No back pain. No neck pain. As above. Skin: No rashes. Neurological: No focal weakness or altered sensation. Past medical history: Hypertension, hyperlipidemia, gout, non-small cell lung cancer stage III, coronary artery disease, atrial fibrillation. Social history: Nonsmoker. He is in the [employer] business. No alcohol. Here with family. Physical Exam: General Appearance: Alert, no distress. This patient is responding to questions appropriately and in full sentences. This patient appears well- hydrated and well-nourished. Eyes: Pupils equal and round no pallor or injection. No lid edema, erythema or injection. Right foot and ankle exam: No bony tenderness on palpation. No pain elicited by axial compression of the metatarsals and toes or the ankle. He has tenderness over the plantar fascia of the right foot. No associated erythema, warmth or edema noted. The right foot is neurovascularly intact. Neurological: Motor sensory function is grossly intact. Cranial nerves are normal. Gait is normal. Skin: Warm and dry, no rashes. Musculoskeletal: Neck is supple and nontender. Extremities are symmetrical. All joints range without pain or impingement. Psychiatric: No agitation. No depression. Database: EKG: Imaging: Procedures: Emergency department course: Triage vital signs reviewed. He is mildly hypertensive. Vital signs are otherwise normal. His presentation is consistent with plantar fasciitis. I have recommended ibuprofen, lidocaine patch and arch support. Follow-up with Podiatry discussed with them. He feels comfortable going home. Return to emergency department precautions reviewed. All of his questions were answered. He was discharged from the emergency department in good condition. Differential Diagnosis: The differential diagnosis on this patient includes but is not limited to plantar fasciitis. Gouty arthritis, acute traumatic injury unlikely. This represents a partial list of diagnoses considered. These considerations are based on history, physical exam, past history, reassessment and diagnostic testing. Smoking Status: Former smoker Constitutional: Initial Vital Signs Temperature (C) 36.6 C 04/26/18 16:30 Heart Rate 78 04/26/18 16:30 Respiratory Rate 16 04/26/18 16:30 Blood Pressure 140/88 H 04/26/18 16:30 O2 Sat (%) 95 04/26/18 16:30 O2 Delivery Mode Room Air Allergies/Adverse Reactions: amlodipine Allergy (Verified 04/26/18 16:29) causes gout symptoms atorvastatin calcium [From Lipitor] Allergy (Verified 04/26/18 16:29) CHRONIC COUGHING ezetimibe [From Zetia] Allergy (Verified 04/26/18 16:29) causes gout symptoms lisinopril Allergy (Verified 04/26/18 16:29) muscle ache lorazepam Allergy (Verified 04/26/18 16:29) anger, memory issues losartan potassium [From Cozaar] Allergy (Verified 04/26/18 16:29) causes gout symptoms morphine Allergy (Verified 04/26/18 16:29) "URINARY RETENTION" per RN per pitavastatin calcium [From Livalo] Allergy (Verified 04/26/18 16:29) causes gout symptoms pravastatin Allergy (Verified 04/26/18 16:29) causes gout symptoms rosuvastatin calcium [From Crestor] Allergy (Verified 04/26/18 16:29) causes gout symptoms spironolactone Allergy (Verified 04/26/18 16:29) causes gout symptoms zolpidem [From Ambien] Allergy (Verified 04/26/18 16:29) agitation steroid injection Allergy (Uncoded 04/26/18 16:29) Red Man Syndrome Home Medications: Medication Instructions Recorded Allopurinol [Allopurinol 300 MG 300 mg PO DAILY 03/07/18 (RX)] Aspirin [Aspirin 81mg (*)] 81 mg PO DAILY PRN 03/07/18 Metoprolol Succinate Xr [Toprol Xl 50 mg PO DAILY 03/07/18 50 mg (*)] Diltiazem HCl [Diltiazem 24Hr ER] 120 mg PO DAILY 03/08/18 Ascorbic Acid [Vitamin C 500 mg 1,000 mg PO DAILY 04/17/18 (*)] Omeprazole Magnesium [Prilosec] 10 mg PO DAILY PRN 04/17/18 predniSONE 2.5 mg PO DAILY 04/17/18 Codeine Phosphate/Guaifenesin 10 ml PO Q6 PRN #240 ml 04/19/18 [Guaiatussin AC Liquid] Lidocaine [Lidocaine Pain Relief] 1 each TP DAILY #10 adh..patch 04/26/18 Departure - Departure Disposition: Home, Routine, Self-Care Clinical Impression: Plantar fasciitis of right foot Condition: Good Instructions: Plantar Fasciitis (ED) Additional Instructions: Read and follow provided instructions. Follow-up with Podiatry as discussed this week for re-evaluation. Call their office tomorrow for appointment time. Ibuprofen dosin mg every 6 hours with meals for the next 3 days only. Take only as needed for pain. Purchase arch support insoles, called [employer] feet, green color, for better arch support as discussed Return to the emergency department for worsening pain, swelling, fever or other serious concerns. Referrals: Komal Rashid [Doctor of Podiatric Medicine] - As per Instructions Prescriptions: Lidocaine [Lidocaine Pain Relief] 1 each TP DAILY #10 adh..patch
[2018-04-26 17:25] VITALS: BP 140/81
== END 2018-04-26 17:25 | disposition home or self-care (01) ==
DX: M72.2 Plantar fascial fibromatosis (principal); M10.9 Gout, unspecified; I10 Essential (primary) hypertension; E78.5 Hyperlipidemia, unspecified; I25.10 Atherosclerotic heart disease of native coronary artery without angina pectoris; Z85.118 Personal history of other malignant neoplasm of bronchus and lung

== ENCOUNTER → 2018-05-04 | Outpatient (CLI) | payer OTHER, MEDICARE | LOC: FIMAGING 11:19 | PROVIDERS: ATTEND Nurse Practitioner | DX: Z09 Encounter for follow-up examination after completed treatment for conditions other than malignant neoplasm (principal); Z98.1 Arthrodesis status; M47.816 Spondylosis without myelopathy or radiculopathy, lumbar region; M25.78 Osteophyte, vertebrae ==

== ENCOUNTER 2018-06-20 15:27 | Emergency (ER) | payer OTHER, MEDICARE ==
[2018-06-20 15:41] VITALS: BP 128/75
== END 2018-06-20 16:30 | disposition left against medical advice (07) ==
DX: Z53.21 Procedure and treatment not carried out due to patient leaving prior to being seen by health care provider (principal)

== ENCOUNTER 2018-06-28 01:28 | Observation (INO) | payer OTHER, MEDICARE ==
--- NOTE | 2018-06-28 02:25 | EDPHY ---
H & P Stated Complaint: FEVER, COUGH Time Seen by Provider: 06/28/18 02:25 HPI/ROS: HPI CHIEF COMPLAINT: Cough and fever HISTORY OF PRESENT ILLNESS: 73-year-old male, well known to myself as well as the emergency room, history of non small cell lung cancer, hypertension, anxiety presents emergency room with a cough that is progressively gotten worse over the past few weeks. It is more a wet now. Additionally the patient reports fever 101.5 at home. No fever here however took Tylenol prior to arrival. He denies otherwise feeling unwell. Denies chest pain Denies shortness of breath Denies urinary symptoms Patient states he is due to go to [facility] in [place] on Friday for pulmonology appointment. They been waiting 3 weeks for this. He is eager for this appointment. States he is going there due to a chronic cough. Past Medical History: Significant past medical history for coronary artery disease, hypertension, hyperlipidemia, anxiety, non-small cell lung cancer Past Surgical History: Left chest port. Social History: Denies drugs alcohol tobacco. Family History: Noncontributory ROS REVIEW OF SYSTEMS: 10 Systems were reviewed and negative with the exception of the elements mentioned in the history of present illness. Exam Constitutional appears well nontoxic triage nursing summary reviewed, vital signs reviewed, awake/alert. Vital signs stable. Eyes normal conjunctivae and sclera, EOMI, PERRLA. HENT normal inspection, atraumatic, moist mucus membranes, no epistaxis, neck supple/ no meningismus, no raccoon eyes. Respiratory clear to auscultation bilaterally, normal breath sounds, no respiratory distress, no wheezing. Cardiovascular left chest wall port rate normal, regular rhythm, no murmur, no edema, distal pulses normal. Gastrointestinal soft, non-tender, no rebound, no guarding, normal bowel sounds, no distension, no pulsatile mass. Genitourinary no CVA tenderness. Musculoskeletal no midline vertebral tenderness, full range of motion, no calf swelling, no tenderness of extremities, no meningismus, good pulses, neurovascularly intact. Skin pink, warm, & dry, no rash, skin atraumatic. Neurologic awake, alert and oriented x 3, AAOx3, moves all 4 extremities equally, motor intact, sensory intact, CN II-XII intact, normal cerebellar, normal vision, normal speech. Psychiatric normal mood/affect. Heme/Lymph/Immune no lymphadenopathy. Differential Diagnosis: Includes but is not limited to in a particular order dehydration, electrolyte disturbance, acute febrile illness, bacteremia, sepsis , pneumonia, UTI Medical Decision Making: Plan for this patient IV fluids 1 L normal saline, blood cultures, lactic acid, chest x-ray, UA. Re-evaluate. Re-evaluation: Chest x-ray two view reviewed negative for acute cardiopulmonary disease stable from the previous chest x-ray image interpreted by myself. Labs reviewed. Patient's vitals are stable. Patient received IV fluids. He has not had a fever here. Plan for observation for fever and cough. Spoke with the hospitalist service Dr. Moreau, agrees to admit. PAtient agrees for admission. Source: Patient - Personal History Current Tetanus Diphtheria and Acellular Pertussis (TDAP): No - Medical/Surgical History Hx Asthma: No Hx Chronic Respiratory Disease: Yes Hx Diabetes: No Hx Cardiac Disease: Yes Hx Renal Disease: No Hx Cirrhosis: No Hx Alcoholism: No Hx HIV/AIDS: No Hx Splenectomy or Spleen Trauma: No Other PMH: pmh- htn, hyperlipemia, gout, non-small cell lung ca stage IIIA, cad , afib. psh- L lung resection 08/31/14, cardiac stents x2, back surgery, cholecystectomy, port removed 2017, left knee 2017 - Social History Smoking Status: Former smoker Constitutional: Initial Vital Signs Temperature (C) 36.8 C 06/28/18 01:34 Heart Rate 106 H 06/28/18 01:34 Respiratory Rate 20 06/28/18 01:34 Blood Pressure 153/70 H 06/28/18 01:34 O2 Sat (%) 93 06/28/18 01:34 O2 Delivery Mode Room Air Allergies/Adverse Reactions: amlodipine Allergy (Verified 06/20/18 15:41) causes gout symptoms atorvastatin calcium [From Lipitor] Allergy (Verified 06/20/18 15:41) CHRONIC COUGHING ezetimibe [From Zetia] Allergy (Verified 06/20/18 15:41) causes gout symptoms lisinopril Allergy (Verified 06/20/18 15:41) muscle ache lorazepam Allergy (Verified 06/20/18 15:41) anger, memory issues losartan potassium [From Cozaar] Allergy (Verified 06/20/18 15:41) causes gout symptoms morphine Allergy (Verified 06/20/18 15:41) "URINARY RETENTION" per RN per pitavastatin calcium [From Livalo] Allergy (Verified 06/20/18 15:41) causes gout symptoms pravastatin Allergy (Verified 06/20/18 15:41) causes gout symptoms rosuvastatin calcium [From Crestor] Allergy (Verified 06/20/18 15:41) causes gout symptoms spironolactone Allergy (Verified 06/20/18 15:41) causes gout symptoms zolpidem [From Ambien] Allergy (Verified 06/20/18 15:41) agitation steroid injection Allergy (Uncoded 04/26/18 16:29) Red Man Syndrome Home Medications: Medication Instructions Recorded Acetaminophen [Tylenol 325mg (*)] 650 mg PO Q4HRS PRN tab 06/28/18 Allopurinol [Allopurinol 300 MG 300 mg PO DAILY 06/28/18 (RX)] Ascorbic Acid [Vitamin C 500 mg 1,000 mg PO DAILY 06/28/18 (*)] Aspirin EC [Aspirin EC 81 mg (*)] 81 mg PO DAILY 06/28/18 Codeine Phosphate/Guaifenesin 10 ml PO Q6HRS PRN 06/28/18 [Guaiatussin AC Liquid] Diltiazem HCl [Diltiazem 24Hr ER] 120 mg PO DAILY 06/28/18 Magnesium Hydroxide [Milk of 45 ml PO DAILY PRN 06/28/18 Magnesia] Metoprolol Succinate Xr [Toprol Xl 50 mg PO DAILY 06/28/18 50 mg (*)] Tiotropium Br/Olodaterol HCl 2 puffs IH HS 06/28/18 [Stiolto Respimat Inhal [place]] guaiFENesin/DEXTROMETHORPHAN 10 ml PO Q6HRS PRN 06/28/18 [Guaifenesin Dm Syrup] predniSONE 5 mg PO DAILY 06/28/18 Medical Decision Making - Data Points Laboratory Results: Laboratory Results 06/28/18 02:15 06/28/18 02:15 Microbiology Results: MICROBIOLOGY 06/28/18 02:15 Nasal, Sinus - Swab Respiratory Panel (PCR) - Final No Organism Detected By Pcr Medications Given: Discontinued Medications Ascorbic Acid (Vitamin C) 1,000 mg PO DAILY THI Stop: 12/25/18 13:29 Last Admin: 06/28/18 13:50 Dose: 1,000 mg Aspirin Buffered (Aspirin Ec) 81 mg PO DAILY [facility] Stop: 12/26/18 08:59 Last Admin: 06/28/18 13:53 Dose: 81 mg Diltiazem HCl (Cardizem Er Q24hr) 120 mg PO DAILY [facility] Stop: 12/25/18 12:29 Last Admin: 06/28/18 13:49 Dose: 120 mg Guaifenesin/Dextromethorphan (Robitussin Dm Oral Liquid) 10 ml PO Q6HRS PRN PRN Reason: Cough, Moderate Stop: 12/25/18 07:06 Last Admin: 06/28/18 12:28 Dose: 10 ml Sodium Chloride (Ns) 1,000 mls @ 0 mls/hr IV EDNOW ONE; Wide Open PRN Reason: Protocol Stop: 06/28/18 02:34 Last Admin: 06/28/18 02:41 Dose: 1,000 mls Metoprolol Succinate (Toprol Xl) 50 mg PO DAILY [facility] Stop: 12/25/18 13:29 Last Admin: 06/28/18 13:51 Dose: 50 mg Prednisone (Prednisone) 5 mg PO DAILY [facility] Stop: 12/25/18 12:29 Last Admin: 06/28/18 13:50 Dose: 5 mg Departure - Departure Disposition: [facility] Acute Clinical Impression: Cough Fever Qualifiers: Fever type: due to other condition Qualified Code(s): R50.81 - Fever presenting with conditions classified elsewhere Condition: Fair
[2018-06-28] MEDS ORDERED: NS 1,000 ML IV ONE (02:33)
[2018-06-28 02:41] LABS: PLATELET COUNT 297 10^3/uL (150-400)
[2018-06-28] MEDS ORDERED: ONDANSETRON 4 MG/2 ML VIAL IVP PRN (05:57)
[2018-06-28] MEDS ORDERED: ACETAMINOPHEN 325 MG TAB PO PRN (05:57)
[2018-06-28] MEDS ORDERED: ONDANSETRON DISINTEGRATING 4 MG TAB PO PRN (05:57)
[2018-06-28] MEDS ORDERED: IPRATROPIUM/ALBUTEROL 3 ML DEYVIAL IH PRN (05:57)
[2018-06-28] MEDS ORDERED: ALBUTEROL 3 ML DEYVIAL IH PRN (05:57)
[2018-06-28] MEDS ORDERED: BENZONATATE 100 MG CAP PO PRN (07:07)
[2018-06-28] MEDS ORDERED: GUAIFENESIN/DM 10 ML UDCUP PO PRN ×2 (07:07→12:18)
--- NOTE | 2018-06-28 08:15 | PDGENHP ---
History and Physical - Chief Complaint Cough and fever - History of Present Illness Source-patient is provide history appear liable. EMR was reviewed and case discussed with ED provider. Patient is well-known to the hospitalist service from multiple admissions regarding similar symptoms. Please see admission notes from 03/07/2018, 04/17/2018 HPI-pleasant 73-year-old gentleman with a past medical history significant for CAD status post stenting x3, lung cancer status post partial lung resection no longer on chemotherapy, atrial fibrillation who presents emergency department today with complaints of persistent cough with increased production of sputum and fever of 101.5 F at home. for the past week patient has also been endorsing intermittent chills. No sweats. Patient reports that he was just recently discharged from [facility] after ICU stay due to sepsis respiratory source. Patient's note patient tested positive for human metapneumovirus. Patient's ongoing symptoms symptoms have persisted and the worst part is the patient is not able to sleep at nighttime. Due to the elevated temperature patient and his presented to ED for evaluation. Patient reports he is quite nervous regarding becoming septic again as he feared he was going to during the previous hospital stay. In his also note that tomorrow they have an outpatient appointment at [facility] for evaluation of his cough. Patient has had extensive workup in an outpatient basis over the last several months including a bronchoscopy with BAL, PET scan, CTA of the chest. He had also had follow-up with Infectious Disease, pulmonology and Oncology. Patient had been placed on a steroid taper titrated down to 5 mg prednisone daily. He has tried various inhalers without improvement in his symptoms. He has been given a diagnosis of COPD but states he has not had any improvement with inhalers and treatment. Patient's last hospitalization or acute bronchitis in setting of a chronic cough or patient was found to be positive for rhino virus/ enterovirus. Here responded to steroid therapy and inhalers. History Information - Allergies/Home Medication List Allergies/Adverse Reactions: amlodipine Allergy (Verified 06/20/18 15:41) causes gout symptoms atorvastatin calcium [From Lipitor] Allergy (Verified 06/20/18 15:41) CHRONIC COUGHING ezetimibe [From Zetia] Allergy (Verified 06/20/18 15:41) causes gout symptoms lisinopril Allergy (Verified 06/20/18 15:41) muscle ache lorazepam Allergy (Verified 06/20/18 15:41) anger, memory issues losartan potassium [From Cozaar] Allergy (Verified 06/20/18 15:41) causes gout symptoms morphine Allergy (Verified 06/20/18 15:41) "URINARY RETENTION" per RN per pitavastatin calcium [From Livalo] Allergy (Verified 06/20/18 15:41) causes gout symptoms pravastatin Allergy (Verified 06/20/18 15:41) causes gout symptoms rosuvastatin calcium [From Crestor] Allergy (Verified 06/20/18 15:41) causes gout symptoms spironolactone Allergy (Verified 06/20/18 15:41) causes gout symptoms zolpidem [From Ambien] Allergy (Verified 06/20/18 15:41) agitation steroid injection Allergy (Uncoded 04/26/18 16:29) Red Man Syndrome Home Medications: Allopurinol [Allopurinol 300 MG (RX)] 300 mg PO DAILY 03/07/18 [Last Taken 04/16] Aspirin [Aspirin 81mg (*)] 81 mg PO DAILY PRN 03/07/18 [Last Taken 04/16/18] Metoprolol Succinate Xr [Toprol Xl 50 mg (*)] 50 mg PO DAILY 03/07/18 [Last Taken 04/16/18] Diltiazem HCl [Diltiazem 24Hr ER] 120 mg PO DAILY 03/08/18 [Last Taken 04/16/18] Ascorbic Acid [Vitamin C 500 mg (*)] 1,000 mg PO DAILY 04/17/18 [Last Taken Unknown] Omeprazole Magnesium [Prilosec] 10 mg PO DAILY PRN 04/17/18 [Last Taken Unknown] predniSONE 2.5 mg PO DAILY 04/17/18 [Last Taken 04/16/18] Nortriptyline HCl 06/20/18 [Last Taken Unknown] Stiolto Respimat Inhal Davis 06/20/18 [Last Taken Unknown] Tamsulosin HCl 06/20/18 [Last Taken Unknown] I have personally reviewed and updated: family history, medical history, social history, surgical history - Past Medical History Additional medical history: Non-small cell lung cancer stage IIIA, patient reports completion of chemotherapy 2018. Necrotic gallbladder 2014. Coronary artery disease with stent. Gout. Hypertension, HLD. Carotid stenosis. C diff 2016. Morganella bacteremia from port. Atrial fibrillation and SVT during hospitalization 09/09, afib rvr 11/2017. glaucoma. shingles 2014. chronic pain with degenerative disc disease. chronic left leg neuropathy. Chronic cough with possible COPD. - Surgical History Additional surgical history: Left upper lobe resection. L-spine surgery. Cholecystectomy. Carotid endarterectomy on right. cervical fusion 09/09. 2 drug-eluting stents placed to the right coronary artery in 2010. TLIF L3-4 2017. left knee. bilateral cataract extraction/lens placement. power port placement, removal 2016, replacement on Left. Bronchoscopy - Family History Additional family history: No recent sick family contacts - Social History Smoking Status: Former smoker Alcohol Use: None Drug Use: None Additional social history: Normally independent in his ADLs, uses cane. . COR - FULL. Review of Systems Review of Systems: ROS: 10pt was reviewed & negative except for what was stated in HPI & below Constitutional: Reports: chills, fever, malaise, weakness (generalized) EENMT: Reports: nose congestion. Denies: sore throat Cardiac: Reports: no symptoms Respiratory: Reports: cough, shortness of breath (With coughing fits). Denies: orthopnea, wheezing Gastrointestinal: Reports: no symptoms Genitourinary: Reports: no symptoms Muscolosketal: Reports: no symptoms Skin: Reports: no symptoms Neurological: Reports: no symptoms Hematologic/Lymphatic: Reports: no symptoms Physical Exam Physical Exam: Selected Entries 06/28/18 01:34 Blood Pressure Automatic Method Heart Rate 106 H Respiratory 20 Rate O2 Sat (%) 93 Temperature (C) 36.8 C Blood Pressure 153/70 H Mean Arterial 97 Pressure (MAP) O2 Delivery Room Air Mode Temperature Oral Source Temp Pulse Resp BP Pulse Ox 36.8 C 104 H 16 168/89 H 93 06/28/18 06:41 06/28/18 06:41 06/28/18 06:41 06/28/18 06:41 06/28/18 06:41 Constitutional: no apparent distress, other (NAD. Pleasant adult plan at bedside. Intermittent episodes of coughing fits) Eyes: PERRL (Lens reflex appreciated bilaterally.), anicteric sclera, EOMI, No other Ears, Nose, Mouth, Throat: dry mucous membranes, other (No nasal discharge), No poor dentition Cardiovascular: irregularly irregular, pulses symmetric bilaterally, tachycardia , No edema Peripheral Pulses: 1+: dorsalis-pedis (R), dorsalis-pedis (L) Respiratory: no respiratory distress, no rales or rhonchi, reduced air movement (Diminished breath sounds bibasilarly.), No expiratory wheeze, No inspiratory crackles Gastrointestinal: normoactive bowel sounds, soft, non-tender abdomen, no palpable masses, No distension Genitourinary: no bladder tenderness, No rocha in urethra Skin: warm, normal color, no rashes or abrasions Musculoskeletal: generalized weakness (Patient require some assistance sitting up in the gurney.), No pain with ROM Neurologic: AAOx3, sensation intact bilaterally, other (Grossly nonfocal.), No facial droop Psychiatric: interacting appropriately, not encephalopathic, thought process linear, anxious, No depressed Lab Data & Imaging Review 06/28/18 02:15 06/28/18 02:15 WBC 10.33 10^3/uL (3.80-9.50) H 06/28/18 02:15 RBC 3.74 10^6/uL (4.40-6.38) L 06/28/18 02:15 Hgb 12.3 g/dL (13.7-17.5) L 06/28/18 02:15 Hct 36.8 % (40.0-51.0) L 06/28/18 02:15 MCV 98.4 fL (81.5-99.8) 06/28/18 02:15 MCH 32.9 pg (27.9-34.1) 06/28/18 02:15 MCHC 33.4 g/dL (32.4-36.7) 06/28/18 02:15 RDW 15.9 % (11.5-15.2) H 06/28/18 02:15 Plt Count 297 10^3/uL (150-400) 06/28/18 02:15 MPV 9.4 fL (8.7-11.7) 06/28/18 02:15 Neut % (Auto) 76.6 % (39.3-74.2) H 06/28/18 02:15 Lymph % (Auto) 15.8 % (15.0-45.0) 06/28/18 02:15 [place] % (Auto) 6.7 % (4.5-13.0) 06/28/18 02:15 Eos % (Auto) 0.4 % (0.6-7.6) L 06/28/18 02:15 Baso % (Auto) 0.2 % (0.3-1.7) L 06/28/18 02:15 Nucleat RBC Rel Count 0.0 % (0.0-0.2) 06/28/18 02:15 Absolute Neuts (auto) 7.92 10^3/uL (1.70-6.50) H 06/28/18 02:15 Absolute Lymphs (auto) 1.63 10^3/uL (1.00-3.00) 06/28/18 02:15 Absolute Monos (auto) 0.69 10^3/uL (0.30-0.80) 06/28/18 02:15 Absolute Eos (auto) 0.04 10^3/uL (0.03-0.40) 06/28/18 02:15 Absolute Basos (auto) 0.02 10^3/uL (0.02-0.10) 06/28/18 02:15 Absolute Nucleated RBC 0.00 10^3/uL (0-0.01) 06/28/18 02:15 Immature Gran % 0.3 % (0.0-1.1) 06/28/18 02:15 Immature Gran # 0.03 10^3/uL (0.00-0.10) 06/28/18 02:15 VBG Lactic Acid 1.4 mmol/L (0.7-2.1) 06/28/18 02:33 Sodium 136 mEq/L (135-145) 06/28/18 02:15 Potassium 4.2 mEq/L (3.5-5.2) 06/28/18 02:15 Chloride 105 mEq/L (97-110) 06/28/18 02:15 Carbon Dioxide 24 mEq/l (22-31) 06/28/18 02:15 Anion Gap 7 mEq/L (6-14) 06/28/18 02:15 BUN 23 mg/dL (7-23) 06/28/18 02:15 Creatinine 0.9 mg/dL (0.7-1.3) 06/28/18 02:15 Estimated GFR > 60 06/28/18 02:15 Glucose 124 mg/dL (70-100) H 06/28/18 02:15 Calcium 8.8 mg/dL (8.5-10.4) 06/28/18 02:15 Nasal Influenza A PCR NEGATIVE FOR FLU A (NEGATIVE) 06/28/18 02:15 Nasal Influenza B PCR NEGATIVE FOR FLU B (NEGATIVE) 06/28/18 02:15 RSV (PCR) NEGATIVE FOR RSV (NEGATIVE) 06/28/18 02:15 Assessment & Plan Assessment: pleasant 73-year-old gentleman with a past medical history significant for CAD status post stenting x3, lung cancer status post partial lung resection no longer on chemotherapy, atrial fibrillation who presents emergency department today with complaints of persistent cough with increased production of sputum and fever of 101.5 F at home. Cough (Acute) - no evidence of acute infiltrate. Patient will not be started on any antibiotics. Cough has been ongoing and workup is in process. Patient has a follow-up appointment with [facility] tomorrow which he does not plan to miss. Offered Maryjane Molina repeat the tests and which patient has been taking at home as well as nebulizers which patient reports do not help. Reviewed with patient and his expectations that we will not be able to affect his symptoms at this point as he has had extensive workup already and they both acknowledged this but appreciate the p.r.n. Medications. Patient is highly concerned that he has contracted another respiratory virus. Reassured flu influenza and RSV so far been negative. Patient reports that he was hospitalized with human metapneumovirus. Will add on full respiratory PCR. Fever (Acute) - patient has been afebrile since arrival. He took Tylenol prior to arrival. Chronic medical issues # paroxysmal atrial fibrillation - patient currently sinus tach low 100s to 110s. Patient is having intermittent coughing fits. Patient does appear a little bit anxious as well which is likely contributing. Continue patient's metoprolol and diltiazem. # CAD - continue aspirin beta-norberto. Patient intolerant of statin # benign essential HTN - continue patient's metoprolol and Dilt. # HLD - cardiac diet # gout - ill appearance # history of non-small cell lung cancer in remission # chronic back pain with radicular symptoms - patient is not chronically on any pain medications. Currently without any acute complaints. # anemia if chronic these. No evidence of active bleeding FEN - status with IV fluids emergency department. Encourage oral hydration at this time. COR - FULL PPX - SCDs as tolerated. Holding anticoagulation anticipating short hospital stay. Dispo - patient admitted observation status on the med surge floor for additional monitoring his heart rate and symptomatic treatment while awaiting respiratory PCR
[2018-06-28] MEDS ORDERED: MAGNESIUM HYDROXIDE 30 ML UDCUP PO PRN (12:18)
--- NOTE | 2018-06-28 12:25 | HOSPPROG ---
Hospitalist Progress Note Assessment/Plan: merlin 73-year-old gentleman with a past medical history significant for CAD status post stenting x3, lung cancer status post partial lung resection no longer on chemotherapy, atrial fibrillation who presents emergency department today with complaints of persistent cough with increased production of sputum and fever of 101.5 F at home. First encounter, chart reviewed. *Cough - no evidence of acute infiltrate -f/u appt w [facility] tomorrow -PCR is negative -blood cx pending -reviewed his chest x ray myself-nothing acute noted *Fever (Acute) - patient has been afebrile *paroxysmal afib -not tachycardia today -resumed diltiazem and metoprolol *CAD -asa and beta norberto *htn *anemia *hx of non-small cell lung ca s/p lobectomy, in remission *plan: patient and his are anxious for dc, his appt is at 7:30 tomorrow morning. Told them my concern if he has ongoing fevers. They would still like to leave and try Tylenol for this. Subjective: Mr Acosta is feeling well this afternoon, anxious to be discharged. Objective: Vital Signs Temp Pulse Resp BP Pulse Ox 37.0 C 92 18 105/64 93 06/28/18 08:00 06/28/18 08:00 06/28/18 08:00 06/28/18 08:00 06/28/18 08:00 06/27/18 06/28/18 06/29/18 05:59 05:59 05:59 Intake Total 1000 Balance 1000 - Physical Exam Constitutional: no apparent distress, appears nourished Eyes: PERRL Ears, Nose, Mouth, Throat: hearing normal Cardiovascular: regular rate and rhythym Respiratory: no respiratory distress, reduced air movement (right lower lobe) Skin: warm Musculoskeletal: full muscle strength Neurologic: AAOx3 Psychiatric: interacting appropriately, not anxious ICD10 Worksheet Patient Problems: Problems Problem Status Onset Arthrodesis status Acute Bronchitis Acute C. difficile diarrhea Acute 04/05/16 Cellulitis of right foot Acute Cervical stenosis of spine Acute Chest pain Acute Chronic cough Acute Cough Acute Dehydration Acute Diarrhea Acute Dysphagia, oropharyngeal Acute Fever Acute Gout Acute Headache Acute Hypocalcemia Acute Hypokalemia Acute Hypomagnesemia Acute Infection due to human metapneumovirus (hMPV) Acute Lumbar back pain with radiculopathy affecting left lower extremity Acute Lung cancer Acute Nausea & vomiting Acute Neck pain Acute On total parenteral nutrition (TPN) Acute Pneumonia Acute RUQ abdominal pain Acute Weakness Acute chronic disease mgmt/transitional care Acute CAD (coronary artery disease) Chronic Dyslipidemia Chronic
[2018-06-28] MEDS ORDERED: DILTIAZEM CD 120 MG CAP PO SCH (12:30)
[2018-06-28] MEDS ORDERED: predniSONE 5 MG TAB PO SCH (12:30)
[2018-06-28 12:32] VITALS: BP 151/88
[2018-06-28] MEDS ORDERED: guaiFENesin/CODEINE PHOS 10 ML UDCUP PO PRN (13:00)
[2018-06-28] MEDS ORDERED: ALLOPURINOL 300 MG TAB PO SCH (13:26)
[2018-06-28] MEDS ORDERED: METOPROLOL SUCCINATE XR 50 MG TAB PO SCH (13:30)
[2018-06-28] MEDS ORDERED: ASCORBIC ACID 500 MG TAB PO SCH (13:30)
[2018-06-28] MEDS ORDERED: ASPIRIN EC 81 MG TAB PO ONE (13:52)
--- NOTE | 2018-06-28 15:29 | GDS ---
[f rep st] DISCHARGE SUMMARY DISCHARGE DIAGNOSES: 1. Cough. 2. Fever. 3. Paroxysmal atrial fibrillation. 4. Coronary artery disease. 5. Hypertension. 6. Anemia. 7. History of small cell carcinoma. HISTORY OF PRESENT ILLNESS: Briefly, the patient is a very nice 73-year-old gentleman with a past medical history significant for CAD status post stenting x3, lung cancer status post partial lung resection, no longer on chemotherapy, and atrial fibrillation, who presented to the emergency department with complaints of persistent cough with increased production of sputum and fever of 101.5. An x-ray was performed, which showed no infiltrate. He had a respiratory panel PCR that showed no organism. The patient and his are very anxious to have him discharged because he has an appointment at [facility] tomorrow morning at 7 they do not want to miss. HOSPITAL COURSE: 1. Cough. The patient told me he is feeling markedly better today. PCR is negative. Blood cultures are still pending. Will have their PCP follow up with this. 2. Fever, none further. 3. Paroxysmal atrial fibrillation. He is in a sinus rhythm during my interview. 4. Coronary artery disease. Resumed aspirin and beta norberto. 5. Hypertension. Blood pressure is 105/64. 6. Anemia. Further followup with his PCP. 7. History of small cell cancer, status post a lung resection. No longer on chemotherapy. DISCHARGE CONDITION: Stable. Blood pressure is 151/88, heart rate is 99, respiratory rate is 16, O2 sats on room air 94%. Temperature is 36.8 Celsius. MEDICATIONS AT DISCHARGE: Please see the EMR. DISCHARGE INSTRUCTIONS: 1. Further followup with [facility] as scheduled tomorrow morning. 2. If he develops worsening cough, worsening fever, rigors, chills, to return to the ER. 3. To have Dr. Abdi follow up with his pending blood cultures. /[id number]/MODL MTDD
[2018-06-28] MEDS ORDERED: STIOLTO RESPIMAT INHAL IH SCH (21:00)
--- NOTE | 2018-06-28 23:23 | ASMTLACE ---
LACE Length of stay for Answers: Less than 1 day current admission Acuity / Level of Answers: No Care: Did the patient have an inpatient admission? Comorbidities - select Answers: Any tumor (including all that apply lymphoma or leukemia) Chronic pulmonary disease Coronary Artery Disease Other Notes: HTN, paroxysmal afib, anemia, small daniele l carcinoma # of Emergency department Answers: 5-8 visits in the last 6 months Score: 11 Date Signed: 06/28/2018 11:22 PM Electronically Signed By:Sara Hennessy RN
--- NOTE | 2018-06-28 23:28 | ASDISCHSUM ---
Discharge Information Plan Status:Home with No Needs Medically Cleared to Leave:06/27/2018 Discharge Date:06/28/2018 03:28 PM CM D/C Disposition:Home, Routine, Self-Care ADT D/C Disposition:Home, Routine, Self-Care Projected Discharge Date:06/28/2018 03:28 PM Transportation at D/C:Family Discharge Delay Reason: Follow-Up Date:06/28/2018 03:28 PM Discharge Slot:2 - 12:01 pm - 18:00 pm Final Diagnosis:Chronic cough, bronchitis, fever, paroxysmal afib Placement Information Patient Contact Information Contact Name:GABRIELLE Relationship: Address:[address] City:[place] Alternate Phone: [facility]/Zip Code:[place] [address] Email: Financial Information Financial Class:Medicare Primary Plan Desc:MEDICARE OUTPATIENT Primary Plan Number:[id number] Secondary Plan Desc:[employer]/MDR SUPPLEMENT Secondary Plan Number:[id number] Assessment Information LACE LACE Length of stay for Answers: Less than 1 day current admission Acuity / Level of Answers: No Care: Did the patient have an inpatient admission? Comorbidities - select Answers: Any tumor (including all that apply lymphoma or leukemia) Chronic pulmonary disease Coronary Artery Disease Other Notes: HTN, paroxysmal afib, anemia, small daniele l carcinoma # of Emergency department Answers: 5-8 visits in the last 6 months Score: 11 Date Signed: 06/28/2018 11:22 PM Electronically Signed By:Sara Hennessy RN AMY ROJAS Progress Note CRYSTAL Schuster CM Note Notes: Reviewed chart, spoke with Yelitza Brenner NP regarding discharge plan of care, pt's progress. Pt admitted with cough, fever, chills, bronchitis. History includes paroxysmal afib, CAD, small cell carcinoma, anemia. Pt has had several recent visits to this facility. Pt is and lives with his in [place]. Per Yelitza, pt to discharge home independently with family support and no identified needs today. No PT/OT orders. No IM/ARMANDO forms signed, not applicable, admission <24 hrs. Pt to follow up with [facility] tomorrow, as directed. CM available for any further issues or concerns. Discharge Plan: Home independently with family support Date Signed: 06/28/2018 11:27 PM Electronically Signed By:Sara Hennessy RN Intervention Information
[2018-06-29] MEDS ORDERED: ASCORBIC ACID 500 MG TAB PO SCH (09:00)
[2018-06-29] MEDS ORDERED: METOPROLOL SUCCINATE XR 50 MG TAB PO SCH (09:00)
[2018-06-29] MEDS ORDERED: ALLOPURINOL 300 MG TAB PO SCH (09:00)
[2018-06-29] MEDS ORDERED: ASPIRIN EC 81 MG TAB PO SCH (09:00)
== END 2018-06-28 15:28 | disposition home or self-care (01) ==
LOC: F3N 06:34
PROVIDERS: ADMIT Family Medicine; ATTEND Family Medicine
DX: R05 Cough (principal); R50.9 Fever, unspecified; E86.9 Volume depletion, unspecified; I48.0 Paroxysmal atrial fibrillation; I25.10 Atherosclerotic heart disease of native coronary artery without angina pectoris; I10 Essential (primary) hypertension; D64.9 Anemia, unspecified; F41.9 Anxiety disorder, unspecified; E78.5 Hyperlipidemia, unspecified; M10.9 Gout, unspecified; H40.9 Unspecified glaucoma; M51.36 Other intervertebral disc degeneration, lumbar region; G89.29 Other chronic pain; Z79.82 Long term (current) use of aspirin; Z79.51 Long term (current) use of inhaled steroids; Z79.52 Long term (current) use of systemic steroids; Z87.891 Personal history of nicotine dependence; Z92.21 Personal history of antineoplastic chemotherapy; Z85.118 Personal history of other malignant neoplasm of bronchus and lung; Z87.01 Personal history of pneumonia (recurrent); Z86.19 Personal history of other infectious and parasitic diseases; Z95.5 Presence of coronary angioplasty implant and graft; Z96.652 Presence of left artificial knee joint; Z90.2 Acquired absence of lung [part of]; Z98.1 Arthrodesis status
CPT/HCPCS: 71046; 99285; G0378; J7512

== ENCOUNTER → 2018-07-28 | Outpatient (CLI) | payer OTHER, MEDICARE | LOC: FIMAGING 13:27 | PROVIDERS: ATTEND Internal Medicine Hematology & Oncology | DX: R05 Cough (principal); R50.9 Fever, unspecified; R91.8 Other nonspecific abnormal finding of lung field; Z98.890 Other specified postprocedural states ==

== ENCOUNTER 2018-08-13 13:38 | Observation (INO) | payer OTHER, MEDICARE ==
[2018-08-13] MEDS ORDERED: ONDANSETRON DISINTEGRATING 4 MG TAB PO PRN (17:25)
[2018-08-13] MEDS ORDERED: ONDANSETRON 4 MG/2 ML VIAL IVP PRN (17:25)
[2018-08-13] MEDS ORDERED: ACETAMINOPHEN 325 MG TAB PO PRN (17:25)
--- NOTE | 2018-08-13 17:29 | PDGENHP ---
History and Physical - Chief Complaint persistent cough, tachycardia - History of Present Illness 73yo M with history of lung cancer s/p left upper lobectomy, chemo and XRT complicated by radiation pneumonitis, COPD, chronic cough, recent daignosis of coronavirus on 07/30 presents from ID clinic with persistent cough, tachycardia, and generalized weakness. He hasn't eaten anything or really drank anything in 4 days. He's lost about 7-8 pounds over this time frame. He reports feeling globally weak and having trouble even walking up a few stairs. He has been unable to sleep because of his cough. His noted his HR has been in the 100s the last few days. He denies fevers or chills or shortness of breath. Per his , his cough did change in character about a week ago and has been productive of whitish sputum. He went to ID clinic to for evaluation. A chest x- ray did not show any pnemonia. He was noted to be mildly tachycardia but not hypoxic. He is being admitted for further care. Case discussed with ID physician Eran Chavez. History Information - Allergies/Home Medication List Allergies/Adverse Reactions: amlodipine Allergy (Verified 06/20/18 15:41) causes gout symptoms atorvastatin calcium [From Lipitor] Allergy (Verified 06/20/18 15:41) CHRONIC COUGHING ezetimibe [From Zetia] Allergy (Verified 06/20/18 15:41) causes gout symptoms lisinopril Allergy (Verified 06/20/18 15:41) muscle ache lorazepam Allergy (Verified 06/20/18 15:41) anger, memory issues losartan potassium [From Cozaar] Allergy (Verified 06/20/18 15:41) causes gout symptoms morphine Allergy (Verified 06/20/18 15:41) "URINARY RETENTION" per RN per pitavastatin calcium [From Livalo] Allergy (Verified 06/20/18 15:41) causes gout symptoms pravastatin Allergy (Verified 06/20/18 15:41) causes gout symptoms rosuvastatin calcium [From Crestor] Allergy (Verified 06/20/18 15:41) causes gout symptoms spironolactone Allergy (Verified 06/20/18 15:41) causes gout symptoms zolpidem [From Ambien] Allergy (Verified 06/20/18 15:41) agitation steroid injection Allergy (Uncoded 04/26/18 16:29) Red Man Syndrome Home Medications: Allopurinol [Allopurinol 300 MG (RX)] 300 mg PO DAILY 06/28/18 [Last Taken 06/27] Ascorbic Acid [Vitamin C 500 mg (*)] 1,000 mg PO DAILY 06/28/18 [Last Taken 07/14] Aspirin EC [Aspirin EC 81 mg (*)] 81 mg PO DAILY 06/28/18 [Last Taken 06/27/18] Codeine Phosphate/Guaifenesin [Guaiatussin AC Liquid] 10 ml PO Q6HRS PRN [Last Taken 03/30/18] Diltiazem HCl [Diltiazem 24Hr ER] 120 mg PO DAILY 06/28/18 [Last Taken 06/27/18] Magnesium Hydroxide [Milk of Magnesia] 45 ml PO DAILY PRN 06/28/18 [Last Taken Unknown] Metoprolol Succinate Xr [Toprol Xl 50 mg (*)] 50 mg PO DAILY 06/28/18 [Last Taken 06/27/18] Tiotropium Br/Olodaterol HCl [Stiolto Respimat Inhal [place]] 2 puffs IH HS [Last Taken 06/27/18 23:30] guaiFENesin/DEXTROMETHORPHAN [Guaifenesin Dm Syrup] 10 ml PO Q6HRS PRN 06/28/18 [Last Taken 06/27/18 23:30] predniSONE 5 mg PO DAILY 06/28/18 [Last Taken 06/27/18] I have personally reviewed and updated: family history, medical history, social history, surgical history - Past Medical History Additional medical history: Non-small cell lung cancer stage IIIA. Necrotic gallbladder 2014. Coronary artery disease with stent. Gout. Hypertension, HLD. Carotid stenosis. C diff 2015. Morganella bacteremia from port. Atrial fibrillation and SVT during hospitalization 09/09, afib rvr 11/2017. glaucoma. shingles 2014. chronic pain with degenerative disc disease. chronic left leg neuropathy. Chronic cough with possible COPD. - Surgical History Additional surgical history: Left upper lobe resection. L-spine surgery. Cholecystectomy. Carotid endarterectomy on right. cervical fusion 09/09. 2 drug-eluting stents placed to the right coronary artery in 2010. TLIF L3-4 2017. left knee. bilateral cataract extraction/lens placement. power port placement, removal 2017, replacement on Left. Bronchoscopy - Family History Additional family history: No recent sick family contacts - Social History Smoking Status: Former smoker Alcohol Use: None Drug Use: None Additional social history: Normally independent in his ADLs, uses cane. . COR - FULL. Review of Systems Review of Systems: ROS: 10pt was reviewed & negative except for what was stated in HPI & below Physical Exam Physical Exam: Temp Pulse Resp BP Pulse Ox 36.4 C 116 H 16 133/96 H 95 08/13/18 17:22 08/13/18 17:22 08/13/18 17:22 08/13/18 17:22 08/13/18 17:22 Constitutional: no apparent distress, appears nourished, not in pain Eyes: PERRL, anicteric sclera, EOMI Ears, Nose, Mouth, Throat: moist mucous membranes Cardiovascular: regular rate and rhythym, no murmur, rub, or gallop, No edema Respiratory: no respiratory distress, reduced air movement, No expiratory wheeze , No rhonchi Gastrointestinal: normoactive bowel sounds, soft, non-tender abdomen, no palpable masses Genitourinary: no bladder fullness, no bladder tenderness Skin: warm, normal color, no rashes or abrasions, no fluctuance, no induration, No mottled Musculoskeletal: full muscle strength, no muscle tenderness, normal joint ROM, no joint effusions Neurologic: AAOx3 Psychiatric: interacting appropriately, not anxious, not encephalopathic, thought process linear Lab Data & Imaging Review Interpretation: CXR: clear lungs, no infiltrate or obvious effusion, no heart failure, chest port in place Assessment & Plan Assessment: 73yo M with history of lung cancer s/p left upper lobectomy, chemo and XRT complicated by radiation pneumonitis, COPD, chronic cough, recent daignosis of coronavirus on 07/30 presents from ID clinic with persistent cough, tachycardia, and generalized weakness. Plan: #Persistent cough: Diagnosed with coronavirus 2 weeks ago however this should have resolved but possible he has some lingering inflammation. Exam not c/w copd exacerbation. No pneumonia. He is followed by manufacturing intern at [facility] for multifactorial chronic cough. - Duonebs - Trial prednisone 20mg qd - Checking influenza PCR - Observe off antibiotics - Cough suppressants prn #Tachycardia: Regular on exam. Suspect driven by dehydration. - Administer IVF overnight #Generalized weakness: Combination of dehydration, lack of sleep and lack of PO - Hydrate, encourage PO intake as able - PT/OT #COPD: Continue home inhalers #Atrial fibrillation: Regular on exam here. Continue dilatiazem, aspirin. #H/o lung cancer: S/p left upper lobectomy, chemo, XRT. Complicated by radiation pneumonitis and esophagitis. #CAD: On aspirin. VTE ppx: SCDs Code: full Diet: regular Dispo: Admit under observation
--- NOTE | 2018-08-13 17:31 | PCMIDPN ---
Assessment/Plan: Assessment/Plan: Please see my Mead note from office visit earlier today for full details. * Viral syndrome: Recently documented coronavirus on PCR testing with persistent ongoing respiratory symptomatology. Persistent symptoms may be post viral at this point in time as x-ray shows no evidence of pneumonia. Will obtain influenza PCR to ensure no superimposed process. * Failure to thrive: Likely associated with recent viral syndrome with hopes appetite will improve over time. * Tachycardia: Assess response to IV rehydration given limited recent oral intake. Clinical findings and plan discussed with patient, and Dr. Faria. 08/13/18 17:28 Objective: Vital Signs Temp Pulse Resp BP Pulse Ox 36.4 C 116 H 16 133/96 H 95 08/13/18 17:22 08/13/18 17:22 08/13/18 17:22 08/13/18 17:22 08/13/18 17:22 ICD10 Worksheet Patient Problems: Problems Problem Status Onset Arthrodesis status Acute Bronchitis Acute C. difficile diarrhea Acute 04/05/16 Cellulitis of right foot Acute Cervical stenosis of spine Acute Chest pain Acute Chronic cough Acute Cough Acute Dehydration Acute Diarrhea Acute Dysphagia, oropharyngeal Acute Fever Acute Gout Acute Headache Acute Hypocalcemia Acute Hypokalemia Acute Hypomagnesemia Acute Infection due to human metapneumovirus (hMPV) Acute Lumbar back pain with radiculopathy affecting left lower extremity Acute Lung cancer Acute Nausea & vomiting Acute Neck pain Acute On total parenteral nutrition (TPN) Acute Pneumonia Acute RUQ abdominal pain Acute Weakness Acute chronic disease mgmt/transitional care Acute CAD (coronary artery disease) Chronic Dyslipidemia Chronic
[2018-08-13] MEDS: NS 1,000 ML IV SCH ×2 (17:54→23:44)
[2018-08-13] MEDS: IPRATROPIUM/ALBUTEROL 3 ML DEYVIAL IH SCH ×2 (18:04→23:27)
[2018-08-13] MEDS ORDERED: BENZONATATE 100 MG CAP PO PRN (19:07)
[2018-08-13] MEDS ORDERED: FAMOTIDINE 20 MG TAB PO SCH (23:00)
[2018-08-13] MEDS: guaiFENesin/CODEINE PHOS 10 ML UDCUP PO PRN (23:12)
[2018-08-13] MEDS: BACLOFEN 10 MG TAB PO SCH (23:12)
[2018-08-13] MEDS: predniSONE 20 MG TAB PO SCH (23:37)
[2018-08-14] MEDS: IPRATROPIUM/ALBUTEROL 3 ML DEYVIAL IH SCH ×3 (05:19→15:52)
[2018-08-14] MEDS: guaiFENesin/CODEINE PHOS 10 ML UDCUP PO PRN ×2 (05:36→20:42)
[2018-08-14 05:48] LABS: PLATELET COUNT 287 10^3/uL (150-400)
--- NOTE | 2018-08-14 08:25 | ASMTLACE ---
[facility] Comorbidities - select Answers: Any tumor (including all that apply lymphoma or leukemia) Chronic pulmonary disease Coronary Artery Disease Opioid dependence / Chronic pain Other Notes: HTN; HLD; AFib # of Emergency department Answers: 5-8 visits in the last 6 months Score: 15 Date Signed: 08/14/2018 08:24 AM Electronically Signed By:Silvia Rosenbaum
[2018-08-14] MEDS ORDERED: predniSONE 20 MG TAB PO SCH (09:00)
--- NOTE | 2018-08-14 09:18 | ASMTCMCOM ---
CM Note CM Note Notes: Pt chart reviewed. Pt is a 73yr old adm with persistent cough, tachycardia and generalized weakness. 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 CM available for needs. PLAN: TBD Date Signed: 08/14/2018 09:15 AM Electronically Signed By:Belinda Stahl
[2018-08-14] MEDS: METOPROLOL SUCCINATE XR 50 MG TAB PO SCH (09:27)
[2018-08-14] MEDS: ASPIRIN EC 81 MG TAB PO SCH (09:27)
[2018-08-14] MEDS: BACLOFEN 10 MG TAB PO SCH ×3 (09:27→20:42)
[2018-08-14] MEDS: DILTIAZEM CD 120 MG CAP PO SCH (09:28)
[2018-08-14] MEDS: ALLOPURINOL 300 MG TAB PO SCH (09:29)
[2018-08-14] MEDS: PANTOPRAZOLE SODIUM 40 MG TAB PO SCH (09:29)
--- NOTE | 2018-08-14 09:56 | PCMIDPN ---
Assessment/Plan: 1. Dysphonia: This is relatively new over the past few days. Etiology unclear, but may be multifactorial (related to underlying reflux, verses new viral infection versus persistent sotelo virus). For now, will expand viral testing to a full respiratory viral panel to ensure he is not acquired yet another virus that could be causative. Will also have Ear Nose and Throat see him to look at his vocal cords. (I spoke with , who will come and see him either at the noon hour, or 5:00 p.m.). Patient expressed understanding with the plan. Chest x-ray is negative. Oxygen saturation stable off of O2. 2. Failure to thrive: Patient would like to stay another day to ensure that he is stable. I have no problem with that, particularly given the fact that Ear Nose and Throat may not be able to see him till the end of the day. 3. Miscellaneous: Patient is extremely upset about various events that have happened to him in the hospital, and would like to talk to the ombudsman. Have spoken to the patient's nurse, who will communicate this to the patient sales representative printing. Over 30 min spent with this patient today. 08/14/18 09:57 Subjective: Patient with multiple complaints today, and told me "I am really sick, I am really sick."Thankfully, his vital signs have stabilized and he is no longer tachycardic. However, I did notice that the patient is quite dysphonic, which the patient's reports is new. He has no nasal congestion, is not sneezing , but does have a mild sore throat. Continues to have a nagging cough, but does state that he slept well last night. Breathing is stable. No diarrhea. No rash. Objective: Afebrile 94% on room air Vital Signs Temp Pulse Resp BP Pulse Ox 36.6 C 88 16 116/71 91 L 08/14/18 09:06 08/14/18 09:28 08/14/18 09:06 08/14/18 09:28 08/14/18 09:06 Microbiology 08/14/18 09:35 Respiratory Panel (PCR) - Final Nasal, Sinus - Swab Laboratory Results 08/14/18 05:35 08/14/18 05:35 Flu swab negative Chest x-ray without evidence of pneumonia - Physical Exam General Appearance: other (Intermittently coughing during my interview, very hoarse) EENT: pharynx normal, No thrush Respiratory: lungs clear Cardiac/Chest: regular rate, rhythm, other (Port in his chest looks fine), No tachycardia Skin: No rash Neuro/Psych: oriented x 3 ICD10 Worksheet Patient Problems: Problems Problem Status Onset Arthrodesis status Acute Bronchitis Acute C. difficile diarrhea Acute 04/05/16 Cellulitis of right foot Acute Cervical stenosis of spine Acute Chest pain Acute Chronic cough Acute Cough Acute Dehydration Acute Diarrhea Acute Dysphagia, oropharyngeal Acute Fever Acute Gout Acute Headache Acute Hypocalcemia Acute Hypokalemia Acute Hypomagnesemia Acute Infection due to human metapneumovirus (hMPV) Acute Lumbar back pain with radiculopathy affecting left lower extremity Acute Lung cancer Acute Nausea & vomiting Acute Neck pain Acute On total parenteral nutrition (TPN) Acute Pneumonia Acute RUQ abdominal pain Acute Weakness Acute chronic disease mgmt/transitional care Acute CAD (coronary artery disease) Chronic Dyslipidemia Chronic
[2018-08-14] MEDS: predniSONE 20 MG TAB PO SCH (10:05)
[2018-08-14] MEDS: BUDESONIDE/FORMOTEROL 80/4.5 60 PUFFS/MDI IH SCH (10:44)
--- NOTE | 2018-08-14 12:26 | GCON ---
[f rep st] CONSULTATION REFERRING PHYSICIAN: Infectious Disease Service IDENTIFYING DATA: This is a 73-year-old we are asked to see in consultation from the Infectious Dise ase Service. HISTORY OF PRESENT ILLNESS: The patient had a partial pneumonectomy or pneumonectomy done with Dr. Jayjay montoya for lung carcinoma. He has had some issues with pneumonias. He has had a cough. He has been w orked up and treated here at [facility], as well as [facility]. Workup is continuing there. He has been admitted this week for further workup here locally. In the last week, he has had some hoarseness, and that is new for him. REVIEW OF SYSTEMS: EARS, NOSE, AND THROAT: No stridor. RESPIRATORY: No wheezing. SOCIAL HISTORY: He did work for [employer] in [place] and smoked 3 packs of cigarettes a day for several years. PHYSICAL EXAM: GENERAL APPEARANCE: He is in no acute distress. Alert and oriented x3. Voice is so mewhat hoarse. HEENT: Oral cavity and oropharynx with no mucosal lesions. Specifically, no evidenc e of any candidiasis. Parotids are palpably benign. NECK: Without thyromegaly or lymphadenopathy. Flexible nasolaryngoscopy was performed, and I see no mucopus or polyps in the nose or nasopharynx. He has a good airway. Both vocal cords move well. There is some edema to the vocal cords. IMPRESSION: Hoarseness due to some edema of the vocal cords, most likely secondary to coughing. RECOMMENDATIONS: 1. I spoke with Fco, his nurse. We will see if we can get some bedside high humidity. 2. No findings of any candidiasis or neoplasms. The cords move well, and there is no vocal cord par alysis. 3. We spoke with Mr. Acosta about potentially using some steroids to help with the edema, but he has be en on a long course of steroids in the past, and he has been off those for the last month. I do not think it is worth the side effects of the steroids to treat his vocal complaints at this time. We wi ll treat as above. He seemed agreeable with this plan and will follow up with us as circumstances re quire. /[id number]/MODL
--- NOTE | 2018-08-14 12:42 | HOSPPROG ---
Hospitalist Progress Note Assessment/Plan: 73yo M with history of lung cancer s/p left upper lobectomy, chemo and XRT complicated by radiation pneumonitis, COPD, chronic cough, recent daignosis of coronavirus on 07/30 presents from ID clinic with persistent cough, tachycardia, and generalized weakness. #Persistent cough: Diagnosed with coronavirus 2 weeks ago however this should have resolved but possible he has some lingering inflammation. Exam not c/w copd exacerbation. No pneumonia. He is followed by reel fed printer at [facility] for multifactorial chronic cough. - Duonebs - Patient refusing prednisone, will d/c - Influenza PCR negative on admission - Observe off antibiotics - Cough suppressants prn - ID consulted, recommend repeat Respiratory PCR which was again positive for Coronavirus, ENT consult #Tachycardia: Regular on exam. Suspect driven by dehydration. - Improved overnight with IVF #Generalized weakness: Combination of dehydration, lack of sleep and lack of PO - Hydrate, encourage PO intake as able - PT/OT #COPD: Continue home inhalers #Atrial fibrillation: Regular on exam here. Continue dilatiazem, aspirin. #H/o lung cancer: S/p left upper lobectomy, chemo, XRT. Complicated by radiation pneumonitis and esophagitis. #CAD: On aspirin. VTE ppx: SCDs Code: full Diet: regular Dispo: Pending clinical course Subjective: Patient reports continued cough this AM Objective: Vital Signs Temp Pulse Resp BP Pulse Ox 36.9 C 78 16 101/60 91 L 08/14/18 11:51 08/14/18 11:51 08/14/18 11:51 08/14/18 11:51 08/14/18 11:51 Microbiology 08/13/18 18:10 Respiratory Panel (PCR) - Final Nasal, Sinus - [place] Viral Transport Coronavirus [id number] Detected 08/14/18 09:35 Respiratory Panel (PCR) - Final Nasal, Sinus - Swab Laboratory Results 08/14/18 05:35 08/14/18 05:35 - Physical Exam Constitutional: no apparent distress Eyes: PERRL Ears, Nose, Mouth, Throat: moist mucous membranes Cardiovascular: regular rate and rhythym Respiratory: no respiratory distress, clear to auscultation Gastrointestinal: soft, non-tender abdomen Skin: warm Musculoskeletal: full muscle strength Neurologic: AAOx3 Psychiatric: interacting appropriately ICD10 Worksheet Patient Problems: Problems Problem Status Onset Arthrodesis status Acute Bronchitis Acute C. difficile diarrhea Acute 04/05/16 Cellulitis of right foot Acute Cervical stenosis of spine Acute Chest pain Acute Chronic cough Acute Cough Acute Dehydration Acute Diarrhea Acute Dysphagia, oropharyngeal Acute Fever Acute Gout Acute Headache Acute Hypocalcemia Acute Hypokalemia Acute Hypomagnesemia Acute Infection due to human metapneumovirus (hMPV) Acute Lumbar back pain with radiculopathy affecting left lower extremity Acute Lung cancer Acute Nausea & vomiting Acute Neck pain Acute On total parenteral nutrition (TPN) Acute Pneumonia Acute RUQ abdominal pain Acute Weakness Acute chronic disease mgmt/transitional care Acute CAD (coronary artery disease) Chronic Dyslipidemia Chronic
[2018-08-14] MEDS: NS 1,000 ML IV SCH (17:10)
[2018-08-14] MEDS: FAMOTIDINE 20 MG TAB PO SCH (20:42)
[2018-08-14] MEDS: LATANOPROST 0.005% 2.5 ML OPHT DROPS RTEYE SCH (20:46)
[2018-08-15] MEDS: IPRATROPIUM/ALBUTEROL 3 ML DEYVIAL IH SCH ×5 (00:08→21:44)
[2018-08-15] MEDS: METOPROLOL SUCCINATE XR 50 MG TAB PO SCH (09:46)
[2018-08-15] MEDS: ASPIRIN EC 81 MG TAB PO SCH (09:49)
[2018-08-15] MEDS: ALLOPURINOL 300 MG TAB PO SCH (09:49)
[2018-08-15] MEDS: DILTIAZEM CD 120 MG CAP PO SCH (09:49)
[2018-08-15] MEDS: PANTOPRAZOLE SODIUM 40 MG TAB PO SCH (09:49)
[2018-08-15] MEDS: BACLOFEN 10 MG TAB PO SCH (09:51)
[2018-08-15] MEDS: BUDESONIDE/FORMOTEROL 80/4.5 60 PUFFS/MDI IH SCH (11:59)
--- NOTE | 2018-08-15 15:07 | HOSPPROG ---
Hospitalist Progress Note Assessment/Plan: 73yo M with history of lung cancer s/p left upper lobectomy, chemo and XRT complicated by radiation pneumonitis, COPD, chronic cough, recent daignosis of coronavirus on 07/30 presents from ID clinic with persistent cough, tachycardia, and generalized weakness. #Persistent cough: Diagnosed with coronavirus 2 weeks ago, possible he has some lingering inflammation. Exam not c/w copd exacerbation. No pneumonia. He is followed by awning installer at [facility] for multifactorial chronic cough. - Duonebs - Patient refusing prednisone, d/c - Influenza PCR negative on admission - Observe off antibiotics - Cough suppressants prn - ID consulted, recommend repeat Respiratory PCR which was again positive for Coronavirus - ENT consulted due to hoarseness on exam, s/p laryngoscopy which showed some vocal cord edema, no other significant findings #Tachycardia: Regular on exam. Suspect driven by dehydration. - Improved overnight with IVF #Generalized weakness: Combination of dehydration, lack of sleep and lack of PO - Hydrate, encourage PO intake as able - PT/OT # Memory Loss - Patient reports he is not able to remember events from yesterday - reports this can happen with Baclofen, has been d/c - Ordered Brain MRI to further evaluate given extensive cancer hx to r/o metastatic disease, CVA #COPD: Continue home inhalers #Atrial fibrillation: Regular on exam here. Continue dilatiazem, aspirin. #H/o lung cancer: S/p left upper lobectomy, chemo, XRT. Complicated by radiation pneumonitis and esophagitis. #CAD: On aspirin. VTE ppx: SCDs Code: full Diet: regular Dispo: Pending clinical course Subjective: Patient confused this AM Objective: Vital Signs Temp Pulse Resp BP Pulse Ox 36.9 C 82 18 148/78 H 94 08/15/18 04:38 08/15/18 11:48 08/15/18 11:48 08/15/18 09:49 08/15/18 11:48 Microbiology 08/13/18 18:10 Respiratory Panel (PCR) - Final Nasal, Sinus - [place] Viral Transport Coronavirus [id number] Detected 08/14/18 09:35 Respiratory Panel (PCR) - Final Nasal, Sinus - Swab Laboratory Results 08/14/18 05:35 08/14/18 05:35 08/14/18 08/15/18 08/16/18 05:59 05:59 05:59 Intake Total 2400 Balance 2400 - Physical Exam Constitutional: no apparent distress Eyes: PERRL Ears, Nose, Mouth, Throat: moist mucous membranes Cardiovascular: regular rate and rhythym Respiratory: no respiratory distress, reduced air movement Gastrointestinal: soft, non-tender abdomen Skin: warm Musculoskeletal: full muscle strength Neurologic: No AAOx3 Psychiatric: anxious, No encephalopathic ICD10 Worksheet Patient Problems: Problems Problem Status Onset Arthrodesis status Acute Bronchitis Acute C. difficile diarrhea Acute 04/05/16 Cellulitis of right foot Acute Cervical stenosis of spine Acute Chest pain Acute Chronic cough Acute Cough Acute Dehydration Acute Diarrhea Acute Dysphagia, oropharyngeal Acute Fever Acute Gout Acute Headache Acute Hypocalcemia Acute Hypokalemia Acute Hypomagnesemia Acute Infection due to human metapneumovirus (hMPV) Acute Lumbar back pain with radiculopathy affecting left lower extremity Acute Lung cancer Acute Nausea & vomiting Acute Neck pain Acute On total parenteral nutrition (TPN) Acute Pneumonia Acute RUQ abdominal pain Acute Weakness Acute chronic disease mgmt/transitional care Acute CAD (coronary artery disease) Chronic Dyslipidemia Chronic
[2018-08-15] MEDS ORDERED: GADOBUTROL 10 ML VIAL IVP ONE (15:27)
[2018-08-15] MEDS: LATANOPROST 0.005% 2.5 ML OPHT DROPS RTEYE SCH (20:55)
[2018-08-15] MEDS: FAMOTIDINE 20 MG TAB PO SCH (20:57)
[2018-08-16 03:26] VITALS: BP 127/76
[2018-08-16] MEDS: ALLOPURINOL 300 MG TAB PO SCH (03:35)
[2018-08-16] MEDS ORDERED: INDOMETHACIN 25 MG CAP PO PRN (03:35)
[2018-08-16] MEDS: IPRATROPIUM/ALBUTEROL 3 ML DEYVIAL IH SCH ×2 (07:02→11:01)
[2018-08-16] MEDS: DILTIAZEM CD 120 MG CAP PO SCH (09:43)
[2018-08-16] MEDS: ASPIRIN EC 81 MG TAB PO SCH (09:43)
[2018-08-16] MEDS: PANTOPRAZOLE SODIUM 40 MG TAB PO SCH (09:44)
[2018-08-16] MEDS: METOPROLOL SUCCINATE XR 50 MG TAB PO SCH (09:44)
--- NOTE | 2018-08-16 10:03 | ASMTCMCOM ---
CM Note CM Note Notes: Met with Pt and to left them know Palliative care will be contacting him tomorrow. Left a message for Pall Care with contact numbers. Pt has no needs at this time but CM available if needs arise. PLAN:Home Independently with . Date Signed: 08/16/2018 10:03 AM Electronically Signed By:Belinda Stahl
[2018-08-16] MEDS: BUDESONIDE/FORMOTEROL 80/4.5 60 PUFFS/MDI IH SCH (11:01)
--- NOTE | 2018-08-16 14:10 | PDDCSUM ---
Discharge Summary Discharge Summary: Date of Admission: 08/13/2018 Date of Discharge: 08/16/2018 Consults: ID Procedures: MRI Brain Followup: PCP, ID Hospital Course Problem List: 73yo M with history of lung cancer s/p left upper lobectomy, chemo and XRT complicated by radiation pneumonitis, COPD, chronic cough, recent daignosis of coronavirus on 07/30 presents from ID clinic with persistent cough, tachycardia, and generalized weakness. #Persistent cough: Diagnosed with coronavirus 2 weeks ago, possible he has some lingering inflammation. Exam not c/w copd exacerbation. No pneumonia. He is followed by circuit rider at [facility] for multifactorial chronic cough. - Duonebs - Patient refused prednisone, d/c - Influenza PCR negative on admission - Observed off antibiotics - Cough suppressants prn - ID consulted, recommend repeat Respiratory PCR which was again positive for Coronavirus - ENT consulted due to hoarseness on exam, s/p laryngoscopy which showed some vocal cord edema, no other significant findings #Tachycardia: Regular on exam. Suspect driven by dehydration. - Improved with IVF #Generalized weakness: Combination of dehydration, lack of sleep and lack of PO - Hydrate, encourage PO intake as able - PT/OT # Memory Loss - Patient reports he is not able to remember events from yesterday - reports this can happen with Baclofen, has been d/c - Ordered Brain MRI, negative for acute intracranial abnormality #COPD: Continue home inhalers #Atrial fibrillation: Regular on exam here. Continue dilatiazem, aspirin. #H/o lung cancer: S/p left upper lobectomy, chemo, XRT. Complicated by radiation pneumonitis and esophagitis. #CAD: On aspirin. Time spent on discharge was >35 minutes with >50% of time spent on patient education and counseling
--- NOTE | 2018-08-18 10:38 | ASMTCMCOM ---
CM Note CM Note Notes: 08/18/2018 Case Management Note At request of studio operations engineer in charge Ian and Aashish from Palliative team, faxed referral to [facility] for outpatient follow up. Aashish to call Ruth to arrange for care as an outpatient. Date Signed: 08/18/2018 10:38 AM Electronically Signed By:Radha Hunt RN
--- NOTE | 2018-08-18 10:39 | ASDISCHSUM ---
Discharge Information Plan Status:Home with No Needs Medically Cleared to Leave:08/16/2018 Discharge Date:08/16/2018 11:09 AM CM D/C Disposition:Home, Routine, Self-Care ADT D/C Disposition:Home, Routine, Self-Care Projected Discharge Date:08/16/2018 11:00 AM Transportation at D/C: Discharge Delay Reason: Follow-Up Date:08/16/2018 11:00 AM Discharge Slot: Final Diagnosis: Placement Information Referral Type:Palliative Care Referral ID:[id number] Provider Name:[facility] Address 1:[address] Phone Number: Address 2: Fax Number: City:[place] Selection Factors: State:[place] Patient Contact Information Contact Name:GABRIELLE Relationship: Address:[address] [address] City:[place] Alternate Phone: State/Zip Code:[place] [address] Email: Financial Information Financial Class:Medicare Primary Plan Desc:MEDICARE OUTPATIENT Primary Plan Number:[id number] Secondary Plan Desc:[employer]/MDR SUPPLEMENT Secondary Plan Number:[id number] Assessment Information LACE LACE Comorbidities - select Answers: Any tumor (including all that apply lymphoma or leukemia) Chronic pulmonary disease Coronary Artery Disease Opioid dependence / Chronic pain Other Notes: HTN; HLD; AFib # of Emergency department Answers: 5-8 visits in the last 6 months Score: 15 Date Signed: 08/14/2018 08:24 AM Electronically Signed By:Silvia Rosenbaum BC CM Progress Note CM Note CM Note Notes: Pt chart reviewed. Pt is a 73yr old adm with persistent cough, tachycardia and generalized weakness. 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 CM available for needs. PLAN: TBD Date Signed: 08/14/2018 09:15 AM Electronically Signed By:Belinda Stahl [facility] CM Progress Note CM Note CM Note Notes: Met with Pt and to left them know Palliative care will be contacting him tomorrow. Left a message for Pall Care with contact numbers. Pt has no needs at this time but CM available if needs arise. PLAN:Home Independently with . Date Signed: 08/16/2018 10:03 AM Electronically Signed By:Belinda Stahl [facility] CM Progress Note CM Note CM Note Notes: 08/18/2018 Case Management Note At request of auditor in charge Ian and Aashish from Palliative team, faxed referral to [facility] for outpatient follow up. Aashish to call [facility] to arrange for care as an outpatient. Date Signed: 08/18/2018 10:38 AM Electronically Signed By:Radha Hunt RN Intervention Information Intervention Type:*ARMANDO-Signed Date of Service:08/14/2018 10:44 AM Patient Type:Observation Staff Member:Silvia Rosenbaum Hours: Discipline: Severity: Comment:
== END 2018-08-16 11:09 | disposition home or self-care (01) ==
LOC: FIMAGING 13:38 → F1N 16:59
PROVIDERS: ADMIT Internal Medicine; ATTEND Internal Medicine
PROC: 0CJS8ZZ Inspection of Larynx, Via Natural or Artificial Opening Endoscopic (ICD-10-PCS; principal; 2018-08-13)
DX: B97.29 Other coronavirus as the cause of diseases classified elsewhere (principal); J44.9 Chronic obstructive pulmonary disease, unspecified; J70.0 Acute pulmonary manifestations due to radiation; R00.0 Tachycardia, unspecified; R53.1 Weakness; R41.3 Other amnesia; I48.91 Unspecified atrial fibrillation; I25.10 Atherosclerotic heart disease of native coronary artery without angina pectoris; W88.8XXA Exposure to other ionizing radiation, initial encounter; Z85.118 Personal history of other malignant neoplasm of bronchus and lung; Z90.2 Acquired absence of lung [part of]; Z95.5 Presence of coronary angioplasty implant and graft; Z87.891 Personal history of nicotine dependence
CPT/HCPCS: 31575; 70553; 71046; A9585; G0378; J1642; 82784-90; J7512

== ENCOUNTER → 2018-08-20 | Outpatient (CLI) | payer OTHER, MEDICARE | LOC: BHFA 11:30 | PROVIDERS: ATTEND Internal Medicine Interventional Cardiology | DX: I48.91 Unspecified atrial fibrillation (principal); I25.10 Atherosclerotic heart disease of native coronary artery without angina pectoris; I35.1 Nonrheumatic aortic (valve) insufficiency ==

== ENCOUNTER 2018-09-04 20:21 | Emergency (ER) | payer OTHER, MEDICARE ==
--- NOTE | 2018-09-04 21:02 | EDPHY ---
H & P Stated Complaint: CHILLS, ELEV WBC Time Seen by Provider: 09/04/18 20:40 HPI/ROS: CHIEF COMPLAINT: Chills, elevated white blood cell count HISTORY OF PRESENT ILLNESS: 73-year-old male with lung cancer in remission presents with chills and elevated white blood cell count. Ongoing cough for several weeks. Saw Dr. Piedra in the office today and was given IV normal saline 2 L for possible dehydration. Chest x-ray revealed no evidence of pneumonia. He was placed on Zithromax for possible pneumonia. White blood cell count in the office was 11. He returns tonight because of recurrent chills. He also had a mild headache just prior to arrival, now resolved. REVIEW OF SYSTEMS: complete 10 point ROS reviewed and is negative except for the noted elements in the HPI Source: Patient - Personal History Current Tetanus Diphtheria and Acellular Pertussis (TDAP): Yes - Medical/Surgical History Hx Asthma: No Hx Chronic Respiratory Disease: Yes Hx Diabetes: No Hx Cardiac Disease: Yes Hx Renal Disease: No Hx Cirrhosis: No Hx Alcoholism: No Hx HIV/AIDS: No Hx Splenectomy or Spleen Trauma: No Other PMH: pmh- htn, hyperlipemia, gout, non-small cell lung ca stage IIIA, cad , afib. psh- L lung resection 08/31/14, cardiac stents x2, back surgery, cholecystectomy, port removed 2016, left knee 2017 - Social History Smoking Status: Former smoker - Physical Exam Exam: General Appearance: Alert, pleasant, nontoxic appearing Eyes: Pupils equal and round, no conjunctival pallor or injection ENT, Mouth: Mucous membranes moist Neck: Normal inspection Respiratory: Rales left base Cardiovascular: Regular rate and rhythm Gastrointestinal: Abdomen is soft and nontender Neurological: A&O, nonfocal, normal gait Skin: Warm and dry Extremities: Normal inspection Psychiatric: Mood and affect normal Constitutional: Initial Vital Signs Temperature (C) 37.0 C 09/04/18 20:26 Heart Rate 92 09/04/18 20:26 Respiratory Rate 18 09/04/18 20:26 Blood Pressure 123/81 H 09/04/18 20:26 O2 Sat (%) 91 L 09/04/18 20:26 O2 Delivery Mode Room Air Allergies/Adverse Reactions: amlodipine Allergy (Verified 06/20/18 15:41) causes gout symptoms atorvastatin calcium [From Lipitor] Allergy (Verified 06/20/18 15:41) CHRONIC COUGHING ezetimibe [From Zetia] Allergy (Verified 06/20/18 15:41) causes gout symptoms lisinopril Allergy (Verified 06/20/18 15:41) muscle ache lorazepam Allergy (Verified 06/20/18 15:41) anger, memory issues losartan potassium [From Cozaar] Allergy (Verified 06/20/18 15:41) causes gout symptoms morphine Allergy (Verified 06/20/18 15:41) "URINARY RETENTION" per RN per pitavastatin calcium [From Livalo] Allergy (Verified 06/20/18 15:41) causes gout symptoms pravastatin Allergy (Verified 06/20/18 15:41) causes gout symptoms rosuvastatin calcium [From Crestor] Allergy (Verified 06/20/18 15:41) causes gout symptoms spironolactone Allergy (Verified 06/20/18 15:41) causes gout symptoms zolpidem [From Ambien] Allergy (Verified 06/20/18 15:41) agitation steroid injection Allergy (Uncoded 04/26/18 16:29) Red Man Syndrome Home Medications: Medication Instructions Recorded Allopurinol [Allopurinol 300 MG 300 mg PO DAILY 06/28/18 (RX)] Aspirin EC [Aspirin EC 81 mg (*)] 81 mg PO DAILY 06/28/18 Diltiazem HCl [Diltiazem 24Hr ER] 120 mg PO DAILY 06/28/18 Metoprolol Succinate Xr [Toprol Xl 50 mg PO DAILY 06/28/18 50 mg (*)] Budesonide/Formoterol Fumarate 1 puffs IH DAILY 08/13/18 [Symbicort 80-4.5 Mcg Inhaler] Latanoprost 0.005% [Xalatan 0.005% 1 drops RTEYE HS 08/13/18 (*)] Omeprazole 40 mg PO BIDAC 08/13/18 Ranitidine HCl 300 mg PO HS 08/13/18 Benzonatate [Tessalon Pearles] 200 mg PO TID PRN cap 08/16/18 Azithromycin 09/04/18 Medical Decision Making ED Course/Re-evaluation: This is a well-appearing patient who presents with chills and leukocytosis. Vital signs are normal and he does not meet SIRS criteria. Chest x-ray earlier today was unremarkable and he is already taking Zithromax. Declines respiratory swab. I do not feel that further ED evaluation is indicated this evening. He will continue taking Zithromax. Tylenol every 4 hr as needed for chills. Return for worsening symptoms or any concerns. Differential Diagnosis: Differential diagnosis includes pyelonephritis, cholecystitis, influenza, cellulitis, pneumonia, abscess, meningitis. Departure - Departure Disposition: Home, Routine, Self-Care Clinical Impression: Bronchitis Condition: Good Instructions: Acute Bronchitis (ED) Additional Instructions: Take Tylenol 650 mg every 4 hr as needed for fever or chills. Drink plenty of fluids. Return for worsening symptoms or any concerns. Referrals: Ana Lilia Abdi MD [Primary Care Provider] - As per Instructions
[2018-09-04 21:10] VITALS: BP 136/72
== END 2018-09-04 21:10 | disposition home or self-care (01) ==
DX: J40 Bronchitis, not specified as acute or chronic (principal); I10 Essential (primary) hypertension; E78.5 Hyperlipidemia, unspecified; C34.90 Malignant neoplasm of unspecified part of unspecified bronchus or lung; Z87.891 Personal history of nicotine dependence; Z95.5 Presence of coronary angioplasty implant and graft; Z90.49 Acquired absence of other specified parts of digestive tract

== ENCOUNTER → 2018-09-04 | Outpatient (CLI) | payer OTHER, MEDICARE | LOC: FIMAGING 12:09 | PROVIDERS: ATTEND Internal Medicine Infectious Disease | DX: R05 Cough (principal); Z90.2 Acquired absence of lung [part of] ==

== ENCOUNTER → 2018-11-12 | Outpatient (CLI) | payer OTHER, MEDICARE | LOC: FIMAGING 16:07 ==

== ENCOUNTER → 2018-11-16 | Outpatient (CLI) | payer OTHER, MEDICARE | LOC: BHFA 09:00 ==